=== PATIENT | female | born 1950 | race Caucasian/White ===

== ENCOUNTER → 2017-09-23 11:32 | Outpatient (CLI) | payer MEDICARE, MEDICAID, SELFPAY ==
[2017-09-23 12:25] LABS: Hematocrit 40.3 % (37-47); Hemoglobin 12.4 g/dl (12.0-15.0); Mean Corp Hgb Conc 30.8 g/gl (32-36); Mean Corpuscular Hgb 29.2 pg (27.0-32.0); Mean Platelet Vol. 9.4 fl (6.2-12.0); Platelet Count 332 K/mm3 (150-450); RBC Distribution Width CV 14.3 % (11.6-14.6); Red Blood Count 4.24 M/mm3 (4.2-5.4)
[2017-09-23 12:32] LABS: Scan Indicated on CBC? Y/N NO
[2017-09-23 13:01] LABS: Albumin, Serum 3.7 g/dL (3.2-5.0); BUN 10 mg/dL (7-18); BUN/Creat Ratio 12.1 RATIO (10-20); Calcium,Total 8.9 mg/dL (8.5-10.1); Chloride 105 mmol/L (98-107); Creatinine, Serum 0.82 mg/dL (0.55-1.02); EST Glomerular Filtration Rate 74 mL/min (>60); Est Glom Filt Rate - Afr Amer 90 mL/min (>60); Glucose 88 mg/dL (74-106); Phosphorus 3.7 mg/dL (2.5-4.9); Potassium 3.6 mmol/L (3.5-5.1); Sodium Level 141 mmol/L (136-145)
== END ==
PROVIDERS: Family Provider Family Medicine Geriatric Medicine; PCP Family Medicine Geriatric Medicine; Visit Provider Internal Medicine Nephrology
DX: N18.3 Chronic kidney disease, stage 3 (moderate) (principal); D64.9 Anemia, unspecified
CPT/HCPCS: 36415; 80069; 85027

== ENCOUNTER → 2017-09-30 14:44 | Outpatient (CLI) | payer MEDICARE, MEDICAID, SELFPAY ==
[2017-09-30 17:38] LABS: Absolute Lymphocyte Count 1.87 X10^3/ul (0.83-4.51); Absolute Neutrophil Count 7.3 X10^3/uL (2.0-7.7); Basophil# 0.03 X10^3/uL; Basophil% 0.3 % (0-1); Eosinophil# 0.09 X10^3/uL; Eosinophils% 0.9 % (0-5); Hematocrit 38.9 % (37-47); Hemoglobin 12.3 g/dl (12.0-15.0); Lymphocyte # 1.87 X10^3/ul (4.0); Lymphocyte % 19.2 % (19-41); Mean Corp Hgb Conc 31.6 g/gl (32-36); Mean Corpuscular Hgb 30.2 pg (27.0-32.0); Mean Corpuscular Volume 95.6 fL (81-99); Mean Platelet Vol. 9.7 fl (6.2-12.0); Monocyte# 0.48 X10^3/uL; Monocyte% 4.9 % (0-10); Neutrophil # 7.26 X10^3/uL (2.7-7.7); Neutrophil % 74.5 % (47-70); Platelet Count 338 K/mm3 (150-450); RBC Distribution Width SD 46.6 fl (35.1-43.9); Red Blood Count 4.07 M/mm3 (4.2-5.4); White Blood Count 9.8 K/mm3 (4.4-11.0)
[2017-09-30 17:54] LABS: POSITIVE COUNT NO; POSITIVE DIFFERENTIAL NO; POSITIVE MORPHOLOGY NO
[2017-09-30 18:10] LABS: ALB/GLOB Ratio 1.1 RATIO (0.9-2.4); AST(SGOT) 17 U/L (15-37); Alanine Aminotransfer ALT/SGPT 27 U/L (13-56); Albumin, Serum 3.4 g/dL (3.2-5.0); Alkaline Phosphatase 73 U/L (45-117); Anion Gap 7 (5-15); BUN 13 mg/dL (7-18); BUN/Creat Ratio 15.1 RATIO (10-20); Calcium,Total 8.5 mg/dL (8.5-10.1); Chloride 103 mmol/L (98-107); Creatinine, Serum 0.86 mg/dL (0.55-1.02); EST Glomerular Filtration Rate 70 mL/min (>60); Est Glom Filt Rate - Afr Amer 85 mL/min (>60); Globulin 3.2 g/dL (2.2-4.2); Glucose 116 mg/dL (74-106); Potassium 3.8 mmol/L (3.5-5.1); Protein, Total 6.6 g/dL (6.4-8.2); Sodium Level 140 mmol/L (136-145); Thyroid Stim Hormone (TSH) 0.29 uIU/mL (0.358-3.74)
[2017-10-01 09:12] LABS: Vitamin D,25 Hydroxy 24.2 ng/mL (19.95-100.01)
== END ==
PROVIDERS: Family Provider Family Medicine Geriatric Medicine; PCP Family Medicine Geriatric Medicine; Visit Provider Family Medicine Geriatric Medicine
DX: R53.83 Other fatigue (principal); E55.9 Vitamin D deficiency, unspecified
CPT/HCPCS: 36415; 80053; 82306; 84443; 85025

== ENCOUNTER → 2017-10-01 15:04 | Outpatient (CLI) | payer MEDICARE, MEDICAID, SELFPAY ==
--- NOTE | 2017-10-01 15:07 | RAD_ITS ---
STUDY: X-RAY - ABDOMEN/PELVIS REASON FOR EXAM: Female, 66 years old. Diarrhea TECHNIQUE: Single AP view of the abdomen / pelvis. COMPARISON: None. FINDINGS: Normal visualized lung bases. There are coronary arterial calcifications. There is an unremarkable bowel gas pattern. There is no demonstrated free abdominal air. There are multiple metallic clips in the right upper quadrant. This is consistent for a cholecystectomy. The visualized liver, spleen and kidneys are grossly normal in size and morphology. Normal soft tissue structures. There are diffuse degenerative changes of the visualized lumbar spine. RAD/Abdomen Single View IMPRESSION: Normal x-ray examination of the abdomen and pelvis. Electronically Signed: Behzad Gonsales MD at 18:09 EST , Service support ,
== END ==
PROVIDERS: Family Provider Family Medicine Geriatric Medicine; PCP Family Medicine Geriatric Medicine; Visit Provider Family Medicine Geriatric Medicine
DX: R19.7 Diarrhea, unspecified (principal)
CPT/HCPCS: 74018

== ENCOUNTER → 2017-10-02 08:47 | Outpatient (CLI) | payer MEDICARE, MEDICAID, SELFPAY | PROVIDERS: Family Provider Family Medicine Geriatric Medicine; PCP Family Medicine Geriatric Medicine; Visit Provider Family Medicine Geriatric Medicine | DX: R19.7 Diarrhea, unspecified (principal) | CPT/HCPCS: 82274; 83630; 87177; 87209; 87493; 87506 ==

== ENCOUNTER → 2017-11-20 09:48 | Outpatient (CLI) | payer MEDICARE, MEDICAID, SELFPAY ==
--- NOTE | 2017-11-20 09:55 | BD_ITS ---
STUDY: DUAL ENERGY X-RAY ABSORPTIOMETRY / DXA REASON FOR EXAM: Female, 66 years old. The patient is postmenopausal. Loss of height of 2.75 inches. TECHNIQUE: Bone Mineral Density (BMD) measurements of lumbar spine and bilateral hips were obtained. COMPARISON: None. FINDINGS: Lumbar Spine (L1-L4): g/cm2 (0.875) / T-score (-2.4) / Z-score (-0.8) Findings are suggestive of osteopenia with a moderate fracture risk. Left Femur Total: g/cm2 (0.912) / T-score (-0.8) / Z-score (0.4) Left Femoral Neck: g/cm2 (0.835) / T-score (-1.5) / Z-score (0.0) Right Femur Total: g/cm2 (0.846) / T-score (-1.3) / Z-score (-0.1) Right Femoral Neck: g/cm2 (0.802) / T-score (-1.7) / Z-score (-0.2) BD/Dexa Bone Density Study IMPRESSION: The patient is considered osteopenic as outlined below according to World [place] Organization (WHO) criteria with a moderate fracture risk. Reference Information: The T-score is the number of standard deviations above or below the standard which is normal for young adults at their peak bone mineral density. The World Health Organization (WHO) interprets the T-scores as follows: Above -1 Normal bone density Between -1 and -2.5 Osteopenia Equal to / or below -2.5 Osteoporosis As a practical clinical guideline, osteopenia may be graded as follows: Mild -1 through -1.5 Moderate -1.6 through -2.0 Severe -2.1 through -2.4 The Z-score is the number of standard deviations above or below age-matched controls. A Z-score of less than -1.5 would be considered abnormal. References: 1. NIH Osteoporosis and Related Bone Diseases http://www.osteo.org 2. International Society for Clinical Densitometry http://www.iscd.org 3. National Osteoporosis Foundation http://www.nof.org Electronically Signed: Wesley Pham MD at 15:56 EDT Tel [phone], Service support ,
== END ==
PROVIDERS: Family Provider Family Medicine Geriatric Medicine; PCP Family Medicine Geriatric Medicine; Visit Provider Family Medicine Geriatric Medicine
DX: Z78.0 Asymptomatic menopausal state (principal)
CPT/HCPCS: 77080

== ENCOUNTER → 2017-12-15 11:04 | Outpatient (CLI) | payer MEDICARE, MEDICAID, SELFPAY ==
[2017-12-15 12:41] LABS: Free T3 2.2 pg/mL (2.18-3.98); T4 Free Direct 1.03 ng/dL (0.76-1.46); Thyroid Stim Hormone (TSH) 0.72 uIU/mL (0.358-3.74)
== END ==
PROVIDERS: Family Provider Family Medicine Geriatric Medicine; PCP Family Medicine Geriatric Medicine; Visit Provider Nurse Practitioner
DX: E05.90 Thyrotoxicosis, unspecified without thyrotoxic crisis or storm (principal)
CPT/HCPCS: 36415; 84439; 84443; 84481

== ENCOUNTER → 2017-12-19 10:52 | Outpatient (CLI) | payer MEDICARE, MEDICAID, SELFPAY ==
--- NOTE | 2017-12-19 10:54 | US_ITS ---
STUDY: THYROID ULTRASOUND REASON FOR EXAM: Female, 67 years old. Thyrotoxicosis. Evaluate for Graves' disease. TECHNIQUE: Ultrasound evaluation of the thyroid was performed with real-time and static rosa-scale imaging. COMPARISON: None. FINDINGS: RIGHT LOBE: The right lobe of the thyroid gland measures 4.2 x 1.2 x 1.2 cm. There is a homogeneous echotexture. There are no demonstrated solid, cystic or complex lesions. LEFT LOBE: The left lobe of the thyroid gland measures 4.2 x 1.4 x 1.0 cm. There is a homogeneous echotexture. There are no demonstrated solid, cystic or complex lesions. ISTHMUS: The isthmus measures 2 mm. The regional lymph nodes are normal. US/Thyroid IMPRESSION: Normal ultrasound examination of the thyroid. One might consider further evaluation with nuclear medicine thyroid uptake and scan. Electronically Signed: Perez Moreno MD at 16:04 EDT , Service support ,
== END ==
PROVIDERS: Family Provider Family Medicine Geriatric Medicine; PCP Family Medicine Geriatric Medicine; Visit Provider Nurse Practitioner
DX: E05.90 Thyrotoxicosis, unspecified without thyrotoxic crisis or storm (principal)
CPT/HCPCS: 76536

== ENCOUNTER → 2018-01-02 10:50 | Outpatient (CLI) | payer MEDICARE, MEDICAID, SELFPAY ==
[2018-01-02 12:25] LABS: Absolute Lymphocyte Count 1.39 X10^3/ul (0.83-4.51); Absolute Neutrophil Count 7.3 X10^3/uL (2.0-7.7); Basophil# 0.05 X10^3/uL; Basophil% 0.5 % (0-1); Eosinophil# 0.11 X10^3/uL; Eosinophils% 1.2 % (0-5); Hematocrit 39.6 % (37-47); Hemoglobin 12.3 g/dl (12.0-15.0); Lymphocyte # 1.39 X10^3/ul (4.0); Lymphocyte % 14.7 % (19-41); Mean Corp Hgb Conc 31.1 g/gl (32-36); Mean Corpuscular Hgb 29.9 pg (27.0-32.0); Mean Corpuscular Volume 96.4 fL (81-99); Mean Platelet Vol. 9.2 fl (6.2-12.0); Monocyte# 0.59 X10^3/uL; Monocyte% 6.3 % (0-10); Neutrophil # 7.28 X10^3/uL (2.7-7.7); Neutrophil % 77.1 % (47-70); Platelet Count 372 K/mm3 (150-450); RBC Distribution Width CV 13.8 % (11.6-14.6); RBC Distribution Width SD 46.8 fl (35.1-43.9); Red Blood Count 4.11 M/mm3 (4.2-5.4); White Blood Count 9.4 K/mm3 (4.4-11.0)
[2018-01-02 12:31] LABS: POSITIVE COUNT NO; POSITIVE DIFFERENTIAL NO; POSITIVE MORPHOLOGY NO
[2018-01-02 12:42] LABS: Vitamin D,25 Hydroxy 36.9 ng/mL (29.95-100.01)
[2018-01-02 13:23] LABS: ALB/GLOB Ratio 1.1 RATIO (0.9-2.4); AST(SGOT) 15 U/L (15-37); Alanine Aminotransfer ALT/SGPT 21 U/L (13-56); Albumin, Serum 3.8 g/dL (3.2-5.0); Alkaline Phosphatase 84 U/L (45-117); Anion Gap 5 (5-15); BUN 12 mg/dL (7-18); BUN/Creat Ratio 13.1 RATIO (10-20); Calcium,Total 8.7 mg/dL (8.5-10.1); Chloride 106 mmol/L (98-107); Creatinine, Serum 0.92 mg/dL (0.55-1.02); EST Glomerular Filtration Rate 65 mL/min (>60); Est Glom Filt Rate - Afr Amer 79 mL/min (>60); Globulin 3.4 g/dL (2.2-4.2); Glucose 87 mg/dL (74-106); Potassium 3.5 mmol/L (3.5-5.1); Protein, Total 7.2 g/dL (6.4-8.2); Sodium Level 139 mmol/L (136-145)
== END ==
PROVIDERS: Family Provider Family Medicine Geriatric Medicine; PCP Family Medicine Geriatric Medicine; Visit Provider Family Medicine Geriatric Medicine
DX: R53.83 Other fatigue (principal); E55.9 Vitamin D deficiency, unspecified
CPT/HCPCS: 36415; 80053; 82306; 84443; 85025

== ENCOUNTER → 2018-02-04 16:53 | Outpatient (CLI) | payer MEDICARE, MEDICAID, SELFPAY ==
--- NOTE | 2018-02-04 16:57 | RAD_ITS ---
STUDY: X-RAY CHEST REASON FOR EXAM: Female, 67 years old. Bronchitis symptoms x3-4 days TECHNIQUE: PA and lateral views of the chest. COMPARISON: None. FINDINGS: The lungs are clear and expanded. There is no demonstrated pleural abnormality. Normal size heart. Normal mediastinum and rolf. Normal visualized pulmonary arteries. There are calcified plaques of the aortic arch. Normal visualized thoracic spine. Normal visualized ribs, clavicles, and shoulders. There is no demonstrated abnormality of the visualized soft tissue structures of the upper abdomen. RAD/Chest PA and Lateral IMPRESSION: Calcified plaques of the aortic arch. No acute cardiopulmonary disease process is seen. Electronically Signed: Javier Suazo MD at 17:23 EDT , Service support ,
== END ==
PROVIDERS: Family Provider Family Medicine Geriatric Medicine; PCP Family Medicine Geriatric Medicine; Visit Provider Family Medicine Geriatric Medicine
DX: J40 Bronchitis, not specified as acute or chronic (principal); R68.83 Chills (without fever)
CPT/HCPCS: 71046; 87633

== ENCOUNTER → 2018-03-24 10:25 | Outpatient (CLI) | payer MEDICARE, MEDICAID, SELFPAY ==
[2018-03-24 11:59] LABS: Albumin, Serum 3.6 g/dL (3.2-5.0); BUN 16 mg/dL (7-18); BUN/Creat Ratio 18.3 RATIO (10-20); Chloride 105 mmol/L (98-107); Creatinine, Serum 0.87 mg/dL (0.55-1.02); EST Glomerular Filtration Rate 69 mL/min (>60); Est Glom Filt Rate - Afr Amer 84 mL/min (>60); Glucose 92 mg/dL (74-106); Phosphorus 2.8 mg/dL (2.5-4.9); Potassium 3.7 mmol/L (3.5-5.1); Sodium Level 140 mmol/L (136-145)
== END ==
PROVIDERS: Family Provider Family Medicine Geriatric Medicine; PCP Family Medicine Geriatric Medicine; Visit Provider Internal Medicine Nephrology
DX: N18.3 Chronic kidney disease, stage 3 (moderate) (principal)
CPT/HCPCS: 36415; 80069

== ENCOUNTER → 2018-03-25 09:49 | Outpatient (CLI) | payer MEDICARE, MEDICAID, SELFPAY ==
--- NOTE | 2018-03-25 09:51 | US_ITS ---
STUDY: RENAL ULTRASOUND - COMPLETE REASON FOR EXAM: Female, 67 years old. Angiomyolipoma of the left kidney TECHNIQUE: Ultrasound evaluation of the kidneys was performed with real-time and static aguirre-scale imaging. COMPARISON: Ultrasound from 08/15/2017, CT abdomen and pelvis of 12/16/2012 FINDINGS: RIGHT KIDNEY: Normal location of the right kidney, which is normal in size. The right kidney measures 10.9 x 5.2 x 4.8 cm. There is diffuse thinning of the renal cortex. The renal cortex measures 1.1 cm. There is no right renal mass or cyst. There are no right renal calculi. There is no right hydronephrosis. DISTAL RIGHT URETER: There is non-visualization of the distal right ureter. There is no demonstrated right ureterovesical junction calculus. There is a visualized right ureteral jet. LEFT KIDNEY: Normal location of the left kidney, which is normal in size. The left kidney measures 11.8 x 5.1 x 6.2 cm. There is diffuse thinning of the renal cortex. The renal cortex measures 1.1 cm. There is a 1.4 x 1.4 cm heterogeneous, predominantly hypoechoic mass of the left lateral mid kidney, correlating to lesion evident on prior CT of 2012. There is central increased echogenicity that could represent fatty tissue. There are no left renal calculi. There is no left hydronephrosis. DISTAL LEFT URETER: There is non-visualization of the distal left ureter. There is no demonstrated left ureterovesical junction calculus. There is a visualized left ureteral jet. BLADDER: The distended urinary bladder has a volume of 331 ml. There is a normal wall thickness of the distended urinary bladder. There is no demonstrated mass within the urinary bladder. There are no demonstrated bladder calculi. US/Kidney and Bladder IMPRESSION: 1. Grossly stable mixed echogenicity lesion of the left lateral mid kidney compatible with angiomyolipoma given probable central echogenic fat. 2. Bilateral renal cortical thinning suggesting chronic medical renal disease. Electronically Signed: Rafa Todd MD at 17:32 EDT , Service support ,
== END ==
PROVIDERS: Family Provider Family Medicine Geriatric Medicine; PCP Family Medicine Geriatric Medicine; Visit Provider Internal Medicine Nephrology
DX: D17.71 Benign lipomatous neoplasm of kidney (principal)
CPT/HCPCS: 76770

== ENCOUNTER → 2018-04-10 10:38 | Outpatient (CLI) | payer MEDICARE, MEDICAID, SELFPAY ==
[2018-04-10 12:56] LABS: Absolute Neutrophil Count 5.9 X10^3/uL (2.0-7.7); Basophil# 0.04 X10^3/uL; Basophil% 0.5 % (0-1); Eosinophil# 0.13 X10^3/uL; Eosinophils% 1.5 % (0-5); Hematocrit 40.9 % (37-47); Hemoglobin 12.7 g/dl (12.0-15.0); Mean Corp Hgb Conc 31.1 g/gl (32-36); Mean Corpuscular Hgb 29.9 pg (27.0-32.0); Mean Corpuscular Volume 96.2 fL (81-99); Mean Platelet Vol. 9.1 fl (6.2-12.0); Monocyte# 0.69 X10^3/uL; Monocyte% 8.1 % (0-10); Neutrophil # 5.94 X10^3/uL (2.7-7.7); Neutrophil % 69.8 % (47-70); Platelet Count 323 K/mm3 (150-450); RBC Distribution Width CV 14.3 % (11.6-14.6); Red Blood Count 4.25 M/mm3 (4.2-5.4); White Blood Count 8.5 K/mm3 (4.4-11.0)
[2018-04-10 12:59] LABS: POSITIVE COUNT NO; POSITIVE DIFFERENTIAL NO; POSITIVE MORPHOLOGY NO
[2018-04-10 13:18] LABS: Vitamin D,25 Hydroxy 26.2 ng/mL (29.95-100.01)
[2018-04-10 13:19] LABS: ALB/GLOB Ratio 1.2 RATIO (0.9-2.4); AST(SGOT) 19 U/L (15-37); Alanine Aminotransfer ALT/SGPT 28 U/L (13-56); Albumin, Serum 3.6 g/dL (3.2-5.0); Alkaline Phosphatase 68 U/L (45-117); Anion Gap 8 (5-15); BUN 13 mg/dL (7-18); BUN/Creat Ratio 14.3 RATIO (10-20); Chloride 106 mmol/L (98-107); Creatinine, Serum 0.91 mg/dL (0.55-1.02); EST Glomerular Filtration Rate 66 mL/min (>60); Est Glom Filt Rate - Afr Amer 80 mL/min (>60); Globulin 3.1 g/dL (2.2-4.2); Glucose 91 mg/dL (74-106); Potassium 3.7 mmol/L (3.5-5.1); Protein, Total 6.7 g/dL (6.4-8.2); Sodium Level 142 mmol/L (136-145); Thyroid Stim Hormone (TSH) 0.96 uIU/mL (0.358-3.74)
== END ==
PROVIDERS: Family Provider Family Medicine Geriatric Medicine; PCP Family Medicine Geriatric Medicine; Visit Provider Family Medicine Geriatric Medicine
DX: R53.83 Other fatigue (principal); E55.9 Vitamin D deficiency, unspecified
CPT/HCPCS: 36415; 80053; 82306; 84443; 85025

== ENCOUNTER 2018-05-12 22:16 | Emergency (ER) | payer MEDICARE, SELFPAY ==
[2018-05-12 22:17] VITALS: BP 153/90; PULSE 92; RESP 16; TEMP 36.4; O2SAT 97; BMI 35.1
--- NOTE | 2018-05-12 22:35 | EKG12_ITS ---
Test Reason : SUICIDAL Blood Pressure : / mmHG Vent. Rate : 079 BPM Atrial Rate : 079 BPM P-R Int : 144 ms QRS Dur : 088 ms QT Int : 362 ms P-R-T Axes : 046 021 031 degrees QTc Int : 415 ms Poor data quality, interpretation may be adversely affected Normal sinus rhythm Normal ECG Confirmed by NICA LUCAS, SIM ([id number]), assignment desk editor DAISHA RING ([id number] on 05/15/2018 2:21:57 PM Referred By: GIORGI Confirmed By:SIM YOUSIF MD
--- NOTE | 2018-05-12 22:51 | ED.RN ---
PT HAS CONTINUOUS SITTER AT BEDSIDE.
[2018-05-12 23:00] LABS: Bacteria 0 SEEN /hpf (None Seen); Mucous, Urine 0 SEEN /hpf (<or=2+); Red Blood Cells-Urine 0 SEEN /hpf (0-5); Squamous Epithelial Cells - UA 0 SEEN /hpf (5-10); White Blood Cells 0 SEEN /hpf (0-5)
[2018-05-12 23:05] LABS: Absolute Lymphocyte Count 2.64 X10^3/ul (0.83-4.51); Absolute Neutrophil Count 5.1 X10^3/uL (2.0-7.7); Basophil# 0.02 X10^3/uL; Basophil% 0.2 % (0-1); Eosinophil# 0.16 X10^3/uL; Eosinophils% 1.9 % (0-5); Hematocrit 39.1 % (37-47); Hemoglobin 12.4 g/dl (12.0-15.0); Lymphocyte # 2.64 X10^3/ul (4.0); Lymphocyte % 30.9 % (19-41); Mean Corp Hgb Conc 31.7 g/gl (32-36); Mean Corpuscular Hgb 30.2 pg (27.0-32.0); Mean Corpuscular Volume 95.4 fL (81-99); Mean Platelet Vol. 8.6 fl (6.2-12.0); Monocyte# 0.56 X10^3/uL; Monocyte% 6.6 % (0-10); Neutrophil # 5.14 X10^3/uL (2.7-7.7); Neutrophil % 60.2 % (47-70); Platelet Count 324 K/mm3 (150-450); RBC Distribution Width CV 14.4 % (11.6-14.6); RBC Distribution Width SD 49.7 fl (35.1-43.9); White Blood Count 8.5 K/mm3 (4.4-11.0)
[2018-05-12 23:07] LABS: POSITIVE COUNT NO; POSITIVE DIFFERENTIAL NO; POSITIVE MORPHOLOGY NO
[2018-05-12 23:35] LABS: Amphetamine Urine VISTA NEGATIVE (<1000 ng/mL); Barbiturate Urine VISTA POSITIVE (< 200 ng/mL); Benzodiazepine Urine VISTA NEGATIVE (< 200 ng/mL); Cocaine Urine VISTA NEGATIVE (< 300 ng/mL); Ecstacy Urine VISTA NEGATIVE (< 500 ng/mL); Methadone Urine VISTA NEGATIVE (< 300 ng/mL); PCP Urine VISTA NEGATIVE (< 25 ng/mL); THC Urine VISTA NEGATIVE (< 50 ng/mL); Vista UDS pH Range 6
[2018-05-12 23:35] LABS: Anion Gap 6 (5-15); BUN 15 mg/dL (7-18); Chloride 106 mmol/L (98-107); EST Glomerular Filtration Rate 59 mL/min (>60); Est Glom Filt Rate - Afr Amer 72 mL/min (>60); Glucose 146 mg/dL (74-106); Potassium 3.4 mmol/L (3.5-5.1); Sodium Level 141 mmol/L (136-145); Thyroid Stim Hormone (TSH) 2.65 uIU/mL (0.358-3.74)
[2018-05-12 23:41] LABS: Color, Urine Yellow (Yellow); Glucose, Dipstick Normal (Normal); Ketone-Dipstick Negative (Negative); Leukocyte Esterase-Dipstick Negative /ul (Negative); Nitrite-Dipstick Negative (Negative); Occult Blood-Urine Negative /ul (Negative); Protein-Dipstick Negative (Negative); Urine Bilirubin Dipstick Negative (Negative); Urine Clarity Clear (Clear); Urine Urobilinogen Normal (Normal)
[2018-05-13] VITALS (7 sets, daily range): BP systolic 145–153; BP diastolic 57–66; PULSE 61–68; RESP 16–18; TEMP 36.7; O2SAT 96
--- NOTE | 2018-05-13 03:59 | ED.VISSUMM ---
- ER Visit Summary Date of Service: 05/13/18 Chief Complaint: Depression and suicidal ideation History of Present Illness: The patient is a 67 F who presents with depression and suicidal ideation. She does have a history of long-standing depression and prior psychiatric admission for suicidal thoughts. She states that than last week she has suddenly felt much more suicidal. She does not know why. She cannot identify any specific exacerbating factors. She is considered overdosing on medication or jumping off of she denies recent medical illness such as fever chest pain shortness of breath vomiting diarrhea rashes headaches. Physical Examination: Afebrile vitals unremarkable Moist mucous membranes Heart regular rate and rhythm Lungs are clear Abdomen soft Alert Patient appears depressed and does endorse suicidal thoughts with plan Test Results: EKG shows sinus rhythm at a rate of 79. CBC BMP unremarkable. Urine drug screen positive for barbiturates. Alcohol normal. Urinalysis normal. Emergency Department Course and Treatment: Patient's medical clearance is unremarkable. Given the patient is suicidal with plan I do feel she will need transferred for psychiatric hospitalization. Crisis is evaluating the patient. Final disposition will be per their evaluation. Treatment Plan: [] Disposition: Transfer pending crisis evaluation Impression: Suicidal ideation This note was generated with [employer]ov[employer] dictation software. It may contain incorrect words, spelling, and punctuation that were not noted in review of the chart prior to signing ED Disposition - Plan for ED Patient: Chief Complaint: Suicidal Referrals: Tanvir Shea Chi, MD [Primary Care Provider] -
--- NOTE | 2018-05-13 04:15 | RAD_ITS ---
STUDY: X-RAY CHEST REASON FOR EXAM: Female, 67 years old. Medical clearance TECHNIQUE: 2 views COMPARISON: February 04, 2018 FINDINGS: The lungs are clear and expanded. There is no demonstrated pleural abnormality. Normal size heart. Normal mediastinum and rolf. Normal visualized pulmonary arteries. Normal visualized aortic arch and descending thoracic aorta. Normal visualized thoracic spine. Normal visualized ribs, clavicles, and shoulders. There is no demonstrated abnormality of the visualized soft tissue structures of the upper abdomen. RAD/Chest PA and Lateral IMPRESSION: Normal x-ray examination of the chest. No acute findings in the lungs Electronically Signed: Gavino Morrison MD at 4:29 EDT Tel , Service support ,
--- NOTE | 2018-05-13 07:29 | NURSING ---
[facility] FOR TRANSPORT. ETA IS [phone]
[2018-05-13] MEDS: Magnesium Oxide 400 MG Tablet PO (08:14)
[2018-05-13] MEDS: lamoTRIgine 100 MG Tablet 200 MG PO (08:14)
[2018-05-13] MEDS: predniSONE 5 MG Tablet PO (08:14)
[2018-05-13] MEDS: Levothyroxine 50 MCG Tablet PO (08:14)
[2018-05-13] MEDS: VILAZODONE HYDROCHLORIDE 40 MG TABLET PO (08:14)
[2018-05-13] MEDS: Cholestyramine/Sucrose 4 GM/PACKET PO ×2 (08:14→10:00)
[2018-05-13] MEDS: Topiramate 100 MG Tablet PO (08:14)
[2018-05-13] MEDS: ARIPiprazole 10 MG Tablet 30 MG PO (08:15)
== END 2018-05-13 10:04 ==
PROVIDERS: Emergency Provider Emergency Medicine; Family Provider Family Medicine Geriatric Medicine; PCP Family Medicine Geriatric Medicine
DX: R45.851 Suicidal ideations (principal); F32.9 Major depressive disorder, single episode, unspecified; J44.9 Chronic obstructive pulmonary disease, unspecified; F41.9 Anxiety disorder, unspecified; M35.3 Polymyalgia rheumatica; Z72.0 Tobacco use
CPT/HCPCS: 71046; 80048; 80307; 80320; 81001; 84443; 85025; 93005; 99285; G0480

== ENCOUNTER → 2018-06-09 16:19 | Outpatient (CLI) | payer MEDICARE, SELFPAY | PROVIDERS: Family Provider Family Medicine Geriatric Medicine; PCP Family Medicine Geriatric Medicine; Visit Provider Family Medicine Geriatric Medicine | DX: N39.0 Urinary tract infection, site not specified (principal) | CPT/HCPCS: 36415; 87086; 87088 ==

== ENCOUNTER → 2018-06-18 09:50 | Outpatient (CLI) | payer MEDICARE, SELFPAY | PROVIDERS: Family Provider Family Medicine Geriatric Medicine; PCP Family Medicine Geriatric Medicine; Referring Provider Otolaryngology Otolaryngology/Facial Plastic Surgery; Visit Provider Otolaryngology Otolaryngology/Facial Plastic Surgery | DX: B37.9 Candidiasis, unspecified (principal) | CPT/HCPCS: 87070 ==

== ENCOUNTER → 2018-07-20 09:43 | Outpatient (CLI) | payer MEDICARE, SELFPAY ==
[2018-07-20 12:30] LABS: Absolute Lymphocyte Count 1.65 X10^3/ul (0.83-4.51); Absolute Neutrophil Count 7.7 X10^3/uL (2.0-7.7); Basophil# 0.03 X10^3/uL; Basophil% 0.3 % (0-1); Eosinophil# 0.09 X10^3/uL; Eosinophils% 0.9 % (0-5); Hematocrit 41.1 % (37-47); Hemoglobin 12.6 g/dl (12.0-15.0); Lymphocyte # 1.65 X10^3/ul (4.0); Lymphocyte % 15.9 % (19-41); Mean Corp Hgb Conc 30.7 g/gl (32-36); Mean Corpuscular Hgb 29.1 pg (27.0-32.0); Mean Corpuscular Volume 94.9 fL (81-99); Mean Platelet Vol. 9.1 fl (6.2-12.0); Monocyte# 0.89 X10^3/uL; Monocyte% 8.6 % (0-10); Neutrophil # 7.69 X10^3/uL (2.7-7.7); Neutrophil % 74.1 % (47-70); Platelet Count 409 K/mm3 (150-450); RBC Distribution Width CV 13.3 % (11.6-14.6); RBC Distribution Width SD 46.4 fl (35.1-43.9); Red Blood Count 4.33 M/mm3 (4.2-5.4); White Blood Count 10.4 K/mm3 (4.4-11.0)
[2018-07-20 12:36] LABS: POSITIVE COUNT NO; POSITIVE DIFFERENTIAL NO; POSITIVE MORPHOLOGY NO
[2018-07-20 12:44] LABS: Vitamin D,25 Hydroxy 32.4 ng/mL (29.95-100.01)
[2018-07-20 12:54] LABS: AST(SGOT) 16 U/L (15-37); Alanine Aminotransfer ALT/SGPT 26 U/L (13-56); Albumin, Serum 3.7 g/dL (3.2-5.0); Alkaline Phosphatase 89 U/L (45-117); Anion Gap 8 (5-15); BUN 16 mg/dL (7-18); BUN/Creat Ratio 16.6 RATIO (10-20); Chloride 105 mmol/L (98-107); Creatinine, Serum 0.96 mg/dL (0.55-1.02); EST Glomerular Filtration Rate 62 mL/min (>60); Est Glom Filt Rate - Afr Amer 75 mL/min (>60); Globulin 3.6 g/dL (2.2-4.2); Glucose 118 mg/dL (74-106); Potassium 3.8 mmol/L (3.5-5.1); Protein, Total 7.3 g/dL (6.4-8.2); Sodium Level 141 mmol/L (136-145); Thyroid Stim Hormone (TSH) 1.11 uIU/mL (0.358-3.74)
--- OUTSIDE RECORDS SUMMARY | 2018-09-12 14:17 | XMS RPT_ITS ---
:1950 Author Organization OHIP Support Name Relationship Address Phone SEBLE HOLLAND Unavailable [address] + [place] [address] JAIME HOLLAND Unavailable [address] + [place] [address] R Unavailable Unavailable Unavailable SKYLERDONNA KEYESISSA Unavailable [address] + [place] [address] JAIME HOLLAND Unavailable [address] + [place] [address] R Unavailable Unavailable Unavailable SKYLER, SEBLE Unavailable [address] + [place] [address] JAIME HOLLAND Unavailable [address] + [place] [address] R Unavailable Unavailable Unavailable SKYLER, SEBLE Unavailable [address] + [place] [address] JAIME HOLLAND Unavailable [address] + [place] [address] R Unavailable Unavailable Unavailable SKYLER, SEBLE Unavailable [address] + [place] [address] SKYLERJAIME Unavailable [address] + [place] [address] R Unavailable Unavailable Unavailable SKYLER, SEBLE Unavailable [address] + [place] [address] LUIS HOLLANDEW Unavailable [address] + [place] [address] R Unavailable Unavailable Unavailable SKYLER, SEBLE Unavailable [address] + [place] [address] JAIME HOLLAND Unavailable [address] + [place] [address] R Unavailable Unavailable Unavailable SKYLER, SEBLE Unavailable [address] + [place] [address] JAIME HOLLAND Unavailable [address] + [place] [address] R Unavailable Unavailable Unavailable SKYLER, SEBLE Unavailable [address] + [place] [place] [address] JAIME HOLLAND Unavailable [address] + [place] [address] D Unavailable Unavailable Unavailable SKYLER, SEBLE Unavailable [address] + [facility] [place] [address] JAIME HOLLAND Unavailable [address] + [place] [address] R Unavailable Unavailable Unavailable SKYLER, SEBLE Unavailable [address] + [facility] [address] JAIME HOLLAND Unavailable [address] + [place] [address] R Unavailable Unavailable Unavailable SKYLER, SEBLE Unavailable [address] + [facility] [place] [address] JAIME HOLLAND Unavailable [address] + [place] [address] R Unavailable Unavailable Unavailable SKYLER, SEBLE Unavailable [address] + [facility] [place] [address] JAIME HOLLAND Unavailable [address] + [place] [address] D Unavailable Unavailable Unavailable SKYLER, SEBLE Unavailable [address] + [place] [address] JAIME HOLLAND Unavailable [address] + [place] [address] D Unavailable Unavailable Unavailable SKYLER, SEBLE Unavailable [address] + [facility] [place] [address] JAIME HOLLAND Unavailable [address] + [place] [address] D Unavailable Unavailable Unavailable SKYLER, SEBLE Unavailable [address] + [facility] [place] JAIME HOLLAND Unavailable [address] + [place] [address] D Unavailable Unavailable Unavailable SKYLER, SEBLE Unavailable [address] + [facility] [place] JAIME HOLLAND Unavailable [address] + [place] [address] D Unavailable Unavailable Unavailable SKYLER, SEBLE Unavailable [address] + [place] JAIME HOLLAND Unavailable [address] + [place] [address] D Unavailable Unavailable Unavailable SKYLER, SEBLE Unavailable [address] + [place] JAIME HOLLAND Unavailable [address] + [place] [address] D Unavailable Unavailable Unavailable SKYLER, SEBLE Unavailable [address] + [place] LUIS HOLLANDEW Unavailable [address] + [place] [address] D Unavailable Unavailable Unavailable SKYLER, SEBLE Unavailable [address] + [place] JAIME HOLLAND Unavailable [address] + [place] [address] D Unavailable Unavailable Unavailable SKYLER, SEBLE Unavailable [address] + [place] JAIME HOLLAND Unavailable [address] + [place] [address] D Unavailable Unavailable Unavailable SKYLER, SEBLE Unavailable [address] + [place] JAIME HOLLAND Unavailable [address] + [place] [address] D Unavailable Unavailable Unavailable SKYLER, SEBLE Unavailable . + [place] . JAIME HOLLAND Unavailable [address] + [place] [address] D Unavailable Unavailable Unavailable SKYLER, SEBLE Unavailable . + [place] . JAIME HOLLAND Unavailable [address] + [place] [address] D Unavailable Unavailable Unavailable Care Team Providers Name Role Phone Shabbir, Tanvir Chi Primary Care Unavailable Katie Peoples Attending Unavailable Katie Peoples Attending Unavailable Shabbir, Tanvir Chi Primary Care Unavailable Shabbir, Tanvir Chi Attending Unavailable Shabbir, Tanvir Chi Primary Care Unavailable Shabbir, Tanvir Chi Referring Unavailable Shabbir, Tanvir Chi Attending Unavailable Shabbir, Tanvir Chi Primary Care Unavailable Shabbir, Tanvir Chi Attending Unavailable Shabbir, Tanvir Chi Referring Unavailable Shabbir, Tanvir Chi Primary Care Unavailable Shabbir, Tanvir Chi Attending Unavailable Shabbir, Tanvir Chi Primary Care Unavailable Shelton, Katie Attending Unavailable Shabbir, Tanvir Chi Primary Care Unavailable Shelton, Katie Referring Unavailable Shabbir, Tanvir Chi Attending Unavailable Shabbir, Tanvir Chi Primary Care Unavailable Shabbir, Tanvir Chi Attending Unavailable Shabbir, Tanvir Chi Referring Unavailable Shabbir, Tanvir Chi Primary Care Unavailable Shabbir, Tanvir Chi Attending Unavailable Shabbir, Tanvir Chi Referring Unavailable Shabbir, Tanvir Chi Primary Care Unavailable Reyna Pemberton Attending Unavailable Shabbir, Tanvir Chi Referring Unavailable Shabbir, Tanvir Chi Attending Unavailable Shabbir, Tanvir Chi Referring Unavailable Shabbir, Tanvir Chi Primary Care Unavailable ShoLin alvarez CRAB FISHER-C Attending Unavailable Shabbir, Tanvir Chi Referring Unavailable Shabbir, Tanvir Chi Primary Care Unavailable ShoLin alvarez CRAB FISHER-C Attending Unavailable ShookLin CRAB FISHER-C Referring Unavailable Shabbir, Tanvir Chi Primary Care Unavailable ShoLin alvarez CRAB FISHER-C Attending Unavailable ShookLin CRAB FISHER-C Referring Unavailable Shabbir, Tanvir Chi Primary Care Unavailable Shabbir, Tanvir Chi Attending Unavailable Shabbir, Tanvir Chi Primary Care Unavailable Lin Hollis CRAB FISHER-C Attending Unavailable Shabbir, Tanvir Chi Referring Unavailable Shabbir, Tanvir Chi Attending Unavailable Shabbir, Tanvir Chi Referring Unavailable Shabbir, Tanvir Chi Primary Care Unavailable Shelton, Katie Attending Unavailable Shabbir, Tanvir Chi Primary Care Unavailable Shelton, Katie Referring Unavailable Shelton, Katie Attending Unavailable Shelton, Katie Referring Unavailable Shabbir, Tanvir Chi Primary Care Unavailable Shabbir, Tanvir Chi Attending Unavailable Shabbir, Tanvir Chi Primary Care Unavailable Shabbir, Tanvir Chi Primary Care Unavailable Jean Celis Attending Unavailable Shabbir, Tanvir Chi Attending Unavailable Shabbir, Tanvir Chi Primary Care Unavailable AriaJelani Attending Unavailable Aria, Jelani Referring Unavailable Shabbir, Tanvir Chi Primary Care Unavailable Shabbir, Tanvir Chi Attending Unavailable Shabbir, Tanvir Chi Primary Care Unavailable PROBLEMS PROBLEMS DATE TYPE CONDITION / CODE ATTENDING STATUS SOURCE 06/15/2018 Unknown N39.0 - Urinary Shabbir, Tanvir Chi Active [facility] tract infection, Community site not Hospital specified / Repository N39.0(ICD-10) 06/15/2018 Unknown F32.9 - Major LalitaJean young Active [facility] depressive Community disorder, single Hospital episode, Repository unspecified / F32.9(ICD-10) 04/07/2018 Unknown J40 - Bronchitis, Shabbir, Tanvir Chi Active [facility] not specified as Community acute or chronic Hospital / J40(ICD-10) Repository 04/07/2018 Unknown R53.83 - Other Shabbir, Tanvir Chi Active [facility] fatigue / Community R53.83(ICD-10) Hospital Repository 04/07/2018 Unknown E05.90 - Lin Hollis Active [facility] Thyrotoxicosis, CRAB FISHER-C Community unspecified Hospital without Repository thyrotoxic crisis or storm / E05.90(ICD-10) 12/15/2017 Unknown E78.5 - Lin Hollis Active [facility] Hyperlipidemia, CRAB FISHER-C Community unspecified / Hospital E78.5(ICD-10) Repository 10/02/2017 Unknown R19.7 - Diarrhea, Shabbir Tanvir Chi Active [facility] unspecified / Community R19.7(ICD-10) Hospital Repository 09/23/2017 Unknown N18.3 - Chronic Katie Peoples Active [facility] kidney disease, Community stage 3 Hospital (moderate) / Repository N18.3(ICD-10) 09/23/2017 Unknown D64.9 - Anemia, Katie Peoples Active [facility] unspecified / Community D64.9(ICD-10) Hospital Repository 09/08/2017 Unknown Z12.31 - Shabbir, Tanvir Chi Active [facility] Encounter for Community screening Hospital mammogram for Repository malignant neoplasm of breast / Z12.31(ICD-10) 08/21/2017 Unknown D50.9 - Iron Shabbir, Tnavir Chi Active [facility] deficiency Community anemia, Hospital unspecified / Repository D50.9(ICD-10) 08/21/2017 Unknown R25.9 - Shabbir, Tanvir Chi Active [facility] Unspecified Community abnormal Hospital involuntary Repository movements / R25.9(ICD-10) PROCEDURES PROCEDURES No Procedure Records FoundRESULTS RESULTS CBC W/DIFF, AUTOMATED Collected: 07/20/2018 Status: F Source: [facility] TYPE CODE TESTS RESULT OUT OF RANGE REFERENCE UNITS LAB L100.1000 4.4-11.0 K/mm3 Normal WBC 10.4 LAB L100.1200 4.2-5.4 M/mm3 Normal RBC 4.33 LAB L100.1300 12.0-15.0 g/dl Normal HGB 12.6 LAB L100.1400 37-47 % Normal HCT 41.1 LAB L100.1500 81-99 fL Normal MCV 94.9 LAB L100.1600 27.0-32.0 pg Normal MCH 29.1 LAB L100.1700 32-36 g/gl Low MCHC 30.7 LAB L100.1810 11.6-14.6 % Normal RDW CV 13.3 LAB L100.1820 35.1-43.9 fl High RDW SD 46.4 LAB L100.1900 150-450 K/mm3 Normal PLT 409 LAB L100.2000 6.2-12.0 fl Normal MPV 9.1 LAB L100.2100 47-70 % High NEUT% 74.1 LAB L100.2200 19-41 % Low LY% 15.9 LAB L100.2300 0-10 % Normal MONO% 8.6 LAB L100.2400 0-5 % Normal EO% 0.9 LAB L100.2500 0-1 % Normal BASO% 0.3 LAB L100.2550 0.0-0.9 % Normal IM GRAN % 0.200 Result Comment: IG% - Immature Granulocytes (promyelocytes, myelocytes and metamyelocytes) > 1% indicates that a LEFT SHIFT is Present. LAB L100.2620 2.0-7.7 X10 3/uL Normal Absolute Neut 7.7 LAB L100.2720 0.83-4.51 X10 3/ul Normal Absolute Lymph 1.65 Performed By: #### L100.0100 #### [facility] [address] [place], [address] VITAMIN D,25 HYDROXY Collected: 07/20/2018 Status: F Source: [place] 9:46 AM [facility] REPOSITORY TYPE CODE TESTS RESULT OUT OF RANGE REFERENCE UNITS LAB L506.1000 29.95-100.01 ng/mL Normal Vitamin D 32.4 25-OH Result Comment: Vitamin D 25(OH) Status Range Deficiency <20 ng/mL (50nmol/L) Insuffciency 20 - 30 ng/mL (50 - 75 nmol/L) Sufficiency 30 - 100 ng/mL (75 - 250 nmol/L) Toxicity >100 ng/mL (>250 nmol/L) Performed By: #### L506.1000 #### [facility] [address] [place], [address] COMPREHENSIVE METABOLIC Collected: 07/20/2018 Status: F Source: [place] 9:46 AM [facility] REPOSITORY TYPE CODE TESTS RESULT OUT OF RANGE REFERENCE UNITS LAB L501.0100 74-106 mg/dL High GLU 118 Result Comment: Fasting Glucose result from 100 to 125 mg/dL suggests IMPAIRED HOMEOSTASIS per A.D.A. criteria. Please note revised GLUCOSE reference range effective 2017. LAB L501.1000 7-18 mg/dL Normal BUN 16 LAB L501.1100 0.55-1.02 mg/dL Normal CREAT,SERUM 0.96 Result Comment: The validity of the calculated GFR AND GFRAA in patients over 70 years has not been determined. Clinical correlation is essential. LAB L501.1110 >60 mL/min Normal EST GFR 62 Result Comment: Non- GFR Calc LAB L501.1115 >60 mL/min Normal EST GFR - AA 75 Result Comment: GFR Calc LAB L501.1300 10-20 RATIO Normal BUN/CRE 16.6 LAB L501.1500 6.4-8.2 g/dL T Normal PROT 7.3 LAB L501.1800 3.2-5.0 g/dL Normal ALB 3.7 LAB L501.1950 2.2-4.2 g/dL Normal GLOB 3.6 LAB L501.2000 0.9-2.4 RATIO Normal A/G 1.0 LAB L501.2200 8.5-10.1 mg/dL CA Normal 9.0 LAB L501.4100 15-37 U/L Normal AST 16 LAB L501.4305 45-117 U/L Normal ALK P 89 LAB L501.4405 13-56 U/L Normal ALT 26 LAB L501.4600 0.20-1.00 mg/dL T Normal BILI 0.30 LAB L501.5300 136-145 mmol/L NA Normal 141 LAB L501.5600 3.5-5.1 mmol/L K Normal 3.8 LAB L501.5900 98-107 mmol/L CL Normal 105 LAB L501.6100 21.0-32.0 mmol/L Normal CO2 28.0 LAB L501.6200 5-15 Normal GAP 8 Performed By: #### L500.4050, L501.9520 #### [facility] [address] [place] [place], [address] THYROID STIM HORMONE Collected: 07/20/2018 Status: F Source: [place] ([facility]) 9:46 AM [facility] REPOSITORY TYPE CODE TESTS RESULT OUT OF RANGE REFERENCE UNITS LAB L501.9520 0.358-3.74 uIU/mL Normal TSH 1.11 Performed By: #### L500.4050, L501.9520 #### [facility] [place], [address] Observed: 06/18/2018 Status: F Source: [place] CULTURE, THROAT 9:50 AM [facility] REPOSITORY CHECK FOR YEAST ALSO Culture, Throat Mixed normal throat princess. No Haemophilus, Streptococcus pneumoniae, beta-hemolytic Streptococcus or Staphylococcus aureus isolated. NO yeast isolated. Performed By: #### M100.1000 #### [facility] [address] [place] [address]. [place], [address] Observed: 06/09/2018 Status: F Source: [place] CULTURE, URINE 4:20 PM [facility] REPOSITORY Urine Culture ORGANISM 1: Mixed Gram Positive Organisms Kelly Count 1000-10,000 MIX CULTURE Mixed contaminants. Submit a new specimen if indicated. Performed By: #### M100.0650 #### [facility] [address] [place] [address]. [place], [address] 12 LEAD ELECTROCARDIOGRAM Observed: 05/15/2018 Status: F Source: [place] 2:22 PM [facility] REPOSITORY [facility] Cardiovascular Services [address] [place] [id number] 12 Lead EKG 05/12/18 2246 MR#: [id number] Acct: [id number] Name: NERIS HOLLAND Rep #: [id number] : 1950 67 From: Ramy Yousif MD Attending Dr: Status: DEP ER Ordering Dr: Jean Celis MD Date: 05/12/18 Location: ED Sex: F C Admitted: Test Reason : SUICIDAL Blood Pressure : / mmHG Vent. Rate : 079 BPM Atrial Rate : 079 BPM P-R Int : 144 ms QRS Dur : 088 ms QT Int : 362 ms P-R-T Axes : 046 021 031 degrees QTc Int : 415 ms Poor data quality, interpretation may be adversely affected Normal sinus rhythm Normal ECG Confirmed by NICA LUCAS, RAMY ([id number]), photograph editor DAISHA RING ([id number]) on 05/15/2018 2:21:57 PM Referred By: LALITA Confirmed By:RAMY YOUSIF MD 05/15/18 142 Date Ramy Yousif MD CC: Jean Celis MD; Tanvir Shea MD Signed CBC WITH PLATELET NO Collected: 05/15/2018 Status: F Source: [facility] 6:22 AM [facility] REPOSITORY TYPE CODE TESTS RESULT OUT OF REFERENCE UNITS RANGE LAB WBCIR 4.8-10.8 K/uL WBC 8.1 LAB RBC 4.20-5.40 M/uL RBC 4.37 LAB HGB 12.0-16.0 g/dL Hemoglobin 13.5 LAB HCT 37.0-47.0 % Hematocrit 41.6 LAB MCV 82.0-100.0 fL MCV 95.2 LAB MCH 27.0-31.3 pg MCH 31.0 LAB MCHC 33.0-37.0 % Low MCHC 32.5 LAB RDW 11.5-14.5 % RDW 14.5 LAB PLT 130-400 K/uL Platelet Count 334 BASIC METABOLIC PANEL Collected: 05/15/2018 Status: F Source: [facility] 6:20 AM [facility] REPOSITORY TYPE CODE TESTS RESULT OUT OF REFERENCE UNITS RANGE LAB NA 132-144 mEq/L Sodium 142 LAB K 3.5-5.1 mEq/L Potassium 4.4 LAB CL 98-107 mEq/L Chloride 104 LAB CO2 22-29 mEq/L CO2 25 LAB AGAP 7-13 mEq/L Anion Gap 13 LAB GLU 74-109 mg/dL Glucose 93 LAB BUN 8-23 mg/dL BUN 15 LAB CREA 0.50-0.90 mg/dL High alert Creatinine 0.91 LAB GFR >60 GFR >60.0 Result Comment: >60 mL/min/1.73m2 EGFR, calc. for ages 18 and older using the MDRD formula (not corrected for weight), is valid for stable renal function. LAB GFRAA >60 eGFR >60.0 Result Comment: >60 mL/min/1.73m2 EGFR, calc. for ages 18 and older using the MDRD formula (not corrected for weight), is valid for stable renal function. LAB CA 8.6-10.2 mg/dL Calcium 9.1 LIPID PANEL Collected: 05/15/2018 Status: F Source: [facility] 6:20 AM [facility] REPOSITORY TYPE CODE TESTS RESULT OUT OF REFERENCE UNITS RANGE LAB CHOL 0-199 mg/dL Cholesterol High alert 211 Result Comment: ATP III Cholesterol Classification is Borderline High. LAB TRIG 0-200 mg/dL Triglycerides 156 Result Comment: ATP III Triglycerides Classification is Borderline High. LAB HDL 40-59 mg/dL High HDL alert Cholesterol 80 Result Comment: ATP III HDL Cholesterol Classification is high. Expected Values: Males: >55 = No Risk 35-55 = Moderate Risk <35 = High Risk Females: >65 = No Risk 45-65 = Moderate Risk <45 = High Risk NCEP Guidelines: Third Report December 2000 >59 = negative risk factor for CHD <40 = major risk factor for CHD LAB LDLC 0-129 mg/dL LDL Cholesterol (Calculated) 100 Result Comment: ATP III LDL Classification is Near Optimal. MAGNESIUM Collected: 05/15/2018 Status: F Source: [facility] 6:20 [facility] REPOSITORY TYPE CODE TESTS RESULT OUT OF REFERENCE UNITS RANGE LAB MG 1.7-2.3 mg/dL Magnesium 2.2 VITAMIN D Collected: 05/15/2018 Status: F Source: [facility] 6:20 AM [facility] REPOSITORY TYPE CODE TESTS RESULT OUT OF REFERENCE UNITS RANGE LAB VITD 30.0-100.0 ng/mL VITAMIN D 36.2 Result Comment: (30-100 ng/mL) Optimum Level This assay accurately quantifies the sum of vitamin D3, 25- Hydroxy and vitamin D2, 25-Hyroxy. CHEST PA AND LATERAL Observed: 05/13/2018 Status: F Source: [place] 4:15 AM [facility] REPOSITORY [facility] Imaging Services [address] [place] [address] Chest PA and Lateral MR#: [id number] Acct: [id number] Name: NERIS HOLLAND Tanya Rep #: [id number] : 1950 F 67 From: Gavino Morrison MD PCP: Tanvir Shea MD, Chi Status: REG ER Study: Chest PA and Lateral Date of Exam: 05/13/18 Exam# [id number] Ordering Dr: Jean Celis MD STUDY: X-RAY CHEST REASON FOR EXAM: Female, 67 years old. Medical clearance TECHNIQUE: 2 views COMPARISON: February 04, 2018 FINDINGS: The lungs are clear and expanded. There is no demonstrated pleural abnormality. Normal size heart. Normal mediastinum and rolf. Normal visualized pulmonary arteries. Normal visualized aortic arch and descending thoracic aorta. Normal visualized thoracic spine. Normal visualized ribs, clavicles, and shoulders. There is no demonstrated abnormality of the visualized soft tissue structures of the upper abdomen. RAD/Chest PA and Lateral IMPRESSION: Normal x-ray examination of the chest. No acute findings in the lungs Electronically Signed: Gavino Morrison MD at 4:29 EDT Tel , Service support , CC: Jean Celis MD; Tanvir Shea MD [employer] Supervisor: Signed EMERGENCY DEPARTMENT Observed: 05/13/2018 Status: F Source: [place] SUMMARY 4:01 AM [facility] REPOSITORY [facility] Medical Records Department [address] [place] [address] Emergency Department Summary 05/13/18 0359 MR#: [id number] Acct: [id number] Name: NERIS HOLLAND Rep #: [id number] : 1950 67 From: Jean Celis MD PCP: Tanvir Shea MD, Chi Status: REG ER - ER Visit Summary Date of Service: 05/13/18 Chief Complaint: Depression and suicidal ideation History of Present Illness: The patient is a 67 F who presents with depression and suicidal ideation. She does have a history of long-standing depression and prior psychiatric admission for suicidal thoughts. She states that than last week she has suddenly felt much more suicidal. She does not know why. She cannot identify any specific exacerbating factors. She is considered overdosing on medication or jumping off of she denies recent medical illness such as fever chest pain shortness of breath vomiting diarrhea rashes headaches. Physical Examination: Afebrile vitals unremarkable Moist mucous membranes Heart regular rate and rhythm Lungs are clear Abdomen soft Alert Patient appears depressed and does endorse suicidal thoughts with plan Test Results: EKG shows sinus rhythm at a rate of 79. CBC BMP unremarkable. Urine drug screen positive for barbiturates. Alcohol normal. Urinalysis normal. Emergency Department Course and Treatment: Patient's medical clearance is unremarkable. Given the patient is suicidal with plan I do feel she will need transferred for psychiatric hospitalization. Crisis is evaluating the patient. Final disposition will be per their evaluation. Treatment Plan: [] Disposition: Transfer pending crisis evaluation Impression: Suicidal ideation This note was generated with Lumus dictation software. It may contain incorrect words, spelling, and punctuation that were not noted in review of the chart prior to signing ED Disposition - Plan for ED Patient: Chief Complaint: Suicidal Referrals: Tanvir Shea Chi, MD [Primary Care Provider] - What to do if you have Problems For any increased pain, shortness of breath, bleeding, nausea or vomiting, chest pain, or any unexpected problems, contact your Primary Care Provider. Call [facility] ([phone]) or report to the closest Emergency Room. Call 911 if necessary. 05/13/18 0401 <Electronically signed by Jean Celis MD> Date Jean Celis MD Cosigner Signature (If Indicated): Date CC: Tanvir Shea MD URINE DRUG SCREEN Collected: 05/12/2018 Status: F Source: [place] (VISTA) 10:50 PM [facility] REPOSITORY TYPE CODE TESTS RESULT OUT OF RANGE REFERENCE UNITS LAB L505.0075 TO BE Normal CONFIRMED Result Comment: CONFIRMATORY TESTING FOR ALL POSITIVE URINE DRUG SCREEN RESULTS WILL ONLY BE SENT OUT UPON PHYSICIAN ORDER. VISTA Urine Drug Screen methods provide only preliminary analytical test results. A more specific alternate chemical method must be used in order to obtain a confirmed analytical result. Gas chromatography/mass spectrometery (GC/MS) is the preferred confirmatory method. Clinical consideration and professional judgement should be applied to any drug of abuse test result, particularly when preliminary positive results are used. URINE TCA TESTING MUST BE ORDERED SEPARATELY. USE TEST MNEMONIC: [facility] LAB L505.5005 VISTA UDS PH 6 Normal LAB L505.5015 <1000 ng/mL AMPHETAMINES Normal NEGATIVE LAB L505.5025 < 200 High ng/mL BARBITIURATES POSITIVE LAB L505.5035 < 200 ng/mL BENZODIAZIPINE Normal NEGATIVE LAB L505.5045 < 300 ng/mL COCAINE Normal NEGATIVE LAB L505.5055 < 500 ng/mL ECSTACY Normal NEGATIVE LAB L505.5065 < 300 ng/mL METHADONE Normal NEGATIVE LAB L505.5075 < 300 ng/mL OPIATES Normal NEGATIVE LAB L505.5085 < 25 ng/mL PCP Normal NEGATIVE LAB L505.5095 < 50 ng/mL THC Normal NEGATIVE Performed By: #### L505.5000 #### [facility] [address] [place], [address] URINALYSIS, COMPLETE Collected: 05/12/2018 Status: F Source: [place] 10:50 PM [facility] REPOSITORY Order Comment: How was Urine Obtained? CLEAN CATCH TYPE CODE TESTS RESULT OUT OF RANGE REFERENCE UNITS LAB L400.3000 Yellow COLOR Normal Yellow LAB L400.3050 Clear Normal CLARITY Clear LAB L400.3200 Normal mg/dl Normal GLUCOSE, UR Normal LAB L400.3300 Negative mg/dL Normal BILIRUBIN URINE Negative LAB L400.3400 Negative mg/dl Normal KETONE UR Negative LAB L400.3465 1.002-1.030 Normal SP.GR. DIPSTX 1.010 LAB L400.3550 5.0 - 8.0 pH UR Normal 6.0 LAB L400.3600 Negative mg/dl PROT Normal DIPSTX Negative LAB L400.3700 Normal mg/dl Normal UROBILI Normal LAB L400.3750 Negative Normal NITRITE UR Negative LAB L400.3780 Negative /ul Normal OCCULT BLOOD-UR Negative LAB L400.3800 Negative /ul LEUK Normal ESTERASE Negative LAB L400.4050 0-5 /hpf WBC 0 Normal SEEN LAB L400.4100 0-5 /hpf 0 Normal RBC-UA SEEN LAB L400.4150 5-10 /hpf SQUAM 0 Normal EPI SEEN LAB L400.4300 None Seen /hpf 0 Normal BACTERIA SEEN LAB L400.4350 <or=2+ /hpf 0 Normal MUCUS, URINE SEEN Performed By: #### L400.0001 #### [facility] [address] [place], [address] CBC W/DIFF, AUTOMATED Collected: 05/12/2018 Status: F Source: [place] 10:45 PM [facility] REPOSITORY TYPE CODE TESTS RESULT OUT OF RANGE REFERENCE UNITS LAB L100.1000 4.4-11.0 K/mm3 Normal WBC 8.5 LAB L100.1200 4.2-5.4 M/mm3 Low RBC 4.10 LAB L100.1300 12.0-15.0 g/dl Normal HGB 12.4 LAB L100.1400 37-47 % Normal HCT 39.1 LAB L100.1500 81-99 fL Normal MCV 95.4 LAB L100.1600 27.0-32.0 pg Normal MCH 30.2 LAB L100.1700 32-36 g/gl Low MCHC 31.7 LAB L100.1810 11.6-14.6 % Normal RDW CV 14.4 LAB L100.1820 35.1-43.9 fl High RDW SD 49.7 LAB L100.1900 150-450 K/mm3 Normal PLT 324 LAB L100.2000 6.2-12.0 fl Normal MPV 8.6 LAB L100.2100 47-70 % Normal NEUT% 60.2 LAB L100.2200 19-41 % Normal LY% 30.9 LAB L100.2300 0-10 % Normal MONO% 6.6 LAB L100.2400 0-5 % Normal EO% 1.9 LAB L100.2500 0-1 % Normal BASO% 0.2 LAB L100.2550 0.0-0.9 % Normal IM GRAN % 0.200 Result Comment: IG% - Immature Granulocytes (promyelocytes, myelocytes and metamyelocytes) > 1% indicates that a LEFT SHIFT is Present. LAB L100.2620 2.0-7.7 X10 3/uL Normal Absolute Neut 5.1 LAB L100.2720 0.83-4.51 X10 3/ul Normal Absolute Lymph 2.64 Performed By: #### L100.0100 #### [facility] [address] [place], [address] ALCOHOL, BLOOD Collected: 05/12/2018 Status: F Source: [place] (MEDICAL)-SERUM 10:45 PM [facility] REPOSITORY TYPE CODE TESTS RESULT OUT OF RANGE REFERENCE UNITS LAB L501.9100 mg/dL Normal SERUM 5.0 ETOH Result Comment: The serum:whole blood ethanol ratio is approximately 1.14 and varies slightly with hematocrit. Medical Alcohol reference interval and critical value in non-tolerant individuals; 50 - 100 Impairment 100 Intoxication 100 - 250 Severe Poisoning 250 - 400 Deep/possible fatal coma Performed By: #### L501.9100 #### [facility] [address] [place], [place], [address] BASIC METABOLIC Collected: 05/12/2018 Status: F Source: [place] PROFILE (BMP) 10:45 PM [facility] REPOSITORY TYPE CODE TESTS RESULT OUT OF RANGE REFERENCE UNITS LAB L501.0100 74-106 mg/dL High GLU 146 Result Comment: Fasting Glucose result greater than or equal to 126 mg/dL suggests DIABETES MELLITUS per A.D.A. criteria. Please note revised GLUCOSE reference range effective 2017. LAB L501.1000 7-18 mg/dL Normal BUN 15 LAB L501.1100 0.55-1.02 mg/dL Normal CREAT,SERUM 1.00 Result Comment: The validity of the calculated GFR AND GFRAA in patients over 70 years has not been determined. Clinical correlation is essential. LAB L501.1110 >60 mL/min Low EST GFR 59 Result Comment: Non- GFR Calc LAB L501.1115 >60 mL/min Normal EST GFR - AA 72 Result Comment: GFR Calc LAB L501.1255 ml/min Normal Estimated CRCL 46.40 LAB L501.1300 10-20 RATIO Normal BUN/CRE 15.0 LAB L501.2200 8.5-10 mg/dL Normal .1 CA 9.0 LAB L501.5300 136-14 mmol/L Normal 5 NA 141 LAB L501.5600 3.5-5. mmol/L Low 1 K 3.4 LAB L501.5900 98-107 mmol/L Normal CL 106 LAB L501.6100 21.0-3 mmol/L Normal 2.0 CO2 29.0 LAB L501.6200 5-15 Normal GAP 6 Performed By: #### L500.2500, L501.9520 #### [facility] [address] [place], [place], [address] THYROID STIM HORMONE Collected: 05/12/2018 Status: F Source: [place] (TSH) 10:45 PM [facility] REPOSITORY TYPE CODE TESTS RESULT OUT OF RANGE REFERENCE UNITS LAB L501.9520 0.358-3.74 uIU/mL Normal TSH 2.65 Performed By: #### L500.2500, L501.9520 #### [facility] [address] [place], [place], [address] CBC W/DIFF, AUTOMATED Collected: 04/10/2018 Status: F Source: [place] 10:40 AM [facility] REPOSITORY TYPE CODE TESTS RESULT OUT OF RANGE REFERENCE UNITS LAB L100.1000 4.4-11.0 K/mm3 Normal WBC 8.5 LAB L100.1200 4.2-5.4 M/mm3 Normal RBC 4.25 LAB L100.1300 12.0-15.0 g/dl Normal HGB 12.7 LAB L100.1400 37-47 % Normal HCT 40.9 LAB L100.1500 81-99 fL Normal MCV 96.2 LAB L100.1600 27.0-32.0 pg Normal MCH 29.9 LAB L100.1700 32-36 g/gl Low MCHC 31.1 LAB L100.1810 11.6-14.6 % Normal RDW CV 14.3 LAB L100.1820 35.1-43.9 fl High RDW SD 50.0 LAB L100.1900 150-450 K/mm3 Normal PLT 323 LAB L100.2000 6.2-12.0 fl Normal MPV 9.1 LAB L100.2100 47-70 % Normal NEUT% 69.8 LAB L100.2200 19-41 % Normal LY% 20.0 LAB L100.2300 0-10 % Normal MONO% 8.1 LAB L100.2400 0-5 % Normal EO% 1.5 LAB L100.2500 0-1 % Normal BASO% 0.5 LAB L100.2550 0.0-0.9 % Normal IM GRAN % 0.100 Result Comment: IG% - Immature Granulocytes (promyelocytes, myelocytes and metamyelocytes) > 1% indicates that a LEFT SHIFT is Present. LAB L100.2620 2.0-7.7 X10 3/uL Normal Absolute Neut 5.9 LAB L100.2720 0.83-4.51 X10 3/ul Normal Absolute Lymph 1.70 Performed By: #### L100.0100 #### [facility] [address] [place], [place], [address] VITAMIN D,25 HYDROXY Collected: 04/10/2018 Status: F Source: [place] 10:40 AM [facility] REPOSITORY TYPE CODE TESTS RESULT OUT OF REFERENCE UNITS RANGE LAB L506.1000 29.95-100.01 ng/mL Low Vitamin D 26.2 25-OH Result Comment: Vitamin D 25(OH) Status Range Deficiency <20 ng/mL (50nmol/L) Insuffciency 20 - 30 ng/mL (50 - 75 nmol/L) Sufficiency 30 - 100 ng/mL (75 - 250 nmol/L) Toxicity >100 ng/mL (>250 nmol/L) Performed By: #### L506.1000 #### [facility] [address] [place], [place], [address] COMPREHENSIVE METABOLIC Collected: 04/10/2018 Status: F Source: [facility] 10:40 AM [facility] REPOSITORY TYPE CODE TESTS RESULT OUT OF RANGE REFERENCE UNITS LAB L501.0100 74-106 mg/dL Normal GLU 91 Result Comment: Please note revised GLUCOSE reference range effective 2017. LAB L501.1000 7-18 mg/dL Normal BUN 13 LAB L501.1100 0.55-1.02 mg/dL Normal CREAT,SERUM 0.91 Result Comment: The validity of the calculated GFR AND GFRAA in patients over 70 years has not been determined. Clinical correlation is essential. LAB L501.1110 >60 mL/min Normal EST GFR 66 Result Comment: Non- GFR Calc LAB L501.1115 >60 mL/min Normal EST GFR - AA 80 Result Comment: GFR Calc LAB L501.1300 10-20 RATIO Normal BUN/CRE 14.3 LAB L501.1500 6.4-8.2 g/dL T Normal PROT 6.7 LAB L501.1800 3.2-5.0 g/dL Normal ALB 3.6 LAB L501.1950 2.2-4.2 g/dL Normal GLOB 3.1 LAB L501.2000 0.9-2.4 RATIO Normal A/G 1.2 LAB L501.2200 8.5-10.1 mg/dL CA Normal 9.0 LAB L501.4100 15-37 U/L Normal AST 19 LAB L501.4305 45-117 U/L Normal ALK P 68 LAB L501.4405 13-56 U/L Normal ALT 28 LAB L501.4600 0.20-1.00 mg/dL T Normal BILI 0.30 LAB L501.5300 136-145 mmol/L NA Normal 142 LAB L501.5600 3.5-5.1 mmol/L K Normal 3.7 LAB L501.5900 98-107 mmol/L CL Normal 106 LAB L501.6100 21.0-32.0 mmol/L Normal CO2 28.0 LAB L501.6200 5-15 Normal GAP 8 Performed By: #### L500.4050, L501.9520 #### [facility] [address] [place], [place], [address] THYROID STIM HORMONE Collected: 04/10/2018 Status: F Source: [place] (TSH) 10:40 AM [facility] REPOSITORY TYPE CODE TESTS RESULT OUT OF RANGE REFERENCE UNITS LAB L501.9520 0.358-3.74 uIU/mL Normal TSH 0.96 Performed By: #### L500.4050, L501.9520 #### [facility] [address] [place], [address] KIDNEY AND BLADDER Observed: 03/25/2018 Status: F Source: [place] 9:51 AM [facility] REPOSITORY [facility] Imaging Services [address] [place] [address] Kidney and Bladder MR#: [id number] Acct: [id number] Name: NERIS HOLLAND Rep #: [id number] : 1950 F 67 From: Rafa Todd MD PCP: Shabbir LUCAS,Tanvir Rust Status: REG CLI Study: Kidney and Bladder Date of Exam: 03/25/18 Exam# [id number] Ordering Dr: Katie Peoples DO STUDY: RENAL ULTRASOUND - COMPLETE REASON FOR EXAM: Female, 67 years old. Angiomyolipoma of the left kidney TECHNIQUE: Ultrasound evaluation of the kidneys was performed with real-time and static aguirre-scale imaging. COMPARISON: Ultrasound from 08/15/2017, CT abdomen and pelvis of 12/16/2012 FINDINGS: RIGHT KIDNEY: Normal location of the right kidney, which is normal in size. The right kidney measures 10.9 x 5.2 x 4.8 cm. There is diffuse thinning of the renal cortex. The renal cortex measures 1.1 cm. There is no right renal mass or cyst. There are no right renal calculi. There is no right hydronephrosis. DISTAL RIGHT URETER: There is non-visualization of the distal right ureter. There is no demonstrated right ureterovesical junction calculus. There is a visualized right ureteral jet. LEFT KIDNEY: Normal location of the left kidney, which is normal in size. The left kidney measures 11.8 x 5.1 x 6.2 cm. There is diffuse thinning of the renal cortex. The renal cortex measures 1.1 cm. There is a 1.4 x 1.4 cm heterogeneous, predominantly hypoechoic mass of the left lateral mid kidney, correlating to lesion evident on prior CT of 2012. There is central increased echogenicity that could represent fatty tissue. There are no left renal calculi. There is no left hydronephrosis. DISTAL LEFT URETER: There is non-visualization of the distal left ureter. There is no demonstrated left ureterovesical junction calculus. There is a visualized left ureteral jet. BLADDER: The distended urinary bladder has a volume of 331 ml. There is a normal wall thickness of the distended urinary bladder. There is no demonstrated mass within the urinary bladder. There are no demonstrated bladder calculi. US/Kidney and Bladder IMPRESSION: 1. Grossly stable mixed echogenicity lesion of the left lateral mid kidney compatible with angiomyolipoma given probable central echogenic fat. 2. Bilateral renal cortical thinning suggesting chronic medical renal disease. Electronically Signed: Rafa Todd MD at 17:32 EDT , Service support , CC: Katie Peoples DO; Tanvir Shea MD [employer] Equipment Mechanic Supervisor: Signed RENAL PROFILE Collected: 03/24/2018 Status: F Source: [place] 10:31 AM [facility] REPOSITORY TYPE CODE TESTS RESULT OUT OF RANGE REFERENCE UNITS LAB L501.0100 74-106 mg/dL Normal GLU 92 Result Comment: Please note revised GLUCOSE reference range effective 2017. LAB L501.1000 7-18 mg/dL Normal BUN 16 LAB L501.1100 0.55-1.02 mg/dL Normal CREAT,SERUM 0.87 Result Comment: The validity of the calculated GFR AND GFRAA in patients over 70 years has not been determined. Clinical correlation is essential. LAB L501.1110 >60 mL/min Normal EST GFR 69 Result Comment: Non- GFR Calc LAB L501.1115 >60 mL/min Normal EST GFR - AA 84 Result Comment: GFR Calc LAB L501.1300 10-20 RATIO Normal BUN/CRE 18.3 LAB L501.1800 3.2-5.0 g/dL Normal ALB 3.6 LAB L501.2200 8.5-10.1 mg/dL CA Normal 9.0 LAB L501.2300 2.5-4.9 mg/dL Normal PHOS 2.8 LAB L501.5300 136-145 mmol/L NA Normal 140 LAB L501.5600 3.5-5.1 mmol/L K Normal 3.7 LAB L501.5900 98-107 mmol/L CL Normal 105 LAB L501.6100 21.0-32.0 mmol/L Normal CO2 30.0 Performed By: #### L500.3600 #### [facility] [address] [place], [address] Observed: 02/05/2018 Status: F Source: [place] RESPIRATORY PANEL 10:51 AM [facility] MOLECULAR REPOSITORY RP PANEL ADENOVIRUS Not Detected HUMAN METAPHNEUMO Not Detected INFLUENZA A Not Detected INFLUENZA A (SUBTYPE H1) Not Detected INFLUENZA A (SUBTYPE H3) Not Detected INFLUENZA B Not Detected PARAINFLUENZA 1 Not Detected PARAINFLUENZA 2 Not Detected PARAINFLUENZA 3 Not Detected PARAINFLUENZA 4 Not Detected RHINOVIRUS Not Detected RSV A Not Detected RSV B Not Detected NAAT METHOD Testing was performed using nucleic acid amplification Performed By: #### M100.638 #### [facility] [address] [place], [address] CHEST PA AND LATERAL Observed: 02/04/2018 Status: F Source: [place] 4:57 PM [facility] REPOSITORY [facility] Imaging Services [address] [place] [address] Chest PA and Lateral MR#: [id number] Acct: [id number] Name: NERIS HOLLAND Rep #: [id number] : 1950 F 67 From: Javier Suazo MD PCP: Tanvir Shea MD, Chi Status: REG CLI Study: Chest PA and Lateral Date of Exam: 02/04/18 Exam# [id number] Ordering Dr: Tanvir Shea MD STUDY: X-RAY CHEST REASON FOR EXAM: Female, 67 years old. Bronchitis symptoms x3-4 days TECHNIQUE: PA and lateral views of the chest. COMPARISON: None. FINDINGS: The lungs are clear and expanded. There is no demonstrated pleural abnormality. Normal size heart. Normal mediastinum and rolf. Normal visualized pulmonary arteries. There are calcified plaques of the aortic arch. Normal visualized thoracic spine. Normal visualized ribs, clavicles, and shoulders. There is no demonstrated abnormality of the visualized soft tissue structures of the upper abdomen. RAD/Chest PA and Lateral IMPRESSION: Calcified plaques of the aortic arch. No acute cardiopulmonary disease process is seen. Electronically Signed: Javier Suazo MD at 17:23 EDT , Service support , CC: Tanvir Shea MD [employer] Equipment Mechanic Supervisor: Signed OFFICE VISIT REPORT Observed: 01/13/2018 Status: F Source: [place] 7:09 PM [facility] REPOSITORY [place] [address] [place] [address] OFFICE VISIT Date of Service: 01/13/18 MR#: [id number] Acct: [id number] Patient: NERIS HOLLAND Rep #: [id number] : 1950 Provider: Lin Hollis NP Age/Sex: 67/F Location: [facility] Status: Signed Intake Vital Signs01/13/18 Height 5 ft 3 in 01/13/18 Weight: 149 lb 4 oz 01/13/18 Body Mass Index (BMI) 26.4 01/13/18 Blood Pressure 133/73 01/13/18 Blood Pressure Location Lt popliteal 01/13/18 Blood Pressure Position Sitting Intake Visit Reasons: thyroid problem Regulatory Compliance Manager Required: No Accompanied by: Self Is patient in pain?: No Allergies nabumetone [From Relafen] Allergy (Verified 01/13/18 10:57) Rash lorazepam [From Ativan] Adverse Reaction (Verified 01/13/18 10:57) Other tadalafil [From Adcirca] Adverse Reaction (Verified 01/13/18 10:57) Other Medications Budesonide/Formoterol 80-4.5 [Symbicort 80-4.5 Mcg Inhaler] 2 puff INHALATION BID 10/13/14 [History Confirmed 01/13/18] Clonazepam [Klonopin] 0.5 mg PO TID PRN PRN 10/13/14 [History Confirmed 01/13/18] Albuterol Sulfate [Proventil Hfa] 6.7 gm IH 4X/DAY PRN 03/01/16 [History Confirmed 01/13/18] Topiramate [Topamax] 50 mg PO BID 01/10/17 [History Confirmed 01/13/18] Trazodone HCl 300 mg PO QHS 06/25/17 [History Confirmed 01/13/18] Magnesium Oxide [Magnesium] 400 mg PO DAILY #30 06/27/17 [History Confirmed 01/13/18] aripiprazole 30 mg tablet 30 mg PO QDAY 12/15/17 [History Confirmed 01/13/18] cevimeline 30 mg capsule 1 cap PO TID 12/15/17 [History Confirmed 01/13/18] cholestyramine (with sugar) 4 gram oral powder 4 g PO BID g 12/15/17 [History Confirmed 01/13/18] famotidine 40 mg tablet 40 mg PO QHS 12/15/17 [History Confirmed 01/13/18] lamotrigine 200 mg tablet 200 mg PO BID 12/15/17 [History Confirmed 01/13/18] levothyroxine 50 mcg capsule 50 mcg PO QDAY 12/15/17 [History Confirmed 01/13/18] prednisone 5 mg tablet 5 mg PO BID 12/15/17 [History Confirmed 01/13/18] primidone 50 mg tablet 50 mg PO QHS 12/15/17 [History Confirmed 01/13/18] propranolol 40 mg tablet 40 mg PO BID tab 12/15/17 [History Confirmed 01/13/18] vilazodone 40 mg tablet 40 mg PO QDAY 12/15/17 [History Confirmed 01/13/18] Is last menstrual period known: No Post menopausal: Yes Patient : No PFSH Medical History Alcohol abuse (Acute) Anemia (Acute) Anxiety and depression (Acute) Arthritis (Acute) Back problem (Acute) COPD (chronic obstructive pulmonary disease) (Acute) Chronic diarrhea (Acute) Chronic headaches (Acute) Essential tremor (Acute) GERD (gastroesophageal reflux disease) (Acute) GI problem (Acute) Heart murmur (Acute) High cholesterol (Acute) High triglycerides (Acute) IBS (irritable bowel syndrome) (Acute) Kidney disease (Acute) Lung disease (Acute) Osteopenia (Acute) Pneumonia (Acute) Polymyalgia rheumatica (Acute) Schizoaffective disorder (Acute) Seasonal allergies (Acute) Sjogrens syndrome (Acute) Sleep apnea (Acute) Thyroid disease (Acute) Vision problem (Acute) blood transfusion (Acute) Surgical History D AND C (Acute) History of cholecystectomy (Acute) tuabl ligation (Acute) Family History Unknown Bleeding disorder Cancer Heart disease High cholesterol Skin cancer Social History Smoking Status: Current every day smoker alcohol intake: former substance use type: does not use HPI HPI Details: HPI Details: NERIS HOLLAND, is a 67 F who presents to the office today for consult of thyroid issues. Reports her opthamologist recently informed her of eye disease consistent with Graves' disease. She is currently on levothyroxine 50 mcg daily and states she thinks she has been for over 15 years. She believes she was treated for GRave's disease in the past but she can't tell me specifically when and with what. Today she is here to have labs reviewed. Severity, modifying factors, context, and associated signs and symptoms are as follows: Thyroid pain: No Energy: Reduced Sleep: Not awakened refreshed, difficulty going to sleep Temp: No intolerance GI: chronic diarrhea Weight: 40 lb weight loss since last fall. Eyes: Recent change in vision, blurry and double vision Memory: unchanged Diaphoresis: Not significant Skin: Dry Hair : Unchanged Neuro: No numbness, tingling or tremors No choking sensation or trouble swallowing Exam Const General: comfortable, no acute distress Nutritional Appearance: underweight Orientation: oriented x3 [facility] Head: normal to inspection, atraumatic Ears: hearing grossly normal bilaterally Mouth: oral mucosae normal, moist mucous membranes abnormal Eyes Alignment and Position: other (right eye proturbant.) Neck Neck: normal visual inspection Thyroid: firm Resp Effort AND Inspection: normal respiratory effort, able to speak in complete sentences, symmetric chest movement Auscultation: Bilateral: Clear to Auscultation Cardio Rate: regular rate Rhythm: regular rhythm Heart Sounds: S1 normal, S2 normal, murmur GI Inspection: normal to inspection Auscultation: normal bowel sounds Palpation: soft, no guarding Musc Musculoskeletal: No muscle weakness Skin General: no rashes or lesions noted Wounds: no wounds Neuro General: oriented x3, moves all extremities Cognition: normal cognition Speech: speech normal Extrem General: normal to inspection, no edema Psych Appearance: well kempt Mental Status: mental status grossly normal Mood: congruent mood Affect: normal affect Speech and Movement: speech and movement normal Attitude: cooperative Thought Process: normal Thought Content: normal Judgment: judgment good ROS Const Constitutional: Positive for fatigue; no anorexia, body ache, chills, fever(s), frequent falls, decreased energy, malaise, night sweats, weakness, weight change, sleep problems, abnormal sleep pattern, change in appetite, other, headache(s), snoring or excessive sweating Eyes Eyes: No blurry vision, change in vision, double vision, discharge, dry eyes, bulging eyes, floaters, visual disturbances, eye pain, light sensitivity, spots in vision, tunnel vision or other ENT ENT: Positive for nasal discharge; no abnormal hearing, ear pain, ear discharge, ear pressure, hearing loss, tinnitus, dizziness/vertigo, balance problems, nosebleed/epistaxis, nasal congestion, nasal obstruction, nose pain, sinus pressure, sinus pain, post nasal drip, headache(s), facial pain, dental pain, dry mouth, bad breath, hoarseness, lip swelling, mouth lesions, mouth pain, sore throat, tongue swelling, throat swelling, other, difficulty swallowing or neck pain Resp Respiratory: Positive for shortness of breath; no cough, change in phlegm color, chest congestion, excessive phlegm production, hemoptysis, pain on inspiration, pain with cough, snoring, stridor, wheezing or other Cardio Cardiology: No chest pain at rest, chest pain with exertion, leg pain with exertion, excessive sweating, shortness of breath, dyspnea on exertion, generalized swelling, irregular heart rhythm, lightheadedness, orthopnea, radiating jaw, neck or arm pain, fast heart rate, slow heart rate, palpitations or other Gastro GI: Positive for diarrhea; no abdominal pain, belching, bloating, change in bowel habits, change in stool character, coffee ground emesis, constipation, cramping, heartburn, difficulty swallowing, feeling full early, excessive flatus, incontinent of stools, Vomiting blood/hematemesis, blood in stool, loose stools, Black,tarry stools, nausea/dyspepsia, pain with swallowing, vomiting or other Genitourinary-Female: No difficulty urinating, burning urination, painful urination, urinary incontinence, urinary frequency, urinary urgency, urinary hesitancy, urinary retention, blood in urine, Frequent nighttime urination/ nocturia, post void dribbling, suprapubic fullness, side pain, sexual problems, genital lesions, genital itching, hot flashes, abnormal periods, abnormal vaginal bleeding, absent period, painful periods, light periods, heavy periods, difficulty getting , painful intercourse, pelvic pain, vaginal dryness, vaginal odor, Vaginal Itching or other Musc Musculoskeletal: No abnormal walking, joint pain, back pain, deformity, joint swelling, limited range of motion, loss of height, muscle cramps, muscle weakness, decreased muscle mass, body aches, neck pain, numbness, radiating pain into limb, stiffness, tingling or other Skin Skin: No acne, hair loss, change in hair, nail changes, boil, change in skin color, dry skin, redness, excessive hair growth, yellowing of the skin, lesions, itching, rash, skin pain, skin ulcer, sores, skin swelling, wounds or other Breast Breast: No other Neuro Neurology: No frequent falls, weakness, visual disturbances, abnormal hearing, headache(s), abnormal walking, numbness or tingling Psych Psychiatric: No abnormal sleep pattern, No change in appetite Endo Endocrine: Positive for fatigue; no other or excessive sweating Aller/Imm Allergy/Immunologic: No lip swelling, tongue swelling, throat swelling, wheezing or itchy eyes Exam Musc Musculoskeletal: No muscle weakness Assessment AND Plan Problems 1. Postablative hypothyroidism E89.0 Plan 6 month follow up. US is normal. Coding Level of Care Code Off vis,est,level 2 Diagnoses Postablative hypothyroidism E89.0 Hypothyroidism type: postablative Time Spent (min) 01/13/181908 <Electronically signed by Lin STANLEY> Date Lin STANLEY Cosigner Signature: Date (if applicable) CC: CBC W/DIFF, AUTOMATED Collected: 01/02/2018 Status: F Source: [place] 10:51 AM [facility] REPOSITORY TYPE CODE TESTS RESULT OUT OF RANGE REFERENCE UNITS LAB L100.1000 4.4-11.0 K/mm3 Normal WBC 9.4 LAB L100.1200 4.2-5.4 M/mm3 Low RBC 4.11 LAB L100.1300 12.0-15.0 g/dl Normal HGB 12.3 LAB L100.1400 37-47 % Normal HCT 39.6 LAB L100.1500 81-99 fL Normal MCV 96.4 LAB L100.1600 27.0-32.0 pg Normal MCH 29.9 LAB L100.1700 32-36 g/gl Low MCHC 31.1 LAB L100.1810 11.6-14.6 % Normal RDW CV 13.8 LAB L100.1820 35.1-43.9 fl High RDW SD 46.8 LAB L100.1900 150-450 K/mm3 Normal PLT 372 LAB L100.2000 6.2-12.0 fl Normal MPV 9.2 LAB L100.2100 47-70 % High NEUT% 77.1 LAB L100.2200 19-41 % Low LY% 14.7 LAB L100.2300 0-10 % Normal MONO% 6.3 LAB L100.2400 0-5 % Normal EO% 1.2 LAB L100.2500 0-1 % Normal BASO% 0.5 LAB L100.2550 0.0-0.9 % Normal IM GRAN % 0.200 Result Comment: IG% - Immature Granulocytes (promyelocytes, myelocytes and metamyelocytes) > 1% indicates that a LEFT SHIFT is Present. LAB L100.2620 2.0-7.7 X10 3/uL Normal Absolute Neut 7.3 LAB L100.2720 0.83-4.51 X10 3/ul Normal Absolute Lymph 1.39 Performed By: #### L100.0100 #### [facility] [address] [place], [place], [id number] VITAMIN D,25 HYDROXY Collected: 01/02/2018 Status: F Source: [place] 10:51 AM [facility] REPOSITORY TYPE CODE TESTS RESULT OUT OF RANGE REFERENCE UNITS LAB L506.1000 29.95-100.01 ng/mL Normal Vitamin D 36.9 25-OH Result Comment: Vitamin D 25(OH) Status Range Deficiency <20 ng/mL (50nmol/L) Insuffciency 20 - 30 ng/mL (50 - 75 nmol/L) Sufficiency 30 - 100 ng/mL (75 - 250 nmol/L) Toxicity >100 ng/mL (>250 nmol/L) Performed By: #### L506.1000 #### [facility] [address], [address] COMPREHENSIVE METABOLIC Collected: 01/02/2018 Status: F Source: [place] [facility] 10:51 AM [facility] REPOSITORY TYPE CODE TESTS RESULT OUT OF RANGE REFERENCE UNITS LAB L501.0100 74-106 mg/dL Normal GLU 87 Result Comment: Please note revised GLUCOSE reference range effective 2017. LAB L501.1000 7-18 mg/dL Normal BUN 12 LAB L501.1100 0.55-1.02 mg/dL Normal CREAT,SERUM 0.92 Result Comment: The validity of the calculated GFR AND GFRAA in patients over 70 years has not been determined. Clinical correlation is essential. LAB L501.1110 >60 mL/min Normal EST GFR 65 Result Comment: Non- GFR Calc LAB L501.1115 >60 mL/min Normal EST GFR - AA 79 Result Comment: GFR Calc LAB L501.1300 10-20 RATIO Normal BUN/CRE 13.1 LAB L501.1500 6.4-8.2 g/dL T Normal PROT 7.2 LAB L501.1800 3.2-5.0 g/dL Normal ALB 3.8 LAB L501.1950 2.2-4.2 g/dL Normal GLOB 3.4 LAB L501.2000 0.9-2.4 RATIO Normal A/G 1.1 LAB L501.2200 8.5-10.1 mg/dL CA Normal 8.7 LAB L501.4100 15-37 U/L Normal AST 15 LAB L501.4305 45-117 U/L Normal ALK P 84 LAB L501.4405 13-56 U/L Normal ALT 21 LAB L501.4600 0.20-1.00 mg/dL T Normal BILI 0.40 LAB L501.5300 136-145 mmol/L NA Normal 139 LAB L501.5600 3.5-5.1 mmol/L K Normal 3.5 LAB L501.5900 98-107 mmol/L CL Normal 106 LAB L501.6100 21.0-32.0 mmol/L Normal CO2 28.0 LAB L501.6200 5-15 Normal GAP 5 Performed By: #### L500.4050, L501.9520 #### [facility] [address] [place], [address] THYROID STIM HORMONE Collected: 01/02/2018 Status: F Source: [place] (TSH) 10:51 AM [facility] REPOSITORY TYPE CODE TESTS RESULT OUT OF RANGE REFERENCE UNITS LAB 01.9520 0.358-3.74 uIU/mL Normal TSH 0.50 Performed By: #### L500.4050, L501.9520 #### [facility] [address] [place], [address] THYROID Observed: 12/19/2017 Status: F Source: [place] 10:54 AM [facility] REPOSITORY [facility] Imaging Services [address] [place] [id number] Thyroid MR#: [id number] Acct: [id number] Name: NERIS HOLLAND Rep #: [id number] : 1950 F 67 From: Mook Moreno MD PCP: Shabbir LUCAS,[employer] Status: REG CLI Study: Thyroid Date of Exam: 12/19/17 Exam# [id number] Ordering Dr: Lin Hollis CRAB FISHER-C STUDY: THYROID ULTRASOUND REASON FOR EXAM: Female, 67 years old. Thyrotoxicosis. Evaluate for Graves' disease. TECHNIQUE: Ultrasound evaluation of the thyroid was performed with real-time and static rosa-scale imaging. COMPARISON: None. FINDINGS: RIGHT LOBE: The right lobe of the thyroid gland measures 4.2 x 1.2 x 1.2 cm. There is a homogeneous echotexture. There are no demonstrated solid, cystic or complex lesions. LEFT LOBE: The left lobe of the thyroid gland measures 4.2 x 1.4 x 1.0 cm. There is a homogeneous echotexture. There are no demonstrated solid, cystic or complex lesions. ISTHMUS: The isthmus measures 2 mm. The regional lymph nodes are normal. US/Thyroid IMPRESSION: Normal ultrasound examination of the thyroid. One might consider further evaluation with nuclear medicine thyroid uptake and scan. Electronically Signed: Perez Moreno MD at 16:04 EDT , Service support , CC: Lin Hollis NP; Tanvir Shea MD [employer] Supervisor: Signed OFFICE VISIT REPORT Observed: 12/15/2017 Status: F Source: [place] 12:[address] [address] OFFICE VISIT Date of Service: 12/15/17 MR#: [id number] Acct: [id number] Patient: NERIS HOLLAND Rep #: [id number] : 1950 Provider: Lin Hollis NP Age/Sex: 67/F Location: [facility] Status: Signed Intake Vital Signs12/15/17 Height 5 ft 3 in 12/15/17 Weight: 150 lb 12/15/17 Body Mass Index (BMI) 26.5 12/15/17 Blood Pressure 120/71 12/15/17 Blood Pressure Location Lt popliteal 12/15/17 Blood Pressure Position Sitting Intake Visit Reasons: graves disease Regulatory Compliance Manager Required: No Accompanied by: Self Is patient in pain?: No Allergies nabumetone [From Relafen] Allergy (Verified 12/15/17 09:49) Rash lorazepam [From Ativan] Adverse Reaction (Verified 12/15/17 09:49) Other tadalafil [From Adcirca] Adverse Reaction (Verified 12/15/17 09:49) Other Medications Budesonide/Formoterol 80-4.5 [Symbicort 80-4.5 Mcg Inhaler] 2 puff INHALATION BID 10/13/14 [History Confirmed 12/15/17] Clonazepam [Klonopin] 0.5 mg PO TID PRN PRN 10/13/14 [History Confirmed 12/15/17] Albuterol Sulfate [Proventil Hfa] 6.7 gm IH 4X/DAY PRN 03/01/16 [History Confirmed 12/15/17] Topiramate [Topamax] 50 mg PO BID 01/10/17 [History Confirmed 12/15/17] Trazodone HCl 300 mg PO QHS 06/25/17 [History Confirmed 12/15/17] Magnesium Oxide [Magnesium] 400 mg PO DAILY #30 06/27/17 [History Confirmed 12/15/17] aripiprazole 30 mg tablet 30 mg PO QDAY 12/15/17 [History Confirmed 12/15/17] cevimeline 30 mg capsule 1 cap PO TID 12/15/17 [History Confirmed 12/15/17] cholestyramine (with sugar) 4 gram oral powder 4 g PO BID g 12/15/17 [History Confirmed 12/15/17] famotidine 40 mg tablet 40 mg PO QHS 12/15/17 [History Confirmed 12/15/17] lamotrigine 200 mg tablet 200 mg PO BID 12/15/17 [History Confirmed 12/15/17] levothyroxine 50 mcg capsule 50 mcg PO QDAY 12/15/17 [History Confirmed 12/15/17] prednisone 5 mg tablet 5 mg PO BID 12/15/17 [History Confirmed 12/15/17] primidone 50 mg tablet 50 mg PO QHS 12/15/17 [History Confirmed 12/15/17] propranolol 40 mg tablet 40 mg PO BID tab 12/15/17 [History Confirmed 12/15/17] vilazodone 40 mg tablet 40 mg PO QDAY 12/15/17 [History Confirmed 12/15/17] Is last menstrual period known: No Post menopausal: Yes Patient : No PFSH Medical History Alcohol abuse (Acute) Anemia (Acute) Anxiety and depression (Acute) Arthritis (Acute) Back problem (Acute) COPD (chronic obstructive pulmonary disease) (Acute) Chronic diarrhea (Acute) Chronic headaches (Acute) Essential tremor (Acute) GERD (gastroesophageal reflux disease) (Acute) GI problem (Acute) Heart murmur (Acute) High cholesterol (Acute) High triglycerides (Acute) IBS (irritable bowel syndrome) (Acute) Kidney disease (Acute) Lung disease (Acute) Osteopenia (Acute) Pneumonia (Acute) Polymyalgia rheumatica (Acute) Schizoaffective disorder (Acute) Seasonal allergies (Acute) Sjogrens syndrome (Acute) Sleep apnea (Acute) Thyroid disease (Acute) Vision problem (Acute) blood transfusion (Acute) Surgical History D AND C (Acute) History of cholecystectomy (Acute) tuabl ligation (Acute) Family History Unknown Bleeding disorder Cancer Heart disease High cholesterol Skin cancer Social History Smoking Status: Current every day smoker alcohol intake: former substance use type: does not use Questionnaire Depression Screen PHQ-2/9 PHQ-2 Over the last 2 weeks, how often have you been bothered by any of the following problems? 1. Little interest or pleasure in doing things: not at all 2. Feeling down, depressed, or hopeless: several days Total score: 1 If score is 2 or greater, continue 3. Trouble falling or staying asleep, or sleeping too much: several days 4. Feeling tired or having little energy: several days 5. Poor appetite or overeating: not at all 6. Feeling bad about yourself - or that you are a failure or have let yourself and your family down: not at all 7. Trouble concentrating on things, such as reading the newspaper or watching television: several days 8. Moving or speaking so slowly that other people could have noticed? - Or the opposite - being so fidgety or restless that you have been moving around a lot more than usual: not at all 9. Thoughts that you would be better off or of hurting yourself in some way: not at all Total score: 4 If you checked off any problems, how difficult have these problems made it for you to do your work, take care of things at home, or get along with other people?: not difficult at all Source: Developed by Drs. Jony Bridges, Kathy Kang, Anand Brumfield and colleagues, with an educational renata from [employer]. Scoring: Total Score Depression Severity Action 1-4 Minimal depression No action needed 5-9 Mild depression Repeat PHQ-9 at follow up 10-14 Moderate depression Make tx plan,consider counseling, fup, prescription HPI HPI Details: NERIS HOLLAND, is a 67 F who presents to the office today for consult of thyroid issues. Reports her opthamologist recently informed her of eye disease consistent with Graves' disease. She is currently on levothyroxine 50 mcg daily and states she thinks she has been for over 15 years. She believes she was treated for GRave's disease in the past but she can't tellme specifically whn and with what. Severity, modifying factors, context, and associated signs and symptoms are as follows: Thyroid pain: No Energy: Reduced Sleep: Not awakened refreshed, difficulty going to sleep Temp: No intolerance GI: chronic diarrhea Weight: 40 lb weight loss since last fall. Eyes: Recent change in vision, blurry and double vision Memory: unchanged Diaphoresis: Not significant Skin: Dry Hair : Unchanged Neuro: No numbness, tingling or tremors No choking sensation or trouble swallowing Reports last labs done with TSH being suppressed but no other labs drawn related to thyroid. ROS Const Constitutional: Positive for chills, fatigue and sleep problems; no anorexia, body ache, fever(s), frequent falls, decreased energy, malaise, night sweats, weakness, weight change, abnormal sleep pattern, change in appetite, other, headache(s), snoring or excessive sweating Eyes Eyes: Positive for double vision; no blurry vision, change in vision, discharge, dry eyes, bulging eyes, floaters, visual disturbances, eye pain, light sensitivity, spots in vision, tunnel vision or other ENT ENT: Positive for nasal discharge; no abnormal hearing, ear pain, ear discharge, ear pressure, hearing loss, tinnitus, dizziness/vertigo, balance problems, nosebleed/epistaxis, nasal congestion, nasal obstruction, nose pain, sinus pressure, sinus pain, post nasal drip, headache(s), facial pain, dental pain, dry mouth, difficulty swallowing, bad breath, hoarseness, lip swelling, mouth lesions, mouth pain, sore throat, tongue swelling, throat swelling, other or neck pain Resp Respiratory: No cough, change in phlegm color, chest congestion, excessive phlegm production, hemoptysis, pain on inspiration, shortness of breath, pain with cough, snoring, stridor, wheezing or other Cardio Cardiology: No chest pain at rest, chest pain with exertion, leg pain with exertion, excessive sweating, shortness of breath, dyspnea on exertion, generalized swelling, irregular heart rhythm, lightheadedness, orthopnea, radiating jaw, neck or arm pain, fast heart rate, slow heart rate, palpitations or other Gastro GI: Positive for diarrhea, heartburn and nausea/dyspepsia; no abdominal pain, belching, bloating, change in bowel habits, change in stool character, coffee ground emesis, constipation, cramping, feeling full early, excessive flatus, incontinent of stools, Vomiting blood/hematemesis, blood in stool, loose stools, Black,tarry stools, pain with swallowing, vomiting, other or difficulty swallowing Genitourinary-Female: No difficulty urinating, burning urination, painful urination, urinary incontinence, urinary frequency, urinary urgency, urinary hesitancy, urinary retention, blood in urine, Frequent nighttime urination/ nocturia, post void dribbling, suprapubic fullness, side pain, sexual problems, genital lesions, genital itching, hot flashes, abnormal periods, abnormal vaginal bleeding, absent period, painful periods, light periods, heavy periods, difficulty getting , painful intercourse, pelvic pain, vaginal dryness, vaginal odor, Vaginal Itching or other Musc Musculoskeletal: No abnormal walking, joint pain, back pain, deformity, joint swelling, limited range of motion, loss of height, muscle cramps, muscle weakness, decreased muscle mass, body aches, neck pain, numbness, radiating pain into limb, stiffness, tingling or other Skin Skin: No acne, hair loss, change in hair, nail changes, boil, change in skin color, dry skin, redness, excessive hair growth, yellowing of the skin, lesions, itching, rash, skin pain, skin ulcer, sores, skin swelling, wounds or other Breast Breast: No other Neuro Neurology: No frequent falls, weakness, visual disturbances, abnormal hearing, headache(s), abnormal walking, numbness or tingling Psych Psychiatric: No abnormal sleep pattern, No change in appetite Endo Endocrine: Positive for fatigue; no other or excessive sweating Aller/Imm Allergy/Immunologic: No lip swelling, tongue swelling, throat swelling, wheezing or itchy eyes Exam Const General: comfortable, no acute distress Nutritional Appearance: underweight Orientation: oriented x3 HENMT Head: normal to inspection, atraumatic Ears: hearing grossly normal bilaterally Mouth: oral mucosae normal, moist mucous membranes abnormal Eyes Alignment and Position: other (right eye proturbant.) Neck Neck: normal visual inspection Thyroid: firm Resp Effort AND Inspection: normal respiratory effort, able to speak in complete sentences, symmetric chest movement Auscultation: Bilateral: Clear to Auscultation Cardio Rate: regular rate Rhythm: regular rhythm Heart Sounds: S1 normal, S2 normal, murmur GI Inspection: normal to inspection Auscultation: normal bowel sounds Palpation: soft, no guarding Musc Musculoskeletal: No muscle weakness Skin General: no rashes or lesions noted Wounds: no wounds Neuro General: oriented x3, moves all extremities Cognition: normal cognition Speech: speech normal Extrem General: normal to inspection, pedal edema Psych Appearance: well kempt Mental Status: mental status grossly normal Mood: congruent mood Affect: normal affect Speech and Movement: speech and movement normal Attitude: cooperative Thought Process: normal Thought Content: normal Judgment: judgment good Assessment AND Plan Problems 1. Hyperthyroidism E05.90 Plan Labs today. Will call in 2 days. If you do not hear from us, call office. Orders Orders: Medications Discontinued: azithromycin Discontinued Reason: Pt no ocnu331 mg (2 x 250 mg) PO Q24 Kathy Rojas er taking prednisone With food Discontinued Reason: 20 mg PO DAILY 5 days Kathy Rojas Pt no longer taking Coding Level of Care Code Off vis,new,level 4 Diagnoses Hyperthyroidism E05.90 Time Spent (min) 60 12/15/17 1248 <Electronically signed by Lin STNALEY> Date Lin STANLEY Cosigner Signature: Date (if applicable) CC: FREE T3 Collected: 12/15/2017 Status: F Source: [place] 11:13 AM [facility] REPOSITORY Order Comment: Comments: [id number] TRAB RED RF TYPE CODE TESTS RESULT OUT OF RANGE REFERENCE UNITS LAB L501.61882 2.18-3.98 pg/mL Normal FREE T3 2.2 Performed By: #### L501.23119, L501.9520, L506.0400 #### [facility] [address] [place], [place], [address] THYROID STIM HORMONE Collected: 12/15/2017 Status: F Source: [place] ([facility]) 11:13 AM [facility] REPOSITORY Order Comment: Comments: [id number] TRAB RED RF TYPE CODE TESTS RESULT OUT OF RANGE REFERENCE UNITS LAB L501.9520 0.358-3.74 uIU/mL Normal TSH 0.72 Performed By: #### L501.06895, L501.9520, L506.0400 #### [facility] [address] [place], [place], [address] T4 FREE DIRECT Collected: 12/15/2017 Status: F Source: [place] 11:13 AM [facility] REPOSITORY Order Comment: Comments: [id number] TRAB RED RF TYPE CODE TESTS RESULT OUT OF RANGE REFERENCE UNITS LAB L506.0400 0.76-1.46 ng/dL Normal T4 FREE 1.03 DIRECT Performed By: #### L501.09813, L501.9520, L506.0400 #### [facility] [address] [place], [place], [address] MISCELLANEOUS LAB Collected: 12/15/2017 Status: F Source: [place] PROCEDURE 11:13 AM [facility] REPOSITORY Order Comment: Comments: [id number] TRAB RED RF Comments: Please draw TRAB Test(s) Ordered: [id number] TRAB RED RF TYPE CODE TESTS RESULT OUT OF RANGE REFERENCE UNITS LAB L801.1541 Normal [facility] Result Comment: TEST RESULT UNIT REF INTERVAL THYROTROPIN RECEPTOR AB,SERUM 0.62 IU/L 0.00 - 1.75 TESTING PERFORMED AT [facility]. ORIGINAL REPORT ON FILE IN LAB CONTAINS ADDITIONAL TEST SITE INFORMATION. Performed By: #### L801.1541 #### [facility] [address] [place], [address] DEXA BONE DENSITY Observed: 11/20/2017 Status: F Source: [place] STUDY 9:53 AM [facility] REPOSITORY [facility] Imaging Services [address] [place] [address] Dexa Bone Density Study MR#: [id number] Acct: [id number] Name: NERIS HOLLAND Rep #: [id number] : 1950 F 66 From: Wesley Pham MD PCP: Tanvir Shea MD, Chi Status: REG CLI Study: Dexa Bone Density Study Date of Exam: 11/20/17 Exam# [id number] Ordering Dr: Tanvir Shea MD STUDY: DUAL ENERGY X-RAY ABSORPTIOMETRY / DXA REASON FOR EXAM: Female, 66 years old. The patient is postmenopausal. Loss of height of 2.75 inches. TECHNIQUE: Bone Mineral Density (BMD) measurements of lumbar spine and bilateral hips were obtained. COMPARISON: None. FINDINGS: Lumbar Spine (L1-L4): g/cm2 (0.875) / T-score (-2.4) / Z-score (-0.8) Findings are suggestive of osteopenia with a moderate fracture risk. Left Femur Total: g/cm2 (0.912) / T-score (-0.8) / Z- score (0.4) Left Femoral Neck: g/cm2 (0.835) / T-score (-1.5) / Z- score (0.0) Right Femur Total: g/cm2 (0.846) / T-score (-1.3) / Z- score (-0.1) Right Femoral Neck: g/cm2 (0.802) / T-score (-1.7) / Z-score (-0.2) BD/Dexa Bone Density Study IMPRESSION: The patient is considered osteopenic as outlined below according to World [place] Organization (WHO) criteria with a moderate fracture risk. Reference Information: The T-score is the number of standard deviations above or below the standard which is normal for young adults at their peak bone mineral density. The World Health Organization (WHO) interprets the T-scores as follows: Above -1 Normal bone density Between -1 and -2.5 Osteopenia Equal to / or below -2.5 Osteoporosis As a practical clinical guideline, osteopenia may be graded as follows: Mild -1 through -1.5 Moderate -1.6 through -2.0 Severe -2.1 through -2.4 The Z-score is the number of standard deviations above or below age-matched controls. A Z-score of less than -1.5 would be considered abnormal. References: 1. NIH Osteoporosis and Related Bone Diseases http://www.osteo.org 2. International Society for Clinical Densitometry http://www.iscd.org 3. National Osteoporosis Foundation http://www.nof.org Electronically Signed: Wesley Pham MD at 15:56 EDT Tel [phone], Service support , CC: Tanvir Shea MD [employer] Supervisor: Signed URGENT CARE VISIT Observed: 11/08/2017 Status: F Source: [place] REPORT 9:[address] [address] OFFICE VISIT Date of Service: 11/08/17 MR#: [id number] Acct: [id number] Name: NERIS HOLLAND Rep #: [id number] : 1950 Provider: Reyna Pemberton Age/Sex: 66/F Location: [facility] Status: Signed Intake Vital Signs11/08/17 Height 5 ft 4 in 11/08/17 Weight: 147 lb 11/08/17 Body Mass Index (BMI) 25.2 11/08/17 Blood Pressure 126/82 Intake Visit Reasons: LEFT EYE PAIN Regulatory Compliance Manager Required: No Is patient in pain?: No Allergies nabumetone [From Relafen] Allergy (Verified 11/08/17 08:37) Rash lorazepam [From Ativan] Adverse Reaction (Verified 11/08/17 08:37) Other tadalafil [From Adcirca] Adverse Reaction (Verified 11/08/17 08:37) Other Medications Fenofibrate [Tricor] 145 mg PO QHS 06/16/13 [History Confirmed 11/08/17] Budesonide/Formoterol 80-4.5 [Symbicort 80-4.5 Mcg Inhaler] 2 puff INHALATION BID 10/13/14 [History Confirmed 11/08/17] Clonazepam [Klonopin] 0.5 mg PO TID PRN PRN 10/13/14 [History Confirmed 11/08/17] Diclofenac [Voltaren] 75 mg PO BIDCM 10/13/14 [History Confirmed 11/08/17] Orphenadrine [Norflex] 100 mg PO BID PRN PRN 10/13/14 [History Confirmed 11/08/17] traMADol [Ultram] 50 mg PO Q6H PRN PRN 10/13/14 [History Confirmed 11/08/17] Albuterol Sulfate [Proventil Hfa] 6.7 gm IH 4X/DAY PRN 03/01/16 [History Confirmed 11/08/17] Omeprazole [Prilosec] 40 mg PO DAILY 03/01/16 [History Confirmed 11/08/17] Ondansetron [Zofran Odt] 4 mg PO DAILY PRN 03/01/16 [History Confirmed 11/08/17] Lamotrigine [Lamictal Odt] 150 mg PO BID 11/20/16 [History Confirmed 11/08/17] Aripiprazole [Abilify] 5 mg PO DAILY 01/10/17 [History Confirmed 11/08/17] Aripiprazole [Abilify] 20 mg PO DAILY 01/10/17 [History Confirmed 11/08/17] DiphenhydrAMINE [Benadryl] 50 mg PO Q6H PRN PRN 01/10/17 [History Confirmed 11/08/17] Topiramate [Topamax] 50 mg PO BID 01/10/17 [History Confirmed 11/08/17] Cetirizine HCl [Zyrtec] 10 mg PO DAILY 06/25/17 [History Confirmed 11/08/17] Levothyroxine [Synthroid] 100 mcg PO DAILY 06/25/17 [History Confirmed 11/08/17] Multivitamin with Iron [Multivitamins with Iron] 1 ea PO DAILY 06/25/17 [History Confirmed 11/08/17] Trazodone HCl 300 mg PO QHS 06/25/17 [History Confirmed 11/08/17] Azithromycin [Zithromax] 500 mg PO Q24 #3 tab 06/27/17 [Rx Confirmed 11/08/17] Magnesium Oxide [Magnesium] 400 mg PO DAILY #30 06/27/17 [History Confirmed 11/08/17] Prednisone [Deltasone] 20 mg PO DAILY 5 Days tab 06/27/17 [Rx Confirmed 11/08/17] Prednisone [Deltasone] 20 mg PO BID #6 tab 07/07/17 [Rx Confirmed 11/08/17] ciprofloxacin 0.3 % eye drops 2 drp OPHTHALMIC Q4H 5 Days #2.5 ml 11/08/17 [Rx Confirmed 11/08/17] PFSH Medical History Kidney disease (Acute) Lung disease (Acute) Thyroid disease (Acute) tuabl ligation (Acute) Surgical History History of cholecystectomy (Acute) Social History Smoking Status: Current every day smoker HPI HPI Details: NERIS HOLLAND, is a 66 F who presents to the office today for for an urgent appointment. She states that she awoke this morning hours of approximately 5 AM and her left eye was painful to open. She has had some tearing and redness to it. It feels like she has something stuck in it. She has not noted any green drainage from it just itchiness painful to open. She has not had any fevers chills night sweats. She does not have any shortness of breath. She does not have any nausea vomiting. She has not had any recent illnesses. ROS Const Constitutional: No anorexia, body ache, chills, fatigue, fever(s) or headache(s) Eyes Eyes: Positive for discharge, eye pain and light sensitivity ENT ENT: No headache(s), ear pain, ear pressure, tinnitus, dizziness/vertigo, nasal congestion, nasal discharge, sinus pressure, dental pain or facial pain Resp Respiratory: No cough or chest congestion Cardio Cardiology: No dyspnea on exertion, shortness of breath or irregular heart rhythm Gastro GI: No vomiting, diarrhea or heartburn Neuro Neurology: No headache(s) Endo Endocrine: No fatigue Exam Const General: cooperative, no acute distress, well developed Nutritional Appearance: average body habitus Orientation: alert, awake, oriented x3 HENMT Head: normal to inspection, normocephalic, atraumatic Ears: hearing grossly normal bilaterally, external ears normal Nose: external nose normal, nares normal, nasal mucous membranes and turbinates normal Mouth: oral mucosae normal, oropharynx normal, lip normal, tongue normal, moist mucous membranes Eyes Alignment and Position: alignment normal, position normal Periorbital: periorbital findings normal Eyelids: eyelids normal Conjunctivae: conjunctival abnormality left conjunctival injection localized (Left lateral side) Neck Neck: no lymphadenopathy Chest Chest palpation AND inspection: normal inspection of the chest Resp Effort AND Inspection: normal respiratory effort Auscultation: Bilateral: Clear to Auscultation Cardio Palpation: normal PMI Rate: regular rate Rhythm: regular rhythm Heart Sounds: S1 normal, S2 normal, no murmurs, no gallops, no rubs Neuro General: alert, awake, oriented x3 Cranial Nerves: CN's II-XI intact bilaterally Assessment AND Plan 1. Abrasion of right conjunctiva, initial encounter S05.01XA Plan Some redness noted to left lateral conjunctiva. We will treat with biotics. She was advised on how to properly take these. 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 Plan Detail Other Medications New: Follow Up 11/08/17 Coding Level of Care Code Off vis,est,level 4 Diagnoses Abrasion of right conjunctiva, initial encounter S05.01XA Encounter type: initial encounter Laterality: right Intake Vital Signs11/08/17 Height 5 ft 4 in 11/08/17 Weight: 147 lb 11/08/17 Body Mass Index (BMI) 25.2 11/08/17 Blood Pressure 126/82 Intake Visit Reasons: LEFT EYE PAIN Regulatory Compliance Manager Required: No Is patient in pain?: No Allergies nabumetone [From Relafen] Allergy (Verified 11/08/17 08:37) Rash lorazepam [From Ativan] Adverse Reaction (Verified 11/08/17 08:37) Other tadalafil [From Adcirca] Adverse Reaction (Verified 11/08/17 08:37) Other Medications Fenofibrate [Tricor] 145 mg PO QHS 06/16/13 [History Confirmed 11/08/17] Budesonide/Formoterol 80-4.5 [Symbicort 80-4.5 Mcg Inhaler] 2 puff INHALATION BID 10/13/14 [History Confirmed 11/08/17] Clonazepam [Klonopin] 0.5 mg PO TID PRN PRN 10/13/14 [History Confirmed 11/08/17] Diclofenac [Voltaren] 75 mg PO BIDCM 10/13/14 [History Confirmed 11/08/17] Orphenadrine [Norflex] 100 mg PO BID PRN PRN 10/13/14 [History Confirmed 11/08/17] traMADol [Ultram] 50 mg PO Q6H PRN PRN 10/13/14 [History Confirmed 11/08/17] Albuterol Sulfate [Proventil Hfa] 6.7 gm IH 4X/DAY PRN 03/01/16 [History Confirmed 11/08/17] Omeprazole [Prilosec] 40 mg PO DAILY 03/01/16 [History Confirmed 11/08/17] Ondansetron [Zofran Odt] 4 mg PO DAILY PRN 03/01/16 [History Confirmed 11/08/17] Lamotrigine [Lamictal Odt] 150 mg PO BID 11/20/16 [History Confirmed 11/08/17] Aripiprazole [Abilify] 5 mg PO DAILY 01/10/17 [History Confirmed 11/08/17] Aripiprazole [Abilify] 20 mg PO DAILY 01/10/17 [History Confirmed 11/08/17] DiphenhydrAMINE [Benadryl] 50 mg PO Q6H PRN PRN 01/10/17 [History Confirmed 11/08/17] Topiramate [Topamax] 50 mg PO BID 01/10/17 [History Confirmed 11/08/17] Cetirizine HCl [Zyrtec] 10 mg PO DAILY 06/25/17 [History Confirmed 11/08/17] Levothyroxine [Synthroid] 100 mcg PO DAILY 06/25/17 [History Confirmed 11/08/17] Multivitamin with Iron [Multivitamins with Iron] 1 ea PO DAILY 06/25/17 [History Confirmed 11/08/17] Trazodone HCl 300 mg PO QHS 06/25/17 [History Confirmed 11/08/17] Azithromycin [Zithromax] 500 mg PO Q24 #3 tab 06/27/17 [Rx Confirmed 11/08/17] Magnesium Oxide [Magnesium] 400 mg PO DAILY #30 06/27/17 [History Confirmed 11/08/17] Prednisone [Deltasone] 20 mg PO DAILY 5 Days tab 06/27/17 [Rx Confirmed 11/08/17] Prednisone [Deltasone] 20 mg PO BID #6 tab 07/07/17 [Rx Confirmed 11/08/17] ciprofloxacin 0.3 % eye drops 2 drp OPHTHALMIC Q4H 5 Days #2.5 ml 11/08/17 [Rx Confirmed 11/08/17] PFSH Medical History Kidney disease (Acute) Lung disease (Acute) Thyroid disease (Acute) tuabl ligation (Acute) Surgical History History of cholecystectomy (Acute) Social History Smoking Status: Current every day smoker HPI HPI Details: NERIS HOLLAND, is a 66 F who presents to the office today for for an urgent appointment. She states that she awoke this morning hours of approximately 5 AM and her left eye was painful to open. She has had some tearing and redness to it. It feels like she has something stuck in it. She has not noted any green drainage from it just itchiness painful to open. She has not had any fevers chills night sweats. She does not have any shortness of breath. She does not have any nausea vomiting. She has not had any recent illnesses. ROS Const Constitutional: No anorexia, body ache, chills, fatigue, fever(s) or headache(s) Eyes Eyes: Positive for discharge, eye pain and light sensitivity ENT ENT: No headache(s), ear pain, ear pressure, tinnitus, dizziness/vertigo, nasal congestion, nasal discharge, sinus pressure, dental pain or facial pain Resp Respiratory: No cough or chest congestion Cardio Cardiology: No dyspnea on exertion, shortness of breath or irregular heart rhythm Gastro GI: No vomiting, diarrhea or heartburn Neuro Neurology: No headache(s) Endo Endocrine: No fatigue Exam Const General: cooperative, no acute distress, well developed Nutritional Appearance: average body habitus Orientation: alert, awake, oriented x3 [facility] Head: normal to inspection, normocephalic, atraumatic Ears: hearing grossly normal bilaterally, external ears normal Nose: external nose normal, nares normal, nasal mucous membranes and turbinates normal Mouth: oral mucosae normal, oropharynx normal, lip normal, tongue normal, moist mucous membranes Eyes Alignment and Position: alignment normal, position normal Periorbital: periorbital findings normal Eyelids: eyelids normal Conjunctivae: conjunctival abnormality left conjunctival injection localized (Left lateral side) Neck Neck: no lymphadenopathy Chest Chest palpation AND inspection: normal inspection of the chest Resp Effort AND Inspection: normal respiratory effort Auscultation: Bilateral: Clear to Auscultation Cardio Palpation: normal PMI Rate: regular rate Rhythm: regular rhythm Heart Sounds: S1 normal, S2 normal, no murmurs, no gallops, no rubs Neuro General: alert, awake, oriented x3 Cranial Nerves: CN's II-XI intact bilaterally Assessment AND Plan 1. Abrasion of right conjunctiva, initial encounter S05.01XA Plan Some redness noted to left lateral conjunctiva. We will treat with biotics. She was advised on how to properly take these. 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 Plan Detail Other Medications New: Follow Up 11/08/17 Coding Level of Care Code Off vis,est,level 4 Diagnoses Abrasion of right conjunctiva, initial encounter S05.01XA Encounter type: initial encounter Laterality: right 11/08/17 0918 <Electronically signed by Reyna VILLAGOMEZ> Date Reyna VILLAGOMEZ Cosigner Signature: Date (if applicable) CC: STOOL Observed: 10/02/2017 Status: F Source: [place] LACTOFERRIN/WBC 8:00 AM [facility] REPOSITORY OVA,OCCULT BLOOD,CDIFF,LATOFERRIN/WBC,ENTERIC Stool Lacto/WBC Normal Reference Range = Negative Fecal WBC Lactoferrin Negative: No Fecal WBC Lactoferrin present Performed By: #### M100.0605, M100.7900, M100.6796, M100.637 #### [facility] [address] [place], [place], [address] Observed: 10/02/2017 Status: F Source: [place] STOOL OCCULT BLOOD 8:00 AM [facility] IFOB REPOSITORY OVA,OCCULT BLOOD,CDIFF,LATOFERRIN/WBC,ENTERIC STOB iFOB Occult Blood Negative Performed By: #### M100.0605, M100.7900, M100.6796, M100.637 #### [facility] [address] [place], [address] Observed: 10/02/2017 Status: F Source: [place] CDIFF (MOLECULAR) 8:00 AM [facility] REPOSITORY OVA,OCCULT BLOOD,CDIFF,LATOFERRIN/WBC,ENTERIC Cdiff-Molecular Normal Reference Range = Negative C. Diff DNA Negative- No toxigenic C. Diff DNA Detected NAAT METHOD Testing was performed using nucleic acid amplification Performed By: #### M100.0605, M100.7900, M100.6796, M100.637 #### [facility] [address] [place], [place], [address] Observed: 10/02/2017 Status: F Source: [place] ENTERIC PATHOGEN 8:00 AM [facility] PANEL STOOL REPOSITORY OVA,OCCULT BLOOD,CDIFF,LATOFERRIN/WBC,ENTERIC EP PANEL STOOL Normal Reference Range = Not Detected Not detected for Campylobacter group, Salmonella species, Shigella species, Vibrio Group, Yersinia enterocolitica, EHEC (Shiga Toxin 1, Shiga Toxin 2), Norovirus Gl/Gll, and Rotavirus A. Other common stool pathogens are not detected on this panel include: Aeromonas/Plesiomonas or parasites. Order testing for these organisms separately if suspected. This is an amplified DNA test which makes it both specific and sensitive. CAMPYLOBACTER Not Detected Salmonella Not Detected Shigella sp. Not Detected Shiga Toxin Not Detected Yersinia Not Detected VIBRIO Not Detected Norovirus Not Detected Rotavirus Not Detected Performed By: #### M100.0605, M100.7900, M100.6796, M100.637 #### [facility] [address] [place], [address] Observed: 10/02/2017 Status: F Source: [place] OVA AND PARASITES 8623 8:00 AM [facility] REPOSITORY OVA,OCCULT BLOOD,CDIFF,LATOFERRIN/WBC,ENTERIC O + P 8623 OVA AND PARASITES EXAM, ROUTINE These results were obtained using wet preparation(s) and trichrome stained smear. This test does not include testing for Crytosporidium parvum, Cyclospora, or Microsporidia. TESTING PERFORMED AT [facility]. ORIGINAL REPORT ON FILE IN LAB CONTAINS ADDITIONAL TEST SITE INFORMATION. Ova/Parasite Exam NO OVA, CYSTS, OR PARASITES FOUND. Performed By: #### M600.5000 #### [facility] [address] [place], [place], [address] ABDOMEN SINGLE VIEW Observed: 10/01/2017 Status: F Source: [place] 3:07 PM [facility] REPOSITORY [facility] Imaging Services [address] [place] [id number] Abdomen Single View MR#: [id number] Acct: [id number] Name: NERIS HOLLAND Rep #: [id number] : 1950 F 66 From: Behzad Gonsales MD PCP: Tanvir Shea MD, Chi Status: REG CLI Study: Abdomen Single View Date of Exam: 10/01/17 Exam# [id number] Ordering Dr: Tanvir Shea MD STUDY: X-RAY - ABDOMEN/PELVIS REASON FOR EXAM: Female, 66 years old. Diarrhea TECHNIQUE: Single AP view of the abdomen / pelvis. COMPARISON: None. FINDINGS: Normal visualized lung bases. There are coronary arterial calcifications. There is an unremarkable bowel gas pattern. There is no demonstrated free abdominal air. There are multiple metallic clips in the right upper quadrant. This is consistent for a cholecystectomy. The visualized liver, spleen and kidneys are grossly normal in size and morphology. Normal soft tissue structures. There are diffuse degenerative changes of the visualized lumbar spine. RAD/Abdomen Single View IMPRESSION: Normal x-ray examination of the abdomen and pelvis. Electronically Signed: Behzad Gonsales MD at 18:09 EST , Service support , CC: Tanvir Shea MD [employer] Equipment Mechanic Supervisor: Signed CBC W/DIFF, AUTOMATED Collected: 09/30/2017 Status: F Source: [place] 2:52 PM [facility] REPOSITORY TYPE CODE TESTS RESULT OUT OF RANGE REFERENCE UNITS LAB L100.1000 4.4-11.0 K/mm3 Normal WBC 9.8 LAB L100.1200 4.2-5.4 M/mm3 Low RBC 4.07 LAB L100.1300 12.0-15.0 g/dl Normal HGB 12.3 LAB L100.1400 37-47 % Normal HCT 38.9 LAB L100.1500 81-99 fL Normal MCV 95.6 LAB L100.1600 27.0-32.0 pg Normal MCH 30.2 LAB L100.1700 32-36 g/gl Low MCHC 31.6 LAB L100.1810 11.6-14.6 % Normal RDW CV 14.0 LAB L100.1820 35.1-43.9 fl High RDW SD 46.6 LAB L100.1900 150-450 K/mm3 Normal PLT 338 LAB L100.2000 6.2-12.0 fl Normal MPV 9.7 LAB L100.2100 47-70 % High NEUT% 74.5 LAB L100.2200 19-41 % Normal LY% 19.2 LAB L100.2300 0-10 % Normal MONO% 4.9 LAB L100.2400 0-5 % Normal EO% 0.9 LAB L100.2500 0-1 % Normal BASO% 0.3 LAB L100.2550 0.0-0.9 % Normal IM GRAN % 0.200 Result Comment: IG% - Immature Granulocytes (promyelocytes, myelocytes and metamyelocytes) > 1% indicates that a LEFT SHIFT is Present. LAB L100.2620 2.0-7.7 X10 3/uL Normal Absolute Neut 7.3 LAB L100.2720 0.83-4.51 X10 3/ul Normal Absolute Lymph 1.87 Performed By: #### L100.0100 #### [facility] [address] [place], [place], [address] COMPREHENSIVE METABOLIC Collected: 09/30/2017 Status: F Source: [facility] 2:52 PM [facility] REPOSITORY TYPE CODE TESTS RESULT OUT OF RANGE REFERENCE UNITS LAB L501.0100 74-106 mg/dL High GLU 116 Result Comment: Fasting Glucose result from 100 to 125 mg/dL suggests IMPAIRED HOMEOSTASIS per A.D.A. criteria. Please note revised GLUCOSE reference range effective 2017. LAB L501.1000 7-18 mg/dL Normal BUN 13 LAB L501.1100 0.55-1.02 mg/dL Normal CREAT,SERUM 0.86 Result Comment: The validity of the calculated GFR AND GFRAA in patients over 70 years has not been determined. Clinical correlation is essential. LAB L501.1110 >60 mL/min Normal EST GFR 70 Result Comment: Non- GFR Calc LAB L501.1115 >60 mL/min Normal EST GFR - AA 85 Result Comment: GFR Calc LAB L501.1300 10-20 RATIO Normal BUN/CRE 15.1 LAB L501.1500 6.4-8.2 g/dL T Normal PROT 6.6 LAB L501.1800 3.2-5.0 g/dL Normal ALB 3.4 LAB L501.1950 2.2-4.2 g/dL Normal GLOB 3.2 LAB L501.2000 0.9-2.4 RATIO Normal A/G 1.1 LAB L501.2200 8.5-10.1 mg/dL CA Normal 8.5 LAB L501.4100 15-37 U/L Normal AST 17 LAB L501.4305 45-117 U/L Normal ALK P 73 LAB L501.4405 13-56 U/L Normal ALT 27 Result Comment: Please note revised ALT reference range effective 2017. LAB L501.4600 0.20-1.00 mg/dL Normal T BILI 0.20 LAB L501.5300 136-145 mmol/L Normal NA 140 LAB L501.5600 3.5-5.1 mmol/L Normal K 3.8 LAB L501.5900 98-107 mmol/L Normal CL 103 LAB L501.6100 21.0-32.0 mmol/L Normal CO2 30.0 LAB L501.6200 5-15 Normal GAP 7 Performed By: #### L500.4050, L501.9520 #### [facility] [address] [place], [place], [address] THYROID STIM HORMONE Collected: 09/30/2017 Status: F Source: [place] (TSH) 2:52 PM [facility] REPOSITORY TYPE CODE TESTS RESULT OUT OF RANGE REFERENCE UNITS LAB L501.9520 0.358-3.74 uIU/mL Low TSH 0.29 Performed By: #### L500.4050, L501.9520 #### [facility] [address] [place], [address] VITAMIN D,25 HYDROXY Collected: 09/30/2017 Status: F Source: [place] 2:52 PM [facility] REPOSITORY TYPE CODE TESTS RESULT OUT OF RANGE REFERENCE UNITS LAB L506.1000 19.95-100.01 ng/mL Normal Vitamin D 24.2 25-OH Result Comment: Vitamin D 25(OH) Status Range Deficiency <20 ng/mL (50nmol/L) Insuffciency 20 - 30 ng/mL (50 - 75 nmol/L) Sufficiency 30 - 100 ng/mL (75 - 250 nmol/L) Toxicity >100 ng/mL (>250 nmol/L) Performed By: #### L506.1000 #### [facility] [address] [place], [place], [id number] CBC-COMPLETE BLOOD CNT Collected: 09/23/2017 Status: F Source: [place] NO DIFF 11:34 AM [facility] REPOSITORY TYPE CODE TESTS RESULT OUT OF RANGE REFERENCE UNITS LAB L100.1000 4.4-11.0 K/mm3 Normal WBC 9.0 LAB L100.1200 4.2-5.4 M/mm3 Normal RBC 4.24 LAB L100.1300 12.0-15.0 g/dl Normal HGB 12.4 LAB L100.1400 37-47 % Normal HCT 40.3 LAB L100.1500 81-99 fL Normal MCV 95.0 LAB L100.1600 27.0-32.0 pg Normal MCH 29.2 LAB L100.1700 32-36 g/gl Low MCHC 30.8 LAB L100.1810 11.6-14.6 % Normal RDW CV 14.3 LAB L100.1820 35.1-43.9 fl High RDW SD 49.0 LAB L100.1900 150-450 K/mm3 Normal PLT 332 LAB L100.2000 6.2-12.0 fl Normal MPV 9.4 Performed By: #### L100.0500 #### [facility] [address] [facility] [place], [place], [id number] RENAL PROFILE Collected: 09/23/2017 Status: F Source: [place] 11:34 AM [facility] REPOSITORY TYPE CODE TESTS RESULT OUT OF RANGE REFERENCE UNITS LAB L501.0100 74-106 mg/dL Normal GLU 88 LAB L501.1000 7-18 mg/dL Normal BUN 10 LAB L501.1100 0.55-1.02 mg/dL Normal 0.82 CREAT,SERUM Result Comment: The validity of the calculated GFR AND GFRAA in patients over 70 years has not been determined. Clinical correlation is essential. LAB L501.1110 >60 mL/min Normal EST GFR 74 Result Comment: Non- GFR Calc LAB L501.1115 >60 mL/min Normal EST GFR - AA 90 Result Comment: GFR Calc LAB L501.1300 10-20 RATIO Normal BUN/CRE 12.1 LAB L501.1800 3.2-5.0 g/dL Normal ALB 3.7 LAB L501.2200 8.5-10.1 mg/dL CA Normal 8.9 LAB L501.2300 2.5-4.9 mg/dL Normal PHOS 3.7 LAB L501.5300 136-145 mmol/L NA Normal 141 LAB L501.5600 3.5-5.1 mmol/L K Normal 3.6 LAB L501.5900 98-107 mmol/L CL Normal 105 LAB L501.6100 21.0-32.0 mmol/L Normal CO2 29.0 Performed By: #### L500.3600 #### [facility] [address] [place], [address] SCREENING MAMM (CAD), Observed: 09/08/2017 Status: F Source: [place] Enjoi 8:13 AM [facility] REPOSITORY [facility] Imaging Services [address] [place] [address] SCREENING MAMM (CAD), BILAT MR#: [id number] Acct: [id number] Name: NERIS HOLLAND Rep #: [id number] : 1950 F 66 From: Wesley Pham MD PCP: Tanvir Shea MD, Chi Status: REG CLI Study: SCREENING MAMM (CAD), BILAT Date of Exam: 09/08/17 Exam# [id number] Ordering Dr: Tanvir Shea MD MAMMOGRAPHY - BILATERAL SCREENING REASON FOR EXAM: Female, 66 years old. Routine annual screening examination. PERTINENT HISTORY: Non-contributory. TECHNIQUE: Digital bilateral breast jasen (3D mammographic acquisition) in the CC and MLO projections. 2-D mediolateral oblique (MLO) and craniocaudad (CC) views of both breasts were obtained. CAD: Full Field Digital Mammography with Computer Added Detection was performed. COMPARISON: Comparison is made with prior outside examination dated June 11, 2016 and July 31, 2012. FINDINGS: Breast Composition: There are scattered areas of fibroglandular density. There are no dominant masses or suspicious calcifications. No other significant abnormalities are identified. There has been no significant change since the prior study. HPBI/SCREENING MAMM (CAD), BILAT IMPRESSION: Stable bilateral screening mammogram. Yearly follow-up mammogram recommended. (A) ASSESSMENT CATEGORY: BIRADS Category 1: Negative. A letter regarding these results will be sent to the patient by the facility within 30 days. Approximately 10% of breast cancers are not detected by mammography. A normal mammogram should not delay biopsy of a clinically suspicious abnormality. [id number] Electronically Signed: Wesley Pham MD at 13:22 EST Tel [phone], Service support , CC: Tanvir Shea MD [employer] Mechanic Supervisor: Signed STOOL Observed: 08/21/2017 Status: F Source: [place] LACTOFERRIN/WBC 5:30 PM [facility] REPOSITORY Stool Lacto/WBC Fecal WBC Lactoferrin Negative: No Fecal WBC Lactoferrin present Performed By: #### M100.0605, M100.7900, M100.6796, M100.637 #### [facility] [address] [place], [place], [id number] Observed: 08/21/2017 Status: F Source: [place] STOOL OCCULT BLOOD 5:30 PM [facility]OB REPOSITORY STOB iFOB Occult Blood Negative Performed By: #### M100.0605, M100.7900, M100.6796, M100.637 #### [facility] [address] [place], [place], [id number] Observed: 08/21/2017 Status: F Source: [place] CDIFF (MOLECULAR) 5:30 PM [facility] REPOSITORY Cdiff-Molecular C. Diff DNA Negative- No toxigenic C. Diff DNA Detected NAAT METHOD Testing was performed using nucleic acid amplification Performed By: #### M100.0605, M100.7900, M100.6796, M100.637 #### [facility] [address] [place], [address] Observed: 08/21/2017 Status: F Source: [place] ENTERIC PATHOGEN 5:30 PM [facility] PANEL STOOL REPOSITORY EP PANEL STOOL Not detected for Campylobacter group, Salmonella species, Shigella species, Vibrio Group, Yersinia enterocolitica, EHEC (Shiga Toxin 1, Shiga Toxin 2), Norovirus Gl/Gll, and Rotavirus A. Other common stool pathogens are not detected on this panel include: Aeromonas/Plesiomonas or parasites. Order testing for these organisms separately if suspected. This is an amplified DNA test which makes it both specific and sensitive. Normal Reference Range = Not Detected CAMPYLOBACTER Not Detected Salmonella Not Detected Shigella sp. Not Detected Shiga Toxin Not Detected Yersinia Not Detected VIBRIO Not Detected Norovirus Not Detected Rotavirus Not Detected Performed By: #### M100.0605, M100.7900, M100.6796, M100.637 #### [facility] [address] [place], [address] Observed: 08/21/2017 Status: F Source: [place] OVA AND PARASITES 8623 5:30 PM [facility] REPOSITORY O + P 8623 OVA AND PARASITES EXAM, ROUTINE These results were obtained using wet preparation(s) and trichrome stained smear. This test does not include testing for Crytosporidium parvum, Cyclospora, or Microsporidia. TESTING PERFORMED AT [facility]. ORIGINAL REPORT ON FILE IN LAB CONTAINS ADDITIONAL TEST SITE INFORMATION. Ova/Parasite Exam NO OVA, CYSTS, OR PARASITES FOUND. Performed By: #### M600.5000 #### [facility] [address] [place], [address] ABDOMEN SINGLE VIEW Observed: 08/21/2017 Status: F Source: [place] 1:47 PM [facility] REPOSITORY [facility] Imaging Services [address] [place] [address] Abdomen Single View MR#: [id number] Acct: [id number] Name: NERIS HOLLAND Rep #: [id number] : 1950 F 66 From: Charan Ocampo DO PCP: Shabbir LUCAS,Tanvir Rust Status: REG CLI Study: Abdomen Single View Date of Exam: 08/21/17 Exam# [id number] Ordering Dr: Tanvir Shea MD STUDY: X-RAY - ABDOMEN/PELVIS REASON FOR EXAM: Female, 66 years old. Diarrhea TECHNIQUE: Two AP supine views of the abdomen and pelvis. COMPARISON: None. FINDINGS: Normal visualized lung bases. There is an unremarkable bowel gas pattern. There is no demonstrated free abdominal air. The visualized liver, spleen and kidneys are grossly normal in size and morphology. Normal soft tissue structures. Cholecystectomy clips are seen in the right upper quadrant of the abdomen. There are diffuse degenerative changes of the visualized lumbar spine. RAD/Abdomen Single View IMPRESSION: Unremarkable abdominal bowel gas pattern. Electronically Signed: Charan Ocampo DO at 14:19 EST Tel , Service support , CC: Tanvir Shea MD [employer] Mechanic Supervisor: Signed CBC W/DIFF, AUTOMATED Collected: 08/21/2017 Status: F Source: [place] 1:38 PM [facility] REPOSITORY TYPE CODE TESTS RESULT OUT OF RANGE REFERENCE UNITS LAB L100.1000 4.4-11.0 K/mm3 Normal WBC 10.3 LAB L100.1200 4.2-5.4 M/mm3 Low RBC 4.13 LAB L100.1300 12.0-15.0 g/dl Normal HGB 12.3 LAB L100.1400 37-47 % Normal HCT 39.1 LAB L100.1500 81-99 fL Normal MCV 94.7 LAB L100.1600 27.0-32.0 pg Normal MCH 29.8 LAB L100.1700 32-36 g/gl Low MCHC 31.5 LAB L100.1810 11.6-14.6 % High RDW CV 14.9 LAB L100.1820 35.1-43.9 fl High RDW SD 49.6 LAB L100.1900 150-450 K/mm3 Normal PLT 358 LAB L100.2000 6.2-12.0 fl Normal MPV 9.4 LAB L100.2100 47-70 % High NEUT% 74.8 LAB L100.2200 19-41 % Normal LY% 19.6 LAB L100.2300 0-10 % Normal MONO% 4.5 LAB L100.2400 0-5 % Normal EO% 0.6 LAB L100.2500 0-1 % Normal BASO% 0.3 LAB L100.2550 0.0-0.9 % Normal IM GRAN % 0.200 Result Comment: IG% - Immature Granulocytes (promyelocytes, myelocytes and metamyelocytes) > 1% indicates that a LEFT SHIFT is Present. LAB L100.2620 2.0-7.7 X10 3/uL Normal Absolute Neut 7.7 LAB L100.2720 0.83-4.51 X10 3/ul Normal Absolute Lymph 2.02 Performed By: #### L100.0100 #### [facility] [address] [place], [address] COMPREHENSIVE METABOLIC Collected: 08/21/2017 Status: F Source: [place] [facility] 1:38 PM [facility] REPOSITORY TYPE CODE TESTS RESULT OUT OF RANGE REFERENCE UNITS LAB L501.0100 70-110 mg/dL Normal GLU 90 LAB L501.1000 7-18 mg/dL Normal BUN 13 LAB L501.1100 0.55-1.02 mg/dL Normal 0.74 CREAT,SERUM Result Comment: The validity of the calculated GFR AND GFRAA in patients over 70 years has not been determined. Clinical correlation is essential. LAB L501.1110 >60 mL/min Normal EST GFR 84 Result Comment: Non- GFR Calc LAB L501.1115 >60 mL/min Normal EST GFR - AA 102 Result Comment: GFR Calc LAB L501.1300 10-20 RATIO Normal BUN/CRE 17.6 LAB L501.1500 6.4-8.2 g/dL T Normal PROT 6.4 LAB L501.1800 3.4-5.0 g/dL Normal ALB 3.4 Result Comment: Please note revised Albumin AND Globulin reference range effective 2017. LAB L501.1950 2.2-4.2 g/dL Normal GLOB 3.0 LAB L501.2000 0.9-2.4 RATIO Normal A/G 1.1 LAB L501.2200 8.5-10.1 mg/dL Low CA 8.3 LAB L501.4100 15-37 U/L Low AST 14 LAB L501.4305 45-117 U/L Normal ALK P 70 LAB L501.4405 12-78 U/L Normal ALT 24 LAB L501.4600 0.20-1.00 mg/dL Normal T BILI 0.30 LAB L501.5300 136-145 mmol/L Normal NA 143 LAB L501.5600 3.5-5.1 mmol/L Normal K 3.9 LAB L501.5900 98-107 mmol/L High CL 111 LAB L501.6100 21.0-32.0 mmol/L Normal CO2 27.0 LAB L501.6200 5-15 Normal GAP 5 Performed By: #### L500.4050, L501.5200 #### [facility] [address] [place], [address] MAGNESIUM Collected: 08/21/2017 Status: F Source: [place] 1:38 PM [facility] REPOSITORY TYPE CODE TESTS RESULT OUT OF RANGE REFERENCE UNITS LAB L501.5200 1.8-2.4 mg/dL Normal MG 1.9 Performed By: #### L500.4050, L501.5200 #### [facility] [address] [place], [address] KIDNEY AND BLADDER Observed: 08/15/2017 Status: F Source: [place] 10:43 AM [facility] REPOSITORY [facility] Imaging Services [address] [place] [address] Kidney and Bladder MR#: [id number] Acct: [id number] Name: NERIS HOLLAND Rep #: [id number] : 1950 F 66 From: Scot Lang DO PCP: Shabbir LUCAS,Tanvir Rust Status: REG CLI Study: Kidney and Bladder Date of Exam: 08/15/17 Exam# [id number] Ordering Dr: Katie Peoples DO STUDY: RENAL ULTRASOUND - COMPLETE REASON FOR EXAM: Female, 66 years old. Chronic kidney disease stage III TECHNIQUE: Ultrasound evaluation of the kidneys was performed with real-time and static aguirre-scale imaging. COMPARISON: None. FINDINGS: RIGHT KIDNEY: Normal location of the right kidney, which is normal in size. The right kidney measures 10.8 x 4.0 x 4.8 cm. There is a normal cortex of the right kidney. The renal cortex measures 1.3 cm. There is no right renal mass or cyst. There are no right renal calculi. There is no right hydronephrosis. DISTAL RIGHT URETER: There is non-visualization of the distal right ureter. LEFT KIDNEY: Normal location of the left kidney, which is normal in size. The left kidney measures 11.2 x 5.0 x 4.4 cm. There is a normal cortex of the left kidney. The renal cortex measures 1.1 cm. There is a 7 x 11 mm hyperechoic nodule possibly an angiomyolipoma. There are no left renal calculi. There is no left hydronephrosis. DISTAL LEFT URETER: There is non-visualization of the distal left ureter. BLADDER: The partially distended urinary bladder has a volume of 23 ml. There is a normal wall thickness of the distended urinary bladder. There is no demonstrated mass within the urinary bladder. There are no demonstrated bladder calculi. 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 Electronically Signed: Scot Lang DO at 0:00 EST Tel [phone], Service support , CC: Katie Peoples DO; Tanvir Shea MD [employer] Equipment Mechanic Supervisor: Signed RENAL PROFILE Collected: 08/14/2017 Status: F Source: [place] 12:28 PM [facility] REPOSITORY TYPE CODE TESTS RESULT OUT OF RANGE REFERENCE UNITS LAB L501.0100 70-110 mg/dL Normal GLU 95 LAB L501.1000 7-18 mg/dL High BUN 19 LAB L501.1100 0.55-1.02 mg/dL Normal 0.85 CREAT,SERUM Result Comment: The validity of the calculated GFR AND GFRAA in patients over 70 years has not been determined. Clinical correlation is essential. LAB L501.1110 >60 mL/min Normal EST GFR 71 Result Comment: Non- GFR Calc LAB L501.1115 >60 mL/min Normal EST GFR - AA 86 Result Comment: GFR Calc LAB L501.1300 10-20 RATIO High BUN/CRE 22.3 LAB L501.1800 3.4-5.0 g/dL Normal ALB 3.4 Result Comment: Please note revised Albumin AND Globulin reference range effective 2017. LAB L501.2200 8.5-10.1 mg/dL Normal CA 9.0 LAB L501.2300 2.5-4.9 mg/dL Normal PHOS 3.0 LAB L501.5300 136-145 mmol/L Normal NA 138 LAB L501.5600 3.5-5.1 mmol/L Normal K 3.9 LAB L501.5900 98-107 mmol/L Normal CL 103 LAB L501.6100 21.0-32.0 mmol/L Normal CO2 27.0 Performed By: #### L500.3600 #### [facility] [address] [place], [place], [address] ALLERGIES ALLERGIES DATE TYPE / CODE NAME / CODE REACTION SEVERITY SOURCE 05/12/2018 Drug lorazepam/F0 Other Unknown [facility] Allergy/4160 [id number]([place] [address](SNOMED ORM) Repository CT) 05/12/2018 Drug nabumetone/F Rash Unknown [facility] Allergy/4160 [id number]([place] [address](SNOMED NORM) Repository CT) 05/12/2018 Drug tadalafil/F0 Other Unknown [facility] Allergy/4160 [id number]([place] [address](SNOMED ORM) Repository CT) ENCOUNTERS ENCOUNTERS ADMIT/DISCHARGE ACCOUNT ADMITTING ENCOUNTER LOCATION SOURCE NUMBER CLASS 07/20/2018 [id number] Ambulatory [facility] 9 [facility] ing:POLAB3 Repository 06/18/2018 [id number] Ambulatory [place] [facility] 0 [facility] ing:LABSPEC Repository 06/09/2018 [id number] Ambulatory [facility] [place] 8 [facility] ing:POLAB3 Repository 05/12/2018/ [id number] Emergency [facility] 8 0 [facility] ing:ED Repository 04/10/2018 [id number] Ambulatory [place] [facility] 6 [facility] ing:POLAB3 Repository 03/25/2018 [id number] Ambulatory Brittany Brittany 1 [facility] ing:US Repository 03/24/2018 [id number] Ambulatory [facility] [place] 7 [facility] ing:LAB Repository 02/04/2018 [id number] Ambulatory [facility] 4 [facility] ing:RAD Repository 01/13/2018/ [id number] Ambulatory BMSBuilding:B [facility] 8 9 [facility] Repository 01/02/2018 [id number] Ambulatory [facility] [place] 7 [facility] ing:POLAB3 Repository 12/19/2017 [id number] Ambulatory [place] [facility] 6 [facility] ing:OPUS Repository 12/15/2017 [id number] Ambulatory [facility] 2 [facility] ing:LAB Repository 12/15/2017/ [id number] Ambulatory BMSBuilding:B [place] 8 5 [facility].YURY [facility] Repository 11/20/2017 [id number] Ambulatory [place] [facility] 6 [facility] ing:OPBD Repository 11/08/2017/ [id number] Ambulatory BMSBuilding:B [facility] 8 4 MSLISA [facility] Repository 10/02/2017 [id number] Ambulatory [facility] [place] 8 [facility] ing:LABSPEC Repository 10/01/2017 [id number] Ambulatory [place] [facility] 0 [facility] ing:RAD Repository 09/30/2017 [id number] [facility] [place] 5 [facility] ing:POLAB3 Repository 09/23/2017 [id number] Ambulatory [facility] [place] 4 [facility] ing:LAB.FUTUR Repository E 09/08/2017 [id number] Ambulatory [facility] [place] 6 [facility] ing:BI Repository 08/26/2017 [id number] [facility] [place] [facility] ing:MEDOUTP Repository 08/21/2017 [id number] Ambulatory [place] 3 [facility] ing:LABSPEC Repository 08/21/2017 [id number] Ambulatory [facility] 7 [facility] ing:MEDOUTP Repository 08/15/2017 [id number] Ambulatory [facility] [place] 7 [facility] ing:US Repository 08/14/2017 [id number] Ambulatory [facility] 1 [facility] ing:POLAB3 Repository PAYERS PAYERS ENCOUNTER GUARANTOR PAYER SUBSCRIBER SOURCE 07/20/2018 NERIS Martínez Primary NERIS Tanya Brittany [id number] Insurance:[facility] Community [address] *IN [facility] [id number] Number: Repository [address]Abp: [phone] [id number] [phone] () Date:5045-20-08NGWU CLAIMS [address] [place] [address]MC: 07/20/2018 Secondary NOT GIVENUNK [facility] Insurance:SELF PAY [facility] Number: Effective Repository Date:2018-07-20 06/18/2018 NERIS Martínez Primary NERIS Martínez [facility] [id number] Insurance:MYCARE CRSC BANFIELDDOB: Community [address] *[place] [address] Number: Repository [address]Qdd: 330 [id number] [phone] (HP) Date:3691-18-62GCUF CLAIMS [address]PO [address] [address]JI: 06/18/2018 Secondary NOT GIVENUNK [place]any Insurance:SELF PAY [facility] Number: Effective Repository Date:2018-06-18 06/09/2018 NERIS Martínez Primary NERIS Martínez Brittany [id number] Insurance:MYCARE CRSC BANFIELDDOB: Community [address] *[address] Number: Repository [address]Nmp: 330 [id number] [phone] (HP) Date:8166-07-20SGSX CLAIMS [address] [address]LU: 06/09/2018 Secondary NOT GIVENUNK [facility] Insurance:SELF PAY [facility] Number: Effective Repository Date:2018-06-08 05/12/2018 NERIS Martínez Primary NERIS Martínez Brittany [id number] Insurance:MYCARE CRSC BANFIELDDOB: Community [address] *[address] Number: Repository [address]Bsc: 330 [id number] [phone] (HP) Date:8390-70-31KOAJ [address]S [address] [address]ZT: 05/12/2018 Secondary NOT GIVENUNK [place] Insurance:SELF PAY [facility] Number: Effective Repository Date:2018-05-12 04/10/2018 NERIS L Primary NERIS Martínez [facility] [id number] Insurance:MEDICARE BANFIELDDOB: Community [address] PART [address] [place] Number: Repository [address]Nmf: 330 [id number] [phone] (HP) Date:2018-04-10 04/10/2018 Secondary NERIS L [facility] Insurance:MEDICAIDPol BANFIELDDOB: Community icy Number: [id number] [place] [address] [id number] Repository Date:2018-04-10 04/10/2018 Tertiary NOT GIVENUNK [place] Insurance:SELF PAY [facility]: Effective Repository Date:2018-04-10 03/25/2018 NERIS L Primary NERIS L [facility] [id number] Insurance:MEDICARE BANFIELDDOB: Community [address] PART [address], [place] Number: Repository [address]Hvb: 330 [id number] [phone] (HP) Date:2018-03-19 03/25/2018 Secondary NERIS L [place] Insurance:MEDICAIDPol BANFIELDDOB: Community icy Number: [id number] [id number] Repository Date:2018-03-19 03/25/2018 Tertiary NOT GIVENUNK [place] Insurance:SELF PAY [facility] Number: Effective Repository Date:2018-03-19 03/24/2018 NERIS L Primary NERIS L [place] [id number] Insurance:MEDICARE BANFIELDDOB: Community [address] PART A [address], [place] Number: Repository [address]Wwl: 330 [id number] [phone] (HP) Date:2018-03-24 03/24/2018 Secondary NERIS L [facility] Insurance:MEDICAIDPol BANFIELDDOB: Community icy Number: [id number] [id number] Repository Date:2018-03-24 03/24/2018 Tertiary NOT GIVENUNK [facility] Insurance:SELF PAY [facility] Number: Effective Repository Date:2018-03-24 02/04/2018 NERIS L Primary NERIS L [facility] [id number] Insurance:MEDICARE BANFIELDDOB: Community [address] PART A [address], [place] Number: Repository [address]Vhs: 330 [id number] [phone] (HP) Date:2018-02-04 02/04/2018 Secondary NERIS L [place] Insurance:MEDICAIDPol BANFIELDDOB: Community icy Number: [id number] [place] [address] [id number] Repository Date:2018-02-04 02/04/2018 Tertiary NOT GIVENUNK [facility] Insurance:SELF PAY [facility] Number: Effective Repository Date:2018-02-04 01/13/2018 NERIS Martínez Primary NERIS Martínez Brittany [id number] Insurance:MEDICARE BANFIELDDOB: Community [address] PART A [facility] [id number] Number: Repository [address]Erx: 330 [id number] [phone] () Date:2017-12-15 01/13/2018 Secondary NERIS L [place] Insurance:MEDICAIDPol BANFIELDDOB: Community icy Number: [id number] [id number] Repository Date:2017-12-15 01/13/2018 Tertiary NOT GIVENUNK [facility] Insurance:SELF PAY [facility] Number: Effective Repository Date:2018-01-13 01/02/2018 NERIS Martínez Primary NERIS Soto [id number] Insurance:MEDICARE BANFIELDDOB: Community [address] PART [address] [place] Number: Repository [address]Cjx: 330 [id number] [phone] () Date:2018-01-02 01/02/2018 Secondary NERIS L [facility] Insurance:MEDICAIDPol BANFIELDDOB: Community icy Number: [id number] [id number] Repository Date:2018-01-02 01/02/2018 Tertiary NOT GIVENUNK [facility] Insurance:SELF PAY [facility] Number: Effective Repository Date:2018-01-02 12/19/2017 NERIS L Primary NERIS L [facility] [id number] Insurance:MEDICARE BANFIELDDOB: Community [address] PART A [address], [place] Number: Repository [address]Alq: [phone] [id number] [phone] (HP) Date:2017-12-15 12/19/2017 Secondary NERIS L Brittany Insurance:MEDICAIDPol BANFIELDDOB: Community icy Number: [id number] Hospital [id number] Repository Date:2017-12-15 12/19/2017 Tertiary NOT GIVENUNK [facility] Insurance:SELF PAY [facility] Number: Effective Repository Date:2017-12-15 12/15/2017 NERIS L Primary NERIS L [place] [id number] Insurance:MEDICARE BANFIELDDOB: Community [address] PART A [facility] [id number], [place] Number: Repository [address]Hep: 330 [id number] [phone] () Date:2017-12-15 12/15/2017 Secondary NERIS L [place] Insurance:MEDICAIDPol BANFIELDDOB: Community icy Number: [id number] Hospital [id number] Repository Date:2017-12-15 12/15/2017 Tertiary NOT GIVENUNK [facility] Insurance:SELF PAY [facility] Number: Effective Repository Date:2017-12-15 12/15/2017 NERIS L Primary NERIS L [place] [id number] Insurance:MEDICARE BANFIELDDOB: Community [address] PART A [facility] [id number], [place] Number: Repository [address]Dkf: [phone] [id number] [phone] () Date:2017-11-10 12/15/2017 Secondary NERIS L [facility] Insurance:MEDICAIDPol BANFIELDDOB: Community icy Number: [id number] [place] [address] [id number] Repository Date:2017-11-10 12/15/2017 Tertiary NOT GIVENUNK [facility] Insurance:SELF PAY [facility] Number: Effective Repository Date:2017-12-15 11/20/2017 NERIS L Primary NERIS L [facility] [id number] Insurance:MEDICARE BANFIELDDOB: Community [address] PART A [facility] [id number], [place] Number: Repository [address]Bxk: [phone] [id number] [phone] (HP) Date:2017-11-13 11/20/2017 Secondary NERIS L [facility] Insurance:MEDICAIDPol BANFIELDDOB: Community icy Number: [id number] [id number] Repository Date:2017-11-13 11/20/2017 Tertiary NOT GIVENUNK [place] Insurance:SELF PAY [facility] Number: Effective Repository Date:2017-11-13 11/08/2017 NERIS L Primary NERIS [address] [id number] Insurance:MEDICARE BANFIELDDOB: Community [address] PART A [facility] [id number], [place] Number: Repository [address]Xtz: 330 [id number] [phone] () Date:2017-11-08 11/08/2017 Secondary NERIS L [place] Insurance:MEDICAIDPol BANFIELDDOB: Community icy Number: [id number] [place] [address] [id number] Repository Date:2017-11-08 11/08/2017 Tertiary NOT GIVENUNK [facility] Insurance:SELF PAY [facility] Number: Effective Repository Date:2017-11-08 10/02/2017 NERIS L Primary NERIS [address] [id number] Insurance:MEDICARE BANFIELDDOB: Community [address] PART [address], [place] Number: Repository [address]Orc: 330 [id number] [phone] () Date:2017-10-02 10/02/2017 Secondary NERIS L [facility] Insurance:MEDICAIDPol BANFIELDDOB: Community icy Number: [id number] [place] [address] [id number] Repository Date:2017-10-02 10/02/2017 Tertiary NOT GIVENUNK [place] Insurance:SELF PAY [facility] Number: Effective Repository Date:2017-10-02 10/01/2017 NERIS L Primary NERIS L [place] [id number] Insurance:MEDICARE BANFIELDDOB: Community [address] PART [address], [place] Number: Repository [address]Qpp: 330 [id number] [phone] (HP) Date:2017-10-01 10/01/2017 Secondary NERIS L Britt[place] Insurance:MEDICAIDPol BANFIELDDOB: Community icy Number: [id number] Hospital [id number] Repository Date:2017-10-01 10/01/2017 Tertiary NOT GIVENUNK [place] Insurance:SELF PAY [facility] Number: Effective Repository Date:2017-10-01 09/30/2017 NERIS Martínez Primary NERIS Martínez Britt[place] [id number] Insurance:MEDICARE BANFIELDDOB: Community [address] PART A [facility] [id number], [place] Number: Repository [address]Cgx: 330 [id number] [phone] (HP) Date:2017-09-30 09/30/2017 Secondary NERIS L [place] Insurance:MEDICAIDPol BANFIELDDOB: Community icy Number: [id number] [place] [address] [id number] Repository Date:2017-09-30 09/30/2017 Tertiary NOT GIVENUNK [place] Insurance:SELF PAY [facility] Number: Effective Repository Date:2017-09-30 09/23/2017 NERIS Martínez Primary NERIS Martínez Brittany [id number] Insurance:MEDICARE BANFIELDDOB: Community [address] PART [address], [place] Number: Repository [address]Tyg: 330 [id number] [phone] (HP) Date:2017-09-23 09/23/2017 Secondary NERIS L [facility] Insurance:MEDICAIDPol BANFIELDDOB: Community icy Number: [id number] [place] [address] [id number] Repository Date:2017-09-23 09/23/2017 Tertiary NOT GIVENUNK [place] Insurance:SELF PAY [facility] Number: Effective Repository Date:2017-09-23 09/08/2017 NERIS L Primary NERIS Martínez Brittany [id number] Insurance:MEDICARE BANFIELDDOB: Community [address] PART [address], [place] Number: Repository [address]Jix: 330 [id number] [phone] (HP) Date:2004-03-18 09/08/2017 Secondary NERIS L [place] Insurance:MEDICAIDPol BANFIELDDOB: Community icy Number: [id number] Hospital [id number] Repository Date:2016-03-01 09/08/2017 Tertiary NOT GIVENUNK [place] Insurance:SELF PAY [facility] Number: Effective Repository Date:2017-07-11 08/26/2017 NERIS Martínez Primary NERIS Martínez [place] [id number] Insurance:MEDICARE BANFIELDDOB: Community [address] PART A [facility] [id number], [place] Number: Repository [address]Gof: 330 [id number] [phone] (HP) Date:2017-08-26 08/26/2017 Secondary NERIS L Britt[place] Insurance:MEDICAIDPol BANFIELDDOB: Community icy Number: [id number] [place] [address] [id number] Repository Date:2017-08-26 08/26/2017 Tertiary NOT GIVENUNK [place] Insurance:SELF PAY [facility] Number: Effective Repository Date:2017-08-26 08/21/2017 NERIS L Primary NERIS L [place] [id number] Insurance:MEDICARE BANFIELDDOB: Community [address] PART [address], [place] Number: Repository [address]Jib: 330 [id number] [phone] (HP) Date:2017-08-21 08/21/2017 Secondary NERIS L [place] Insurance:MEDICAIDPol BANFIELDDOB: Community icy Number: [id number] [place] [address] [id number] Repository Date:2017-08-21 08/21/2017 Tertiary NOT GIVENUNK [place] Insurance:SELF PAY [facility] Number: Effective Repository Date:2017-08-21 08/21/2017 Neris L Primary Neris L [place] [id number] Insurance:MEDICARE BanfieldDOB: Community [address], [place] Number: Repository [address]Szx: 330 [id number] [phone] (HP) Date:2017-08-21 08/21/2017 Secondary Neris L [place] Insurance:MEDICAIDPol [place]DOB: Community icy Number: [id number] [place] [address] [id number] Repository Date:2017-08-21 08/21/2017 Tertiary NOT GIVENUNK [place] Insurance:SELF PAY [facility] Number: Effective Repository Date:2017-08-21 08/15/2017 Neris L Primary Neris L [place] [id number] Insurance:MEDICARE BanfieldDOB: Community [address], [place] Number: Repository [address]Wkq: 330 [id number] [phone] (HP) Date:2017-08-14 08/15/2017 Secondary Neris L [place] Insurance:MEDICAIDPol [place]fieldDOB: Community icy Number: [id number] [place] [address] [id number] Repository Date:2017-08-14 08/15/2017 Tertiary NOT GIVENUNK [place] Insurance:SELF PAY [facility] Number: Effective Repository Date:2017-08-14 08/14/2017 Neris L Primary Neris L [place] [id number] Insurance:MEDICARE BanfieldDOB: Community [address], [place] Number: Repository [address]Ecq: 330 [id number] [phone] (HP) Date:2017-08-14 08/14/2017 Secondary Neris L [place] Insurance:MEDICAIDPol BanfieldDOB: Community icy Number: [id number] [id number] Repository Date:2017-08-14 08/14/2017 Tertiary NOT GIVENUNK [place] Insurance:SELF PAY [facility] Number: Effective Repository Date:2017-08-14
== END ==
PROVIDERS: Family Provider Family Medicine Geriatric Medicine; PCP Family Medicine Geriatric Medicine; Visit Provider Family Medicine Geriatric Medicine
DX: R53.83 Other fatigue (principal); E55.9 Vitamin D deficiency, unspecified
CPT/HCPCS: 36415; 80053; 82306; 84443; 85025

== ENCOUNTER → 2018-09-10 11:47 | Outpatient (CLI) | payer MEDICARE, SELFPAY ==
--- NOTE | 2018-09-10 11:50 | BI_ITS ---
MAMMOGRAPHY - BILATERAL SCREENING REASON FOR EXAM: Female, 67 years old. Routine annual screening examination. PERTINENT HISTORY: Non-contributory. TECHNIQUE: Digital bilateral breast jasen (3D mammographic acquisition) in the CC and MLO projections. 2-D mediolateral oblique (MLO) and craniocaudad (CC) views of both breasts were obtained. CAD: Full Field Digital Mammography with Computer Added Detection was performed. COMPARISON: Comparison is made with prior study dated 2017 and July 31, 2012. FINDINGS: Breast Composition: There are scattered areas of fibroglandular density. There are no dominant masses or suspicious calcifications. No other significant abnormalities are identified. There has been no significant change since the prior study. BI/SCREENING MAMM (CAD), BILAT IMPRESSION: Stable bilateral screening mammogram. Yearly follow-up mammogram recommended. (A) ASSESSMENT CATEGORY: BIRADS Category 1: Negative. A letter regarding these results will be sent to the patient by the facility within 30 days. Approximately 10% of breast cancers are not detected by mammography. A normal mammogram should not delay biopsy of a clinically suspicious abnormality. [id number] Electronically Signed: Wesley Pham MD at 12:58 EST , Service support ,
== END ==
PROVIDERS: Family Provider Family Medicine Geriatric Medicine; PCP Family Medicine Geriatric Medicine; Referring Provider Family Medicine Geriatric Medicine; Visit Provider Family Medicine Geriatric Medicine
DX: Z12.31 Encounter for screening mammogram for malignant neoplasm of breast (principal)
CPT/HCPCS: 77063; 77067

== ENCOUNTER → 2018-11-02 16:20 | Outpatient (CLI) | payer MEDICARE, SELFPAY ==
[2018-11-02 17:17] LABS: Absolute Lymphocyte Count 2.02 X10^3/ul (0.83-4.51); Absolute Neutrophil Count 7.9 X10^3/uL (2.0-7.7); Basophil# 0.02 X10^3/uL; Basophil% 0.2 % (0-1); Eosinophil# 0.05 X10^3/uL; Eosinophils% 0.5 % (0-5); Hematocrit 43.1 % (37-47); Hemoglobin 13.2 g/dl (12.0-15.0); Lymphocyte # 2.02 X10^3/ul (4.0); Lymphocyte % 19.2 % (19-41); Mean Corp Hgb Conc 30.6 g/gl (32-36); Mean Corpuscular Hgb 29.1 pg (27.0-32.0); Mean Corpuscular Volume 95.1 fL (81-99); Mean Platelet Vol. 9.2 fl (6.2-12.0); Monocyte# 0.56 X10^3/uL; Monocyte% 5.3 % (0-10); Neutrophil # 7.87 X10^3/uL (2.7-7.7); Neutrophil % 74.6 % (47-70); Platelet Count 356 K/mm3 (150-450); RBC Distribution Width SD 46.6 fl (35.1-43.9); Red Blood Count 4.53 M/mm3 (4.2-5.4); White Blood Count 10.5 K/mm3 (4.4-11.0)
[2018-11-02 17:19] LABS: POSITIVE COUNT NO; POSITIVE DIFFERENTIAL NO; POSITIVE MORPHOLOGY NO
[2018-11-02 18:06] LABS: ALB/GLOB Ratio 1.1 RATIO (0.9-2.4); AST(SGOT) 18 U/L (15-37); Alanine Aminotransfer ALT/SGPT 26 U/L (13-56); Albumin, Serum 3.9 g/dL (3.2-5.0); Alkaline Phosphatase 84 U/L (45-117); Amylase 61 U/L (25-115); Anion Gap 4 (5-15); BUN 13 mg/dL (7-18); BUN/Creat Ratio 14.4 RATIO (10-20); CPK Total, Creatine Kinase 120 U/L (26-192); Calcium,Total 9.1 mg/dL (8.5-10.1); Chloride 107 mmol/L (98-107); EST Glomerular Filtration Rate 66 mL/min (>60); Est Glom Filt Rate - Afr Amer 80 mL/min (>60); Globulin 3.6 g/dL (2.2-4.2); Glucose 92 mg/dL (74-106); Lipase 147 U/L (73-393); Potassium 3.8 mmol/L (3.5-5.1); Protein, Total 7.5 g/dL (6.4-8.2); Sodium Level 141 mmol/L (136-145)
[2018-11-04 11:20] LABS: Myoglobin, Serum 57 ng/mL (25-58)
== END ==
PROVIDERS: Family Provider Family Medicine Geriatric Medicine; PCP Family Medicine Geriatric Medicine; Visit Provider Family Medicine Geriatric Medicine
DX: R07.9 Chest pain, unspecified (principal); R53.83 Other fatigue
CPT/HCPCS: 36415; 80053; 82150; 82550; 83690; 83874; 84484; 85025

== ENCOUNTER → 2018-11-02 16:35 | Outpatient (CLI) | payer MEDICARE, SELFPAY ==
--- NOTE | 2018-11-02 17:06 | RAD_ITS ---
HISTORY: abdominal pain EXAM:Abdominal series 3 views COMPARISON: 10/01/2017 FINDINGS: With comparison previous, no significant change. Supine and upright views show no free intraperitoneal air. No bowel obstruction. Small and large intestinal loops are nondilated. Surgical clips in the region of the gallbladder fossa. Multiple pelvic phleboliths. No soft tissue mass or organomegaly. Lower thoracic and upper lumbar dextroscoliosis. RAD/[employer]d Inc Decub and/or Erect IMPRESSION: Nonobstructive bowel gas pattern. No acute disease seen. If symptoms warrant, further correlation with CT may be of benefit at 0255 Reported and signed by: Donnie Massey MD Electronically Signed: Donnie Massey, at 2:54 EDT Tel , Service support ,
== END ==
PROVIDERS: Family Provider Family Medicine Geriatric Medicine; PCP Family Medicine Geriatric Medicine; Referring Provider Family Medicine Geriatric Medicine; Visit Provider Family Medicine Geriatric Medicine
DX: R10.9 Unspecified abdominal pain (principal)
CPT/HCPCS: 36415; 74019; 80053; 82150; 82550; 83690; 83874; 84484; 85025

== ENCOUNTER → 2018-11-30 16:04 | Outpatient (CLI) | payer MEDICARE, SELFPAY ==
[2018-11-30 18:23] LABS: Albumin, Serum 3.8 g/dL (3.2-5.0); BUN 13 mg/dL (7-18); BUN/Creat Ratio 14.4 RATIO (10-20); Calcium,Total 9.4 mg/dL (8.5-10.1); Chloride 104 mmol/L (98-107); EST Glomerular Filtration Rate 66 mL/min (>60); Est Glom Filt Rate - Afr Amer 80 mL/min (>60); Glucose 87 mg/dL (74-106); Phosphorus 3.9 mg/dL (2.5-4.9); Potassium 3.8 mmol/L (3.5-5.1); Sodium Level 139 mmol/L (136-145)
== END ==
PROVIDERS: Family Provider Family Medicine Geriatric Medicine; PCP Family Medicine Geriatric Medicine; Referring Provider Internal Medicine Nephrology; Visit Provider Internal Medicine Nephrology
DX: N18.2 Chronic kidney disease, stage 2 (mild) (principal)
CPT/HCPCS: 36415; 80069

== ENCOUNTER → 2019-01-19 12:01 | Outpatient (CLI) | payer MEDICARE, SELFPAY ==
[2019-01-19 12:40] LABS: Absolute Lymphocyte Count 1.59 X10^3/ul (0.83-4.51); Absolute Neutrophil Count 7.1 X10^3/uL (2.0-7.7); Basophil# 0.02 X10^3/uL; Basophil% 0.2 % (0-1); Hematocrit 40.8 % (37-47); Hemoglobin 12.9 g/dl (12.0-15.0); Lymphocyte # 1.59 X10^3/ul (4.0); Lymphocyte % 16.5 % (19-41); Mean Corp Hgb Conc 31.6 g/gl (32-36); Mean Corpuscular Hgb 29.1 pg (27.0-32.0); Mean Corpuscular Volume 92.1 fL (81-99); Mean Platelet Vol. 9.2 fl (6.2-12.0); Monocyte# 0.77 X10^3/uL; Neutrophil # 7.14 X10^3/uL (2.7-7.7); Neutrophil % 74.1 % (47-70); POSITIVE COUNT NO; POSITIVE DIFFERENTIAL NO; POSITIVE MORPHOLOGY NO; Platelet Count 337 K/mm3 (150-450); RBC Distribution Width CV 14.3 % (11.6-14.6); RBC Distribution Width SD 47.2 fl (35.1-43.9); Red Blood Count 4.43 M/mm3 (4.2-5.4); White Blood Count 9.6 K/mm3 (4.4-11.0)
[2019-01-19 13:08] LABS: Vitamin D,25 Hydroxy 29.8 ng/mL (29.95-100.01)
[2019-01-19 13:15] LABS: ALB/GLOB Ratio 1.1 RATIO (0.9-2.4); AST(SGOT) 18 U/L (15-37); Alanine Aminotransfer ALT/SGPT 24 U/L (13-56); Albumin, Serum 3.6 g/dL (3.2-5.0); Alkaline Phosphatase 80 U/L (45-117); Anion Gap 9 (5-15); BUN 14 mg/dL (7-18); BUN/Creat Ratio 16.6 RATIO (10-20); Calcium,Total 8.8 mg/dL (8.5-10.1); Chloride 105 mmol/L (98-107); Creatinine, Serum 0.84 mg/dL (0.55-1.02); EST Glomerular Filtration Rate 72 mL/min (>60); Est Glom Filt Rate - Afr Amer 87 mL/min (>60); Globulin 3.4 g/dL (2.2-4.2); Glucose 80 mg/dL (74-106); Potassium 3.5 mmol/L (3.5-5.1); Sodium Level 142 mmol/L (136-145); Thyroid Stim Hormone (TSH) 0.95 uIU/mL (0.358-3.74)
== END ==
PROVIDERS: Family Provider Family Medicine Geriatric Medicine; PCP Family Medicine Geriatric Medicine; Visit Provider Family Medicine Geriatric Medicine
DX: R53.83 Other fatigue (principal); E55.9 Vitamin D deficiency, unspecified
CPT/HCPCS: 36415; 80053; 82306; 84443; 85025

== ENCOUNTER → 2019-07-22 10:04 | Outpatient (CLI) | payer MEDICARE, SELFPAY ==
[2019-07-22 12:32] LABS: Absolute Lymphocyte Count 2.44 X10^3/uL (0.83-4.51); Absolute Neutrophil Count 7.2 X10^3/uL (2.0-7.7); Basophil# 0.05 X10^3/uL; Basophil% 0.5 % (0-1); Hematocrit 40.8 % (37-47); Hemoglobin 12.7 g/dL (12.0-15.0); Lymphocyte # 2.44 X10^3/ul (4.0); Lymphocyte % 23.2 % (19-41); Mean Corp Hgb Conc 31.1 g/dL (32-36); Mean Corpuscular Hgb 29.7 pg (27.0-32.0); Mean Corpuscular Volume 95.6 fL (81-99); Mean Platelet Vol. 9.2 fl (6.2-12.0); Monocyte# 0.71 X10^3/uL; Monocyte% 6.8 % (0-10); NRBC Flagged by Analyzer 0 % (0-5); Neutrophil # 7.17 X10^3/uL (2.7-7.7); Neutrophil % 68.1 % (47-70); Platelet Count 354 K/mm3 (150-450); RBC Distribution Width CV 13.4 % (11.6-14.6); RBC Distribution Width SD 47.4 fl (35.1-43.9); Red Blood Count 4.27 M/mm3 (4.2-5.4); White Blood Count 10.5 K/mm3 (4.4-11.0)
[2019-07-22 12:50] LABS: Vitamin D,25 Hydroxy 44.3 ng/mL (29.95-100.01)
[2019-07-22 12:59] LABS: ALB/GLOB Ratio 1.1 RATIO (0.9-2.4); AST(SGOT) 17 U/L (15-37); Alanine Aminotransfer ALT/SGPT 24 U/L (13-56); Albumin, Serum 3.7 g/dL (3.2-5.0); Alkaline Phosphatase 86 U/L (45-117); Anion Gap 6 (5-15); BUN 14 mg/dL (7-18); BUN/Creat Ratio 15.7 RATIO (10-20); Chloride 107 mmol/L (98-107); Creatinine, Serum 0.89 mg/dL (0.55-1.02); EST Glomerular Filtration Rate 67 mL/min (>60); Est Glom Filt Rate - Afr Amer 81 mL/min (>60); Globulin 3.4 g/dL (2.2-4.2); Glucose 72 mg/dL (74-106); Potassium 3.3 mmol/L (3.5-5.1); Protein, Total 7.1 g/dL (6.4-8.2); Sodium Level 141 mmol/L (136-145); Thyroid Stim Hormone (TSH) 1.48 uIU/mL (0.358-3.74)
== END ==
PROVIDERS: Family Provider Family Medicine Geriatric Medicine; PCP Family Medicine Geriatric Medicine; Visit Provider Family Medicine Geriatric Medicine
DX: R53.83 Other fatigue (principal); E55.9 Vitamin D deficiency, unspecified
CPT/HCPCS: 36415; 80053; 82306; 84443; 85025

== ENCOUNTER → 2019-08-12 10:36 | Outpatient (CLI) | payer MEDICARE, SELFPAY ==
[2019-08-12 12:43] LABS: Anion Gap 6 (5-15); BUN 13 mg/dL (7-18); BUN/Creat Ratio 13.5 RATIO (10-20); Calcium,Total 8.6 mg/dL (8.5-10.1); Chloride 106 mmol/L (98-107); Creatinine, Serum 0.97 mg/dL (0.55-1.02); EST Glomerular Filtration Rate 61 mL/min (>60); Est Glom Filt Rate - Afr Amer 74 mL/min (>60); Glucose 124 mg/dL (74-106); Potassium 3.4 mmol/L (3.5-5.1); Sodium Level 140 mmol/L (136-145)
== END ==
PROVIDERS: Family Provider Family Medicine Geriatric Medicine; PCP Family Medicine Geriatric Medicine; Visit Provider Family Medicine Geriatric Medicine
DX: E87.6 Hypokalemia (principal)
CPT/HCPCS: 36415; 80048

== ENCOUNTER → 2019-10-04 12:07 | Outpatient (CLI) | payer MEDICARE, SELFPAY ==
--- NOTE | 2019-10-04 12:11 | BI_ITS ---
MAMMOGRAPHY - BILATERAL SCREENING REASON FOR EXAM: Female, 68 years old. Routine annual screening examination. PERTINENT HISTORY: Non-contributory. TECHNIQUE: Digital bilateral breast raman (3D mammographic acquisition) in the CC and MLO projections. 2-D mediolateral oblique (MLO) and craniocaudad (CC) views of both breasts were obtained. CAD: Full Field Digital Mammography with Computer Added Detection was performed. COMPARISON: Comparison is made with prior examination dated September 10, 2018 and September 08, 2017. FINDINGS: Breast Composition: There are scattered areas of fibroglandular density. There are no dominant masses or suspicious calcifications. No other significant abnormalities are identified. There has been no significant change since the prior study. BI/SCREEN MAMM (CAD) W/RAMAN BILAT IMPRESSION: Stable bilateral screening mammogram. Yearly follow-up mammogram recommended. (A) ASSESSMENT CATEGORY: BIRADS Category 1: Negative. A letter regarding these results will be sent to the patient by the facility within 30 days. Approximately 10% of breast cancers are not detected by mammography. A normal mammogram should not delay biopsy of a clinically suspicious abnormality. [id number] Electronically Signed: Wesley Pham, at 12:57 EST , Service support ,
== END ==
PROVIDERS: PCP Family Medicine Geriatric Medicine; Referring Provider Family Medicine Geriatric Medicine; Visit Provider Family Medicine Geriatric Medicine
DX: Z12.31 Encounter for screening mammogram for malignant neoplasm of breast (principal)
CPT/HCPCS: 77063; 77067

== ENCOUNTER → 2019-11-29 10:55 | Outpatient (CLI) | payer MEDICARE, MEDICAID, SELFPAY ==
[2019-11-29 11:41] LABS: Hematocrit 42.4 % (37-47); Mean Corp Hgb Conc 30.7 g/dL (32-36); Mean Corpuscular Hgb 28.8 pg (27.0-32.0); Mean Corpuscular Volume 93.8 fL (81-99); Mean Platelet Vol. 8.9 fl (6.2-12.0); Platelet Count 340 K/mm3 (150-450); RBC Distribution Width CV 13.9 % (11.6-14.6); RBC Distribution Width SD 47.9 fl (35.1-43.9); Red Blood Count 4.52 M/mm3 (4.2-5.4); White Blood Count 9.2 K/mm3 (4.4-11.0)
[2019-11-29 11:57] LABS: Albumin, Serum 3.6 g/dL (3.2-5.0); BUN 14 mg/dL (7-18); BUN/Creat Ratio 15.1 RATIO (10-20); Calcium,Total 9.2 mg/dL (8.5-10.1); Chloride 107 mmol/L (98-107); Creatinine, Serum 0.93 mg/dL (0.55-1.02); EST Glomerular Filtration Rate 64 mL/min (>60); Est Glom Filt Rate - Afr Amer 77 mL/min (>60); Glucose 100 mg/dL (74-106); Phosphorus 2.4 mg/dL (2.5-4.9); Potassium 3.5 mmol/L (3.5-5.1); Sodium Level 140 mmol/L (136-145)
[2019-11-29 12:02] LABS: Vitamin D,25 Hydroxy 31.2 ng/mL
== END ==
PROVIDERS: PCP Family Medicine Geriatric Medicine; Referring Provider Internal Medicine Nephrology; Visit Provider Internal Medicine Nephrology
DX: N18.2 Chronic kidney disease, stage 2 (mild) (principal); E55.9 Vitamin D deficiency, unspecified
CPT/HCPCS: 36415; 80069; 82306; 85027

== ENCOUNTER → 2020-01-25 15:07 | Outpatient (CLI) | payer MEDICARE, MEDICAID, SELFPAY ==
[2020-01-25 16:29] LABS: Absolute Neutrophil Count 8.3 X10^3/uL (2.0-7.7); Basophil# 0.04 X10^3/uL; Basophil% 0.4 % (0-1); Eosinophils% 0.9 % (0-5); Hematocrit 40.7 % (37-47); Hemoglobin 12.9 g/dL (12.0-15.0); Lymphocyte % 14.2 % (19-41); Mean Corp Hgb Conc 31.7 g/dL (32-36); Mean Corpuscular Hgb 29.9 pg (27.0-32.0); Mean Corpuscular Volume 94.4 fL (81-99); Mean Platelet Vol. 9.2 fl (6.2-12.0); Monocyte# 0.63 X10^3/uL; Monocyte% 5.9 % (0-10); NRBC Flagged by Analyzer 0 % (0-5); Neutrophil # 8.29 X10^3/uL (2.7-7.7); Neutrophil % 78.2 % (47-70); Platelet Count 368 K/mm3 (150-450); RBC Distribution Width CV 14.3 % (11.6-14.6); RBC Distribution Width SD 48.9 fl (35.1-43.9); Red Blood Count 4.31 M/mm3 (4.2-5.4); White Blood Count 10.6 K/mm3 (4.4-11.0)
[2020-01-25 16:51] LABS: Vitamin D,25 Hydroxy 32.8 ng/mL
[2020-01-25 17:08] LABS: AST(SGOT) 15 U/L (15-37); Alanine Aminotransfer ALT/SGPT 21 U/L (13-56); Albumin, Serum 3.5 g/dL (3.2-5.0); Alkaline Phosphatase 87 U/L (45-117); Anion Gap 10 (5-15); BUN 14 mg/dL (7-18); BUN/Creat Ratio 14.8 RATIO (10-20); Calcium,Total 9.1 mg/dL (8.5-10.1); Chloride 108 mmol/L (98-107); Creatinine, Serum 0.94 mg/dL (0.55-1.02); EST Glomerular Filtration Rate 63 mL/min (>60); Est Glom Filt Rate - Afr Amer 76 mL/min (>60); Globulin 3.5 g/dL (2.2-4.2); Glucose 124 mg/dL (74-106); Potassium 3.8 mmol/L (3.5-5.1); Sodium Level 141 mmol/L (136-145); Thyroid Stim Hormone (TSH) 0.73 uIU/mL (0.358-3.74)
== END ==
PROVIDERS: PCP Family Medicine Geriatric Medicine; Visit Provider Family Medicine Geriatric Medicine
DX: E55.9 Vitamin D deficiency, unspecified (principal); R53.83 Other fatigue
CPT/HCPCS: 36415; 80053; 82306; 84443; 85025

== ENCOUNTER → 2020-04-25 11:20 | Outpatient (CLI) | payer MEDICARE, MEDICAID, SELFPAY ==
--- NOTE | 2020-04-25 11:30 | RAD_ITS ---
STUDY: X-RAY CHEST REASON FOR EXAM: Female, 69 years old. shortness of breath since Friday, chest pain, Hx current smoker, pack per day TECHNIQUE: PA and lateral views of the chest. COMPARISON: Prior study of 05/13/2018 FINDINGS: The lungs are clear and expanded. There is no demonstrated pleural abnormality. Normal size heart. Normal mediastinum and rolf. Normal visualized pulmonary arteries. Normal visualized aortic arch and descending thoracic aorta. There is demineralization of the osseous structures. Normal visualized ribs, clavicles, and shoulders. There is no demonstrated abnormality of the visualized soft tissue structures of the upper abdomen. RAD/Chest PA and Lateral IMPRESSION: No acute cardiopulmonary disease process is seen. There is generalized osteopenia. Electronically Signed: Javier Suazo MD at 20:40 EDT , Service support ,
[2020-04-25 12:44] LABS: Absolute Lymphocyte Count 1.45 X10^3/uL (0.83-4.51); Basophil# 0.03 X10^3/uL; Basophil% 0.3 % (0-1); Eosinophil# 0.14 X10^3/uL; Eosinophils% 1.4 % (0-5); Hematocrit 40.3 % (37-47); Hemoglobin 12.5 g/dL (12.0-15.0); Lymphocyte # 1.45 X10^3/ul (4.0); Lymphocyte % 14.2 % (19-41); Mean Corpuscular Hgb 29.2 pg (27.0-32.0); Mean Corpuscular Volume 94.2 fL (81-99); Mean Platelet Vol. 9.4 fl (6.2-12.0); Monocyte# 0.61 X10^3/uL; NRBC Flagged by Analyzer 0 % (0-5); Neutrophil # 7.95 X10^3/uL (2.7-7.7); Neutrophil % 77.5 % (47-70); Platelet Count 351 K/mm3 (150-450); RBC Distribution Width CV 13.5 % (11.6-14.6); RBC Distribution Width SD 45.8 fl (35.1-43.9); Red Blood Count 4.28 M/mm3 (4.2-5.4); White Blood Count 10.2 K/mm3 (4.4-11.0)
[2020-04-25 13:28] LABS: ALB/GLOB Ratio 1.1 RATIO (0.9-2.4); AST(SGOT) 19 U/L (15-37); Alanine Aminotransfer ALT/SGPT 22 U/L (13-56); Albumin, Serum 3.7 g/dL (3.2-5.0); Alkaline Phosphatase 102 U/L (45-117); Anion Gap 4 (5-15); BUN 13 mg/dL (7-18); BUN/Creat Ratio 14.1 RATIO (10-20); Calcium,Total 8.9 mg/dL (8.5-10.1); Chloride 107 mmol/L (98-107); Creatinine, Serum 0.92 mg/dL (0.55-1.02); EST Glomerular Filtration Rate 64 mL/min (>60); Est Glom Filt Rate - Afr Amer 78 mL/min (>60); Globulin 3.4 g/dL (2.2-4.2); Glucose 88 mg/dL (74-106); Potassium 3.9 mmol/L (3.5-5.1); Protein, Total 7.1 g/dL (6.4-8.2); Sodium Level 140 mmol/L (136-145); Thyroid Stim Hormone (TSH) 0.75 uIU/mL (0.358-3.74)
== END ==
PROVIDERS: PCP Family Medicine Geriatric Medicine; Referring Provider Family Medicine Geriatric Medicine; Visit Provider Family Medicine Geriatric Medicine
DX: R53.83 Other fatigue (principal); R06.02 Shortness of breath
CPT/HCPCS: 36415; 71046; 80053; 84443; 85025

== ENCOUNTER → 2020-06-02 12:34 | Outpatient (CLI) | payer MEDICARE, MEDICAID, SELFPAY ==
[2020-06-02 12:50] LABS: Absolute Lymphocyte Count 0.83 X10^3/uL (0.83-4.51); Basophil# 0.03 X10^3/uL; Basophil% 0.3 % (0-1); Eosinophil# 0.03 X10^3/uL; Eosinophils% 0.3 % (0-5); Hematocrit 38.9 % (37-47); Lymphocyte # 0.83 X10^3/ul (4.0); Lymphocyte % 7.2 % (19-41); Mean Corp Hgb Conc 30.8 g/dL (32-36); Mean Corpuscular Hgb 29.6 pg (27.0-32.0); Mean Platelet Vol. 8.8 fl (6.2-12.0); Monocyte# 0.62 X10^3/uL; Monocyte% 5.4 % (0-10); NRBC Flagged by Analyzer 0 % (0-5); Neutrophil # 9.95 X10^3/uL (2.7-7.7); Neutrophil % 86.4 % (47-70); Platelet Count 314 K/mm3 (150-450); RBC Distribution Width CV 13.6 % (11.6-14.6); RBC Distribution Width SD 48.1 fl (35.1-43.9); Red Blood Count 4.05 M/mm3 (4.2-5.4); White Blood Count 11.5 K/mm3 (4.4-11.0)
--- NOTE | 2020-06-02 12:57 | CT_ITS ---
STUDY: CT ABDOMEN AND PELVIS WITH CONTRAST REASON FOR EXAM: Female, 69 years old. AB PAIN ? FECAL IMPACTION RADIATION DOSAGE (If Supplied By Facility): CTDIvol = ( 14.16 ) mGy, DLP = ( 848.51 ) mGycm TECHNIQUE: Transaxial images were obtained from the dome of the diaphragm to the symphysis pubis with oral contrast. Oral and amp; IV Gastrografin and amp; 100mL Isovue-300 was administered. Sagittal and coronal images were reconstructed. Individualized dose optimization techniques were used for this CT. COMPARISON: Comparison is made with prior study dated 12/16/2012. FINDINGS: Calcified granuloma at the right lung base. The visualized portions of the heart are within normal limits. Normal liver. There are surgical clips in the gallbladder fossa consistent with a prior cholecystectomy. Normal spleen. Normal pancreas. Normal bilateral adrenal glands. Normal right kidney. 2 cm cyst in the anterior medial aspect of the left kidney. Stable 1.2 cm hypodense nodule in the inferior posterior aspect of the left kidney. This is not a simple cyst. Normal visualized stomach. Normal small intestine. There is evidence of inflammatory changes in the right hemicolon with increased markings in the peritoneal fat as well as thickening of the right hemicolon. Colitis should be ruled out. Scattered colonic sigmoid diverticula. Small appendicolith is seen in the distal portion of the appendix. Normal abdominal aorta. Normal inferior vena cava. Normal retroperitoneum. Normal urinary bladder. There is a small umbilical hernia containing fat. There are diffuse degenerative changes of the visualized lumbar spine. CT/Abdomen/Pelvis WITH Contrast IMPRESSION: Inflammatory changes seen in the right hemicolon as described. Colitis should be ruled out. Left renal cyst. Electronically Signed: Wesley Pham, at 15:53 EDT , Service support ,
[2020-06-02 13:06] LABS: ALB/GLOB Ratio 0.9 RATIO (0.9-2.4); AST(SGOT) 30 U/L (15-37); Alanine Aminotransfer ALT/SGPT 27 U/L (13-56); Albumin, Serum 3.4 g/dL (3.2-5.0); Alkaline Phosphatase 121 U/L (45-117); Anion Gap 4 (5-15); BUN 10 mg/dL (7-18); BUN/Creat Ratio 11.1 RATIO (10-20); Chloride 111 mmol/L (98-107); EST Glomerular Filtration Rate 66 mL/min (>60); Est Glom Filt Rate - Afr Amer 80 mL/min (>60); Globulin 3.8 g/dL (2.2-4.2); Glucose 152 mg/dL (74-106); Protein, Total 7.2 g/dL (6.4-8.2); Sodium Level 143 mmol/L (136-145)
== END ==
PROVIDERS: PCP Family Medicine Geriatric Medicine; Referring Provider Family Medicine Geriatric Medicine; Visit Provider Family Medicine Geriatric Medicine
DX: K56.41 Fecal impaction (principal); R10.9 Unspecified abdominal pain
CPT/HCPCS: 36415; 74177; 80053; 85025; Q9967

== ENCOUNTER → 2020-07-18 12:42 | Outpatient (CLI) | payer MEDICARE, MEDICAID, SELFPAY ==
--- NOTE | 2020-07-18 12:57 | CT_ITS ---
STUDY: CT BRAIN WITHOUT CONTRAST REASON FOR EXAM: Female, 69 years old. SYNCOPAL EPISODE RADIATION DOSAGE (If Supplied By Facility): CTDIvol = ( 44.99 ) mGy, DLP = ( 812.98 ) mGycm TECHNIQUE: Transaxial CT imaging of the brain was performed without administration of intravenous contrast material. Individualized dose optimization techniques were used for this CT. COMPARISON: Comparison is made with prior study dated 01/10/2017. FINDINGS: Normal soft tissue structures. Normal calvarium. There is mild cerebral atrophy with widening of the extra-axial spaces and ventricular dilatation. Normal white matter tracts of the cerebral hemispheres. Normal basal ganglia and thalami. Normal brainstem. Normal cerebellum. There is no intracranial hemorrhage. There are no findings of an acute ischemic infarction. Normal visualized paranasal sinuses. CT/Brain/Head without Contrast IMPRESSION: Chronic involutional changes of the brain. Electronically Signed: Wesley Pham, at 13:21 EST , Service support ,
--- NOTE | 2020-07-18 12:57 | EKG12_ITS ---
Test Reason : SYNCOPE Blood Pressure : / mmHG Vent. Rate : 075 BPM Atrial Rate : 075 BPM P-R Int : 148 ms QRS Dur : 084 ms QT Int : 374 ms P-R-T Axes : 053 029 031 degrees QTc Int : 417 ms Normal sinus rhythm Normal ECG Confirmed by NICA LUCAS, SIM ([id number]), film editor supervisor AVA OMALLEY ([id number]) on 07/19/2020 9:41:39 AM Referred By: Tanvir Shea Confirmed By:SIM YOUSIF MD
[2020-07-18 13:00] LABS: Absolute Lymphocyte Count 1.01 X10^3/uL (0.83-4.51); Absolute Neutrophil Count 7.3 X10^3/uL (2.0-7.7); Basophil# 0.02 X10^3/uL; Basophil% 0.2 % (0-1); Eosinophil# 0.04 X10^3/uL; Eosinophils% 0.5 % (0-5); Hematocrit 40.4 % (37-47); Hemoglobin 12.6 g/dL (12.0-15.0); Lymphocyte # 1.01 X10^3/ul (4.0); Lymphocyte % 11.5 % (19-41); Mean Corp Hgb Conc 31.2 g/dL (32-36); Mean Corpuscular Hgb 29.4 pg (27.0-32.0); Mean Corpuscular Volume 94.4 fL (81-99); Mean Platelet Vol. 8.7 fl (6.2-12.0); Monocyte# 0.39 X10^3/uL; Monocyte% 4.4 % (0-10); NRBC Flagged by Analyzer 0 % (0-5); Neutrophil # 7.27 X10^3/uL (2.7-7.7); Neutrophil % 82.8 % (47-70); Platelet Count 336 K/mm3 (150-450); RBC Distribution Width CV 13.8 % (11.6-14.6); RBC Distribution Width SD 47.7 fl (35.1-43.9); Red Blood Count 4.28 M/mm3 (4.2-5.4); White Blood Count 8.8 K/mm3 (4.4-11.0)
[2020-07-18 13:17] LABS: ALB/GLOB Ratio 1.1 RATIO (0.9-2.4); AST(SGOT) 16 U/L (15-37); Alanine Aminotransfer ALT/SGPT 23 U/L (13-56); Albumin, Serum 3.9 g/dL (3.2-5.0); Alkaline Phosphatase 109 U/L (45-117); Anion Gap 4 (5-15); BUN 10 mg/dL (7-18); Calcium,Total 9.3 mg/dL (8.5-10.1); Chloride 110 mmol/L (98-107); EST Glomerular Filtration Rate 59 mL/min (>60); Est Glom Filt Rate - Afr Amer 71 mL/min (>60); Globulin 3.4 g/dL (2.2-4.2); Glucose 117 mg/dL (74-106); Potassium 4.1 mmol/L (3.5-5.1); Protein, Total 7.3 g/dL (6.4-8.2); Sodium Level 141 mmol/L (136-145)
[2020-07-18 14:35] LABS: Thyroid Stim Hormone (TSH) 0.84 uIU/mL (0.358-3.74)
== END ==
PROVIDERS: PCP Family Medicine Geriatric Medicine; Referring Provider Family Medicine Geriatric Medicine; Visit Provider Family Medicine Geriatric Medicine
DX: R55 Syncope and collapse (principal); E03.9 Hypothyroidism, unspecified
CPT/HCPCS: 36415; 70450; 80053; 84443; 85025; 93005

== ENCOUNTER → 2020-07-19 13:59 | Outpatient (CLI) | payer MEDICARE, MEDICAID, SELFPAY ==
--- NOTE | 2020-07-19 14:10 | MRI_ITS ---
STUDY: MRI BRAIN WITHOUT CONTRAST REASON FOR EXAM: Female, 69 years old. expressive aphasia TECHNIQUE: Standardized multiplanar fat and water weighted pulse sequences were obtained. COMPARISON: CT brain 07/18/2020 FINDINGS: There is mild cerebral atrophy with widening of the extra-axial spaces and ventricular dilatation. There are a limited number of small white matter hyperintensities, distributed throughout the deep white matter tracts of the cerebral hemispheres, consistent with mild chronic white matter ischemic changes. There is no evidence for recent intracranial ischemia or other cause of cytotoxic edema on diffusion weighted imaging (DWI). Normal bilateral basal ganglia. Normal thalami. There is no extra-axial fluid accumulation. Normal flow voids within the major intracranial circulation suggesting patency by spin echo criteria. Normal sella turcica, pituitary gland, infundibular stalk, optic chiasm and hypothalamus. Normal tectal plate and pineal gland. Normal midbrain, jayesh and medulla. Normal cerebellum. Normal basal cisterns. Normal bilateral temporal bones. Normal bilateral internal auditory canals. No demonstrated orbital abnormality, within the constraints of a routine brain study. Normal visualized paranasal sinuses. Normal calvarium and skull base. Normal visualized soft tissue structures. Normal visualized upper cervical spine. MRI/Brain without Contrast IMPRESSION: Involutional changes of the brain, as described above. Electronically Signed: Delvis Zambrano MD at 17:28 EST , Service support ,
== END ==
PROVIDERS: PCP Family Medicine Geriatric Medicine; Referring Provider Family Medicine Geriatric Medicine; Visit Provider Family Medicine Geriatric Medicine
DX: R47.89 Other speech disturbances (principal)
CPT/HCPCS: 70551

== ENCOUNTER → 2020-08-01 13:17 | Outpatient (CLI) | payer MEDICARE, MEDICAID, SELFPAY ==
[2020-08-01 14:31] LABS: Absolute Lymphocyte Count 1.25 X10^3/uL (0.83-4.51); Absolute Neutrophil Count 7.9 X10^3/uL (2.0-7.7); Basophil# 0.03 X10^3/uL; Basophil% 0.3 % (0-1); Eosinophil# 0.07 X10^3/uL; Eosinophils% 0.7 % (0-5); Hematocrit 40.1 % (37-47); Hemoglobin 12.7 g/dL (12.0-15.0); Lymphocyte # 1.25 X10^3/ul (4.0); Lymphocyte % 12.7 % (19-41); Mean Corp Hgb Conc 31.7 g/dL (32-36); Mean Corpuscular Volume 94.6 fL (81-99); Mean Platelet Vol. 9.5 fl (6.2-12.0); Monocyte# 0.56 X10^3/uL; Monocyte% 5.7 % (0-10); NRBC Flagged by Analyzer 0 % (0-5); Neutrophil # 7.91 X10^3/uL (2.7-7.7); Neutrophil % 80.2 % (47-70); Platelet Count 353 K/mm3 (150-450); RBC Distribution Width CV 13.7 % (11.6-14.6); RBC Distribution Width SD 47.5 fl (35.1-43.9); Red Blood Count 4.24 M/mm3 (4.2-5.4); White Blood Count 9.9 K/mm3 (4.4-11.0)
[2020-08-01 15:03] LABS: Vitamin D,25 Hydroxy 34.5 ng/mL
[2020-08-01 15:10] LABS: ALB/GLOB Ratio 1.2 RATIO (0.9-2.4); AST(SGOT) 20 U/L (15-37); Alanine Aminotransfer ALT/SGPT 21 U/L (13-56); Albumin, Serum 3.9 g/dL (3.2-5.0); Alkaline Phosphatase 111 U/L (45-117); Anion Gap 5 (5-15); BUN 18 mg/dL (7-18); BUN/Creat Ratio 19.2 RATIO (10-20); Calcium,Total 9.2 mg/dL (8.5-10.1); Chloride 108 mmol/L (98-107); Creatinine, Serum 0.94 mg/dL (0.55-1.02); EST Glomerular Filtration Rate 63 mL/min (>60); Est Glom Filt Rate - Afr Amer 76 mL/min (>60); Globulin 3.3 g/dL (2.2-4.2); Glucose 125 mg/dL (74-106); Potassium 3.7 mmol/L (3.5-5.1); Protein, Total 7.2 g/dL (6.4-8.2); Sodium Level 142 mmol/L (136-145); Thyroid Stim Hormone (TSH) 0.99 uIU/mL (0.358-3.74)
== END ==
PROVIDERS: PCP Family Medicine Geriatric Medicine; Visit Provider Family Medicine Geriatric Medicine
DX: E55.9 Vitamin D deficiency, unspecified (principal); R53.83 Other fatigue
CPT/HCPCS: 36415; 80053; 82306; 84443; 85025

== ENCOUNTER → 2020-10-12 12:02 | Outpatient (CLI) | payer MEDICARE, MEDICAID, SELFPAY ==
--- NOTE | 2020-10-12 12:04 | BI_ITS ---
MAMMOGRAPHY - BILATERAL SCREENING REASON FOR EXAM: Female, 69 years old. Routine annual screening examination. PERTINENT HISTORY: Non-contributory. TECHNIQUE: Digital bilateral breast raman (3D mammographic acquisition) in the CC and MLO projections. 2-D mediolateral oblique (MLO) and craniocaudad (CC) views of both breasts were obtained. CAD: Full Field Digital Mammography with Computer Added Detection was performed. COMPARISON: Comparison is made with prior study 08/03/2020 and 09/10/2018. FINDINGS: Breast Composition: There are scattered areas of fibroglandular density. There are no dominant masses or suspicious calcifications. No other significant abnormalities are identified. There has been no significant change since the prior study. BI/SCRN MAMM (CAD)W/RAMAN BILAT IMPRESSION: Stable bilateral screening mammogram. Yearly follow-up mammogram recommended. (A) ASSESSMENT CATEGORY: BIRADS Category 1: Negative. A letter regarding these results will be sent to the patient by the facility within 30 days. Approximately 10% of breast cancers are not detected by mammography. A normal mammogram should not delay biopsy of a clinically suspicious abnormality. [id number] Electronically Signed: Wesley Pham MD at 13:25 EST , Service support ,
== END ==
PROVIDERS: PCP Family Medicine Geriatric Medicine; Referring Provider Family Medicine Geriatric Medicine; Visit Provider Family Medicine Geriatric Medicine
DX: Z12.31 Encounter for screening mammogram for malignant neoplasm of breast (principal)
CPT/HCPCS: 77063; 77067

== ENCOUNTER → 2020-10-13 12:02 | Outpatient (CLI) | payer MEDICARE, MEDICAID, SELFPAY ==
[2020-10-13 13:14] LABS: Absolute Lymphocyte Count 1.64 X10^3/uL (0.83-4.51); Absolute Neutrophil Count 4.1 X10^3/uL (2.0-7.7); Basophil# 0.02 X10^3/uL; Basophil% 0.3 % (0-1); Eosinophil# 0.12 X10^3/uL; Eosinophils% 1.9 % (0-5); Hematocrit 40.9 % (37-47); Hemoglobin 12.6 g/dL (12.0-15.0); Lymphocyte # 1.64 X10^3/ul (4.0); Lymphocyte % 25.5 % (19-41); Mean Corp Hgb Conc 30.8 g/dL (32-36); Mean Corpuscular Hgb 28.8 pg (27.0-32.0); Mean Corpuscular Volume 93.6 fL (81-99); Mean Platelet Vol. 9.3 fl (6.2-12.0); Monocyte% 7.8 % (0-10); NRBC Flagged by Analyzer 0 % (0-5); Neutrophil # 4.14 X10^3/uL (2.7-7.7); Neutrophil % 64.3 % (47-70); Platelet Count 342 K/mm3 (150-450); RBC Distribution Width SD 44.3 fl (35.1-43.9); Red Blood Count 4.37 M/mm3 (4.2-5.4); White Blood Count 6.4 K/mm3 (4.4-11.0)
[2020-10-13 13:48] LABS: ALB/GLOB Ratio 1.1 RATIO (0.9-2.4); AST(SGOT) 12 U/L (15-37); Alanine Aminotransfer ALT/SGPT 18 U/L (13-56); Albumin, Serum 3.6 g/dL (3.2-5.0); Alkaline Phosphatase 114 U/L (45-117); Anion Gap 5 (5-15); BUN 8 mg/dL (7-18); BUN/Creat Ratio 8.9 RATIO (10-20); Calcium,Total 9.1 mg/dL (8.5-10.1); Chloride 107 mmol/L (98-107); EST Glomerular Filtration Rate 67 mL/min (>60); Est Glom Filt Rate - Afr Amer 81 mL/min (>60); Globulin 3.3 g/dL (2.2-4.2); Glucose 102 mg/dL (74-106); Potassium 3.6 mmol/L (3.5-5.1); Protein, Total 6.9 g/dL (6.4-8.2); Sodium Level 140 mmol/L (136-145); Thyroid Stim Hormone (TSH) 0.93 uIU/mL (0.358-3.74)
== END ==
PROVIDERS: PCP Family Medicine Geriatric Medicine; Visit Provider Family Medicine Geriatric Medicine
DX: R53.83 Other fatigue (principal)
CPT/HCPCS: 36415; 80053; 84443; 85025

== ENCOUNTER → 2020-10-24 13:39 | Outpatient (CLI) | payer MEDICARE, MEDICAID, SELFPAY ==
--- NOTE | 2020-10-24 13:40 | ART_ITS ---
Reason For Study: PAOD Procedure A bilateral lower extremity continuous wave Doppler with analog waveform analysis and ankle brachial indexes. Left Segmental Pressures Left brachial= 144mmHg. Left posterior tibial artery = 177mmHg. Left dorsalis pedis artery = 155mmHg. The left dorsalis pedis waveforms are triphasic. The left posterior tibial artery waveforms are triphasic. Right Segmental Pressures Right brachial= 145mmHg. Right posterior tibial artery = 170mmHg. Right dorsalis pedis artery = 157mmHg. The right dorsalis pedis waveforms are triphasic. The right posterior tibial artery waveforms are triphasic. Indices The right ankle brachial index by the dorsalis pedis is 1.08. The right ankle brachial index by the posterior tibial artery is 1.17. The left ankle brachial index by the dorsalis pedis is 1.07. The left ankle brachial index by the posterior tibial artery is 1.22. Interpretation Summary Bilateral legs normal at rest with triphasic flow and ABDOULAYE 1.17 and 1.22. Ordering Physician: Tanvir Shea Performed By: JORGE LUIS PROCTOR RVT
--- NOTE | 2020-10-24 13:41 | ART_ITS ---
Version 2 Reason For Study: PAOD Procedure A bilateral upper extremity continuous wave Doppler with analog waveform analysis and segmental pressures. Left Segmental Pressures Left brachial= 140mmHg. Left radial= 172mmHg. Left ulnar= 159mmHg. The left radial waveforms are triphasic. The left ulnar waveforms are triphasic. Right Segmental Pressures Right brachial= 139mmHg. Right radial= 161mmHg. Right ulnar= 154mmHg. The right radial waveforms are triphasic. The right ulnar waveforms are triphasic. Indices The right wrist-brachial index is 1.15. The left wrist-brachial index is 1.23. Interpretation Summary Bilateral arm triphasic and WBI 1.15 and 1.23. Ordering Physician: Tanvir Shea Performed By: JORGE LUIS PROCTOR RVT
== END ==
PROVIDERS: PCP Family Medicine Geriatric Medicine; Referring Provider Family Medicine Geriatric Medicine; Visit Provider Family Medicine Geriatric Medicine
DX: I73.9 Peripheral vascular disease, unspecified (principal)
CPT/HCPCS: 93922

== ENCOUNTER → 2020-12-12 13:48 | Outpatient (CLI) | payer MEDICARE, MEDICAID, SELFPAY ==
[2020-12-12 15:57] LABS: Albumin, Serum 3.6 g/dL (3.2-5.0); BUN 12 mg/dL (7-18); BUN/Creat Ratio 13.1 RATIO (10-20); Calcium,Total 9.1 mg/dL (8.5-10.1); Chloride 108 mmol/L (98-107); Creatinine, Serum 0.91 mg/dL (0.55-1.02); EST Glomerular Filtration Rate 65 mL/min (>60); Est Glom Filt Rate - Afr Amer 79 mL/min (>60); Glucose 110 mg/dL (74-106); Magnesium 2.1 mg/dL (1.6-2.6); Potassium 3.9 mmol/L (3.5-5.1); Sodium Level 141 mmol/L (136-145)
== END ==
PROVIDERS: PCP Family Medicine Geriatric Medicine; Referring Provider Internal Medicine Nephrology; Visit Provider Internal Medicine Nephrology
DX: E83.42 Hypomagnesemia (principal); N18.2 Chronic kidney disease, stage 2 (mild)
CPT/HCPCS: 36415; 80069; 83735

== ENCOUNTER → 2021-01-30 15:10 | Outpatient (CLI) | payer MEDICARE, MEDICAID, SELFPAY ==
[2021-01-30 16:49] LABS: Absolute Lymphocyte Count 1.31 X10^3/uL (0.83-4.51); Absolute Neutrophil Count 8.6 X10^3/uL (2.0-7.7); Basophil# 0.03 X10^3/uL; Basophil% 0.3 % (0-1); Eosinophil# 0.04 X10^3/uL; Eosinophils% 0.4 % (0-5); Hematocrit 39.5 % (37-47); Hemoglobin 12.1 g/dL (12.0-15.0); Lymphocyte # 1.31 X10^3/ul (0.83-4.51); Lymphocyte % 12.5 % (19-41); Mean Corp Hgb Conc 30.6 g/dL (32-36); Mean Corpuscular Hgb 28.7 pg (27.0-32.0); Mean Corpuscular Volume 93.6 fL (81-99); Mean Platelet Vol. 9.3 fl (6.2-12.0); Monocyte# 0.46 X10^3/uL; Monocyte% 4.4 % (0-10); NRBC Flagged by Analyzer 0 % (0-5); Neutrophil # 8.58 X10^3/uL (2.7-7.7); Neutrophil % 81.9 % (47-70); Platelet Count 377 K/mm3 (150-450); RBC Distribution Width CV 13.9 % (11.6-14.6); Red Blood Count 4.22 M/mm3 (4.2-5.4); White Blood Count 10.5 K/mm3 (4.4-11.0)
[2021-01-30 17:03] LABS: Vitamin D,25 Hydroxy 40.7 ng/mL
[2021-01-30 17:15] LABS: ALB/GLOB Ratio 1.1 RATIO (0.9-2.4); AST(SGOT) 14 U/L (15-37); Alanine Aminotransfer ALT/SGPT 23 U/L (13-56); Albumin, Serum 3.7 g/dL (3.2-5.0); Alkaline Phosphatase 115 U/L (45-117); Anion Gap 6 (5-15); BUN 12 mg/dL (7-18); BUN/Creat Ratio 12.8 RATIO (10-20); Chloride 109 mmol/L (98-107); Creatinine, Serum 0.94 mg/dL (0.55-1.02); EST Glomerular Filtration Rate 63 mL/min (>60); Est Glom Filt Rate - Afr Amer 76 mL/min (>60); Globulin 3.5 g/dL (2.2-4.2); Glucose 100 mg/dL (74-106); Potassium 3.9 mmol/L (3.5-5.1); Protein, Total 7.2 g/dL (6.4-8.2); Sodium Level 141 mmol/L (136-145); Thyroid Stim Hormone (TSH) 0.68 uIU/mL (0.358-3.74)
== END ==
PROVIDERS: PCP Family Medicine Geriatric Medicine; Visit Provider Family Medicine Geriatric Medicine
DX: E55.9 Vitamin D deficiency, unspecified (principal); R53.83 Other fatigue
CPT/HCPCS: 36415; 80053; 82306; 84443; 85025

== ENCOUNTER → 2021-08-02 13:42 | Outpatient (CLI) | payer MEDICARE, MEDICAID, SELFPAY ==
--- NOTE | 2021-08-02 14:29 | RAD_ITS ---
STUDY: X-RAY - LUMBOSACRAL SPINE REASON FOR EXAM: Female, 70 years old. LOW BACK PAIN TECHNIQUE: 6 view(s) of the lumbosacral spine were obtained. COMPARISON: 11/26/2021 FINDINGS: Normal lumbar lordosis. Worsening dextroscoliosis which is now moderate centered at L1. There is normal alignment of the vertebrae. No subluxation on the flexion-extension views to suggest instability. There is multilevel endplate spondylosis of the lumbar vertebrae. There is multi-level degenerative disc disease with multi-level disc space narrowing. Normal bilateral sacral ala, sacroiliac joints, and visualized sacrum. Normal visualized soft tissue structures. RAD/L/S Spine Comp/w Bending Views IMPRESSION: Worsening dextroscoliosis and degenerative disc disease per Electronically Signed: Zach Jarvis MD at 16:55 EST Tel , Service support ,
[2021-08-02 15:45] LABS: Absolute Lymphocyte Count 1.75 X10^3/uL (0.83-4.51); Absolute Neutrophil Count 8.2 X10^3/uL (2.0-7.7); Basophil# 0.05 X10^3/uL; Basophil% 0.5 % (0-1); Eosinophil# 0.08 X10^3/uL; Eosinophils% 0.8 % (0-5); Hematocrit 40.1 % (37-47); Hemoglobin 12.7 g/dL (12.0-15.0); Lymphocyte # 1.75 X10^3/ul (0.83-4.51); Lymphocyte % 16.6 % (19-41); Mean Corp Hgb Conc 31.7 g/dL (32-36); Mean Corpuscular Hgb 29.3 pg (27.0-32.0); Mean Corpuscular Volume 92.6 fL (81-99); Mean Platelet Vol. 9.6 fl (6.2-12.0); Monocyte# 0.43 X10^3/uL; Monocyte% 4.1 % (0-10); NRBC Flagged by Analyzer 0 % (0-5); Neutrophil # 8.17 X10^3/uL (2.7-7.7); Neutrophil % 77.6 % (47-70); Platelet Count 361 K/mm3 (150-450); RBC Distribution Width CV 14.1 % (11.6-14.6); RBC Distribution Width SD 48.2 fl (35.1-43.9); Red Blood Count 4.33 M/mm3 (4.2-5.4); White Blood Count 10.5 K/mm3 (4.4-11.0)
[2021-08-02 16:05] LABS: Vitamin D,25 Hydroxy 35.4 ng/mL
[2021-08-02 16:15] LABS: AST(SGOT) 16 U/L (15-37); Alanine Aminotransfer ALT/SGPT 27 U/L (13-56); Albumin, Serum 3.6 g/dL (3.2-5.0); Alkaline Phosphatase 92 U/L (45-117); Anion Gap 7 (5-15); BUN 12 mg/dL (7-18); BUN/Creat Ratio 13.5 RATIO (10-20); Calcium,Total 9.2 mg/dL (8.5-10.1); Chloride 105 mmol/L (98-107); Creatinine, Serum 0.89 mg/dL (0.55-1.02); EST Glomerular Filtration Rate 67 mL/min (>60); Est Glom Filt Rate - Afr Amer 81 mL/min (>60); Globulin 3.6 g/dL (2.2-4.2); Glucose 128 mg/dL (74-106); Protein, Total 7.2 g/dL (6.4-8.2); Sodium Level 141 mmol/L (136-145); Thyroid Stim Hormone (TSH) 0.63 uIU/mL (0.358-3.74)
== END ==
LOC: POLAB3 13:43 → RAD 14:28
PROVIDERS: PCP Family Medicine Geriatric Medicine; Visit Provider Family Medicine Geriatric Medicine
DX: E55.9 Vitamin D deficiency, unspecified (principal); R53.83 Other fatigue; M54.50 Low back pain, unspecified
CPT/HCPCS: 36415; 72114; 80053; 82306; 84443; 85025

== ENCOUNTER 2021-11-12 12:46 | Outpatient (CLI) | payer MEDICARE, MEDICAID, SELFPAY ==
--- NOTE | 2021-11-12 12:50 | BI_ITS ---
MAMMOGRAPHY - BILATERAL SCREENING REASON FOR EXAM: Female, 70 years old. Routine annual screening examination. PERTINENT HISTORY: Non-contributory. TECHNIQUE: Digital bilateral breast raman (3D mammographic acquisition) in the CC and MLO projections. 2-D mediolateral oblique (MLO) and craniocaudad (CC) views of both breasts were obtained. CAD: Full Field Digital Mammography with Computer Added Detection was performed. COMPARISON: Comparison is made with prior study dated 10/12/2020 and 10/04/2019. FINDINGS: Breast Composition: There are scattered areas of fibroglandular density. There are no dominant masses or suspicious calcifications. No other significant abnormalities are identified. There has been no significant change since the prior study. BI/SCRN MAMM (CAD)W/RAMAN BILAT IMPRESSION: Stable bilateral screening mammogram. Yearly follow-up mammogram recommended. (A) ASSESSMENT CATEGORY: BIRADS Category 1: Negative. A letter regarding these results will be sent to the patient by the facility within 30 days. Approximately 10% of breast cancers are not detected by mammography. A normal mammogram should not delay biopsy of a clinically suspicious abnormality. [id number] Electronically Signed: Wesley Pham MD at 14:23 EDT ,
== END 2021-11-12 23:59 | disposition home or self-care (01) ==
LOC: OPBI 12:47
PROVIDERS: PCP Family Medicine Geriatric Medicine; Visit Provider Family Medicine Geriatric Medicine
DX: Z12.31 Encounter for screening mammogram for malignant neoplasm of breast (principal)
CPT/HCPCS: 77063; 77067

== ENCOUNTER 2021-11-23 12:12 | Outpatient (CLI) | payer MEDICARE, MEDICAID, SELFPAY | END 2021-11-23 23:59 | disposition home or self-care (01) | LOC: PSN 12:13 | PROVIDERS: PCP Family Medicine Geriatric Medicine; Visit Provider Family Medicine Geriatric Medicine | DX: R68.83 Chills (without fever) (principal) | CPT/HCPCS: 87635; 87804; 87807; C9803; U0003; U0005 ==

== ENCOUNTER → 2022-01-30 | Outpatient (CLI) | payer MEDICARE, MEDICAID, SELFPAY ==
[2022-01-30 16:59] LABS: Absolute Lymphocyte Count 1.27 X10^3/uL (0.83-4.51); Absolute Neutrophil Count 6.9 X10^3/uL (2.0-7.7); Basophil# 0.04 X10^3/uL; Basophil% 0.5 % (0-1); Eosinophil# 0.04 X10^3/uL; Eosinophils% 0.5 % (0-5); Hematocrit 39.1 % (37-47); Hemoglobin 12.5 g/dL (12.0-15.0); Lymphocyte # 1.27 X10^3/ul (0.83-4.51); Lymphocyte % 14.6 % (19-41); Mean Corpuscular Hgb 29.5 pg (27.0-32.0); Mean Corpuscular Volume 92.2 fL (81-99); Mean Platelet Vol. 9.5 fl (6.2-12.0); Monocyte% 4.6 % (0-10); NRBC Flagged by Analyzer 0 % (0-5); Neutrophil # 6.89 X10^3/uL (2.7-7.7); Neutrophil % 79.5 % (47-70); Platelet Count 353 K/mm3 (150-450); RBC Distribution Width CV 13.9 % (11.6-14.6); RBC Distribution Width SD 47.4 fl (35.1-43.9); Red Blood Count 4.24 M/mm3 (4.2-5.4); White Blood Count 8.7 K/mm3 (4.4-11.0)
[2022-01-30 17:19] LABS: ALB/GLOB Ratio 1.1 RATIO (0.9-2.4); AST(SGOT) 19 U/L (15-37); Alanine Aminotransfer ALT/SGPT 26 U/L (13-56); Albumin, Serum 3.7 g/dL (3.2-5.0); Alkaline Phosphatase 93 U/L (45-117); Anion Gap 6 (5-15); BUN 8 mg/dL (7-18); BUN/Creat Ratio 10.1 RATIO (10-20); Calcium,Total 9.6 mg/dL (8.5-10.1); Chloride 104 mmol/L (98-107); Creatinine, Serum 0.79 mg/dL (0.55-1.02); EST Glomerular Filtration Rate 76 mL/min (>60); Est Glom Filt Rate - Afr Amer 92 mL/min (>60); Globulin 3.4 g/dL (2.2-4.2); Glucose 117 mg/dL (74-106); Potassium 3.9 mmol/L (3.5-5.1); Protein, Total 7.1 g/dL (6.4-8.2); Sodium Level 141 mmol/L (136-145); Thyroid Stim Hormone (TSH) 0.61 uIU/mL (0.358-3.74)
== END | disposition home or self-care (01) ==
LOC: POLAB3 13:12
PROVIDERS: PCP Family Medicine Geriatric Medicine; Visit Provider Family Medicine Geriatric Medicine
DX: E55.9 Vitamin D deficiency, unspecified (principal); R53.83 Other fatigue
CPT/HCPCS: 36415; 80053; 82306; 84443; 85025

== ENCOUNTER → 2022-03-05 | Outpatient (CLI) | payer MEDICARE, MEDICAID, SELFPAY ==
[2022-03-05 14:08] LABS: Erythrocyte Sedimentation Rate 20 mm/hr (0-30)
[2022-03-05 14:09] LABS: CRP < 2.90 mg/L (0.0-3.0)
== END | disposition home or self-care (01) ==
LOC: LAB 12:43
PROVIDERS: PCP Family Medicine Geriatric Medicine; Referring Provider Internal Medicine Pulmonary Disease; Visit Provider Internal Medicine Pulmonary Disease
DX: R06.00 Dyspnea, unspecified (principal); I27.0 Primary pulmonary hypertension; J84.116 Cryptogenic organizing pneumonia
CPT/HCPCS: 36415; 85652; 86140

== ENCOUNTER → 2022-03-27 | Outpatient (CLI) | payer MEDICARE, MEDICAID, SELFPAY ==
[2022-03-27 12:59] LABS: Protein, Urine (Random) < 6.0 mg/dL (<11.9)
[2022-03-27 13:05] LABS: Anion Gap 5 (5-15); BUN 15 mg/dL (7-18); BUN/Creat Ratio 16.8 RATIO (10-20); Calcium,Total 9.1 mg/dL (8.5-10.1); Chloride 102 mmol/L (98-107); Creatinine, Serum 0.89 mg/dL (0.55-1.02); EST Glomerular Filtration Rate 67 mL/min (>60); Est Glom Filt Rate - Afr Amer 81 mL/min (>60); Glucose 133 mg/dL (74-106); Potassium 3.6 mmol/L (3.5-5.1); Sodium Level 138 mmol/L (136-145)
== END | disposition home or self-care (01) ==
LOC: LAB 10:36
PROVIDERS: PCP Family Medicine Geriatric Medicine; Referring Provider Internal Medicine Nephrology; Visit Provider Internal Medicine Nephrology
DX: R80.9 Proteinuria, unspecified (principal); N18.2 Chronic kidney disease, stage 2 (mild)
CPT/HCPCS: 36415; 80048; 82570; 84156

== ENCOUNTER → 2022-04-30 | Outpatient (CLI) | payer MEDICARE, MEDICAID, SELFPAY ==
[2022-04-30 12:21] LABS: CRP 8.27 mg/L (0.0-3.0)
[2022-04-30 12:24] LABS: Erythrocyte Sedimentation Rate 10 mm/hr (0-30)
== END | disposition home or self-care (01) ==
LOC: LAB 11:26
PROVIDERS: PCP Family Medicine Geriatric Medicine; Referring Provider Internal Medicine Pulmonary Disease; Visit Provider Internal Medicine Pulmonary Disease
DX: J84.116 Cryptogenic organizing pneumonia (principal)
CPT/HCPCS: 36415; 85652; 86140

== ENCOUNTER → 2022-05-30 | Outpatient (CLI) | payer MEDICARE, MEDICAID, SELFPAY ==
--- NOTE | 2022-05-30 14:55 | RAD_ITS ---
INDICATION: PAIN EXAMINATION/TECHNIQUE: X-RAY - RIGHT XR Hip Unilateral with Pelvis when performed; 2-3 Views 2 VIEWS COMPARISON: None. FINDINGS: SOFT TISSUES: No soft tissue swelling or gas. No radiopaque foreign body. BONES/JOINTS: No acute fracture or subluxation.. Normal alignment. Mild osteophyte formation associated with the greater trochanter.. Preservation of the joint space.. No sclerotic or destructive changes observed. Visualized pelvic ring is intact. RAD/HIP, UNI W/ Pelvis 2-3 Views IMPRESSION: 1. No fracture or joint space abnormality or malalignment. Mild osteophyte formation noted Electronically Signed: Zach Luther MD at 23:39 EDT ,
--- NOTE | 2022-05-30 14:55 | RAD_ITS ---
INDICATION: PAIN EXAMINATION/TECHNIQUE: X-RAY - XR Spine Lumbar 2 or 3 Views COMPARISON: None. FINDINGS: VERTEBRAE: Vertebral body height is maintained. There however is a dextroscoliotic curvature and multilevel endplate changes are present. Endplate erosion and sclerosis involving the L4-5 disc space. Marginal osteophyte formation is present. Similar though less extensive changes at L1-2. Normal appearance of the visualized sacrum, sacroiliac joints and pelvic ring. Moderate facet hypertrophic changes from approximately L3-S1 DISCS: Disc spaces are maintained. INCLUDED ABDOMEN: Included bowel gas pattern is non-obstructive. RAD/Lumbar Spine 2 or 3 Views IMPRESSION: 1. Multilevel lumbar spondylosis most marked at the L4-5 level, to lesser extent at L1-2. Endplate sclerosis, and osteophyte formation with mild vacuum phenomenon in the disc spaces at these levels. 2. Mild dextroscoliotic curvature. 3. No acute fracture or acute/destructive bony or paraspinous soft tissue abnormality. Electronically Signed: Zach Luther MD at 23:40 EDT ,
--- NOTE | 2022-05-30 14:55 | RAD_ITS ---
STUDY: X-RAY - RIGHT SHOULDER REASON FOR EXAM: Female, 71 years old. PAIN TECHNIQUE: 4 view(s) of the shoulder. COMPARISON: None. FINDINGS: Normal glenohumeral articulation. Normal acromioclavicular joint. Normal acromion. Normal humeral head and visualized proximal humerus. The soft tissue structures are unremarkable. Normal visualized pulmonary apex. RAD/Shoulder min 2 Views IMPRESSION: Normal x-ray examination of the shoulder. Electronically Signed: Power Garner MD at 16:05 EDT ,
--- NOTE | 2022-05-30 14:56 | RAD_ITS ---
INDICATION: PAIN EXAMINATION/TECHNIQUE: X-RAY - XR Abdomen 1 View COMPARISON: None FINDINGS: BOWEL GAS PATTERN: Non-obstructive. No bowel or stomach distention. FREE AIR: Not assessed on a single supine view. ORGANOMEGALY: Not seen. CALCIFICATIONS: No abnormal calcifications observed. LOWER CHEST: No acute pathology. BONES AND SOFT TISSUES: Mild lumbar spondylosis and scoliotic curvature. No acute bony changes. Other: Surgical clips in the gallbladder fossa. RAD/Abdomen Single View IMPRESSION: 1. Non-obstructive bowel gas pattern. 2. Lumbar spondylosis and scoliotic curvature. Electronically Signed: Zach Luther MD at 23:52 EDT ,
--- NOTE | 2022-05-30 15:10 | RAD_ITS ---
INDICATION: PAIN EXAMINATION/TECHNIQUE: X-RAY - LEFT XR Shoulder Min 2 Views 4 VIEWS COMPARISON: None. FINDINGS: SOFT TISSUES: No soft tissue swelling or gas. No radiopaque foreign body. BONES/JOINTS: No acute fracture or subluxation.. Normal alignment. Preservation of the joint space.. No sclerotic or destructive changes observed. Normal glenohumeral motion. Normal appearance the AC joint, scapula and visualized LEFT rib cage. There are findings suspicious of subtle calcification along the supraspinatus tendon. RAD/Shoulder min 2 Views IMPRESSION: 1. No acute fracture, malalignment or destructive bony process. 2. Subtle calcific tendinitis involving the rotator cuff suspected. Electronically Signed: Zach Luther MD at 23:43 EDT ,
--- NOTE | 2022-05-30 15:10 | RAD_ITS ---
STUDY: X-RAY - PELVIS AND LEFT HIP REASON FOR EXAM: Female, 71 years old. PAIN TECHNIQUE: 2 views of the pelvis and hip. COMPARISON: None. FINDINGS: There is a non-specific bowel gas pattern. Normal visualized soft tissue structures. Normal bilateral iliac wings, sacroiliac joints and visualized sacrum. Normal bilateral superior and inferior pubic rami. Normal pubic symphysis. Normal bilateral ischial tuberosities. Moderate bilateral hip joint space narrowing. Severe degenerative disc disease L4-S1. RAD/HIP, UNI W/ Pelvis 2-3 Views IMPRESSION: Moderate joint space narrowing left hip symmetric as compared to right. Degenerative changes lower lumbar spine. Electronically Signed: Peter Fernando MD, LUZ at 17:20 EDT ,
== END | disposition home or self-care (01) ==
LOC: RAD 14:54
PROVIDERS: PCP Family Medicine Geriatric Medicine; Referring Provider Family Medicine Geriatric Medicine; Visit Provider Family Medicine Geriatric Medicine
DX: R10.9 Unspecified abdominal pain (principal); M25.519 Pain in unspecified shoulder; M25.559 Pain in unspecified hip; M54.50 Low back pain, unspecified
CPT/HCPCS: 72100; 73030; 73502; 74018

== ENCOUNTER → 2022-08-06 | Outpatient (CLI) | payer MEDICARE, MEDICAID, SELFPAY ==
[2022-08-06 17:27] LABS: Absolute Lymphocyte Count 1.12 X10^3/uL (0.83-4.51); Absolute Neutrophil Count 8.5 X10^3/uL (2.0-7.7); Basophil# 0.05 X10^3/uL; Basophil% 0.5 % (0-1); Eosinophil# 0.03 X10^3/uL; Eosinophils% 0.3 % (0-5); Hematocrit 38.4 % (37-47); Hemoglobin 12.3 g/dL (12.0-15.0); Lymphocyte # 1.12 X10^3/ul (0.83-4.51); Mean Corpuscular Hgb 29.7 pg (27.0-32.0); Mean Corpuscular Volume 92.8 fL (81-99); Mean Platelet Vol. 9.1 fl (6.2-12.0); Monocyte# 0.44 X10^3/uL; Monocyte% 4.3 % (0-10); NRBC Flagged by Analyzer 0 % (0-5); Neutrophil % 83.5 % (47-70); Platelet Count 367 K/mm3 (150-450); RBC Distribution Width SD 47.8 fl (35.1-43.9); Red Blood Count 4.14 M/mm3 (4.2-5.4); White Blood Count 10.2 K/mm3 (4.4-11.0)
[2022-08-06 18:29] LABS: ALB/GLOB Ratio 1.1 RATIO (0.9-2.4); AST(SGOT) 16 U/L (15-37); Alanine Aminotransfer ALT/SGPT 27 U/L (13-56); Albumin, Serum 3.6 g/dL (3.2-5.0); Alkaline Phosphatase 88 U/L (45-117); Anion Gap 10 (5-15); BUN 13 mg/dL (7-18); BUN/Creat Ratio 14.2 RATIO (10-20); Calcium,Total 9.2 mg/dL (8.5-10.1); Chloride 107 mmol/L (98-107); Creatinine, Serum 0.92 mg/dL (0.55-1.02); EST Glomerular Filtration Rate 65 mL/min (>60); Est Glom Filt Rate - Afr Amer 78 mL/min (>60); Globulin 3.3 g/dL (2.2-4.2); Glucose 146 mg/dL (74-106); Potassium 3.7 mmol/L (3.5-5.1); Protein, Total 6.9 g/dL (6.4-8.2); Sodium Level 141 mmol/L (136-145); Thyroid Stim Hormone (TSH) 0.62 uIU/mL (0.358-3.74)
== END | disposition home or self-care (01) ==
LOC: POLAB3 13:25
PROVIDERS: PCP Family Medicine Geriatric Medicine; Visit Provider Family Medicine Geriatric Medicine
DX: E55.9 Vitamin D deficiency, unspecified (principal); R53.83 Other fatigue
CPT/HCPCS: 36415; 80053; 82306; 84443; 85025

== ENCOUNTER → 2022-09-06 | Outpatient (CLI) | payer MEDICARE, MEDICAID, SELFPAY | END | disposition home or self-care (01) | LOC: PSN 12:06 | PROVIDERS: PCP Family Medicine Geriatric Medicine; Visit Provider Family Medicine Geriatric Medicine | DX: R68.83 Chills (without fever) (principal) | CPT/HCPCS: 87635; 87804; 87807; C9803; U0003; U0005 ==

== ENCOUNTER → 2022-12-26 | Outpatient (CLI) | payer MEDICARE, MEDICAID, SELFPAY ==
--- NOTE | 2022-12-26 14:23 | RAD_ITS ---
STUDY: X-RAY - ABDOMEN/PELVIS REASON FOR EXAM: Female, 72 years old. Chronic diarrhea. TECHNIQUE: AP supine and upright views of the abdomen and pelvis. COMPARISON: None. FINDINGS: Normal visualized lung bases. Nonspecific bowel gas pattern with air seen to the rectum. There is no demonstrated free abdominal air. The visualized liver, spleen and kidneys are grossly normal in size and morphology. Cholecystectomy clips. Normal visualized osseous structures. RAD/Abd Inc Decub and/or Erect IMPRESSION: No acute abnormality of the visualized lower chest, abdomen or pelvis. Electronically Signed: Ramin Coon, at 14:45 EDT ,
== END | disposition home or self-care (01) ==
LOC: RAD 14:19
PROVIDERS: PCP Family Medicine Geriatric Medicine; Referring Provider Family Medicine Geriatric Medicine; Visit Provider Family Medicine Geriatric Medicine
DX: K52.9 Noninfective gastroenteritis and colitis, unspecified (principal)
CPT/HCPCS: 74019

== ENCOUNTER → 2023-01-02 | Outpatient (CLI) | payer MEDICARE, MEDICAID, SELFPAY ==
[2023-01-02 15:55] LABS: Absolute Lymphocyte Count 1.49 X10^3/uL (0.83-4.51); Absolute Neutrophil Count 5.9 X10^3/uL (2.0-7.7); Basophil# 0.05 X10^3/uL; Basophil% 0.6 % (0-1); Eosinophil# 0.07 X10^3/uL; Eosinophils% 0.9 % (0-5); Hematocrit 39.4 % (37-47); Hemoglobin 12.1 g/dL (12.0-15.0); Lymphocyte # 1.49 X10^3/ul (0.83-4.51); Lymphocyte % 18.4 % (19-41); Mean Corp Hgb Conc 30.7 g/dL (32-36); Mean Corpuscular Hgb 28.6 pg (27.0-32.0); Mean Corpuscular Volume 93.1 fL (81-99); Mean Platelet Vol. 8.9 fl (6.2-12.0); Monocyte# 0.55 X10^3/uL; Monocyte% 6.8 % (0-10); NRBC Flagged by Analyzer 0 % (0-5); Neutrophil # 5.91 X10^3/uL (2.7-7.7); Neutrophil % 72.9 % (47-70); Platelet Count 376 K/mm3 (150-450); RBC Distribution Width CV 13.7 % (11.6-14.6); RBC Distribution Width SD 46.5 fl (35.1-43.9); Red Blood Count 4.23 M/mm3 (4.2-5.4); White Blood Count 8.1 K/mm3 (4.4-11.0)
[2023-01-02 16:37] LABS: Erythrocyte Sedimentation Rate 19 mm/hr (0-30)
[2023-01-02 16:57] LABS: AST(SGOT) 20 U/L (15-37); Alanine Aminotransfer ALT/SGPT 21 U/L (13-56); Albumin, Serum 3.5 g/dL (3.2-5.0); Alkaline Phosphatase 100 U/L (45-117); Anion Gap 5 (5-15); BUN 14 mg/dL (7-18); BUN/Creat Ratio 17.2 RATIO (10-20); CRP 3.47 mg/L (0.0-3.0); Calcium,Total 9.6 mg/dL (8.5-10.1); Chloride 106 mmol/L (98-107); Creatinine, Serum 0.82 mg/dL (0.55-1.02); EST Glomerular Filtration Rate 74 mL/min (>60); Est Glom Filt Rate - Afr Amer 89 mL/min (>60); Globulin 3.5 g/dL (2.2-4.2); Glucose 112 mg/dL (74-106); LDH 249 U/L (84-246); Potassium 3.9 mmol/L (3.5-5.1); Sodium Level 141 mmol/L (136-145)
[2023-01-06 15:08] LABS: Endomysial Antibody IgA Negative (Negative); Immunoglobulin A 184 mg/dL (87-352); t-Transglutaminase IgA <2 U/mL (0-3)
[2023-01-08 20:08] LABS: Anti-Centromere B Ab <0.2 AI (0.0-0.9); Anti-Chromatin <0.2 AI (0.0-0.9); Anti-Jo <0.2 AI (0.0-0.9); Anti-Scleroderma-70 AB <0.2 AI (0.0-0.9); Anti-dsDNA Ab <1 IU/mL (0-9); Beef <0.10 kU/L (Class 0); Chocolate <0.10 kU/L (Class 0); Clam <0.10 kU/L (Class 0); Codfish <0.10 kU/L (Class 0); Corn <0.10 kU/L (Class 0); Egg, White <0.10 kU/L (Class 0); Egg, Whole <0.10 kU/L (Class 0); Milk (Cow) <0.10 kU/L (Class 0); Peanut <0.10 kU/L (Class 0); Pork <0.10 kU/L (Class 0); RNP Ab <0.2 AI (0.0-0.9); SCALLOP <0.10 kU/L (Class 0); SESAME SEED <0.10 kU/L (Class 0); SJOGREN'S Anti-SS-A test < 0.2 AI (0.0-0.9); SJOGREN'S Anti-SS-B test < 0.2 AI (0.0-0.9); Shrimp <0.10 kU/L (Class 0); Smith Ab <0.2 AI (0.0-0.9); Soybean <0.10 kU/L (Class 0); Walnut, (Food) <0.10 kU/L (Class 0); Wheat <0.10 kU/L (Class 0)
[2023-01-11 11:08] LABS: Albumin 3.7 g/dL (2.9-4.4); Alpha-1-Globulins 0.3 g/dL (0.0-0.4); Alpha-2-Globulins 0.9 g/dL (0.4-1.0); Cytoplasmic Ab (C-ANCA) <1:20 titer (Neg:<1:20); Gamma Globulin 0.6 g/dL (0.4-1.8); Immunoglobulin A 187 mg/dL (87-352); Immunoglobulin E 17 IU/mL (6-495); Immunoglobulin G 611 mg/dL (586-1602); Immunoglobulin M 108 mg/dL (26-217); PROEL- TOTAL PROTEIN 6.7 g/dL (6.0-8.5); Perinuclear Ab (P-ANCA) <1:20 titer (Neg:<1:20)
== END | disposition home or self-care (01) ==
PROVIDERS: Internal Medicine Gastroenterology; PCP Family Medicine Geriatric Medicine; Referring Provider Family Medicine Geriatric Medicine; Visit Provider Family Medicine Geriatric Medicine
DX: R19.5 Other fecal abnormalities (principal); G43.909 Migraine, unspecified, not intractable, without status migrainosus; T78.40XA Allergy, unspecified, initial encounter
CPT/HCPCS: 36415; 80053; 82784; 82785; 83516; 83615; 84165; 85025; 85652; 86003; 86005; 86140; 86225; 86235; 86255; 86256; 86334

== ENCOUNTER → 2023-01-03 | Outpatient (CLI) | payer MEDICARE, MEDICAID, SELFPAY ==
[2023-01-06 20:08] LABS: Pancreatic Elastase, Fecal 294 (>200)
[2023-01-16 01:07] LABS: Calprotectin, Stool 7 ug/g (0-120); Fats, Neutral Normal (.); Fats, Total Increased (.)
== END | disposition home or self-care (01) ==
PROVIDERS: PCP Family Medicine Geriatric Medicine; Referring Provider Internal Medicine Gastroenterology; Visit Provider Internal Medicine Gastroenterology
DX: R19.5 Other fecal abnormalities (principal); K58.9 Irritable bowel syndrome, unspecified
CPT/HCPCS: 82274; 82653; 82705; 83630; 83993; 87177; 87209; 87329; 87493; 87506

== ENCOUNTER → 2023-01-22 | Outpatient (CLI) | payer MEDICARE, MEDICAID, SELFPAY ==
--- NOTE | 2023-01-22 13:51 | CT_ITS ---
STUDY: CT ABDOMEN AND PELVIS WITH CONTRAST REASON FOR EXAM: Female, 72 years old. Ischemic colitis RADIATION DOSAGE (If Supplied By Facility): CTDIvol = ( 15.68 ) mGy, DLP = ( 972.31 ) mGycm TECHNIQUE: Transaxial images were obtained from the dome of the diaphragm to the symphysis pubis without oral contrast. Oral and IV Readi-CAT and 100mL Isovue-300 was administered. Sagittal and coronal images were reconstructed. Individualized dose optimization techniques were used for this CT. COMPARISON: Comparison is made with prior study June 02, 2020. FINDINGS: Minimal degree of increased markings at the right lung base suggestive of atelectasis. The visualized portions of the heart are within normal limits. Normal liver. There are surgical clips in the gallbladder fossa consistent with a prior cholecystectomy. Normal spleen. Normal pancreas. Normal bilateral adrenal glands. Right parapelvic cyst. There is a 1.9 cm cyst in the anterior midportion of the left kidney. There is a 1.1 cm hypodense nodule in the inferior posterior aspect of the left kidney. This is not a typical cyst. Correlation with ultrasound is recommended for further evaluation. This is essentially unchanged. Normal visualized stomach. Normal small intestine. There are multiple colonic diverticula consistent with diverticulosis. The appendix is visualized and appears normal. There is diffuse atherosclerotic calcification of the abdominal aorta, without a demonstrated aneurysm. Normal inferior vena cava. Normal retroperitoneum. Normal urinary bladder. Stable 2.1 cm cyst in the left ovary. Normal abdominal wall. There are diffuse degenerative changes of the visualized lumbar spine. CT/Abdomen/Pelvis WITH Contrast IMPRESSION: 1.2 cm hypodense nodule in the inferior aspect of the lower pole of the left kidney as described. Correlation with ultrasound is recommended. Sigmoid diverticulosis. Stable 2.1 cm cyst in the left ovary. Electronically Signed: Wesley Pham MD at 15:35 EDT ,
== END | disposition home or self-care (01) ==
LOC: CT 13:50
PROVIDERS: PCP Family Medicine Geriatric Medicine; Referring Provider Internal Medicine Gastroenterology; Visit Provider Internal Medicine Gastroenterology
DX: K55.9 Vascular disorder of intestine, unspecified (principal)
CPT/HCPCS: 74177

== ENCOUNTER → 2023-01-24 | Outpatient (CLI) | payer MEDICARE, MEDICAID, SELFPAY ==
--- NOTE | 2023-01-24 10:31 | BI_ITS ---
MAMMOGRAPHY - BILATERAL SCREENING REASON FOR EXAM: Female, 72 years old. Routine annual screening examination. PERTINENT HISTORY: Non-contributory. TECHNIQUE: Digital bilateral breast raman (3D mammographic acquisition) in the CC and MLO projections. 2-D mediolateral oblique (MLO) and craniocaudad (CC) views of both breasts were obtained. CAD: Full Field Digital Mammography with Computer Added Detection was performed. COMPARISON: Comparison is made with prior study dated November 12, 2021 and October 12, 2020. FINDINGS: Breast Composition: There are scattered areas of fibroglandular density. There are no dominant masses or suspicious calcifications. No other significant abnormalities are identified. There has been no significant change since the prior study. BI/SCRN MAMM (CAD)W/RAMAN BILAT IMPRESSION: Stable bilateral screening mammogram. Yearly follow-up mammogram recommended. (A) ASSESSMENT CATEGORY: BIRADS Category 1: Negative. A letter regarding these results will be sent to the patient by the facility within 30 days. Approximately 10% of breast cancers are not detected by mammography. A normal mammogram should not delay biopsy of a clinically suspicious abnormality. [id number] Electronically Signed: Wesley Pham MD at 12:29 EDT ,
== END | disposition home or self-care (01) ==
LOC: OPBI 10:28
PROVIDERS: PCP Family Medicine Geriatric Medicine; Referring Provider Family Medicine Geriatric Medicine; Visit Provider Family Medicine Geriatric Medicine
DX: Z12.31 Encounter for screening mammogram for malignant neoplasm of breast (principal)
CPT/HCPCS: 77063; 77067

== ENCOUNTER → 2023-02-04 | Outpatient (CLI) | payer MEDICARE, MEDICAID, SELFPAY ==
[2023-02-04 15:46] LABS: Absolute Neutrophil Count 6.2 X10^3/uL (2.0-7.7); Basophil# 0.05 X10^3/uL; Basophil% 0.6 % (0-1); Eosinophil# 0.08 X10^3/uL; Eosinophils% 0.9 % (0-5); Hematocrit 37.3 % (37-47); Hemoglobin 11.8 g/dL (12.0-15.0); Lymphocyte % 17.4 % (19-41); Mean Corp Hgb Conc 31.6 g/dL (32-36); Mean Corpuscular Hgb 28.6 pg (27.0-32.0); Mean Corpuscular Volume 90.5 fL (81-99); Mean Platelet Vol. 9.2 fl (6.2-12.0); Monocyte# 0.66 X10^3/uL; Monocyte% 7.7 % (0-10); NRBC Flagged by Analyzer 0 % (0-5); Neutrophil # 6.15 X10^3/uL (2.7-7.7); Neutrophil % 71.4 % (47-70); Platelet Count 377 K/mm3 (150-450); RBC Distribution Width CV 13.8 % (11.6-14.6); RBC Distribution Width SD 45.9 fl (35.1-43.9); Red Blood Count 4.12 M/mm3 (4.2-5.4); White Blood Count 8.6 K/mm3 (4.4-11.0)
[2023-02-04 16:36] LABS: AST(SGOT) 22 U/L (15-37); Alanine Aminotransfer ALT/SGPT 25 U/L (13-56); Albumin, Serum 3.4 g/dL (3.2-5.0); Alkaline Phosphatase 98 U/L (45-117); Anion Gap 5 (5-15); BUN 14 mg/dL (7-18); BUN/Creat Ratio 15.9 RATIO (10-20); Calcium,Total 8.9 mg/dL (8.5-10.1); Chloride 106 mmol/L (98-107); Creatinine, Serum 0.88 mg/dL (0.55-1.02); EST Glomerular Filtration Rate 68 mL/min (>60); Est Glom Filt Rate - Afr Amer 82 mL/min (>60); Globulin 3.3 g/dL (2.2-4.2); Glucose 119 mg/dL (74-106); Potassium 3.9 mmol/L (3.5-5.1); Protein, Total 6.7 g/dL (6.4-8.2); Sodium Level 140 mmol/L (136-145); Thyroid Stim Hormone (TSH) 0.57 uIU/mL (0.358-3.74)
== END | disposition home or self-care (01) ==
LOC: LAB 14:14
PROVIDERS: PCP Family Medicine Geriatric Medicine; Referring Provider Family Medicine Geriatric Medicine; Visit Provider Family Medicine Geriatric Medicine
DX: R53.83 Other fatigue (principal); E55.9 Vitamin D deficiency, unspecified
CPT/HCPCS: 36415; 80053; 82306; 84443; 85025

== ENCOUNTER → 2023-02-26 | Outpatient (CLI) | payer MEDICARE, MEDICAID, SELFPAY | END | disposition home or self-care (01) | PROVIDERS: PCP Family Medicine Geriatric Medicine; Referring Provider Internal Medicine Gastroenterology; Visit Provider Internal Medicine Gastroenterology | DX: R19.5 Other fecal abnormalities (principal) | CPT/HCPCS: 87493 ==

== ENCOUNTER → 2023-03-07 | Outpatient (CLI) | payer MEDICARE, MEDICAID, SELFPAY ==
[2023-03-07 14:55] LABS: Anion Gap 3 (5-15); BUN 10 mg/dL (7-18); BUN/Creat Ratio 11.4 RATIO (10-20); Calcium,Total 9.4 mg/dL (8.5-10.1); Chloride 104 mmol/L (98-107); Creatinine, Serum 0.88 mg/dL (0.55-1.02); Creatinine, Urine (random) < 13.00 mg/dL (NO RANGE EST.); EST Glomerular Filtration Rate 68 mL/min (>60); Est Glom Filt Rate - Afr Amer 82 mL/min (>60); Glucose 109 mg/dL (74-106); Potassium 3.8 mmol/L (3.5-5.1); Protein, Urine (Random) < 6.0 mg/dL (<11.9); Sodium Level 138 mmol/L (136-145)
== END | disposition home or self-care (01) ==
LOC: LAB 13:06
PROVIDERS: PCP Family Medicine Geriatric Medicine; Referring Provider Internal Medicine Nephrology; Visit Provider Internal Medicine Nephrology
DX: N18.2 Chronic kidney disease, stage 2 (mild) (principal)
CPT/HCPCS: 36415; 80048; 82570; 84156

== ENCOUNTER → 2023-03-12 | Outpatient (CLI) | payer MEDICARE, MEDICAID, SELFPAY ==
--- NOTE | 2023-03-12 16:45 | RAD_ITS ---
STUDY: X-RAY - LEFT WRIST REASON FOR EXAM: Female, 72 years old. LEFT HAND PAIN TECHNIQUE: 3 view(s) of the wrist were obtained. COMPARISON: None. FINDINGS: Normal visualized distal radius and ulna. Normal radiocarpal articulation. Normal distal radioulnar articulation. Normal carpal bones. Normal carpal articulations. Normal carpometacarpal articulation of the thumb. Normal second through fifth carpometacarpal articulations. Normal visualized metacarpal bones. The soft tissue structures are unremarkable. RAD/Wrist min 3 Views IMPRESSION: Normal x-ray examination of the wrist. Electronically Signed: Power Garner MD at 17:18 EDT ,
--- NOTE | 2023-03-12 16:45 | RAD_ITS ---
STUDY: X-RAY - LEFT SHOULDER REASON FOR EXAM: Female, 72 years old. LEFT ARM PAIN TECHNIQUE: 4 view(s) of the shoulder. COMPARISON: None. FINDINGS: Narrowed glenohumeral articulation. Normal acromioclavicular joint. Normal acromion. Normal humeral head and visualized proximal humerus. . Subtle diffuse periarticular calcification likely representing calcific tendinitis or bursitis. Subtle diffuse calcification Normal visualized pulmonary apex. RAD/Shoulder min 2 Views IMPRESSION: Degenerative changes. No acute fracture or other significant bony pathology. Electronically Signed: Power Garner MD at 17:17 EDT ,
--- NOTE | 2023-03-12 16:45 | RAD_ITS ---
STUDY: X-RAY - LEFT HAND REASON FOR EXAM: Female, 72 years old. LEFT HAND PAIN TECHNIQUE: 3 view(s) of the hand. COMPARISON: None. FINDINGS: Normal radiocarpal articulation. Normal distal radioulnar joint. Normal visualized carpal bones. Normal carpal articulations Normal carpometacarpal articulation of the thumb. Normal second through fifth carpometacarpal joints. Normal metacarpi. Normal metacarpophalangeal joint of the thumb. Normal interphalangeal joint of the thumb. Normal proximal and distal phalanges of the thumb. Normal metacarpophalangeal joints of the second through fifth fingers. Normal proximal interphalangeal joints of the second through fifth fingers. Minor degenerative changes of the DIP joints Normal phalanges of the second through fifth fingers. The soft tissue structures are unremarkable. RAD/Hand Min 3 Views IMPRESSION: Minor degenerative changes. No acute fracture or other significant bony pathology. Electronically Signed: Power Garner MD at 17:16 EDT ,
--- NOTE | 2023-03-12 16:45 | RAD_ITS ---
STUDY: X-RAY - LEFT ELBOW REASON FOR EXAM: Female, 72 years old. LEFT ARM PAIN TECHNIQUE: 3 view(s) of the elbow. COMPARISON: None. FINDINGS: Normal visualized humerus, radius and ulna. Normal radiocapitellar and ulnotrochlear articulations. The soft tissue structures are unremarkable. RAD/Elbow min 3 Views IMPRESSION: Normal x-ray examination of the elbow. Electronically Signed: Power Garner MD at 17:18 EDT ,
== END | disposition home or self-care (01) ==
LOC: RAD 16:41
PROVIDERS: PCP Family Medicine Geriatric Medicine; Referring Provider Family Medicine Geriatric Medicine; Visit Provider Family Medicine Geriatric Medicine
DX: M79.602 Pain in left arm (principal); M79.642 Pain in left hand
CPT/HCPCS: 73030; 73080; 73110; 73130

== ENCOUNTER 2023-04-01 09:49 | Outpatient (CLI) | payer MEDICARE, MEDICAID, SELFPAY ==
--- NOTE | 2023-04-01 09:55 | RAD_ITS ---
EXAM: XR RIGHT KNEE, 3 VIEWS CLINICAL INDICATION: Chronic R knee pain TECHNIQUE: Three views of the right knee. COMPARISON: No relevant prior studies available. FINDINGS: BONES/JOINTS: The periventricular bones appear at least mildly demineralized. There is no joint effusion, fracture or significant joint space narrowing. No loose body. No sclerotic or destructive changes observed. SOFT TISSUES: Unremarkable. No soft tissue swelling or gas. No radiopaque foreign body. RAD/Knee 3 Views IMPRESSION: No acute findings. Demineralization. Electronically Signed: Maddison Arana MD at 6:14 EDT ,
[2023-04-01 12:23] LABS: Absolute Lymphocyte Count 0.93 X10^3/uL (0.83-4.51); Absolute Neutrophil Count 7.7 X10^3/uL (2.0-7.7); Basophil# 0.04 X10^3/uL; Basophil% 0.4 % (0-1); Eosinophil# 0.05 X10^3/uL; Eosinophils% 0.5 % (0-5); Hemoglobin 12.7 g/dL (12.0-15.0); Lymphocyte # 0.93 X10^3/ul (0.83-4.51); Lymphocyte % 10.1 % (19-41); Mean Corpuscular Hgb 28.6 pg (27.0-32.0); Mean Corpuscular Volume 92.3 fL (81-99); Mean Platelet Vol. 9.5 fl (6.2-12.0); Monocyte# 0.39 X10^3/uL; Monocyte% 4.3 % (0-10); NRBC Flagged by Analyzer 0 % (0-5); Neutrophil # 7.72 X10^3/uL (2.7-7.7); Neutrophil % 84.3 % (47-70); Platelet Count 371 K/mm3 (150-450); RBC Distribution Width CV 14.3 % (11.6-14.6); RBC Distribution Width SD 48.1 fl (35.1-43.9); Red Blood Count 4.44 M/mm3 (4.2-5.4); White Blood Count 9.2 K/mm3 (4.4-11.0)
[2023-04-01 12:47] LABS: Vitamin B12 1754 pg/mL (211-911); Vitamin D,25 Hydroxy 40.5 ng/mL
[2023-04-01 12:53] LABS: AST(SGOT) 20 U/L (15-37); Alanine Aminotransfer ALT/SGPT 22 U/L (13-56); Albumin, Serum 3.7 g/dL (3.2-5.0); Alkaline Phosphatase 103 U/L (45-117); Anion Gap 8 (5-15); BUN 11 mg/dL (7-18); BUN/Creat Ratio 13.5 RATIO (10-20); Calcium,Total 9.7 mg/dL (8.5-10.1); Chloride 104 mmol/L (98-107); Creatinine, Serum 0.81 mg/dL (0.55-1.02); EST Glomerular Filtration Rate 74 mL/min (>60); Est Glom Filt Rate - Afr Amer 89 mL/min (>60); Ferritin 51 ng/mL (8-252); Globulin 3.8 g/dL (2.2-4.2); Glucose 115 mg/dL (74-106); Magnesium 2.2 mg/dL (1.6-2.6); Protein, Total 7.5 g/dL (6.4-8.2); Sodium Level 139 mmol/L (136-145); Thyroid Stim Hormone (TSH) 0.87 uIU/mL (0.358-3.74)
[2023-04-01 13:30] LABS: Hemoglobin A1c 5.6 % (3.8-5.6)
[2023-04-01 13:41] LABS: Microalbumin,Random Urine 5.1 mg/L (NO RANGE EST.)
== END 2023-04-01 23:59 | disposition home or self-care (01) ==
LOC: MTLAB 09:50
PROVIDERS: PCP Family Medicine Geriatric Medicine; Referring Provider Family Medicine; Visit Provider Family Medicine
DX: M25.561 Pain in right knee (principal); G89.29 Other chronic pain; R53.83 Other fatigue; N18.2 Chronic kidney disease, stage 2 (mild); Z68.31 Body mass index [BMI] 31.0-31.9, adult
CPT/HCPCS: 36415; 73562; 80053; 82043; 82306; 82570; 82607; 82728; 83036; 83735; 84443; 85025

== ENCOUNTER → 2024-02-26 | Outpatient (CLI) | payer MEDICARE, MEDICAID, SELFPAY ==
[2024-02-26 12:23] LABS: Absolute Lymphocyte Count 1.45 X10^3/uL (0.83-4.51); Absolute Neutrophil Count 4.8 X10^3/uL (2.0-7.7); Basophil# 0.03 X10^3/uL; Basophil% 0.4 % (0-1); Eosinophil# 0.19 X10^3/uL; Eosinophils% 2.7 % (0-5); Hematocrit 39.2 % (37-47); Hemoglobin 12.2 g/dL (12.0-15.0); Lymphocyte # 1.45 X10^3/ul (0.83-4.51); Lymphocyte % 20.4 % (19-41); Mean Corp Hgb Conc 31.1 g/dL (32-36); Mean Corpuscular Hgb 28.7 pg (27.0-32.0); Mean Corpuscular Volume 92.2 fL (81-99); Mean Platelet Vol. 9.4 fl (6.2-12.0); Monocyte# 0.59 X10^3/uL; Monocyte% 8.3 % (0-10); NRBC Flagged by Analyzer 0 % (0-5); Neutrophil # 4.83 X10^3/uL (2.7-7.7); Neutrophil % 67.9 % (47-70); Platelet Count 391 K/mm3 (150-450); RBC Distribution Width CV 13.5 % (11.6-14.6); RBC Distribution Width SD 45.9 fl (35.1-43.9); Red Blood Count 4.25 M/mm3 (4.2-5.4); White Blood Count 7.1 K/mm3 (4.4-11.0)
[2024-02-26 12:24] LABS: Vitamin D,25 Hydroxy 30.2 ng/mL
[2024-02-26 12:34] LABS: ALB/GLOB Ratio 0.9 RATIO (0.9-2.4); AST(SGOT) 23 U/L (15-37); Alanine Aminotransfer ALT/SGPT 22 U/L (13-56); Albumin, Serum 3.6 g/dL (3.2-5.0); Alkaline Phosphatase 131 U/L (45-117); Anion Gap 6 (5-15); BUN 14 mg/dL (7-18); BUN/Creat Ratio 16.3 RATIO (10-20); Calcium,Total 9.3 mg/dL (8.5-10.1); Chloride 105 mmol/L (98-107); Cholesterol 234 mg/dL (200); Creatinine, Serum 0.86 mg/dL (0.55-1.02); EST Glomerular Filtration Rate 69 mL/min (>60); Est Glom Filt Rate - Afr Amer 84 mL/min (>60); Globulin 3.9 g/dL (2.2-4.2); Glucose 101 mg/dL (74-106); High Density Lipoprotein 71 mg/dL; Protein, Total 7.5 g/dL (6.4-8.2); Sodium Level 140 mmol/L (136-145); Thyroid Stim Hormone (TSH) 1.05 uIU/mL (0.358-3.74); Triglycerides 225 mg/dL; Very Low Density Lipoprotein 45 mg/dL (5-40)
== END | disposition home or self-care (01) ==
LOC: MFPLAB 10:40
PROVIDERS: PCP Family Medicine; Visit Provider Family Medicine
DX: E03.9 Hypothyroidism, unspecified (principal); N18.2 Chronic kidney disease, stage 2 (mild)
CPT/HCPCS: 36415; 80053; 80061; 82306; 84443; 85025

== ENCOUNTER → 2024-03-23 | Outpatient (CLI) | payer MEDICARE, MEDICAID, SELFPAY ==
--- NOTE | 2024-03-23 12:47 | BI_ITS ---
MAMMOGRAPHY - BILATERAL SCREENING REASON FOR EXAM: Female, 73 years old. Routine annual screening examination. PERTINENT HISTORY: Non-contributory. TECHNIQUE: Digital bilateral breast raman (3D mammographic acquisition) in the CC and MLO projections. 2-D mediolateral oblique (MLO) and craniocaudad (CC) views of both breasts were obtained. CAD: Full Field Digital Mammography with Computer Added Detection was performed. COMPARISON: Comparison is made with prior study dated January 24, 2023 and November 12, 2021. FINDINGS: Breast Composition: There are scattered areas of fibroglandular density. There are no dominant masses or suspicious calcifications. No other significant abnormalities are identified. There has been no significant change since the prior study. BI/SCRN MAMM (CAD)W/RAMAN BILAT IMPRESSION: Stable bilateral screening mammogram. Yearly follow-up mammogram recommended. (A) ASSESSMENT CATEGORY: BIRADS Category 1: Negative. A letter regarding these results will be sent to the patient by the facility within 30 days. Approximately 10% of breast cancers are not detected by mammography. A normal mammogram should not delay biopsy of a clinically suspicious abnormality. [id number] Electronically Signed: Wesley Pham MD at 13:37 EDT ,
--- NOTE | 2024-03-23 12:54 | BD_ITS ---
STUDY: DUAL ENERGY X-RAY ABSORPTIOMETRY / DXA REASON FOR EXAM: Female, 73 years old. [id number] TECHNIQUE: Bone Mineral Density (BMD) measurements of lumbar spine and bilateral hips were obtained. COMPARISON: Comparison is made with prior study dated November 20, 2017. FINDINGS: Lumbar Spine (L1-L4): g/cm2 (1.042) / T-score (0.0) / Z-score (2.1) Findings are suggestive of normal bone density with a low fracture risk. Left Femur Total: g/cm2 (0.816) / T-score (-1.0) / Z-score (0.5) Left Femoral Neck: g/cm2 (0.598) / T-score (-2.3) / Z-score (-0.4) Right Femur Total: g/cm2 (0.781) / T-score (-1.3) / Z-score (0.3) Right Femoral Neck: g/cm2 (0.574) / T-score (-2.5) / Z-score (-0.6) The T-Scores on the most recent prior examination were: Lumbar Spine (L1-L4): There has been improvement of bone density since the previous examination. Left Femur Total: which represents a worsening of 3.9%. Right Femur Total: which represents a worsening of 0.4%. BD/Dexa Bone Density Study IMPRESSION: The patient is considered osteopenic as outlined below according to World [place] Organization (WHO) criteria with a high fracture risk. There has been worsening of bone density since the previous examination. Reference Information: The T-score is the number of standard deviations above or below the standard which is normal for young adults at their peak bone mineral density. The World Health Organization (WHO) interprets the T-scores as follows: Above -1 Normal bone density Between -1 and -2.5 Osteopenia Equal to / or below -2.5 Osteoporosis As a practical clinical guideline, osteopenia may be graded as follows: Mild -1 through -1.5 Moderate -1.6 through -2.0 Severe -2.1 through -2.4 The Z-score is the number of standard deviations above or below age-matched controls. A Z-score of less than -1.5 would be considered abnormal. References: 1. NIH Osteoporosis and Related Bone Diseases www osteo.org 2. International Society for Clinical Densitometry www iscd.org 3. National Osteoporosis Foundation www nof.org Electronically Signed: Wesley Pham MD at 12:53 EDT ,
== END | disposition home or self-care (01) ==
LOC: OPBD 12:45
PROVIDERS: PCP Family Medicine; Referring Provider Family Medicine; Visit Provider Family Medicine
DX: Z12.31 Encounter for screening mammogram for malignant neoplasm of breast (principal); Z78.0 Asymptomatic menopausal state
CPT/HCPCS: 77063; 77067; 77080

== ENCOUNTER → 2024-03-30 | Outpatient (CLI) | payer MEDICARE, MEDICAID, SELFPAY ==
--- NOTE | 2024-03-30 14:55 | RAD_ITS ---
STUDY: X-RAY - RIGHT ANKLE REASON FOR EXAM: Female, 73 years old. Right ankle sprain with pop, right ATF tender distal. No bruising. Question avulsion. TECHNIQUE: 3 views of the right ankle. COMPARISON: None. FINDINGS: Normal visualized distal tibia and fibula. Normal medial and lateral malleoli. Normal tibiotalar articulation and ankle mortise. Intact visualized talus and calcaneus. There is a plantar calcaneal spur. The visualized subtalar, talonavicular, calcaneocuboid and tarsal articulations are normal. There is no demonstrated fracture. The soft tissue structures are unremarkable. RAD/Ankle min 3 Views IMPRESSION: Plantar calcaneal spur. No demonstrated fracture. Electronically Signed: Cristino Peoples MD at 8:23 EDT ,
== END | disposition home or self-care (01) ==
PROVIDERS: PCP Family Medicine; Referring Provider Family Medicine; Visit Provider Family Medicine
DX: S93.401A Sprain of unspecified ligament of right ankle, initial encounter (principal)
CPT/HCPCS: 73610

== ENCOUNTER 2024-06-01 11:50 | Outpatient (RCR) | payer MEDICARE, MEDICAID, SELFPAY | END 2024-06-01 19:00 | disposition home or self-care (01) | LOC: PT 11:50 | PROVIDERS: PCP Family Medicine; Referring Provider Family Medicine; Visit Provider Family Medicine | DX: M76.32 Iliotibial band syndrome, left leg (principal) | CPT/HCPCS: 97161 ==

== ENCOUNTER → 2024-09-14 | Outpatient (CLI) | payer MEDICARE, MEDICAID, SELFPAY ==
--- NOTE | 2024-09-14 15:40 | RAD_ITS ---
PROCEDURE: HIP, UNI W/ PELVIS 2-3 VIEWS REASON FOR EXAM: Pain. TECHNIQUE: Three-view left hip to include the AP pelvis. COMPARISON: Bilateral hip and pelvis series 05/30/2022. RAD/HIP, UNI W/ Pelvis 2-3 Views IMPRESSION: Prominent degenerative changes of the lumbar spine are again noted. Minimal sacroiliac joint degenerative changes are seen. The hip joints show no significant degree of arthritic change or joint narrowin g. No evidence of femoral head osteonecrosis. No acute fracture or dislocation is seen. If clinical concern persists, short-term follow-up imaging may be obtained to r ule out a currently occult fracture. Reading Location: [id number]
== END | disposition home or self-care (01) ==
LOC: MTRAD 15:40
PROVIDERS: PCP Family Medicine; Referring Provider Family Medicine; Visit Provider Family Medicine
DX: M25.552 Pain in left hip (principal)
CPT/HCPCS: 73502

== ENCOUNTER 2025-01-28 12:00 | Outpatient (RCR) | payer MEDICARE, MEDICAID, SELFPAY ==
--- NOTE | 2024-09-27 12:34 | HP.PTEVAL_ITS ---
Patient's Visit Information Visit Information Visit Information: DEEPAK HOLLAND is a 73 year old F referred to Physical Therapy by Sofy Barron MD with a diagnosis of PAIN LEFT HIP. Date of Evaluation: 09/27/24 Physical Therapist: Keenan Lambert, PT, Cert MDT, OCS Visit Plan Frequency: 1x/Week Duration: 4 Weeks Plan: PT INTERVENTIONS MANUAL THERAPY IT BAND ,STRENGTHENING EX'S ( HIP ) ,CORE STRENGTHENING ,AND MODALITIES ( HIP) Subjective Subjective: This 73 y/o female presents to physical therapy with left hip pain and back pain . Seen and recommended PT. Prescribed muscle relaxer. Patient had x-rays - . Patient does have h/o osteopenia but had bone density last 04/10/. Patient lateral hip and groin. Patient feels like leg will give out fells weak. Patient uses cane for gait. Patient Aggravating walking/standing and stairs unable to squat/kneel . Denies paresthesia/tingling. Morning and evening are worse. Patient bowel/bladder -. Coughing/sneezing-. Patient has on fall 1 month ago mechanical fall. Patient condition affects QOL and function/housework tasks.Patient goals to decrease pain. SOCIAL: single VOCATION:retired Pain Left Hip: Pain Intensity (Out of 10): 9 Pain Intensity Range: 10 Comment: walking Objective Objective: POSTURE: mild forward posture ,hips/knee flexed NEURO: denies paresthesia/tingling GAIT:ambulates with cane slow tone mild forward posture decrease stance time PALPATION: tender greater trochanter ,Glut medius , IT band PROM: hip flexion 105 degrees ,IR 35 degrees , hip abduction 40 degrees MMT: ( peak force) quads left 10.8 ,hip flexion 6.8 ,hip abduction 0 ,hamstrings 10.9 Balance/Special Test Scores Lower Extremity Functional Score: 26 Goals Goal 1:: Patient to be I with HEP for hip Goal Time Frame: 4-6 Weeks Goal 2:: Patient to demonstrate 50% improvement with less pain and improved function Goal Time Frame: 4-6 Weeks Goal 3:: Patient to improve LFES score by by 5 points to improve QOL Goal Time Frame: 4-6 Weeks Goal 4:: Patient to peak force hip ,quads/hams by 5# to improve gait Goal Time Frame: 4-6 Weeks Goal 5:: Patient to ambulate with improved gait with less pain by 50% to improve function Goal Time Frame: 4-6 Weeks Rehabilitation Potential Physical Therapy Diagnosis: This patient has pain left hip with weakness ,TTP glut nedius and IT BAND and back pain impairs gait and ADLS thus benefit from skilled PT Rehabilitation Potential: Good Anticipated Interventions Patient/Client Instruction: Educate patient on: Condition and Plan of Care For the Purpose of:: To decrease pain, To increase ROM, To improve muscle performance and motor function, To improve ability to perform ADL's, To increase tolerance to activity/condition/position, To improve performance and independence with ADL's, To improve ability of physical actions for home/community/work/leisure, To improve gait and locomotor functions, To improve health of tissue, To decrease soft tissue restriction, To increase flexibility/ROM, To improve endurance and To reduce risk of recurrence Therapeutic Exercise to Include: Strength training, Endurance training, Balance training, Postural training, Flexibilty training and Dynamic Lumbar Stabilization Comment: HIP For the Purpose of:: To decrease pain, To increase ROM, To improve muscle performance and motor function, To improve ability to perform ADL's, To increase tolerance to activity/condition/position, To improve ability of physical actions for home/community/work/leisure, To improve gait and locomotor functions, To improve health of tissue, To decrease soft tissue restriction, To increase flexibility/ROM, To reduce risk of recurrence and To improve tolerance to ADL's TENS: Yes IF ES: Yes Cryotherapy (ice pack, ice massage): Yes Thermo therapy (hot pack): Yes Ultrasound (thermal/non thermal): Yes For the Purpose of:: To decrease pain, To increase ROM, To improve health of tissue, To decrease soft tissue restriction and To increase flexibility/ROM Text: Thank you for the opportunity to evaluate your patient. For Medicare and Medicare HMO plans, please review the plan of care and approve it. It will need to be FAXED BACK to us at [phone] for Medicare purposes. For Medicare only, by signing this I certify the plan of care. Please let me know if there are questions or concerns regarding this plan of care. Physician Signature: Date:__
--- NOTE | 2024-10-26 12:57 | HP.PTREVAL ---
Re-Evaluation Intro: Sofy Barron MD, It has been my pleasure to treat DEEPAK HOLLAND over the last 7 visits for PAIN LEFT HIP. Please see the progress note below for an update on the physical therapy plan of care! Subjective Subjective: Pain is better but leg will give way with walking. Objective Objective/Function: *Patient will benefit from skilled PT to improve function with and strength with goals appropriate with goals updated and appropriate* POSTURE: mild forward posture ,hips/knee flexed NEURO: denies paresthesia/tingling GAIT:ambulates with cane slow tone mild forward posture 2point gait PALPATION: tender greater trochanter ,Glut medius , IT band PROM: hip flexion 110 degrees ,IR 37 degrees , hip abduction 40 degrees MMT: ( peak force) quads left 20.5 ,hip flexion 17.4 ,hip abduction 6.8 ,hamstrings 14.2 Plan Plan Plan: Requesting 8 more visits PT INTERVENTIONS MANUAL THERAPY IT BAND ,STRENGTHENING EX'S ( HIP ) ,CORE STRENGTHENING ,AND MODALITIES ( HIP) Balance/Gait/Functional tests Balance/Special Test Scores Lower Extremity Functional Score: 30 Goals Goals Goal 1:: Patient to be I with HEP for hip Goal Time Frame: 4-6 Weeks Goal Progress: Progressing Goal 2:: Patient to demonstrate 80% improvement with less pain and improved function ( new goal) Goal Time Frame: 4-6 Weeks Goal 3:: Patient to improve LFES score by by 5 points to improve QOL Goal Time Frame: 4-6 Weeks Goal Progress: Progressing Goal 4:: Patient to peak force hip ,quads/hams by 5# to improve gait( new gpal) Goal Time Frame: 4-6 Weeks Goal 5:: Patient to ambulate with improved gait with less pain by 50% to improve function Goal Time Frame: 4-6 Weeks Goal Progress: Progressing Anticipated Interventions Anticipated Interventions Patient/Client Instruction: Educate patient on: Condition and Plan of Care For the Purpose of:: To decrease pain, To increase ROM, To improve muscle performance and motor function, To improve ability to perform ADL's, To increase tolerance to activity/condition/position, To improve performance and independence with ADL's, To improve ability of physical actions for home/community/work/leisure, To improve gait and locomotor functions, To improve health of tissue, To decrease soft tissue restriction, To increase flexibility/ROM, To improve endurance and To reduce risk of recurrence Therapeutic Exercise to Include: Strength training, Endurance training, Balance training, Postural training, Flexibilty training and Dynamic Lumbar Stabilization Comment: HIP For the Purpose of:: To decrease pain, To increase ROM, To improve muscle performance and motor function, To improve ability to perform ADL's, To increase tolerance to activity/condition/position, To improve ability of physical actions for home/community/work/leisure, To improve gait and locomotor functions, To improve health of tissue, To decrease soft tissue restriction, To increase flexibility/ROM, To reduce risk of recurrence and To improve tolerance to ADL's TENS: Yes IF ES: Yes Cryotherapy (ice pack, ice massage): Yes Thermo therapy (hot pack): Yes Ultrasound (thermal/non thermal): Yes For the Purpose of:: To decrease pain, To increase ROM, To improve health of tissue, To decrease soft tissue restriction and To increase flexibility/ROM Re-Evaluation Ending Re-evaluation ending: Please do not hesitate to contact me at [phone] by phone or if you have questions or concerns regarding this new plan of care! Sincerely, Keenan Lambert, PT, Cert MDT, OCS
--- NOTE | 2024-12-16 13:05 | HP.PTREVAL ---
Re-Evaluation Intro: Sofy Barron MD, It has been my pleasure to treat DEEPAK HOLLAND over the last 15 visits for PAIN LEFT HIP. Please see the progress note below for an update on the physical therapy plan of care! Subjective Subjective: Patient fell last week ,going up steps with patient did not have rail on section of stairs Patient went shopping overall no pain in back Objective Objective/Function: *Patient will benefit from skilled PT to improve function with and strength except hip abduction pain and weak but had of episode of falling with goals appropriate with goals updated and appropriate* POSTURE: mild forward posture ,hips/knee flexed NEURO: denies paresthesia/tingling GAIT:ambulates with cane slow tone mild forward posture 2point gait PALPATION: mod tender greater trochanter ,Glut medius , IT band PROM: hip flexion 112 degrees ,IR 35 degrees , hip abduction 45 degrees MMT: ( peak force) left quads left 35.0 ,hip flexion 27.4 ,hip abduction 10.1 ,hamstrings 33.7 Plan Plan Plan: Requesting 8 more visits PT INTERVENTIONS MANUAL THERAPY IT BAND ,STRENGTHENING EX'S ( HIP ) ,CORE STRENGTHENING ,AND MODALITIES ( HIP) Balance/Gait/Functional tests Balance/Special Test Scores Lower Extremity Functional Score: 31 Goals Goals Goal 1:: Patient to be I with HEP for hip Goal Time Frame: 4-6 Weeks Goal Progress: Progressing Goal 2:: Patient to demonstrate 80% improvement with less pain and improved function ( new goal) Goal Time Frame: 4-6 Weeks Goal 3:: Patient to improve LFES score by by 5 points to improve QOL Goal Time Frame: 4-6 Weeks Goal Progress: Progressing Goal 4:: Patient to peak force hip ,quads/hams by 5# to improve gait( new gpal) Goal Time Frame: 4-6 Weeks Goal 5:: Patient to ambulate with improved gait with less pain by 50% to improve function Goal Time Frame: 4-6 Weeks Goal Progress: Progressing Anticipated Interventions Anticipated Interventions Patient/Client Instruction: Educate patient on: Condition and Plan of Care For the Purpose of:: To decrease pain, To increase ROM, To improve muscle performance and motor function, To improve ability to perform ADL's, To increase tolerance to activity/condition/position, To improve performance and independence with ADL's, To improve ability of physical actions for home/community/work/leisure, To improve gait and locomotor functions, To improve health of tissue, To decrease soft tissue restriction, To increase flexibility/ROM, To improve endurance and To reduce risk of recurrence Therapeutic Exercise to Include: Strength training, Endurance training, Balance training, Postural training, Flexibilty training and Dynamic Lumbar Stabilization Comment: HIP For the Purpose of:: To decrease pain, To increase ROM, To improve muscle performance and motor function, To improve ability to perform ADL's, To increase tolerance to activity/condition/position, To improve ability of physical actions for home/community/work/leisure, To improve gait and locomotor functions, To improve health of tissue, To decrease soft tissue restriction, To increase flexibility/ROM, To reduce risk of recurrence and To improve tolerance to ADL's TENS: Yes IF ES: Yes Cryotherapy (ice pack, ice massage): Yes Thermo therapy (hot pack): Yes Ultrasound (thermal/non thermal): Yes For the Purpose of:: To decrease pain, To increase ROM, To improve health of tissue, To decrease soft tissue restriction and To increase flexibility/ROM Re-Evaluation Ending Re-evaluation ending: Please do not hesitate to contact me at [phone] by phone or if you have questions or concerns regarding this new plan of care! Sincerely, Keenan Lambert PT, Cert MDT, OCS
--- NOTE | 2025-03-29 12:12 | HP.PTDCNRP_ITS ---
Patient Information Patient Information: DEEPAK HOLLAND was seen in my office for initial evaluation on 09/27/24. The following Plan of Care was established for this patient: POC Established Initial Frequency: 1x/Week Initial Duration: 4 Weeks Anticipated Interventions Patient/Client Instruction: Educate patient on: Condition and Plan of Care For the Purpose of:: To decrease pain, To increase ROM, To improve muscle performance and motor function, To improve ability to perform ADL's, To increase tolerance to activity/condition/position, To improve performance and inde pendence with ADL's, To improve ability of physical actions for home/community/work/leisure, To improve gait and locomotor functions, To improve health of tissue, To decrease soft tissue restriction, To increase flexibility/ROM, To improve endurance and To reduce risk of recurrence Therapeutic Exercise to Include: Strength training, Endurance training, Balance training, Postural training, Flexibilty training and Dynamic Lumbar Stabilization For the Purpose of:: To decrease pain, To increase ROM, To improve muscle performance and motor function, To improve ability to perform ADL's, To increase tolerance to activity/condition/position, To improve ability of physical actions for home/community/work/leisure, To improve gait and locomotor functions, To improve health of tissue, To decrease soft tissue restriction, To increase flexibility/ROM, To reduce risk of recurrence and To improve tolerance to ADL's TENS: Yes IF ES: Yes Cryotherapy (ice pack, ice massage): Yes Thermo therapy (hot pack): Yes Ultrasound (thermal/non thermal): Yes For the Purpose of:: To decrease pain, To increase ROM, To improve health of tissue, To decrease soft tissue restriction and To increase flexibility/ROM Last Seen Last Seen: This patient was last seen in our office . Pertinent comments regarding their Physical therapy will appear below: Patient was seen for left hip pain ROM ,strength hip and core thus is d/c to HEP At this point I will be discontinuing this patient from physical therapy. I would be happy to see this patient again in the future if found appropriate by the physician. Thank you! Keenan Lambert, PT, Cert MDT, OCS Balance/Gait/Functional tests Balance/Special Test Scores Lower Extremity Functional Score: 31
== END 2025-01-28 19:00 | disposition home or self-care (01) ==
LOC: PT 12:00
PROVIDERS: PCP Family Medicine; Referring Provider Family Medicine; Visit Provider Family Medicine
DX: M25.552 Pain in left hip (principal)
CPT/HCPCS: 97110; 97162; 97530

== ENCOUNTER → 2025-03-09 | Outpatient (CLI) | payer MEDICARE, MEDICAID, SELFPAY ==
--- NOTE | 2025-03-09 15:30 | MRI_ITS ---
PROCEDURE: LOWER EXT JOINT ONLY (ROUTINE) 03/09/2025 REASON FOR EXAM: PAIN, RULE OUT AVN TECHNIQUE: LOWER EXT JOINT ONLY (ROUTINE) Multiplanar and multisequence images were obtained without IV contrast administration. COMPARISON: COMPARISON : January 31, 2025 x-ray FINDINGS: Bone marrow and osseous structures: There is no abnormal marrow edema to suggest stress reaction or fracture. There is no MR evidence of avascular necrosis. Articular cartilage: No significant joint space narrowing. No full or partial- thickness cartilage defects are identified. Labrum: No discrete labral tear or paralabral cyst. Hip joint: There is no intra-articular body. The ligamentum teres is unremarkable. Hip abductors: The gluteus medius and minimus tendons show severe tendinopathy without full-thickness tear or retraction. There is increased fluid in the trochanteric bursa, with bursitis. Iliopsoas tendon: Intact without tendinosis or tear. No iliopsoas bursitis. A 2.2 cm cyst is visible on the left ovary. MRI/Lower Ext Joint Only (Routine) IMPRESSION: The gluteus medius and minimus tendons show severe tendinopathy without full-th ickness tear or retraction. There is increased fluid in the trochanteric bursa, with bursitis. A 2.2 cm cyst is visible on the left ovary. Reading [facility]
--- OUTSIDE RECORDS SUMMARY | 2025-03-09 20:22 | XMS RPT_ITS | CCD ---
Author Organization [facility] Care Team Providers Care Geriatrician Name Role Phone Dr. Tanvir Shea Chi Primary Care Provider Dr. Tanvir Shea Chi Referring Provider Dr. Manolo Magallon Attending Provider Beatrice LUCAS, Sofy Primary Care Provider Beatrice LUCAS, Sofy Referring Provider Dr. Manolo Magallon DO Attending Provider Beatrice LUCAS, Sofy Attending Provider Dr. Cy Ramachandran DO Attending Provider Lobo LUCAS, Dr. Davies Attending Provider Beatrice, Chalon Primary Care Unavailable Manolo Magallon Attending Unavailable Tanvir Shea Chi Referring Unavailable Beatrice, Chalon Primary Care Unavailable Samson Diamond Attending Unavailable Beatrice, Chalon Primary Care Unavailable Cy Ramachandran Attending Unavailable Beatrice, Chalon Referring Unavailable Beatrice, Chalon Primary Care Unavailable Manolo Magallon Attending Unavailable Beatrice, Chalon Referring Unavailable BorrusoCy Attending Unavailable CarminarusoCy Referring Unavailable Beatrice, Chalon Primary Care Unavailable Beatrice, Chalon Primary Care Unavailable Beatrice, Chalon Attending Unavailable Beatrice, Chalon Referring Unavailable Valdes, Getachew Referring Unavailable Beatrice, Chalon Primary Care Unavailable Valdes, Getachew Attending Unavailable Beatrice, Chalon Primary Care Unavailable Beatrice, Chalon Attending Unavailable Beatrice, Chalon Referring Unavailable Beatrice, Chalon Primary Care Unavailable Beatrice, Chalon Attending Unavailable Beatrice, Chalon Referring Unavailable Beatrice, Chalon Primary Care Unavailable Beatrice, Chalon Attending Unavailable Beatrice, Chalon Referring Unavailable Allergies Allergy Classification Reported Allergen(s) Allergy Type Date of Onset Reaction(s) Facility (16 sources) LORazepam Drug Allergy 05-12-2018 Other [facility] Comment on above: YAP (16 sources) nabumetone Drug Allergy 05-12-2018 Rash [facility] (16 sources) tadalafil Drug Allergy 05-12-2018 Other [facility] Comment on above: blurred vision (1 source) LORazepam Drug Allergy 01-31-2025 [facility] Repository (1 source) nabumetone Drug Allergy 01-31-2025 [facility] Repository (1 source) tadalafil Drug Allergy 01-31-2025 [facility] Repository Medications Current Medications Medication Drug Class(es) Dates Sig (Normalized) Sig (Original) ARIPiprazole 5 mg oral tablet (20 sources) Atypical Antipsychotic Start: 05-13-2018 take 1 tablet by mouth once daily Aripiprazole 5 MG tablet Active 5 mg PO DAILY May 13, 2018 12:00am Start: 12-15-2017 Aripiprazole ( Abilify) 30 mg tablet Active 20 mg PO daily December 15, 2017 12:00am Start: 01-10-2017 End: 12-15-2017 take 1 tablet by mouth once daily Aripiprazole 20 MG tablet Discontinued 20 mg PO DAILY January 10, 2017 12:00am December 15, 2017 9:50am Start: 01-10-2017 End: 12-15-2017 take 1 tablet by mouth once daily Aripiprazole 5 MG tablet Discontinued 5 mg PO DAILY January 10, 2017 12:00am December 15, 2017 9:51am Start: 06-16-2013 End: 07-23-2013 take 1 tablet by mouth once daily Aripiprazole (Abilify) 20 MG tablet Discontinued 20 mg PO DAILY June 16, 2013 12:00am July 23, 2013 7:48pm Budesonide-Formoterol (16 sources) Corticosteroid, beta2-Adrenergic Agonist Start: 10-13-2014 take 1 puff(s) by inhalation twice daily Budesonide-Formoterol Active 2 PUFF INHALATION TWICE A DAY October 13, 2014 5:23pm Start: 10-13-2014 Budesonide-For moterol 1 INHALER inhaler Active 2 NMA INHALATION TWICE A DAY October 13, 2014 1:00am Start: 10-13-2014 take 1 puff(s) by in halation twice daily Budesonide-Formoterol Active 2 PUFF INHALATION TWICE A DAY October 13, 2014 12:00am Start: 10-13-2014 take 1 puff(s) by in halation twice daily Budesonide-Formoterol Active 2 PUFF INHALATION TWICE A DAY October 13, 2014 1:00am cevimeline 30 mg oral capsule (16 sources) Cholinergic Receptor Agonist Start: 12-15-2017 take 1 capsule by mouth three times daily Cevimeline 30 mg capsule Active 1 NMA PO THREE TIMES A DAY December 15, 2017 12:00am clonazePAM 0.5 mg oral tablet (20 sources) Benzodiazepine Start: 10-13-2014 take 1 tablet by mouth three times daily as needed for anxiety Clonazepam 0.5 MG tablet Active 0.5 mg PO 3 TIMES DAILY NEEDED as needed for Anxiety October 13, 2014 5:38pm Start: 06-16-2013 End: 07-23-2013 take 1 tablet by mouth every eight hours as needed for anxiety Clonazepam 0.5 MG tablet Discontinued 0.5 mg PO EVERY 8 HOURS NEEDED as needed for Anxiety June 16, 2013 12:00am July 23, 2013 7:48pm famotidine 40 mg oral tablet (16 sources) Histamine-2 Receptor Antagonist Start: 12-15-2017 take 1 tablet by mouth at bedtime Famotidine 40 mg tablet Active 40 mg PO AT BEDTIME December 15, 2017 12:00am lamoTRIgine 200 mg oral tablet (20 sources) Mood Stabilizer, Anti-epileptic Agent Start: 12-15-2017 Lamotrigine 200 mg tablet Active 150 mg PO TWICE A DAY December 15, 2017 12:00am Start: 12-15-2017 take 150 mg by mouth twice daily Lamotrigine Active 150 MG PO TWICE A DAY December 15, 2017 12:00am Start: 11-20-2016 End: 12-15-2017 Lamotrigine 100 MG tablet,disintegrating Discontinued 150 mg PO TWICE A DAY November 20, 2016 2:02pm December 15, 2017 9:54am Start: 11-20-2016 End: 12-15-2017 take 150 mg by mouth twice daily Lamotrigine Discontinued 150 MG PO TWICE A DAY November 20, 2016 2:02pm December 15, 2017 9:54am Start: 06-16-2013 End: 11-20-2016 take 1 tablet by mouth twice daily Lamotrigine (Lamictal Odt) 100 MG Tab.Rapdis Discontinued 100 mg PO TWICE A DAY July 23, 2013 7:47pm November 20, 2016 2:02pm levothyroxine sodium 0.05 mg oral capsule (20 sources) l-Thyroxine Start: 12-15-2017 Levothyroxine 50 mcg capsule Active 88 ug PO daily December 15, 2017 12:00am Start: 06-16-2013 End: 12-15-2017 take 1 tablet by mouth once daily Levothyroxine 100 MCG tablet Discontinued 100 ug PO DAILY June 25, 2017 7:00pm December 15, 2017 9:54am magnesium oxide 400 mg oral tablet (20 sources) Start: 01-10-2017 End: 06-27-2017 take 1 tablet by mouth once daily Magnesium Oxide 400 MG tablet Active 400 mg PO DAILY June 27, 2017 11:10am mirtazapine 7.5 mg oral tablet (2 sources) Start: 12-01-2024 Mirtazapine 7. 5 mg tablet Active 11.25 mg PO daily December 01, 2024 12:00am predniSONE 5 mg oral tablet (20 sources) Start: 12-15-2017 take 1 tablet by mouth twice daily Prednisone 5 mg tablet Active 5 mg PO TWICE A DAY December 15, 2017 12:00am Start: 07-07-2017 End: 12-15-2017 take 1 tablet by mouth twice daily at mealtime Prednisone 20 MG tablet Discontinued 20 mg PO TWICE A DAY July 07, 2017 1:00am December 15, 2017 9:56am With food Start: 06-27-2017 End: 12-15-2017 take 1 tablet by mouth once daily at mealtime Prednisone 20 MG tablet Discontinued 20 mg PO DAILY June 27, 2017 1:00am December 15, 2017 9:57am With food primidone 50 mg oral tablet (16 sources) Anti-epileptic Agent Start: 12-15-2017 take 1 tablet by mouth at bedtime Primidone 50 mg tablet Active 50 mg PO AT BEDTIME December 15, 2017 12:00am topiramate 25 mg oral tablet (16 sources) Start: 01-10-2017 take 4 tablets by mouth twice daily Topiramate 25 MG tablet Active 100 mg PO TWICE A DAY January 10, 2017 12:00am Start: 01-10-2017 take 100 mg by mouth twice daily Topiramate Active 100 MG PO TWICE A DAY January 10, 2017 12:00am vilazodone hydrochloride 40 mg oral tablet (16 sources) Start: 12-15-2017 take 1 tablet by mouth once daily Vilazodone (Viibryd) 40 mg tablet Active 40 mg PO daily December 15, 2017 12:00am Completed/Discontinued Medications Medication Drug Class(es) Dates Sig (Normalized) Sig (Original) aspirin 81 mg chewable tablet (16 sources) Platelet Aggregation Inhibitor, Nonsteroidal Anti-inflammatory Drug Start: 06-16-2013 End: 07-23-2013 take 1 tablet by mouth once daily Aspirin 81 MG Tab.Chew Discontinued 81 mg PO DAILY@0800 June 16, 2013 12:00am July 23, 2013 7:48pm azithromycin 250 mg oral tablet (16 sources) Macrolide Antimicrobial Start: 06-27-2017 End: 12-15-2017 take 2 tablets by mouth every twenty-four hours Azithromycin 250 MG tablet Discontinued 500 mg PO EVERY 24 HOURS June 27, 2017 1:00am December 15, 2017 9:51am Start: 06-27-2017 End: 12-15-2017 take 500 mg by mouth every twenty-four hours Azithromycin Discontinued 500 MG PO EVERY 24 HOURS 3 June 27, 2017 1:00am December 15, 2017 9:51am 24 hr buPROPion hydrochloride 300 mg extended release oral tablet (16 sources) Aminoketone Start: 06-16-2013 End: 07-23-2013 take 1 tablet by mouth once daily Bupropion Hcl 300 MG Tablet.Xl Discontinued 300 mg PO DAILY June 16, 2013 12:00am July 23, 2013 7:48pm cefuroxime 250 mg oral tablet (16 sources) Cephalosporin Antibacterial Start: 07-23-2013 End: 08-02-2013 take 1 tablet by mouth twice daily Cefuroxime Axetil 250 MG tablet Discontinued 250 mg PO TWICE A DAY July 23, 2013 1:00am August 02, 2013 1:16pm cetirizine hydrochloride 10 mg oral tablet (20 sources) Histamine-1 Receptor Antagonist Start: 06-16-2013 End: 12-15-2017 take 1 tablet by mouth once daily Cetirizine 10 MG tablet Discontinued 10 mg PO DAILY June 25, 2017 7:00pm December 15, 2017 9:52am cholestyramine resin 4000 mg powder for oral suspension (16 sources) Bile Acid Sequestrant Start: 12-15-2017 End: 03-05-2023 Cholestyramine (With Sugar) (Questran) 4 gram powder Discontinued 4 g PO TWICE A DAY December 15, 2017 12:00am March 05, 2023 12:52pm ciprofloxacin 3 mg/ml ophthalmic solution (16 sources) Quinolone Antimicrobial Start: 11-08-2017 End: 11-13-2017 Ciprofloxacin Hcl 0.3 % drops Discontinued 2 NMA OPHTHALMIC Q4H 2.5 5 November 08, 2017 12:00am November 12, 2017 12:00am November 13, 2017 12:06am administer while awake citalopram 20 mg oral tablet (16 sources) Serotonin Reuptake Inhibitor Start: 06-16-2013 End: 07-23-2013 take 1 tablet by mouth once daily Citalopram 20 MG tablet Discontinued 20 mg PO DAILY June 16, 2013 12:00am July 23, 2013 7:48pm colestipol hydrochloride 1000 mg oral tablet (9 sources) Bile Acid Sequestrant Start: 03-05-2023 End: 10-04-2024 Colestipol 1 gram tablet Discontinued 1 g PO TWICE A DAY 30 May 09, 2023 7:09am October 04, 2024 3:30pm diclofenac sodium 75 mg delayed release oral tablet (16 sources) Nonsteroidal Anti-inflammatory Drug Start: 10-13-2014 End: 12-15-2017 take 1 tablet by mouth twice daily at mealtime Diclofenac Sodium 75 MG tablet Discontinued 75 mg PO TWICE DAILY WITH MEALS October 13, 2014 1:00am December 15, 2017 9:53am diphenhydrAMINE hydrochloride 25 mg oral capsule (16 sources) Histamine-1 Receptor Antagonist Start: 01-10-2017 End: 12-15-2017 take 2 capsules by mouth every six hours as needed Diphenhydramine Hcl 25 MG capsule Discontinued 50 mg PO EVERY 6 HOURS NEEDED as needed for SEDATION January 10, 2017 12:00am December 15, 2017 9:53am Start: 01-10-2017 End: 12-15-2017 take 50 mg by mouth every six hours as needed Diphenhydramine Hcl Discontinued 50 MG PO EVERY 6 HOURS NEEDED January 10, 2017 12:00am December 15, 2017 9:53am fenofibrate 145 mg oral tablet (16 sources) Peroxisome Proliferator Receptor alpha Agonist Start: 06-16-2013 End: 12-15-2017 take 1 tablet by mouth at bedtime Fenofibrate Nanocrystallized 145 MG tablet Discontinued 145 mg PO AT BEDTIME June 16, 2013 12:00am December 15, 2017 9:54am ferrous sulfate 325 mg oral tablet (20 sources) Start: 06-16-2013 End: 07-28-2013 take 1 tablet by mouth once daily Ferrous Sulfate 325 MG tablet Discontinued 325 mg PO DAILY July 23, 2013 7:47pm July 28, 2013 3:43am fluticasone propionate 0.05 mg/actuat metered dose nasal spray (16 sources) Corticosteroid Start: 06-16-2013 End: 07-18-2013 Fluticasone Propionate 1 SPRAY Nasal.Sry Discontinued 2 NMA NASAL DAILY June 16, 2013 12:00am July 18, 2013 11:36pm Start: 06-16-2013 End: 07-18-2013 Fluticasone Propionate Disco ntinued 2 SPRAY NASAL DAILY June 16, 2013 12:00am July 18, 2013 11:36pm Multivitamin With Iron (20 sources) Start: 06-25-2017 End: 12-15-2017 Multivitamin With Iron Disco ntinued 1 EACH PO DAILY June 25, 2017 6:00pm December 15, 2017 8:55am Start: 06-25-2017 End: 12-15-2017 Multivitamin With Iron Disco ntinued 1 EACH PO DAILY June 25, 2017 7:00pm December 15, 2017 9:55am Start: 07-23-2013 End: 06-25-2017 Multivitamin With Iron Disco ntinued 1 EACH PO DAILY July 23, 2013 6:47pm June 25, 2017 6:00pm Start: 07-23-2013 End: 06-25-2017 Multivitamin With Iron Disco ntinued 1 EACH PO DAILY July 23, 2013 7:47pm June 25, 2017 7:00pm Start: 07-18-2013 End: 07-23-2013 Multivitamin With Iron Disco ntinued 1 EACH PO DAILY July 18, 2013 6:47pm July 23, 2013 7:48pm Start: 07-18-2013 End: 07-23-2013 Multivitamin With Iron Disco ntinued 1 EACH PO DAILY July 18, 2013 12:00am July 23, 2013 6:48pm Start: 07-18-2013 End: 07-23-2013 Multivitamin With Iron Disco ntinued 1 EACH PO DAILY July 18, 2013 1:00am July 23, 2013 7:48pm Multivitamin With Iron 1 EACH tablet (6 sources) Start: 06-25-2017 End: 12-15-2017 take 1 tablet by mouth once daily Multivitamin With Iron 1 EACH tablet Discontinued 1 NMA PO DAILY June 25, 2017 7:00pm December 15, 2017 9:55am Start: 07-23-2013 End: 06-25-2017 take 1 tablet by mouth once daily Multivitamin With Iron 1 EACH tablet Discontinued 1 NMA PO DAILY July 23, 2013 7:47pm June 25, 2017 7:00pm Start: 07-18-2013 End: 07-23-2013 take 1 tablet by mouth once daily Multivitamin With Iron 1 EACH tablet Discontinued 1 NMA PO DAILY July 18, 2013 1:00am July 23, 2013 7:48pm omeprazole 20 mg delayed release oral capsule (20 sources) Proton Pump Inhibitor Start: 03-01-2016 End: 12-15-2017 take 2 capsules by mouth once daily Omeprazole 20 MG capsule Discontinued 40 mg PO DAILY March 01, 2016 1:20pm December 15, 2017 9:55am Start: 03-01-2016 End: 12-15-2017 take 40 mg by mouth once daily Omeprazole Discontinued 40 MG PO DAILY March 01, 2016 1:20pm December 15, 2017 9:55am Start: 06-16-2013 End: 03-01-2016 take 1 capsule by mouth once daily Omeprazole 20 MG capsule Discontinued 20 mg PO DAILY July 23, 2013 7:47pm March 01, 2016 1:20pm ondansetron 4 mg disintegrating oral tablet (16 sources) Serotonin-3 Receptor Antagonist Start: 03-01-2016 End: 12-15-2017 take 1 tablet by mouth once daily as needed for nausea Ondansetron 4 MG tablet Discontinued 4 mg PO DAILY as needed for Nausea March 01, 2016 12:00am December 15, 2017 9:55am 12 hr orphenadrine citrate 100 mg extended release oral tablet (16 sources) Muscle Relaxant Start: 10-13-2014 End: 12-15-2017 take 1 tablet by mouth twice daily as needed for pain Orphenadrine Citrate 100 MG tablet Discontinued 100 mg PO TWICE DAILY NEEDED as needed for Pain October 13, 2014 1:00am December 15, 2017 9:56am oxaprozin 600 mg oral tablet (16 sources) Nonsteroidal Anti-inflammatory Drug Start: 06-16-2013 End: 07-23-2013 take 1 tablet by mouth once daily Oxaprozin 600 MG tablet Discontinued 600 mg PO DAILY June 16, 2013 12:00am July 23, 2013 7:48pm rizatriptan 10 mg oral tablet (20 sources) Serotonin-1b and Serotonin-1d Receptor Agonist Start: 07-28-2013 End: 07-28-2013 take 1 tablet by mouth once daily Rizatriptan 10 MG tablet Discontinued 10 mg PO DAILY July 28, 2013 1:00am July 28, 2013 3:42am Start: 06-16-2013 End: 07-23-2013 Rizatriptan 10 MG tablet Dis continued 10 mg PO .X1 PRN June 16, 2013 12:00am July 23, 2013 7:48pm simvastatin 40 mg oral tablet (20 sources) HMG-CoA Reductase Inhibitor Start: 06-16-2013 End: 07-28-2013 take 1 tablet by mouth at bedtime Simvastatin 40 MG tablet Discontinued 40 mg PO AT BEDTIME July 23, 2013 7:47pm July 28, 2013 3:43am tadalafil 20 mg oral tablet (20 sources) Phosphodiesterase 5 Inhibitor Start: 06-16-2013 End: 07-23-2013 take 1 tablet by mouth once daily Tadalafil (Pulm. Hypertension) (Adcirca) 20 MG tablet Discontinued 40 mg PO DAILY July 18, 2013 1:00am July 23, 2013 7:48pm traMADol hydrochloride 50 mg oral tablet (16 sources) Opioid Agonist Start: 10-13-2014 End: 12-15-2017 take 1 tablet by mouth every six hours as needed for pain Tramadol 50 MG tablet Discontinued 50 mg PO EVERY 6 HOURS NEEDED as needed for Pain October 13, 2014 1:00am December 15, 2017 9:57am traZODone hydrochloride 300 mg oral tablet (20 sources) Serotonin Reuptake Inhibitor Start: 06-16-2013 End: 06-25-2017 take 1 tablet by mouth at bedtime Trazodone 300 MG tablet Discontinued 300 mg PO AT BEDTIME July 23, 2013 7:47pm June 25, 2017 7:00pm vancomycin 125 mg oral capsule (7 sources) Glycopeptide Antibacterial Start: 01-07-2023 End: 01-21-2023 take 1 capsule by mouth every six hours Vancomycin (Vancocin) 125 mg capsule Discontinued 125 mg PO EVERY 6 HOURS 56 14 January 07, 2023 12:00am January 20, 2023 12:00am January 21, 2023 12:04am Problems Active Problems Problem Classification Problem Date Documented Da te Episodic/Chronic Anxiety disorders (16 sources) Anxiety; Translations: [Anxiety disorder, unspecified] 03-01-2016 Chronic Chronic kidney disease (16 sources) Chronic kidney disease stage 3; Translations: [Stage 3 chronic kidney disease] 06-25-2017 Chronic Chronic obstructive pulmonary disease and bronchiectasis (16 sources) Acute exacerbation of chronic bronchitis; Translations: [Chronic obstructive pulmonary disease with (acute) exacerbation] 06-25-2017 Chronic Disorders of lipid metabolism (20 sources) Dyslipidemia; Translations: [Hyperlipidemia, unspecified] 03-01-2016 Chronic Headache; including migraine (16 sources) Migraine; Translations: [Migraine, unspecified, not intractable, without status migrainosus] 06-25-2017 Chronic Mood disorders (16 sources) Depressive disorder; Translations: [Depression] 03-01-2016 Chronic Nonspecific chest pain (16 sources) Chest pain; Translations: [Chest pain, unspecified] 11-20-2016 Episodic Other gastrointestinal disorders (9 sources) Loose stool; Translations: [Other fecal abnormalities] 01-02-2023 Episodic Other gastrointestinal disorders (5 sources) Other fecal abnormalities; Translations: [Abnormal feces] 01-02-2023 Episodic Other gastrointestinal disorders (4 sources) Constipation; Translations: [Constipation, unspecified] 12-01-2024 Episodic Other non-traumatic joint disorders (2 sources) Pain in left hip; Translations: [Pain in left hip] Onset: 01-31-2025 Episodic Pneumonia (except that caused by tuberculosis or sexually transmitted disease) (16 sources) Community acquired pneumonia; Translations: [Pneumonia, unspecified organism] 03-01-2016 Episodic Pulmonary heart disease (16 sources) Pulmonary hypertension; Translations: [Pulmonary hypertension, unspecified] 03-01-2016 Chronic Residual codes; unclassified (16 sources) Obstructive sleep apnea syndrome; Translations: [Obstructive sleep apnea (adult) (pediatric)] 03-01-2016 Chronic Residual codes; unclassified (16 sources) Tobacco user; Translations: [Tobacco use] 03-01-2016 Episodic Schizophrenia and other psychotic disorders (20 sources) Schizoaffective disorder; Translations: [Schizoaffective disorder, unspecified] 06-25-2017 Chronic Thyroid disorders (20 sources) Hyperthyroidism; Translations: [Thyrotoxicosis, unspecified without thyrotoxic crisis or storm] 12-15-2017 Chronic Comment on above: No records at this t laverne except one TSH which is suppressed. However patient is also on levothyroxine. Will order thyroid panel as well as thyroid US. Will determine if levothyroxine is cause of or additional issue. Labs reviewed with claritza dominguez. She remains euthyroid. Unable to obtain past medical records. She is ask to work on obtaining this records to provide her opthamologist with. Continue on current regimen. Unclassified (1 source) Low back pain, unspecified; Translations: [Low back pain, unspecified] Onset: 01-31-2025 Past or Other Problems Problem Classification Problem Date Documented Da te Episodic/Chronic Other connective tissue disease (1 source) Iliotibial band syndrome, left leg; Translations: [Iliotibial band syndrome, left leg] Onset: 07-21-2024 Episodic Other screening for suspected conditions (not mental disorders or infectious disease) (1 source) Encounter for screening mammogram for malignant neoplasm of breast; Translations: [Encounter for screening mammogram for malignant neoplasm of breast] Onset: 04-22-2024 Episodic Sprains and strains (1 source) Sprain of unspecified ligament of right ankle, initial encounter; Translations: [Sprain of unspecified ligament of right ankle, initial encounter] Onset: 04-22-2024 Episodic Unclassified (12 sources) D & C 03-13-2022 Unclassified (12 sources) blood transfusion 03-13-2022 Unclassified (12 sources) tuabl ligation 03-13-2022 Results Test Name Value Interpretation Reference Range Facility HIP, UNI W/ Pelvis 2-3 Views on 01-31-2025 HIP, UNI W/ Pelvis 2-3 Views [facility] [address] [place], [place] [id number] HIP, UNI W/ Pelvis 2-3 Views MR#: [id number] Acct: [id number] Name: NERIS MOODY Rep #: [id number] : 1950 F 74 From: Lucas whitfield MD PCP: Dr. Sofy Barron MD Status: DEP AMB Study: HIP, UNI W/ Pelvis 2-3 Views Date of Exam: Exam# [id number] Ordering Dr: Cy Ramachandran DO PROCEDURE: HIP, UNI W/ PELVIS 2-3 VIEWS 01/31/2025 REASON FOR EXAM: PAIN AND FALL TECHNIQUE: HIP, UNI W/ PELVIS 2-3 VIEWS COMPARISON: 09/15/2024. FINDINGS: Chronic changes of osteitis pubis, unchanged. Mild osteopenia of the visualized bones. Degenerative joint disease. No fracture or dislocation is seen. No lytic or blastic bone lesion is noted. RAD/HIP, UNI W/ Pelvis 2-3 Views IMPRESSION: No evidence for acute abnormality. Reading Location: [place] [address] CC: Dr. Sofy Barron MD; Dr. Cy Ramachandran DO Music Industry Intern: Signed Normal [facility] Lumbar Spine 2 or 3 Viewson 01-31-2025 Lumbar Spine 2 or 3 Views [facility] Imaging Services [address] [place], [place] [address] Lumbar Spine 2 or 3 Views MR#: [id number] Acct: [id number] Name: NERIS MOODY Rep #: [id number] : 1950 F 74 From: Lucas whitfield MD PCP: Dr. Sofy Barron MD Status: DEP AMB Study: Lumbar Spine 2 or 3 Views Date of Exam: Exam# [id number] Ordering Dr: Cy Ramachandran DO PROCEDURE: LUMBAR SPINE 2 OR 3 VIEWS 01/31/2025 REASON FOR EXAM: PAIN TECHNIQUE: LUMBAR SPINE 2 OR 3 VIEWS COMPARISON: 05/30/2022 FINDINGS: Mild osteopenia. S shaped degenerative scoliosis. Mildly exaggerated lumbar lordosis. There are diffuse spondylotic changes. Findings are demonstrated to by diffuse disc space narrowing, osteophyte formation and degenerative endplate sclerosis. There is diffuse facet joint arthropathy with secondary bilateral neural foramina narrowing. No fracture or dislocation is seen. No aggressive lytic or blastic bony lesion is noted. Metallic clips are noted in the right upper quadrant. Calcified atheromatous plaques are noted. RAD/Lumbar Spine 2 or 3 Views IMPRESSION: No evidence for acute abnormality. Reading Location[facility] [address] CC: Dr. Sofy Barron MD; Dr. Cy Ramachandran DO Music Industry Intern: Signed Normal [facility] Orthopedic Visit Reporton Orthopedic Visit Report [facility] [address] [place] [address] [address] [place] [address] OFFICE VISIT Date of Service: 01/31/25 MR#: [id number] Acct: [id number] Name: NERIS MOODY Rep #: [id number] : 1950 Provider: Dr. Cy ashton DO Age/Sex: 74/F Location[facility] Status: Signed Intake Vital Signs 03/23/24 12:50 01/31/25 13:03 Height 5 ft 6 in 5 ft 3 in Weight: 182 lb 6 oz BMI 32.3 Intake Visit Reasons: LEFT HIP Allergies nabumetone (From Relafen) Allergy (Verified 01/31/25 13:03) Rash lorazepam (From Ativan) Adverse Reaction (Verified 01/31/25 13:03) Other tadalafil (From Adcirca) Adverse Reaction (Verified 01/31/25 13:03) Other Medications ???Medication ???Instructions ???Recorded ???Confirmed ???Type budesonide-formoterol HFA 80 2 puff inhalation BID BREATHING 01/31/25 History mcg-4.5 mcg/actuation aerosol inhaler clonazepam 0.5 mg tablet 0.5 mg PO TID PRN PRN Anxiety 09/1901/31/25 History topiramate 25 mg tablet 100 mg PO BID YAP 01/10/17 01/31/25 History trazodone 300 mg tablet 300 mg PO QHS SLEEP 06/25/1701/31 History magnesium oxide 400 mg (241.3 mg 400 mg PO DAILY SUPPLEMENT ##30 11 /10/17 06/16/25 History magnesium) tablet aripiprazole 30 mg tablet (Abilify) 20 mg PO QDAY 12/15/17 01/31/25 History cevimeline 30 mg capsule 1 cap PO TID 12/15/17 01/31/25 His tory famotidine 40 mg tablet 40 mg PO QHS 12/15/17 01/31/25 His tory lamotrigine 200 mg tablet 150 mg PO BID 12/15/17 01/31/25 Hi story levothyroxine 50 mcg capsule 88 mcg PO QDAY 12/15/17 01/31/25 H istory prednisone 5 mg tablet 5 mg PO BID 12/15/17 01/31/25 Hist ory primidone 50 mg tablet 50 mg PO QHS 12/15/17 01/31/25 His tory vilazodone 40 mg tablet (Viibryd) 40 mg PO QDAY 12/15/17 01/31/25 H istory aripiprazole 5 mg tablet 5 mg PO DAILY 05/13/18 01/31/25 Hi story colestipol 1 gram tablet 1 g PO BID 30 days #60 tabs 01/31/25 Rx mirtazapine 7.5 mg tablet 11.25 mg PO QDAY 12/01/24 01/31/25 History Have you fallen in the past year?: Yes PFSH Medical History Sjogrens syndrome Polymyalgia rheumatica Essential tremor Sleep apnea Chronic diarrhea Vision problem GERD (gastroesophageal reflux disease) Pneumonia Osteopenia Heart murmur IBS (irritable bowel syndrome) High triglycerides High cholesterol Chronic headaches GI problem COPD (chronic obstructive pulmonary disease) blood transfusion Back problem Arthritis Anxiety and depression Anemia Seasonal allergies Alcohol abuse Thyroid disease Lung disease Kidney disease Schizoaffective disorder Schizophrenia Surgical History D C tuabl ligation History of cholecystectomy Family History Unknown Bleeding disorder Cancer Heart disease High cholesterol Skin cancer Social History Smoking Status: Current every day smoker alcohol intake: former substance use type: does not use HPI LEFT HIP Details: This documentation accurately reflects the service provided and the decisions made by me, Dr. Cy Ramachandran, DO 01/31/25 0748. Part of today???s visit was documented by Daksha VALENTIN, acting as scribe. NERIS MOODY is a 74 year old F new patient with medical comorbidities significant for but not limited to tobacco abuse, stage III chronic kidney disease, COPD, hypothyroidism, REGULO, depression anxiety, pulmonary hypertension on prednisone 5 mg twice daily ,trazodone here today for left hip pain that she has been having intermittently since late fall but has gotten worse over time. As her pain got worse she did start using a cane. She states that she just finished doing 2.5 month of PT which did not benefit her nor did it make the pain worse. She does get occasional back pain that is increased with prolonged standing. Her hip pain is over the lateral hip and radiates into her groin. She does also have some tenderness and pain of her IT band but this has gotten better with doing PT. She did sprain her right foot and started putting more of her weight on the left side which she thinks may be the cause of the hip pain. Denies numbness, tingling or other associated symptoms. She denies and prior treatment beside the physical therapy. She will occasionally take Ibuprofen or Tylenol for her pain. Her PCP did prescribe her Meloxicam 15mg that did help with her pain. She denies any prior issues with the hip or previous surgeries. The worst of her pain is in her outer groin and lateral hip. Her pain is worse when weight bearing but when sitting her pain is relieved. No recent fevers chill (more content not included)... Normal [facility] Re-Evaluation - PT (1)on Re-Evaluation - PT (1) [facility] Physical Therapy [facility] [address] [place] [address] / REEVALUATION / MEDICARE RECERTIFICATION PHYSICAL THERAPY MR#: [id number] Acct: [id number] Name: NERIS MOODY Rep #: [id number] : 1950 74 From: Keenan Lambert PT, Cert. T, OCS Referring Dr.: Dr. Sofy Barron MD Status:REG RCR Insurance: [facility] Re-Evaluation Intro: Sofy Barron MD, It has been my pleasure to treat NERIS MOODY over the last 15 visits for PAIN LEFT HIP. Please see the progress note below for an update on the physical therapy plan of care! Subjective Subjective: Patient fell last week ,going up steps with patient did not have rail on section of stairs Patient went shopping overall no pain in back Objective Objective/Function: *Patient will benefit from skilled PT to improve function with and strength except hip abduction pain and weak but had of episode of falling with goals appropriate with goals updated and appropriate* POSTURE: mild forward posture ,hips/knee flexed NEURO: denies paresthesia/tingling GAIT:ambulates with cane slow tone mild forward posture 2point gait PALPATION: mod tender greater trochanter ,Glut medius , IT band PROM: hip flexion 112 degrees ,IR 35 degrees , hip abduction 45 degrees MMT: ( peak force) left quads left 35.0 ,hip flexion 27.4 ,hip abduction 10.1 ,hamstrings 33.7 Plan Plan Plan: Requesting 8 more visits PT INTERVENTIONS MANUAL THERAPY IT BAND ,STRENGTHENING EX'S ( HIP ) ,CORE STRENGTHENING ,AND MODALITIES ( HIP) Balance/Gait/Function al tests Balance/Special Test Scores Lower Extremity Functional Score: 31 Goals Goals Goal 1:: Patient to be I with HEP for hip Goal Time Frame: 4-6 Weeks Goal Progress: Progressing Goal 2:: Patient to demonstrate 80% improvement with less pain and improved function ( new goal) Goal Time Frame: 4-6 Weeks Goal 3:: Patient to improve LFES score by by 5 points to improve QOL Goal Time Frame: 4-6 Weeks Goal Progress: Progressing Goal 4:: Patient to peak force hip ,quads/hams by 5# to improve gait( new gpal) Goal Time Frame: 4-6 Weeks Goal 5:: Patient to ambulate with improved gait with less pain by 50% to improve function Goal Time Frame: 4-6 Weeks Goal Progress: Progressing Anticipated Interventions Anticipated Interventions Patient/Client Instruction: Educate patient on: Condition and Plan of Care For the Purpose of:: To decrease pain, To increase ROM, To improve muscle performance and motor function, To improve ability to perform ADL's, To increase tolerance to activity/condition/po sition, To improve performance and independence with ADL's, To improve ability of physical actions for home/community/work/l eisure, To improve gait and locomotor functions, To improve health of tissue, To decrease soft tissue restriction, To increase flexibility/ROM, To improve endurance and To reduce risk of recurrence Therapeutic Exercise to Include: Strength training, Endurance training, Balance training, Postural training, Flexibilty training and Dynamic Lumbar Stabilization Comment: HIP For the Purpose of:: To decrease pain, To increase ROM, To improve muscle performance and motor function, To improve ability to perform ADL's, To increase tolerance to activity/condition/po sition, To improve ability of physical actions for home/community/work/l eisure, To improve gait and locomotor functions, To improve health of tissue, To decrease soft tissue restriction, To increase flexibility/ROM, To reduce risk of recurrence and To improve tolerance to ADL's TENS: Yes IF ES: Yes Cryotherapy (ice pack, ice massage): Yes Thermo therapy (hot pack): Yes Ultrasound (thermal/non thermal): Yes For the Purpose of:: To decrease pain, To increase ROM, To improve health of tissue, To decrease soft tissue restriction and To increase flexibility/ROM Re-Evaluation Ending Re-evaluation ending: Please do not hesitate to contact me at [phone] by phone or if you have questions or concerns regarding this new plan of care! Sincerely, Keenan Lambert PT, Cert MDT, [facility] 12/16/24 1314 CC: Dr. Sofy Barron MD SAM Signed For Medicare only, by signing this I certify the plan of care. Physicians Signature Date Normal [facility] Gastroenterology Visit Repor ton 12-01-2024 Gastroenterology Visit Report [facility] Gastroenterology [address] [place] [address] OFFICE VISIT Date of Service: 12/01/24 MR#: [id number] Acct: [id number] Name: NERIS MOODY Rep #: [id number] : 1950 Provider: Manolo Magallon DO Age/Sex: 74/F [facility] Status: Signed Intake Vital Signs 03/23/24 12:50 Height 5 ft 6 in Intake Visit Reasons: 6 M FU Allergies nabumetone (From Relafen) Allergy (Verified 10/23/23 15:16) Rash lorazepam (From Ativan) Adverse Reaction (Verified 10/23/23 15:16) Other tadalafil (From Adcirca) Adverse Reaction (Verified 10/23/23 15:16) Other Medications ???Medication ???Instructions ???Recorded ???Confirmed ???Type budesonide-formoterol HFA 80 2 puff inhalation BID BREATHING 12/01/24 History mcg-4.5 mcg/actuation aerosol inhaler clonazepam 0.5 mg tablet 0.5 mg PO TID PRN PRN Anxiety 09/1912/01/24 History topiramate 25 mg tablet 100 mg PO BID YAP 01/10/17 12/01/24 History trazodone 300 mg tablet 300 mg PO QHS SLEEP 06/25/1712/01 History magnesium oxide 400 mg (241.3 mg 400 mg PO DAILY SUPPLEMENT ##30 12/01/24 History magnesium) tablet aripiprazole 30 mg tablet (Abilify) 20 mg PO QDAY 12/15/17 12/01/24 History cevimeline 30 mg capsule 1 cap PO TID 12/15/17 12/01/24 His tory famotidine 40 mg tablet 40 mg PO QHS 12/15/17 12/01/24 His tory lamotrigine 200 mg tablet 150 mg PO BID 12/15/17 12/01/24 Hi story levothyroxine 50 mcg capsule 88 mcg PO QDAY 12/15/17 12/01/24 H istory prednisone 5 mg tablet 5 mg PO BID 12/15/17 12/01/24 Hist ory primidone 50 mg tablet 50 mg PO QHS 12/15/17 12/01/24 His tory vilazodone 40 mg tablet (Viibryd) 40 mg PO QDAY 12/15/17 12/01/24 H istory aripiprazole 5 mg tablet 5 mg PO DAILY 05/13/18 12/01/24 Hi story colestipol 1 gram tablet 1 g PO BID 30 days #60 tabs 12/01/24 Rx mirtazapine 7.5 mg tablet 11.25 mg PO QDAY 12/01/24 12/01/24 History Have you fallen in the past year?: No PFSH Medical History Alcohol abuse Anemia Anxiety and depression Arthritis Back problem blood transfusion Chronic diarrhea Chronic headaches COPD (chronic obstructive pulmonary disease) Essential tremor GERD (gastroesophageal reflux disease) GI problem Heart murmur High cholesterol High triglycerides IBS (irritable bowel syndrome) Kidney disease Lung disease Osteopenia Pneumonia Polymyalgia rheumatica Schizoaffective disorder Schizophrenia Seasonal allergies Sjogrens syndrome Sleep apnea Thyroid disease Vision problem Surgical History D C History of cholecystectomy tuabl ligation Family History Unknown Bleeding disorder Cancer Heart disease High cholesterol Skin cancer Social History Smoking Status: Current every day smoker alcohol intake: former substance use type: does not use HPI HPI Details: NERIS MOODY, is a 74 F who presents to the office today for follow up. PCP OV 5..23with loose stools, abdominal pain for months. Initially cholestyramine BID was helpful. Concern for fecal impaction. GERD a chronic issue for which famotidine is used. ? KUB without acute/chronic finding. *BGI established 5..23 for the last six years she has had loose stools with colonoscopy performed at onset (reports normal). Cholestyramine PRN initially effective but not in the last few months with instances of fecal incontinence without warning 4-5 times in the last couple months. Denies abdominal pain/cramping. Recently prescribed Lomotil, she has not had opportunity to use. No identifiable trigger. ? Biochemical CBC, ESR, CMP, LFT, GAME, ANCA, [place] comp, RAST, celiac, IBD without pertinent abnormality. ? LDH H249, CRP H3.47, PATRICK H MSPIKE uncalculable. ? Stool calprotectin, elastase, lactoferrin, EP, O/P, giardia WNL. Blood +, C.Difficile PCR, A/B antigen +. Total fats H Contact 01.07.23 with C.Difficile results, Start vancomycin. CT abd/pel 01.22.23 lung atelectasis; normal liver; right parapelvic cyst 1.9cm and 1.1 cm hypodense nodule, atypical though unchanged; colonic diverticulosis. Contact 01.27.[address] results. Vancomycin started with resolution of diarrhea, but having frequent soft BM with poor evacuation and excessive gas. Bowel normalization may take time, can start pro/prebiotic. Contact 02.24.23 with return of loose stools ? (more content not included)... Normal [facility] Re-Evaluation - PT (1)on Re-Evaluation - PT (1) [facility] Physical Therapy [address] [place] [address] / REEVALUATION / MEDICARE RECERTIFICATION PHYSICAL THERAPY MR#: [id number] Acct: [id number] Name: NERIS MOODY Tanya Rep #: [id number] : 1950 73 From: Keenan Lambert PT, Cert. T, OCS Referring Dr.: Dr. Sofy Barron MD Status:REG RCR Insurance: [facility] Re-Evaluation Intro: Sofy Barron MD, It has been my pleasure to treat NERIS MOODY over the last 7 visits for PAIN LEFT HIP. Please see the progress note below for an update on the physical therapy plan of care! Subjective Subjective: Pain is better but leg will give way with walking. Objective Objective/Function: *Patient will benefit from skilled PT to improve function with and strength with goals appropriate with goals updated and appropriate* POSTURE: mild forward posture ,hips/knee flexed NEURO: denies paresthesia/tingling GAIT:ambulates with cane slow tone mild forward posture 2point gait PALPATION: tender greater trochanter ,Glut medius , IT band PROM: hip flexion 110 degrees ,IR 37 degrees , hip abduction 40 degrees MMT: ( peak force) quads left 20.5 ,hip flexion 17.4 ,hip abduction 6.8 ,hamstrings 14.2 Plan Plan Plan: Requesting 8 more visits PT INTERVENTIONS MANUAL THERAPY IT BAND ,STRENGTHENING EX'S ( HIP ) ,CORE STRENGTHENING ,AND MODALITIES ( HIP) Balance/Gait/Function al tests Balance/Special Test Scores Lower Extremity Functional Score: 30 Goals Goals Goal 1:: Patient to be I with HEP for hip Goal Time Frame: 4-6 Weeks Goal Progress: Progressing Goal 2:: Patient to demonstrate 80% improvement with less pain and improved function ( new goal) Goal Time Frame: 4-6 Weeks Goal 3:: Patient to improve LFES score by by 5 points to improve QOL Goal Time Frame: 4-6 Weeks Goal Progress: Progressing Goal 4:: Patient to peak force hip ,quads/hams by 5# to improve gait( new gpal) Goal Time Frame: 4-6 Weeks Goal 5:: Patient to ambulate with improved gait with less pain by 50% to improve function Goal Time Frame: 4-6 Weeks Goal Progress: Progressing Anticipated Interventions Anticipated Interventions Patient/Client Instruction: Educate patient on: Condition and Plan of Care For the Purpose of:: To decrease pain, To increase ROM, To improve muscle performance and motor function, To improve ability to perform ADL's, To increase tolerance to activity/condition/po sition, To improve performance and independence with ADL's, To improve ability of physical actions for home/community/work/l eisure, To improve gait and locomotor functions, To improve health of tissue, To decrease soft tissue restriction, To increase flexibility/ROM, To improve endurance and To reduce risk of recurrence Therapeutic Exercise to Include: Strength training, Endurance training, Balance training, Postural training, Flexibilty training and Dynamic Lumbar Stabilization Comment: HIP For the Purpose of:: To decrease pain, To increase ROM, To improve muscle performance and motor function, To improve ability to perform ADL's, To increase tolerance to activity/condition/po sition, To improve ability of physical actions for home/community/work/l eisure, To improve gait and locomotor functions, To improve health of tissue, To decrease soft tissue restriction, To increase flexibility/ROM, To reduce risk of recurrence and To improve tolerance to ADL's TENS: Yes IF ES: Yes Cryotherapy (ice pack, ice massage): Yes Thermo therapy (hot pack): Yes Ultrasound (thermal/non thermal): Yes For the Purpose of:: To decrease pain, To increase ROM, To improve health of tissue, To decrease soft tissue restriction and To increase flexibility/ROM Re-Evaluation Ending Re-evaluation ending: Please do not hesitate to contact me at [phone] by phone or if you have questions or concerns regarding this new plan of care! Sincerely, Keenan Lambert PT, Cert MDT, [facility] 10/26/24 1429 CC: Dr. Sofy Barron MD SAM Signed For Medicare only, by signing this I certify the plan of care. Physicians Signature Date Normal [facility] Inital Evaluation (1) - PTon 09-27-2024 Inital Evaluation (1) - PT [facility] Physical Therapy [facility] [address] [place] [address]. [address] [place] [address] / REHABILITATION SERVICES INITIAL EVALUATION MR#: [id number] Acct: [id number] Name: NERIS MOODY Rep #: [id number] : 1950 73 From: Keenan Lambert PT, Cert. T, OCS Referring Dr.: Dr. Sofy Barron MD Status: REG R Insurance: [facility] Patient's Visit Information Visit Information Visit Information: NERIS MOODY is a 73 year old F referred to Physical Therapy by Sofy Barron MD with a diagnosis of PAIN LEFT HIP. Date of Evaluation: 09/27/24 Physical Therapist: Keenan Lambert, PT, Cert T, OCS Visit Plan Frequency: 1x/Week Duration: 4 Weeks Plan: PT INTERVENTIONS MANUAL THERAPY IT BAND ,STRENGTHENING EX'S ( HIP ) ,CORE STRENGTHENING ,AND MODALITIES ( HIP) Subjective Subjective: This 73 y/o female presents to physical therapy with left hip pain and back pain . Seen and recommended PT. Prescribed muscle relaxer. Patient had x-rays - . Patient does have h/o osteopenia but had bone density last . Patient lateral hip and groin. Patient feels like leg will give out fells weak. Patient uses cane for gait. Patient Aggravating walking/standing and stairs unable to squat/kneel . Denies paresthesia/tingling. Morning and evening are worse. Patient bowel/bladder -. Coughing/sneezing-. Patient has on fall 1 month ago mechanical fall. Patient condition affects QOL and function/housework tasks.Patient goals to decrease pain. SOCIAL: single VOCATION:retired Pain Left Hip: Pain Intensity (Out of 10): 9 Pain Intensity Range: 10 Comment: walking Objective Objective: POSTURE: mild forward posture ,hips/knee flexed NEURO: denies paresthesia/tingling GAIT:ambulates with cane slow tone mild forward posture decrease stance time PALPATION: tender greater trochanter ,Glut medius , IT band PROM: hip flexion 105 degrees ,IR 35 degrees , hip abduction 40 degrees MMT: ( peak force) quads left 10.8 ,hip flexion 6.8 ,hip abduction 0 ,hamstrings 10.9 Balance/Special Test Scores Lower Extremity Functional Score: 26 Goals Goal 1:: Patient to be I with HEP for hip Goal Time Frame: 4-6 Weeks Goal 2:: Patient to demonstrate 50% improvement with less pain and improved function Goal Time Frame: 4-6 Weeks Goal 3:: Patient to improve LFES score by by 5 points to improve QOL Goal Time Frame: 4-6 Weeks Goal 4:: Patient to peak force hip ,quads/hams by 5# to improve gait Goal Time Frame: 4-6 Weeks Goal 5:: Patient to ambulate with improved gait with less pain by 50% to improve function Goal Time Frame: 4-6 Weeks Rehabilitation Potential Physical Therapy Diagnosis: This patient has pain left hip with weakness ,TTP glut nedius and IT BAND and back pain impairs gait and ADLS thus benefit from skilled PT Rehabilitation Potential: Good Anticipated Interventions Patient/Client Instruction: Educate patient on: Condition and Plan of Care For the Purpose of:: To decrease pain, To increase ROM, To improve muscle performance and motor function, To improve ability to perform ADL's, To increase tolerance to activity/condition/po sition, To improve performance and independence with ADL's, To improve ability of physical actions for home/community/work/l eisure, To improve gait and locomotor functions, To improve health of tissue, To decrease soft tissue restriction, To increase flexibility/ROM, To improve endurance and To reduce risk of recurrence Therapeutic Exercise to Include: Strength training, Endurance training, Balance training, Postural training, Flexibilty training and Dynamic Lumbar Stabilization Comment: HIP For the Purpose of:: To decrease pain, To increase ROM, To improve muscle performance and motor function, To improve ability to perform ADL's, To increase tolerance to activity/condition/po sition, To improve ability of physical actions for home/community/work/l eisure, To improve gait and locomotor functions, To improve health of tissue, To decrease soft tissue restriction, To increase flexibility/ROM, To reduce risk of recurrence and To improve tolerance to ADL's TENS: Yes IF ES: Yes Cryotherapy (ice pack, ice massage): Yes Thermo therapy (hot pack): Yes Ultrasound (thermal/non thermal): Yes For the Purpose of:: To decrease pain, To increase ROM, To improve health of tissue, To decrease soft tissue restriction and To increase flexibility/ROM Text: Thank you for the opportunity to evaluate your patient. For Medicare and Medicare HMO plans, please review the plan of care and approve it. It will need to be FAXED BACK to us at [phone] for Medicare purposes. For Medicare only, by signing this I certify the plan of care. Please let me know if there are questions or concerns regarding this plan of care. Physician Signature: (more content not included)... Normal [facility] HIP, UNI W/ Pelvis 2-3 Views on 09-14-2024 HIP, UNI W/ Pelvis 2-3 Views [facility] [address] [place] [address] HIP, UNI W/ Pelvis 2-3 Views MR#: [id number] Acct: [id number] Name: NERIS MOODY Rep #: [id number] : 1950 F 73 From: Jama Villeda PCP: Dr. Sofy Barron MD Status: REG CLI Study: HIP, UNI W/ Pelvis 2-3 Views Date of Exam: Exam# [id number] Ordering Dr: Sofy Barron MD PROCEDURE: HIP, UNI W/ PELVIS 2-3 VIEWS REASON FOR EXAM: Pain. TECHNIQUE: Three-view left hip to include the AP pelvis. COMPARISON: Bilateral hip and pelvis series 05/30/2022. RAD/HIP, UNI W/ Pelvis 2-3 Views IMPRESSION: Prominent degenerative changes of the lumbar spine are again noted. Minimal sacroiliac joint degenerative changes are seen. The hip joints show no significant degree of arthritic change or joint narrowing. No evidence of femoral head osteonecrosis. No acute fracture or dislocation is seen. If clinical concern persists, short-term follow-up imaging may be obtained to rule out a currently occult fracture. Reading Location: [id number] CC: Dr. Sofy Barron MD Music Industry Intern: Signed Normal [facility] Inital Evaluation (1) - PTon 06-01-2024 Inital Evaluation (1) - PT [facility] Physical Therapy [facility] [place] [address] / REHABILITATION SERVICES INITIAL EVALUATION MR#: [id number] Acct: [id number] Name: NERIS MOODY Rep #: [id number] : 1950 73 From: Getachew Iqbal DPT, OCS, CSCS Referring Dr.: Dr. Sofy Barron MD Status: REG R Insurance: [facility] Patient's Visit Information Visit Information Visit Information: NERIS MOODY is a 73 year old F referred to Physical Therapy by Sofy Barron MD with a diagnosis of L IT band syndrome. Date of Evaluation: 06/01/24 Physical Therapist: Getachew Iqbal DPT, OCS, CSCS Visit Plan Frequency: 3x /Week Duration: 4-6 Weeks Plan: 3x/week for 4 weeks for: IE HEP: piriformis stretch and ITB sidelying stretch 30" 5x 2x/day and ROM to hips and sleeping position R side with pillow and avoid aggravating activities, HO given Please treat with US nonthermal to L GT area, rollout to ITB and priifomris area and HS and quad and stretch, hip and core strength exercise on mat to HEP as tolerated. Consider balance and gait when pain improved. Subjective Subjective: Muscles in L leg are tight and hurt laterally at hip. It started a month ago. Not sure why. Was favoring right ankle due to a sprain and that may have something to do with it. Cleaning cat box hurts, Walking distance bothers her. Cart helps. Uses cane to get around and that lessens the pain. Fell one time maybe due to pain but did not get hurt and then started usi8ng cane. Lives in small apartment. Steps to car with cane and rail but somewhat painful on Left leg Activities are normal but painful out and about, may stop being out early if it hurts, uses heating pad. Sleep is OK but it used to wake her up. Not employed. No regular exercises. Used to walk for 15 mintues, stopped b/c it hurts. Pain L lateral hip: Pain Intensity (Out of 10): 0 Pain Intensity Range: 0 and 8 Comment: can be achy at rest. Objective Objective: Walks into PT mod I with cane. slight L antalgia and slow. Trasnfers I bed and chair with UE. Steps prefers to use R due to pain and requires rail up and down. Walks without cane but much more antalgic L. Tender to touch and swollen over L GT lateral hip and tender down ITB and into piriformis area. Tightness presnt B ITB and quads and HS with a -30 90/90 test. reflexes 1/3 patella adn achilles B sensation LE WNL to gross lgiht touch. Strength ankles 4-, knees 4- and hip abd 3L and 3+ R, ext 3 B, rotations 3+ B, flexion 3+ B. Pain with abd and ext on L. - FABEER and FADDIR, - scouring Balance/Special Test Scores Functional Gait Assessment Score: 23 % Disability: 23.3400 Lower Extremity Functional Score: 19 Goals Goal 1:: Pain in L hip 1/10 at worst adn 80% improved Goal 2:: I appropriate management of L hip pain with HEp of ROM stretch adn strength Goal Time Frame: 4-6 Weeks Goal 3:: LEFS score 35 Goal Time Frame: 4-6 Weeks Goal 4:: Walk without antalgia in L hip without AD Goal Time Frame: 4-6 Weeks Goal 5:: steps recirpocally with one rail without pain Goal Time Frame: 4-6 Weeks Rehabilitation Potential Physical Therapy Diagnosis: L lateral hip pain limiting funcitonal walking and activities comfort Rehabilitation Potential: Fair Anticipated Interventions Patient/Client Instruction: Educate patient on: Condition and Plan of Care For the Purpose of:: To decrease pain, To improve nutrient delivery to tissue, To improve muscle performance and motor function, To increase tolerance to activity/condition/po sition, To improve gait and locomotor functions and To improve safety Therapeutic Exercise to Include: Strength training, Balance training, Flexibilty training, Passive ROM and Active ROM For the Purpose of:: To decrease pain, To increase ROM, To improve nutrient delivery to tissue, To improve muscle performance and motor function and To improve gait and locomotor functions Manual Therapy Techniques to Include: Mobilization, Passive ROM and Soft tissue mobilization For the Purpose of:: To decrease pain, To increase ROM and To improve nutrient delivery to tissue Cryotherapy (ice pack, ice massage): Yes Ultrasound (thermal/non thermal): Yes (nonthermal) For the Purpose of:: To decrease pain, To increase ROM and To improve nutrient delivery to tissue Text: Thank you for the opportunity to evaluate your patient. For Medicare and Medicare HMO plans, please review the plan of care and approve it. It will need to be FAXED BACK to us at [phone] for Medicare purposes. For Medicare only, by signing this I certify the plan of care. Please let me know if there are questions or concerns regarding this plan of care. Physician Signature: Date : 06/01/24 1240 CC: Dr. Sofy Barron MD D (more content not included)... Normal [facility] Gastroenterology Visit Repor ton 05-21-2024 Gastroenterology Visit Report [facility] Gastroenterology [address] [place] [address] OFFICE VISIT Date of Service: 05/21/24 MR#: [id number] Acct: [id number] Name: NERIS MOODY Rep #: [id number] : 1950 Provider: Manolo Magallon DO Age/Sex: 73/F Location: [facility] Status: Signed Intake Vital Signs 12/12/20 13:48 03/23/24 12:50 Height 5 ft 6 in 5 ft 6 in Intake Visit Reasons: 6 M FU Chief Complaint: chest pain Allergies nabumetone (From Relafen) Allergy (Verified 10/23/23 15:16) Rash lorazepam (From Ativan) Adverse Reaction (Verified 10/23/23 15:16) Other tadalafil (From Adcirca) Adverse Reaction (Verified 10/23/23 15:16) Other Medications ???Medication ???Instructions ???Recorded ???Confirmed ???Type budesonide-formoterol HFA 80 2 puff inhalation BID BREATHING 10/13/14 05/21/24 History mcg-4.5 mcg/actuation aerosol inhaler clonazepam 0.5 mg tablet 0.5 mg PO TID PRN PRN Anxiety 10/13/14 05/21/24 History topiramate 25 mg tablet 100 mg PO BID YAP 05/26/17 10/04/24 History trazodone 300 mg tablet 300 mg PO QHS SLEEP 06/25/17 05/21/24 History magnesium oxide 400 mg (241.3 mg 400 mg PO DAILY SUPPLEMENT ##30 06/27/17 05/21/24 History magnesium) tablet aripiprazole 30 mg tablet (Abilify) 20 mg PO QDAY 12/15/17 05/21/24 History cevimeline 30 mg capsule 1 cap PO TID 12/15/17 05/21/24 History famotidine 40 mg tablet 40 mg PO QHS 12/15/17 05/21/24 History lamotrigine 200 mg tablet 150 mg PO BID 12/15/17 05/21/24 History levothyroxine 50 mcg capsule 88 mcg PO QDAY 12/15/17 05/21/24 History prednisone 5 mg tablet 5 mg PO BID 12/15/17 05/21/24 History primidone 50 mg tablet 50 mg PO QHS 12/15/17 05/21/24 History vilazodone 40 mg tablet (Viibryd) 40 mg PO QDAY 12/15/17 05/21/24 History aripiprazole 5 mg tablet 5 mg PO DAILY 05/13/18 05/21/24 History colestipol 1 gram tablet 1 g PO BID 30 days #60 tabs 05/09/23 05/21/24 Rx Have you fallen in the past year?: No PFSH Medical History Alcohol abuse Anemia Anxiety and depression Arthritis Back problem blood transfusion Chronic diarrhea Chronic headaches COPD (chronic obstructive pulmonary disease) Essential tremor GERD (gastroesophageal reflux disease) GI problem Heart murmur High cholesterol High triglycerides IBS (irritable bowel syndrome) Kidney disease Lung disease Osteopenia Pneumonia Polymyalgia rheumatica Schizoaffective disorder Schizophrenia Seasonal allergies Sjogrens syndrome Sleep apnea Thyroid disease Vision problem Surgical History D C History of cholecystectomy tuabl ligation Family History Unknown Bleeding disorder Cancer Heart disease High cholesterol Skin cancer Social History Smoking Status: Current every day smoker alcohol intake: former substance use type: does not use HPI HPI Chief Complaint: chest pain Details: NERIS MOODY, is a 73 F who presents to the office today for follow up. PCP OV 12.26.22with loose stools, abdominal pain for months. Initially cholestyramine BID was helpful. Concern for fecal impaction. GERD a chronic issue for which famotidine is used. ? KUB without acute/chronic finding. *BGI established 01.02.23 for the last six years she has had loose stools with colonoscopy performed at onset (reports normal). Cholestyramine PRN initially effective but not in the last few months with instances of fecal incontinence without warning 4-5 times in the last couple months. Denies abdominal pain/cramping. Recently prescribed Lomotil, she has not had opportunity to use. No identifiable trigger. ? Biochemical CBC, ESR, CMP, LFT, GAME, ANCA, [place] comp, RAST, celiac, IBD without pertinent abnormality. ? LDH H249, CRP H3.47, PATRICK H MSPIKE uncalculable. ? Stool calprotectin, elastase, lactoferrin, EP, O/P, giardia WNL. Blood +, C.Difficile PCR, A/B antigen +. Total fats H Contact 01.07.23 with C.Difficile results, Start vancomycin. CT abd/pel 01.22.23 lung atelectasis; normal liver; right parapelvic cyst 1.9cm and 1.1 cm hypodense nodule, atypical though unchanged; colonic diverticulosis. Contact 01.27.[address] results. Vancomycin started with resolution of diarrhea, but having frequent soft BM with poor evacuation and excessive gas. Bowel normalization may take time, can start pro/prebiotic. Contact 02.24.23 with return of loose stools ? Stool C.difficile PCR+ and to (more content not included)... Normal [facility] Ankle min 3 Viewson 03-30-20 Ankle min 3 Views [facility] Imaging Services [address] [place], [place] [id number] Ankle min 3 Views MR#: [id number] Acct: [id number] Name: NERIS MOODY Rep #: [id number] : 1950 F 73 From: Cristino Peoples MD PCP: Dr. Sofy Barron MD Status: REG CLI Study: Ankle min 3 Views Date of Exam: 03/30/24 Exam# [id number] Ordering Dr: Getachew Valdes MD [id number] STUDY: X-RAY - RIGHT ANKLE REASON FOR EXAM: Female, 73 years old. Right ankle sprain with pop, right ATF tender distal. No bruising. Question avulsion. TECHNIQUE: 3 views of the right ankle. COMPARISON: None. FINDINGS: Normal visualized distal tibia and fibula. Normal medial and lateral malleoli. Normal tibiotalar articulation and ankle mortise. Intact visualized talus and calcaneus. There is a plantar calcaneal spur. The visualized subtalar, talonavicular, calcaneocuboid and tarsal articulations are normal. There is no demonstrated fracture. The soft tissue structures are unremarkable. RAD/Ankle min 3 Views IMPRESSION: Plantar calcaneal spur. No demonstrated fracture. Electronically Signed: Cristino Peoples MD at 8:23 EDT , CC: Dr. Sofy Barron MD; Dr. Getachew Valdes MD Music [employer] Intern: Signed Normal [facility] Dexa Bone Density Studyon Dexa Bone Density Study [facility] Imaging Services [address] [place] [address] Dexa Bone Density Study MR#: [id number] Acct: [id number] Name: NERIS MOODY Rep #: [id number] : 1950 F 73 From: Wesley marcus MD PCP: Dr. Sofy Barron MD Status: [facility] Study: Dexa Bone Density Study Date of Exam: 03/23/24 Exam# [id number] Ordering Dr: Sofy Barron MD [id number] STUDY: DUAL ENERGY X-RAY ABSORPTIOMETRY / DXA REASON FOR EXAM: Female, 73 years old. [id number] TECHNIQUE: Bone Mineral Density (BMD) measurements of lumbar spine and bilateral hips were obtained. COMPARISON: Comparison is made with prior study dated November 20, 2017. FINDINGS: Lumbar Spine (L1-L4): g/cm2 (1.042) / T-score (0.0) / Z-score (2.1) Findings are suggestive of normal bone density with a low fracture risk. Left Femur Total: g/cm2 (0.816) / T-score (-1.0) / Z-score (0.5) Left Femoral Neck: g/cm2 (0.598) / T-score (-2.3) / Z-score (-0.4) Right Femur Total: g/cm2 (0.781) / T-score (-1.3) / Z-score (0.3) Right Femoral Neck: g/cm2 (0.574) / T-score (-2.5) / Z-score (-0.6) The T-Scores on the most recent prior examination were: Lumbar Spine (L1-L4): There has been improvement of bone density since the previous examination. Left Femur Total: which represents a worsening of 3.9%. Right Femur Total: which represents a worsening of 0.4%. BD/Dexa Bone Density Study IMPRESSION: The patient is considered osteopenic as outlined below according to World [place] Organization (WHO) criteria with a high fracture risk. There has been worsening of bone density since the previous examination. Reference Information: The T-score is the number [...] 1. NIH Osteoporosis and Related Bone Diseases www osteo.org 2. International Society for Clinical Densitometry www iscd.org 3. National Osteoporosis Foundation www nof.org Electronically Signed: Wesley Pham MD at 12:53 EDT , CC: Dr. Sofy Barron MD Music Industry Intern: Signed Normal [facility] SCRN MAMM (CAD)W/RAMAN BILATo n 03-23-2024 SCRN MAMM (CAD)W/RAMAN BILAT [facility] Imaging Services [address] [place], [place] [address] SCRN MAMM (CAD)W/RAMAN BILAT MR#: [id number] Acct: [id number] Name: NERIS MOODY Rep #: [id number] : 1950 F 73 From: Wesley marcus MD PCP: Dr. Sofy Barron MD Status: [facility] Study: SCRN MAMM (CAD)W/RAMAN BILAT Date of Exam: 02/08 Exam# [id number] Ordering Dr: Sofy Barron MD [id number] MAMMOGRAPHY - BILATERAL SCREENING REASON FOR EXAM: Female, 73 years old. Routine annual screening examination. PERTINENT HISTORY: Non-contributory. TECHNIQUE: Digital bilateral breast raman (3D mammographic acquisition) in the CC and MLO projections. 2-D mediolateral oblique (MLO) and craniocaudad (CC) views of both breasts were obtained. CAD: Full Field Digital Mammography with Computer Added Detection was performed. COMPARISON: Comparison is made with prior study dated January 24, 2023 and November 12, 2021. FINDINGS: Breast Composition: There are scattered areas of fibroglandular density. There are no dominant masses or suspicious calcifications. No other significant abnormalities are identified. There has been no significant change since the prior study. BI/SCRN MAMM (CAD)W/RAMAN BILAT IMPRESSION: Stable bilateral screening mammogram. Yearly follow-up mammogram recommended. (A) ASSESSMENT CATEGORY: BIRADS Category 1: Negative. A letter regarding these results will be sent to the patient by the facility within 30 days. Approximately 10% of breast cancers are not detected by mammography. A normal mammogram should not delay biopsy of a clinically suspicious abnormality. [id number] Electronically Signed: Wesley Pham MD at 13:37 EDT , CC: Dr. Sofy Barron MD Music [employer] Intern: Signed Normal [facility] Absolute lymphocyte countOrd ered By: Maria D Cotter on 04-01-2023 Lymphocytes Auto (Unsp spec) [#/Vol] 0.93 10*3/uL 0.83-4.51 [facility] Basophil percentageOrdered B y: MariaD Pollardnger on 04-01-2023 Basophils/100 WBC (Bld) 0.4 % 0-1 [facility] Bilirubin [Mass/Vol] 0.20 mg/dL 0.20-1.00 [facility] Comment on above: For patients on eltr ombopag therapy, use of Dimension Clare TBIL is not recommended. Chloride [Moles/Vol] 104 mmol/L 98-107 [facility] Eosinophils/100 WBC (Bld) 0.5 % 0-5 [facility] Glucose [Mass/Vol] 115 mg/dL 74-106 [facility] Comment on above: Fasting Glucose resu lt from 100 to 125 mg/dL suggests IMPAIRED HOMEOSTASIS per A.D.A. criteria. Neutrophils (Bld) [#/Vol] 7.7 10*3/uL 2.0-7.7 [facility] Neutrophils/100 WBC (Bld) 84.3 % 47-70 [facility] Potassium [Moles/Vol] 4.0 mmol/L 3.5-5.1 [facility] Protein [Mass/Vol] 7.5 g/dL 6.4-8.2 [facility] Sodium [Moles/Vol] 139 mmol/L 136-145 [facility] WBC (Bld) [#/Vol] 9.2 10*3/uL 4.4-11.0 [facility] Blood erythrocytes count (nu mber/volume)Ordered By: Maria D Cotter on 04-01-2023 RBC (Bld) [#/Vol] 4.44 10*6/uL 4.2-5.4 [facility] Blood hemoglobin measurement (mass/volume)Ordered By: Maria D Cotter on 04-01-2023 Hemoglobin (Bld) [Mass/Vol] 12.7 g/dL 12.0-15. 0 [facility] Blood lymphocytes/100 leukoc ytesOrdered By: Maria D Cotter on 04-01-2023 Lymphocytes/100 WBC (Bld) 10.1 % 19-41 [facility] Blood monocytes/100 leukocyt esOrdered By: Maria D Cotter on 04-01-2023 Monocytes/100 WBC (Bld) 4.3 % 0-10 [facility] Blood platelet mean volumeOr dered By: Maria D Cotter on 04-01-2023 Platelet mean volume (Bld) [Entitic vol] 9.5 fL 6.2-12.0 [facility] Determination of erythrocyte mean corpuscular volume (MCV)Ordered By: Maria D Cotter on 04-01-2023 MCV (RBC) [Entitic vol] 92.3 fL 81-99 [facility] Hematocrit Auto (Bld) [Volum e fraction]Ordered By: Maria D Cotter on 04-01-2023 Hematocrit (Bld) [Volume fraction] 41.0 % 37-47 [facility] Laboratory - Chemistry and C hemistry - challengeOrdered By: Maria D Cotter on 04-01-2023 ALP [Catalytic activity/Vol] 103 U/L 45-117 [facility] ALT [Catalytic activity/Vol] 22 U/L 13-56 [facility] CO2 [Moles/Vol] 27.0 mmol/L 21.0-32.0 [facility] Cobalamin (Vitamin B12) [Mass/Vol] 1754 pg/mL 211-911 [facility] Globulin (S) [Mass/Vol] 3.8 g/dL 2.2-4.2 [facility] Magnesium [Mass/Vol] 2.2 mg/dL 1.6-2.6 [facility] Urea nitrogen/Creatinine [Mass ratio] 13.5 mg/mg 10-20 [facility] Laboratory - Hematology and Cell countsOrdered By: Maria D Cotter on 04-01-2023 Erythrocyte distribution width (RBC) [Entitic vol] 48.1 fL 35.1-43.9 [facility] Erythrocyte distribution width (RBC) [Ratio] 14.3 % 11.6-14.6 [facility] Immature granulocytes/100 WBC (Bld) 0.400 % 0.0-0.9 [facility] Comment on above: IG% - Immature Granu locytes (promyelocytes, myelocytes and metamyelocytes) > 1% indicates that a LEFT SHIFT is Present. MCH (RBC) [Entitic mass] 28.6 pg 27.0-32.0 [facility] Nucleated RBC/100 WBC (Bld) [Ratio] 0 % 0-5 [facility] MCHC Auto (RBC) [Mass/Vol]Or dered By: Maria D Cotter on 04-01-2023 MCHC (RBC) [Mass/Vol] 31.0 g/dL 32-36 [facility] No Panel InformationOrdered By: Maria D Cotter on 04-01-2023 Estimated GFR (MDRD) Amer 89 mL/min >60 [facility] Comment on above: GFR Calc Estimated GFR (MDRD) Non-Af Amer 74 mL/min >60 [facility] Comment on above: Non- GFR Calc Thyroid Stimulating Hormone (TSH) 0.87 uIU/mL 0.358-3.74 [facility] Urine Microalbumin/Creatinine Ratio 16.0 mg/g CRE <30 [facility] Vitamin D 25-Hydroxy 40.5 ng/mL [facility] Comment on above: Vitamin D 25(OH) Sta tus Range Deficiency <20 ng/mL (50nmol/L) Insufficiency 20 - 30 ng/mL (50 - 75 nmol/L) Sufficiency 30 - 100 ng/mL (75 - 250 nmol/L) Toxicity >100 ng/mL (>250 nmol/L) Platelets bldOrdered By: Jean Cotter on 04-01-2023 Platelets (Bld) [#/Vol] 371 10*3/uL 150-450 [facility] Serum or plasma albumin paddy urement (mass/volume)Ordered By: Maria D Cotter on 04-01-2023 Albumin [Mass/Vol] 3.7 g/dL 3.2-5.0 [facility] Serum or plasma albumin/glob ulin mass ratioOrdered By: Maria D Cotter on 04-01-2023 Albumin/Globulin [Mass ratio] 1.0 {ratio} 0.9-2.4 [facility] Serum or plasma calcium paddy urement (mass/volume)Ordered By: Maria D Cotter on 04-01-2023 Calcium [Mass/Vol] 9.7 mg/dL 8.5-10.1 [facility] Serum or plasma creatinine m easurement (mass/volume)Ordered By: Maria D Cotter on 04-01-2023 Creatinine [Mass/Vol] 0.81 mg/dL 0.55-1.02 [facility] Comment on above: The validity of the calculated GFR & GFRAA in patients over 70 years has not been determined. Clinical correlation is essential. Serum or plasma ferritin idris surement (mass/volume)Ordered By: Maria D Cotter on 04-01-2023 Ferritin [Mass/Vol] 51 ng/mL 8-252 [facility] Serum or plasma urea nitroge n measurement (mass/volume)Ordered By: Maria D Cotter on 04-01-2023 Urea nitrogen [Mass/Vol] 11 mg/dL 7-18 [facility] Thin prep Papanicolaou smear with manual screeningOrdered By: Maria D Cotter 04-01-2023 Thin prep Papanicolaou smear with manual screening 20 U/L 15-37 [facility] Thin prep Papanicolaou smear with manual screening 8 5-15 [facility] Thin prep Papanicolaou smear with manual screening 5.1 mg/L NO RANGE EST. [facility] Urine creatinine measurement (mass/volume)Ordered By: Maria D Cotter on 04-01-2023 Creatinine (U) [Mass/Vol] 32.00 mg/dL NO RANGE EST. [facility] Whole blood hemoglobin A1c/t otal hemoglobin ratio (mass fraction)Ordered By: Maria D Cotter on 04-01-2023 HbA1c (Bld) [Mass fraction] 5.6 % 3.8-5.6 [facility] Comment on above: Normal < 5.7 % Predi abetic 5.7 - 6.4 % Diabetic >or= 6.5 % Please note range changes. Basophil percentageOrdered B y: Balwinder Mancini on 03-07-2023 Chloride [Moles/Vol] 104 mmol/L 98-107 [facility] Glucose [Mass/Vol] 109 mg/dL 74-106 [facility] Comment on above: Fasting Glucose resu lt from 100 to 125 mg/dL suggests IMPAIRED HOMEOSTASIS per A.D.A. criteria. Potassium [Moles/Vol] 3.8 mmol/L 3.5-5.1 [facility] Sodium [Moles/Vol] 138 mmol/L 136-145 [facility] Laboratory - Chemistry and C hemistry - challengeOrdered By: Balwinder Mancini on 03-07-2023 CO2 [Moles/Vol] 31.0 mmol/L 21.0-32.0 [facility] Urea nitrogen/Creatinine [Mass ratio] 11.4 mg/mg 10-20 [facility] No Panel InformationOrdered By: Balwinder Mancini on 03-07-2023 Estimated GFR (MDRD) Amer 82 mL/min >60 [facility] Comment on above: GFR Calc Estimated GFR (MDRD) Non-Af Amer 68 mL/min >60 [facility] Comment on above: Non- GFR Calc Serum or plasma calcium paddy urement (mass/volume)Ordered By: Balwinder Mancini on 03-07-2023 Calcium [Mass/Vol] 9.4 mg/dL 8.5-10.1 [facility] Serum or plasma creatinine m easurement (mass/volume)Ordered By: Balwinder Mancini on 03-07-2023 Creatinine [Mass/Vol] 0.88 mg/dL 0.55-1.02 [facility] Comment on above: The validity of the calculated GFR & GFRAA in patients over 70 years has not been determined. Clinical correlation is essential. Serum or plasma urea nitroge n measurement (mass/volume)Ordered By: Balwinder Mancini on 03-07-2023 Urea nitrogen [Mass/Vol] 10 mg/dL 7-18 [facility] Thin prep Papanicolaou smear with manual screeningOrdered By: Balwinder Mancini on 03-07-2023 Thin prep Papanicolaou smear with manual screening 3 5-15 [facility] Urine creatinine measurement (mass/volume)Ordered By: Balwinder Mancini on 03-07-2023 Creatinine (U) [Mass/Vol] mg/dL NO RANGE EST. [facility] Urine protein measurement (m ass/volume)Ordered By: Balwinder Mancini on 03-07-2023 Protein (U) [Mass/Vol] mg/dL 0.0-11.8 [facility] Urine protein/creatinine mas s ratioOrdered By: Balwinder Mancini on 03-07-2023 Protein/Creatinine (U) [Mass ratio] TNP [facility] Comment on above: Test not performed Clostridium difficile detect ion by polymerase chain reactionOrdered By: Manolo Magallon on 02-26-2023 C. difficile DNA POOJA+probe Ql (Unsp spec) [facility] Stool Clostridium difficile detectionOrdered By: Manolo Magallon on 02-26-2023 C. difficile Ql (Stl) [facility] Absolute lymphocyte countOrd ered By: Dr. Shea on 02-04-2023 Lymphocytes Auto (Unsp spec) [#/Vol] 1.50 10*3/uL 0.83-4.51 [facility] Basophil percentageOrdered B y: Dr. Shea on 02-04-2023 Basophils/100 WBC (Bld) 0.6 % 0-1 [facility] Bilirubin [Mass/Vol] 0.40 mg/dL 0.20-1.00 [facility] Comment on above: For patients on eltr ombopag therapy, use of Dimension Clare TBIL is not recommended. Chloride [Moles/Vol] 106 mmol/L 98-107 [facility] Eosinophils/100 WBC (Bld) 0.9 % 0-5 [facility] Glucose [Mass/Vol] 119 mg/dL 74-106 [facility] Comment on above: Fasting Glucose resu lt from 100 to 125 mg/dL suggests IMPAIRED HOMEOSTASIS per A.D.A. criteria. Neutrophils (Bld) [#/Vol] 6.2 10*3/uL 2.0-7.7 [facility] Neutrophils/100 WBC (Bld) 71.4 % 47-70 [facility] Potassium [Moles/Vol] 3.9 mmol/L 3.5-5.1 [facility] Protein [Mass/Vol] 6.7 g/dL 6.4-8.2 [facility] Sodium [Moles/Vol] 140 mmol/L 136-145 [facility] WBC (Bld) [#/Vol] 8.6 10*3/uL 4.4-11.0 [facility] Blood erythrocytes count (nu mber/volume)Ordered By: Dr. Shea on 02-04-2023 RBC (Bld) [#/Vol] 4.12 10*6/uL 4.2-5.4 [facility] Blood hemoglobin measurement (mass/volume)Ordered By: Dr. Shea on 02-04-2023 Hemoglobin (Bld) [Mass/Vol] 11.8 g/dL 12.0-15. 0 [facility] Blood lymphocytes/100 leukoc ytesOrdered By: Dr. Shea on 02-04-2023 Lymphocytes/100 WBC (Bld) 17.4 % 19-41 [facility] Blood monocytes/100 leukocyt esOrdered By: Dr. Shea on 02-04-2023 Monocytes/100 WBC (Bld) 7.7 % 0-10 [facility] Blood platelet mean volumeOr dered By: Dr. Shea on 02-04-2023 Platelet mean volume (Bld) [Entitic vol] 9.2 fL 6.2-12.0 [facility] Determination of erythrocyte mean corpuscular volume (MCV)Ordered By: Dr. Shea on 02-04-2023 MCV (RBC) [Entitic vol] 90.5 fL 81-99 [facility] Hematocrit Auto (Bld) [Volum e fraction]Ordered By: Dr. Shea on 02-04-2023 Hematocrit (Bld) [Volume fraction] 37.3 % 37-47 [facility] Laboratory - Chemistry and C hemistry - challengeOrdered By: Dr. Shea on 02-04-2023 ALP [Catalytic activity/Vol] 98 U/L 45-117 [facility] ALT [Catalytic activity/Vol] 25 U/L 13-56 [facility] CO2 [Moles/Vol] 29.0 mmol/L 21.0-32.0 [facility] Globulin (S) [Mass/Vol] 3.3 g/dL 2.2-4.2 [facility] Urea nitrogen/Creatinine [Mass ratio] 15.9 mg/mg 10-20 [facility] Laboratory - Hematology and Cell countsOrdered By: Dr. Shea on 02-04-2023 Erythrocyte distribution width (RBC) [Entitic vol] 45.9 fL 35.1-43.9 [facility] Erythrocyte distribution width (RBC) [Ratio] 13.8 % 11.6-14.6 [facility] Immature granulocytes/100 WBC (Bld) 2.000 % 0.0-0.9 [facility] Comment on above: IG% - Immature Granu locytes (promyelocytes, myelocytes and metamyelocytes) > 1% indicates that a LEFT SHIFT is Present. MCH (RBC) [Entitic mass] 28.6 pg 27.0-32.0 [facility] Nucleated RBC/100 WBC (Bld) [Ratio] 0 % 0-5 [facility] MCHC Auto (RBC) [Mass/Vol]Or dered By: Dr. Shea on 02-04-2023 MCHC (RBC) [Mass/Vol] 31.6 g/dL 32-36 [facility] No Panel InformationOrdered By: Dr. Shea on 02-04-2023 Estimated GFR (MDRD) Amer 82 mL/min >60 [facility] Comment on above: GFR Calc Estimated GFR (MDRD) Non-Af Amer 68 mL/min >60 [facility] Comment on above: Non- GFR Calc Thyroid Stimulating Hormone (TSH) 0.57 uIU/mL 0.358-3.74 [facility] Vitamin D 25-Hydroxy 47.0 ng/mL [facility] Comment on above: Vitamin D 25(OH) Sta tus Range Deficiency <20 ng/mL (50nmol/L) Insufficiency 20 - 30 ng/mL (50 - 75 nmol/L) Sufficiency 30 - 100 ng/mL (75 - 250 nmol/L) Toxicity >100 ng/mL (>250 nmol/L) Platelets bldOrdered By: Dr. Shea on 02-04-2023 Platelets (Bld) [#/Vol] 377 10*3/uL 150-450 [facility] Serum or plasma albumin paddy urement (mass/volume)Ordered By: Dr. Shea on 02-04-2023 Albumin [Mass/Vol] 3.4 g/dL 3.2-5.0 [facility] Serum or plasma albumin/glob ulin mass ratioOrdered By: Dr. Shea on 02-04-2023 Albumin/Globulin [Mass ratio] 1.0 {ratio} 0.9-2.4 [facility] Serum or plasma calcium paddy urement (mass/volume)Ordered By: Dr. Shea on 02-04-2023 Calcium [Mass/Vol] 8.9 mg/dL 8.5-10.1 [facility] Serum or plasma creatinine m easurement (mass/volume)Ordered By: Dr. Shea on 02-04-2023 Creatinine [Mass/Vol] 0.88 mg/dL 0.55-1.02 [facility] Comment on above: The validity of the calculated GFR & GFRAA in patients over 70 years has not been determined. Clinical correlation is essential. Serum or plasma urea nitroge n measurement (mass/volume)Ordered By: Dr. Shea on 02-04-2023 Urea nitrogen [Mass/Vol] 14 mg/dL 7-18 [facility] Thin prep Papanicolaou smear with manual screeningOrdered By: Dr. Shea on 02-04-2023 Thin prep Papanicolaou smear with manual screening 22 U/L 15-37 [facility] Thin prep Papanicolaou smear with manual screening 5 5-15 [facility] No Panel InformationOrdered By: Manolo Magallon on 01-19-2023 Giardia Antigen (ROHINI) [facility] Ova and parasitesOrdered By: Manolo Magallon on 01-19-2023 Ova and parasites identified LM Nom (Unsp spec) [facility] No Panel InformationOrdered By: Manolo Magallon on 01-03-2023 Giardia Antigen (ROHINI) [facility] Stool Calprotectin 7 ug/g 0-120 [facility] Comment on above: Concentration Interp retation Follow-Up<16 - 50 ug/g Normal None>50 -120 ug/g Borderline Re-evaluate in 4-6 weeks >120 ug/g Abnormal Repeat as clinically indicatedPerformed at: [address] [id number] Director: Ok Latif PhD, Phone: [phone] at: [address] [id number] Director: Abdon Ayala MD, Phone: [phone] Stool Neutral Fats Normal . [facility] Comment on above: Normal (<60 Droplets /HPF) Stool Pancreatic Elastase 294 >200 [facility] Comment on above: Result Units: ug [address] st./g Severe Pancreatic Insufficiency: <100 Moderate Pancreatic Insufficiency: 100 - 200 Normal: >200Performed at: [address] [id number] Director: Abdon Ayala MD, Phone: [phone] Ova and parasitesOrdered By: Manolo Magallon on 01-03-2023 Ova and parasites identified LM Nom (Unsp spec) [facility] Qualitative fecal fat or lip idsOrdered By: Manolo Magallon on 01-03-2023 Fat Ql (Stl) Increased . [facility] Comment on above: Normal (<100 Droplet s/HPF) Absolute lymphocyte countOrd ered By: Manolo Magallon on 01-02-2023 Lymphocytes Auto (Unsp spec) [#/Vol] 1.49 10*3/uL 0.83-4.51 [facility] Albumin Elph [Mass/Vol]Order ed By: Manolo Magallon on 01-02-2023 Albumin [Mass/Vol] 3.7 g/dL 2.9-4.4 [facility] Atypical perinuclear antineu trophil cytoplasmic antibodies measurementOrdered By: Manolo Magallon on 01-02-2023 Neutrophil cytoplasmic Ab.perinuclear.atypical IF (S) [Titer] <1:20 titer Neg:<1:20 [facility] Comment on above: The atypical pANCA p attern has been observed in asignificant percentage of patients with ulcerative colitis,primary sclerosing cholangitis and autoimmune hepatitis.Performed at: - [facility] [id number] [place], [place] [id number] Director: Ok Latif PhD, Phone: [phone] at: - [facility] [address] [id number] Director: Abdon Ayala MD, Phone: [phone] Basophil percentageOrdered B y: Manolo Friend on 01-02-2023 Basophil percentage < 0.2 AI 0.0-0.9 [facility] Basophils/100 WBC (Bld) 0.6 % 0-1 [facility] Bilirubin [Mass/Vol] 0.20 mg/dL 0.20-1.00 [facility] Comment on above: For patients on eltr ombopag therapy, use of Dimension Clare TBIL is not recommended. Chloride [Moles/Vol] 106 mmol/L 98-107 [facility] Eosinophils/100 WBC (Bld) 0.9 % 0-5 [facility] Glucose [Mass/Vol] 112 mg/dL 74-106 [facility] Comment on above: Fasting Glucose resu lt from 100 to 125 mg/dL suggests IMPAIRED HOMEOSTASIS per A.D.A. criteria. LDH [Catalytic activity/Vol] 249 U/L 84-246 [facility] Neutrophils (Bld) [#/Vol] 5.9 10*3/uL 2.0-7.7 [facility] Neutrophils/100 WBC (Bld) 72.9 % 47-70 [facility] Potassium [Moles/Vol] 3.9 mmol/L 3.5-5.1 [facility] Protein [Mass/Vol] 7.0 g/dL 6.4-8.2 [facility] Sodium [Moles/Vol] 141 mmol/L 136-145 [facility] WBC (Bld) [#/Vol] 8.1 10*3/uL 4.4-11.0 [facility] Blood erythrocytes count (nu mber/volume)Ordered By: Manolo Friend on 01-02-2023 RBC (Bld) [#/Vol] 4.23 10*6/uL 4.2-5.4 [facility] Blood hemoglobin measurement (mass/volume)Ordered By: Manolo Magallon on 01-02-2023 Hemoglobin (Bld) [Mass/Vol] 12.1 g/dL 12.0-15. 0 [facility] Blood lymphocytes/100 leukoc ytesOrdered By: Manolo Magallon on 01-02-2023 Lymphocytes/100 WBC (Bld) 18.4 % 19-41 [facility] Blood monocytes/100 leukocyt esOrdered By: Manolo Magallon on 01-02-2023 Monocytes/100 WBC (Bld) 6.8 % 0-10 [facility] Blood platelet mean volumeOr dered By: Manolo Magallon on 01-02-2023 Platelet mean volume (Bld) [Entitic vol] 8.9 fL 6.2-12.0 [facility] Chocolate RASTOrdered By: Ra lillian Magallon on 01-02-2023 Chocolate IgE Qn (S) <0.10 kU/L Class 0 [facility] Comment on above: Performed at: [address] [id number] Director: Ok Latif PhD, Phone: [phone] at: [facility] [address] [id number] Director: Abdon Ayala MD, Phone: [phone] Determination of erythrocyte mean corpuscular volume (MCV)Ordered By: Manolo Magallon on 01-02-2023 MCV (RBC) [Entitic vol] 93.1 fL 81-99 [facility] Erythrocyte sedimentation ra teOrdered By: Manolo Magallon on 01-02-2023 ESR (Bld) [Velocity] 19 mm/h 0-30 [facility] Hematocrit Auto (Bld) [Volum e fraction]Ordered By: Manolo Magallon on 01-02-2023 Hematocrit (Bld) [Volume fraction] 39.4 % 37-47 [facility] Interpretation of serum or p lasma protein pattern by immunofixation (narrative resultOrdered By: Manolo Magallon on 01-02-2023 Protein Fractions Immunofixation Tae [Interp] See comment [facility] Comment on above: Due to the small symone ntity of monoclonal protein, unable toquantitate the M-spike. Laboratory - Chemistry and C hemistry - challengeOrdered By: Manolo Magallon on 01-02-2023 ALP [Catalytic activity/Vol] 100 U/L 45-117 [facility] ALT [Catalytic activity/Vol] 21 U/L 13-56 [facility] CO2 [Moles/Vol] 30.0 mmol/L 21.0-32.0 [facility] Urea nitrogen/Creatinine [Mass ratio] 17.2 mg/mg 10-20 [facility] Laboratory - Hematology and Cell countsOrdered By: Manolo Magallon on 01-02-2023 Erythrocyte distribution width (RBC) [Entitic vol] 46.5 fL 35.1-43.9 [facility] Erythrocyte distribution width (RBC) [Ratio] 13.7 % 11.6-14.6 [facility] Immature granulocytes/100 WBC (Bld) 0.400 % 0.0-0.9 [facility] Comment on above: IG% - Immature Granu locytes (promyelocytes, myelocytes and metamyelocytes) > 1% indicates that a LEFT SHIFT is Present. MCH (RBC) [Entitic mass] 28.6 pg 27.0-32.0 [facility] Nucleated RBC/100 WBC (Bld) [Ratio] 0 % 0-5 [facility] Laboratory - Miscellaneous t estsOrdered By: Manolo Magallon on 01-02-2023 Service comment (Unsp spec) [Interp] Comment . [facility] Comment on above: Levels of Specific I gE Class Description of Class ----- < 0.10 0 Negative 0.10 - 0.31 0/I Equivocal/Low 0.32 - 0.55 I Low 0.56 - 1.40 II Moderate 1.41 - 3.90 III High 3.91 - 19.00 IV Very High 19.01 - 100.00 V Very High >100.00 [facility] MCHC Auto (RBC) [Mass/Vol]Or dered By: Manolo Magallon on 01-02-2023 MCHC (RBC) [Mass/Vol] 30.7 g/dL 32-36 [facility] No Panel InformationOrdered By: Manolo Magallon on 01-02-2023 Addendum Document Comment . [facility] Comment on above: Protein electrophore sis scan will follow via computer,mail, or cook camp delivery. Centromere B Antibody <0.2 AI 0.0-0.9 [facility] Endomysial IgA Antibody Negative Negative [facility] Estimated GFR (MDRD) Amer 89 mL/min >60 [facility] Comment on above: GFR Calc Estimated GFR (MDRD) Non-Af Amer 74 mL/min >60 [facility] Comment on above: Non- GFR Calc Immunoglobulin E 17 IU/mL 6-495 [facility] Miscellaneous Test See comment [facility] Comment on above: TEST RESULT LIMITSIB D Expanded Panel Cammy 24 units 0-50 Negative <45 Equivocal 45 - 50 Positive >50 ACCA 26 units 0-90 Negative <80 Equivocal 80 - 90 Positive >90 ALCA 48 units 0-60 Negative <55 Equivocal 55 - 60 Positive >60 AMCA 25 units 0-100 Negative < 90 Equivocal 90 - 100 Positive >100 This test was developed and its performance characteristics determined by [employer]. It has not been cleared or approved by the Food and Drug Administration. The FDA has determined that such clearance or approval is not necessary.Atypical pANCA Negative Negative Comments Pattern is not suggestive of Inflammatory Bowel Disease TESTING PERFORMED AT [facility]. ORIGINAL REPORT ON FILE IN LAB CONTAINS ADDITIONAL TEST SITE INFORMATION. LIVING SUPERVISOR Antibody <0.2 AI 0.0-0.9 [facility] Scallop Allergen <0.10 kU/L Class 0 [facility] Seafood Group Allergens (RAST) Negative . [facility] Comment on above: Allergens in this mi x are: Blue mussel Fish [place] Shrimp Tuna Sesame Seed Allergen IgE Antibody <0.10 kU/L Class 0 [facility] Shrimp Allergen <0.10 kU/L Class 0 [facility] Platelets bldOrdered By: Roderick Magallon on 01-02-2023 Platelets (Bld) [#/Vol] 376 10*3/uL 150-450 [facility] Serum DNA double strand anti body assay (units/volume)Ordered By: Manolo Magallon on 01-02-2023 DNA double strand Ab Qn (S) [IU]/mL 0-9 [facility] Comment on above: Negative <5 Equivoca l 5 - 9 Positive >9 Serum Gretel-1 antibody assay (u nits/volume)Ordered By: Manolo Magallon on 01-02-2023 Gretel-1 extractable nuclear Ab Qn (S) <0.2 AI 0.0-0.9 [facility] Serum Scl-70 extractable nuc lear antibody assay (units/volume)Ordered By: Manolo Magallon on 01-02-2023 SCL-70 extractable nuclear Ab Qn (S) <0.2 AI 0.0-0.9 [facility] Serum Valdes extractable nucl ear antibody detectionOrdered By: Manolo Magallon on 01-02-2023 Valdes extractable nuclear Ab Ql (S) <0.2 AI 0.0-0.9 [facility] Serum [id number] measu rement by electrophoresisOrdered By: Manolo Magallon on 01-02-2023 Alpha 1 globulin Elph [Mass/Vol] 0.3 g/dL 0.0-0.4 [facility] Alpha 1 globulin Elph [Mass/Vol] 0.9 g/dL 0.4-1.0 [facility] Serum beef IgE antibody assa y (units/volume)Ordered By: Manolo Magallon on 01-02-2023 Beef IgE Qn (S) <0.10 kU/L Class 0 [facility] Serum black walnut IgE antib francis assay (units/volume)Ordered By: Manolo Magallon on 01-02-2023 Black [place] IgE Qn (S) <0.10 kU/L Class 0 [facility] Serum clam IgE antibody assa y (units/volume)Ordered By: Manolo Magallon on 01-02-2023 Clam IgE Qn (S) <0.10 kU/L Class 0 [facility] Serum classic neutrophil cyt oplasmic antibody assay (units/volume)Ordered By: Manolo Magallon on 01-02-2023 Neutrophil cytoplasmic Ab.classic Qn (S) <1:20 titer Neg:<1:20 [facility] Serum codfish IgE antibody a ssay (units/volume)Ordered By: Manolo Magallon on 01-02-2023 Codfish IgE Qn (S) <0.10 kU/L Class 0 [facility] Serum corn IgE antibody assa y (units/volume)Ordered By: Manolo Magallon on 01-02-2023 [place] IgE Qn (S) <0.10 kU/L Class 0 [facility] Serum cow milk IgE antibody assay (units/volume)Ordered By: Manolo Magallon on 01-02-2023 Cow milk IgE Qn (S) <0.10 kU/L Class 0 [facility] Serum egg white IgE antibody assay (units/volume)Ordered By: Manolo Magallon on 01-02-2023 Egg white IgE Qn (S) <0.10 kU/L Class 0 [facility] Serum globulin measurement ( mass/volume)Ordered By: Manolo Magallon on 01-02-2023 Globulin (S) [Mass/Vol] 3.0 g/dL 2.2-3.9 [facility] Serum or plasma C reactive p rotein measurement (mass/volume)Ordered By: Manolo Magallon on 01-02-2023 CRP [Mass/Vol] 3.47 mg/L 0.0-3.0 [facility] Comment on above: C-Reactive Protein ( CRP) provides useful information for thediagnosis, therapy and monitoring of inflammatory processesand associated diseases. For the evaluation of Relative Riskfor Cardiovascular Disease, a High Sensitivity CRP (HSCRP)should be ordered. Serum or plasma IgA measurem ent (mass/volume)Ordered By: Manolo Magallon on 01-02-2023 IgA [Mass/Vol] 187 mg/dL 87-352 [facility] Serum or plasma IgG measurem ent (mass/volume)Ordered By: Manolo Magallon on 01-02-2023 IgG [Mass/Vol] 611 mg/dL 586-1602 [facility] Serum or plasma IgM measurem ent (mass/volume)Ordered By: Manolo Magallon on 01-02-2023 IgM [Mass/Vol] 108 mg/dL 26-217 [facility] Serum or plasma albumin paddy urement (mass/volume)Ordered By: Manolo Magallon on 01-02-2023 Albumin [Mass/Vol] 3.5 g/dL 3.2-5.0 [facility] Serum or plasma albumin/glob ulin mass ratioOrdered By: Manolo Magallon on 01-02-2023 Albumin/Globulin [Mass ratio] 1.0 {ratio} 0.9-2.4 [facility] Serum or plasma beta globuli n measurement by electrophoresis (mass/volume)Ordered By: Manolo Magallon on 01-02-2023 Beta globulin Elph [Mass/Vol] 1.2 g/dL 0.7-1.3 [facility] Serum or plasma calcium paddy urement (mass/volume)Ordered By: Manolo Magallon on 01-02-2023 Calcium [Mass/Vol] 9.6 mg/dL 8.5-10.1 [facility] Serum or plasma creatinine m easurement (mass/volume)Ordered By: Manolo Magallon on 01-02-2023 Creatinine [Mass/Vol] 0.82 mg/dL 0.55-1.02 [facility] Comment on above: The validity of the calculated GFR & GFRAA in patients over 70 years has not been determined. Clinical correlation is essential. Serum or plasma gamma globul in measurement by electrophoresis (mass/volume)Ordered By: Manolo Magallon on 01-02-2023 Gamma globulin Elph [Mass/Vol] 0.6 g/dL 0.4-1.8 [facility] Serum or plasma immunoelectr ophoresis interpretation (nominal result)Ordered By: Manolo Magallon on 01-02-2023 Interpretation IEP [Interp] Comment . [facility] Comment on above: Immunofixation shows IgG monoclonal protein with lambdalight chain specificity. Serum or plasma urea nitroge n measurement (mass/volume)Ordered By: Manolo Magallon on 01-02-2023 Urea nitrogen [Mass/Vol] 14 mg/dL 7- [facility] Serum peanut IgE antibody as say (units/volume)Ordered By: Manolo Magallon on 01-02-2023 Peanut IgE Qn (S) <0.10 kU/L Class 0 [facility] Serum perinuclear neutrophil cytoplasmic antibody titer by immunofluorescenceOrdered By: Manolo Magallon on 01-02-2023 Neutrophil cytoplasmic Ab.perinuclear IF (S) [Titer] <1:20 titer Neg:<1:20 [facility] Comment on above: The presence of posi tive fluorescence exhibiting P-ANCA orC-ANCA patterns alone is not specific for the diagnosis ofWegener's Granulomatosis (WG) or microscopic polyangiitis.Decisions about treatment should not be based solely onANCA IFA results. The [employer] ANCA Group Consensusrecommends follow up testing of positive sera with both MS-3 and MPO-ANCA enzyme immunoassays. As many as 5% serumsamples are positive only by EIA. Ref. AM J Clin [id number];111:507-513. Serum pork IgE antibody assa y (units/volume)Ordered By: Manolo Magallon on 01-02-2023 Pork IgE Qn (S) <0.10 kU/L Class 0 [facility] Serum soybean IgE antibody a ssay (units/volume)Ordered By: Manolo Magallon on 01-02-2023 Soybean IgE Qn (S) <0.10 kU/L Class 0 [facility] Serum tissue transglutaminas e IgA antibody assay (units/volume)Ordered By: Manolo Magallon on 01-02-2023 tTG IgA Qn (S) <2 U/mL 0-3 [facility] Comment on above: Negative 0 - 3 Weak Positive 4 - 10 Positive >10 Tissue Transglutaminase (tTG) has been identified as the endomysial antigen. Studies have demonstr- ated that endomysial IgA antibodies have over 99% specificity for gluten sensitive enteropathy. Serum wheat IgE antibody ass ay (units/volume)Ordered By: Manolo Magallon on 01-02-2023 Wheat IgE Qn (S) <0.10 kU/L Class 0 [facility] Serum whole egg IgE antibody assay (units/volume)Ordered By: Manolo Magallon on 01-02-2023 Whole Egg IgE Qn (S) <0.10 kU/L Class 0 [facility] Thin prep Papanicolaou smear with manual screeningOrdered By: Manolo Sherita on 01-02-2023 Thin prep Papanicolaou smear with manual screening 20 U/L 15-37 [facility] Thin prep Papanicolaou smear with manual screening 5 5-15 [facility] Thin prep Papanicolaou smear with manual screening 1.3 0.7-1.7 [facility] Total protein bloodOrdered B y: Manolo Magallon on 01-02-2023 Protein [Mass/Vol] 6.7 g/dL 6.0-8.5 [facility] Laboratory - Microbiology an d Antimicrobial susceptibilityOrdered By: Dr. Shea on 09-06-2022 SARS-CoV-2 (COVID-19) RNA POOJA+probe Ql (Unsp spec) Detected Not Detect [facility] Comment on above: Normal Reference Ran ge: Not DetectedMethod:(RT-PCR) real-time reverse transcriptase PCRLuminex CORRINE Instrument*The Food and Drug Administration (FDA) has issued an Emergency Use Authorization (EAU) for the CORRINE SARS-CoV-2 Assay for the rapid detection of the virus that causes COVID-19. This test has been validated, but the FDAs independent review of this validation is pending.*Negative results do not preclude infection and should not be used as the sole basis for treatment or patient management. Optimum specimen types and timing for peak viral levels during infections caused by SARS-CoV-2 have not been determined. Collection of multiple specimens from the same patient may be necessary to detect the virus. The possibility of a false negative result should be considered if the patient has clinical presentation or has had recent exposure. No Panel InformationOrdered By: Dr. Shea on 09-06-2022 Influenza Types A,B Direct FA (ROHINI) [facility] RSV Ag EIAOrdered By: Dr. Guido alvarez on 09-06-2022 RSV Ag Immune stain Ql (Tiss) [facility] Absolute lymphocyte countOrd ered By: Dr. Shea on 08-06-2022 Lymphocytes Auto (Unsp spec) [#/Vol] 1.12 10*3/uL 0.83-4.51 [facility] Basophil percentageOrdered B y: Dr. Shea on 08-06-2022 Basophils/100 WBC (Bld) 0.5 % 0-1 [facility] Bilirubin [Mass/Vol] 0.20 mg/dL 0.20-1.00 [facility] Comment on above: For patients on eltr ombopag therapy, use of Dimension Clare TBIL is not recommended. Chloride [Moles/Vol] 107 mmol/L 98-107 [facility] Eosinophils/100 WBC (Bld) 0.3 % 0-5 [facility] Glucose [Mass/Vol] 146 mg/dL 74-106 [facility] Comment on above: Fasting Glucose resu lt greater than or equal to 126 mg/dL suggests DIABETES MELLITUS per A.D.A. criteria. Neutrophils (Bld) [#/Vol] 8.5 10*3/uL 2.0-7.7 [facility] Neutrophils/100 WBC (Bld) 83.5 % 47-70 [facility] Potassium [Moles/Vol] 3.7 mmol/L 3.5-5.1 [facility] Protein [Mass/Vol] 6.9 g/dL 6.4-8.2 [facility] Sodium [Moles/Vol] 141 mmol/L 136-145 [facility] WBC (Bld) [#/Vol] 10.2 10*3/uL 4.4-11.0 [facility] Blood erythrocytes count (nu mber/volume)Ordered By: Dr. Shea on 08-06-2022 RBC (Bld) [#/Vol] 4.14 10*6/uL 4.2-5.4 [facility] Blood hemoglobin measurement (mass/volume)Ordered By: Dr. Shea on 08-06-2022 Hemoglobin (Bld) [Mass/Vol] 12.3 g/dL 12.0-15. 0 [facility] Blood lymphocytes/100 leukoc ytesOrdered By: Dr. Shea on 08-06-2022 Lymphocytes/100 WBC (Bld) 11.0 % 19-41 [facility] Blood monocytes/100 leukocyt esOrdered By: Dr. Shea on 08-06-2022 Monocytes/100 WBC (Bld) 4.3 % 0-10 [facility] Blood platelet mean volumeOr dered By: Dr. Shea on 08-06-2022 Platelet mean volume (Bld) [Entitic vol] 9.1 fL 6.2-12.0 [facility] Determination of erythrocyte mean corpuscular volume (MCV)Ordered By: Dr. Shea on 08-06-2022 MCV (RBC) [Entitic vol] 92.8 fL 81-99 [facility] Hematocrit Auto (Bld) [Volum e fraction]Ordered By: Dr. Shea on 08-06-2022 Hematocrit (Bld) [Volume fraction] 38.4 % 37-47 [facility] Laboratory - Chemistry and C hemistry - challengeOrdered By: Dr. Shea on 08-06-2022 ALP [Catalytic activity/Vol] 88 U/L 45-117 [facility] ALT [Catalytic activity/Vol] 27 U/L 13-56 [facility] CO2 [Moles/Vol] 24.0 mmol/L 21.0-32.0 [facility] Globulin (S) [Mass/Vol] 3.3 g/dL 2.2-4.2 [facility] Urea nitrogen/Creatinine [Mass ratio] 14.2 mg/mg 10-20 [facility] Laboratory - Hematology and Cell countsOrdered By: Dr. Shea on 08-06-2022 Erythrocyte distribution width (RBC) [Entitic vol] 47.8 fL 35.1-43.9 [facility] Erythrocyte distribution width (RBC) [Ratio] 14.0 % 11.6-14.6 [facility] Immature granulocytes/100 WBC (Bld) 0.400 % 0.0-0.9 [facility] Comment on above: IG% - Immature Granu locytes (promyelocytes, myelocytes and metamyelocytes) > 1% indicates that a LEFT SHIFT is Present. MCH (RBC) [Entitic mass] 29.7 pg 27.0-32.0 [facility] Nucleated RBC/100 WBC (Bld) [Ratio] 0 % 0-5 [facility] Auto (RBC) [Mass/Vol]Or dered By: Dr. Shea on 08-06-2022 MCHC (RBC) [Mass/Vol] 32.0 g/dL 32-36 [facility] No Panel InformationOrdered By: Dr. Shea on 08-06-2022 Estimated GFR (MDRD) Amer 78 mL/min >60 [facility] Comment on above: GFR Calc Estimated GFR (MDRD) Non-Af Amer 65 mL/min >60 [facility] Comment on above: Non- GFR Calc Thyroid Stimulating Hormone (TSH) 0.62 uIU/mL 0.358-3.74 [facility] Vitamin D 25-Hydroxy 30.0 ng/mL [facility] Comment on above: Vitamin D 25(OH) Sta tus Range Deficiency <20 ng/mL (50nmol/L) Insufficiency 20 - 30 ng/mL (50 - 75 nmol/L) Sufficiency 30 - 100 ng/mL (75 - 250 nmol/L) Toxicity >100 ng/mL (>250 nmol/L) Platelets bldOrdered By: Dr. Shea on 08-06-2022 Platelets (Bld) [#/Vol] 367 10*3/uL 150-450 [facility] Serum or plasma albumin paddy urement (mass/volume)Ordered By: Dr. Shea on 08-06-2022 Albumin [Mass/Vol] 3.6 g/dL 3.2-5.0 [facility] Serum or plasma albumin/glob ulin mass ratioOrdered By: Dr. Shea on 08-06-2022 Albumin/Globulin [Mass ratio] 1.1 {ratio} 0.9-2.4 [facility] Serum or plasma calcium paddy urement (mass/volume)Ordered By: Dr. Shea on 08-06-2022 Calcium [Mass/Vol] 9.2 mg/dL 8.5-10.1 [facility] Serum or plasma creatinine m easurement (mass/volume)Ordered By: Dr. Shea on 08-06-2022 Creatinine [Mass/Vol] 0.92 mg/dL 0.55-1.02 [facility] Comment on above: The validity of the calculated GFR & GFRAA in patients over 70 years has not been determined. Clinical correlation is essential. Serum or plasma urea nitroge n measurement (mass/volume)Ordered By: Dr. Shea on 08-06-2022 Urea nitrogen [Mass/Vol] 13 mg/dL 7-18 [facility] Thin prep Papanicolaou smear with manual screeningOrdered By: Dr. Shea on 08-06-2022 Thin prep Papanicolaou smear with manual screening 16 U/L 15-37 [facility] Thin prep Papanicolaou smear with manual screening 10 5-15 [facility] Erythrocyte sedimentation ra mila 04-30-2022 ESR (Bld) [Velocity] 10 mm/h 0-30 [facility] Work Phone: Serum or plasma C reactive p rotein measurement (mass/volume)on 04-30-2022 CRP [Mass/Vol] 8.27 mg/L 0.0-3.0 [facility] Work Phone: Comment on above: C-Reactive Protein ( CRP) provides useful information for thediagnosis, therapy and monitoring of inflammatory processesand associated diseases. For the evaluation of Relative Riskfor Cardiovascular Disease, a High Sensitivity CRP (HSCRP)should be ordered. Basophil percentageon 2021 Chloride [Moles/Vol] 102 mmol/L 98-107 [facility] Work Phone: Glucose [Mass/Vol] 133 mg/dL 74-106 [facility] Work Phone: Comment on above: Fasting Glucose resu lt greater than or equal to 126 mg/dL suggests DIABETES MELLITUS per A.D.A. criteria. Potassium [Moles/Vol] 3.6 mmol/L 3.5-5.1 [facility] Work Phone: Sodium [Moles/Vol] 138 mmol/L 136-145 [facility] Work Phone: Laboratory - Chemistry and C hemistry - challengeon 03-27-2022 CO2 [Moles/Vol] 31.0 mmol/L 21.0-32.0 [facility] Work Phone: Urea nitrogen/Creatinine [Mass ratio] 16.8 mg/mg 10- [facility] Work Phone: No Panel Informationon 03-27 Estimated GFR (MDRD) Amer 81 mL/min >60 [facility] Work Phone: Comment on above: GFR Calc Estimated GFR (MDRD) Non-Af Amer 67 mL/min >60 [facility] Work Phone: Comment on above: Non- GFR Calc Serum or plasma calcium paddy urement (mass/volume)on 03-27-2022 Calcium [Mass/Vol] 9.1 mg/dL 8.5-10.1 [facility] Work Phone: Serum or plasma creatinine m easurement (mass/volume)on 03-27-2022 Creatinine [Mass/Vol] 0.89 mg/dL 0.55-1.02 [facility] Work Phone: Comment on above: The validity of the calculated GFR & GFRAA in patients over 70 years has not been determined. Clinical correlation is essential. Serum or plasma urea nitroge n measurement (mass/volume)on 03-27-2022 Urea nitrogen [Mass/Vol] 15 mg/dL 7-18 [facility] Work Phone: Thin prep Papanicolaou smear with manual screeningon 03-27-2022 Thin prep Papanicolaou smear with manual screening 5 5-15 [facility] Work Phone: Urine creatinine measurement (mass/volume)on 03-27-2022 Creatinine (U) [Mass/Vol] 42.20 mg/dL NO RANGE EST. [facility] Work Phone: Urine protein measurement (m ass/volume)on 03-27-2022 Protein (U) [Mass/Vol] mg/dL 0.0-11.8 [facility] Work Phone: Urine protein/creatinine mas s ratioon 03-27-2022 Protein/Creatinine (U) [Mass ratio] TNP [facility] Work Phone: Comment on above: Test not performed Erythrocyte sedimentation ra mila 03-05-2022 ESR (Bld) [Velocity] 20 mm/h 0-30 [facility] Work Phone: Serum or plasma C reactive p rotein measurement (mass/volume)on 03-05-2022 CRP [Mass/Vol] mg/L 0.0-3.0 [facility] Work Phone: Comment on above: C-Reactive Protein ( CRP) provides useful information for thediagnosis, therapy and monitoring of inflammatory processesand associated diseases. For the evaluation of Relative Riskfor Cardiovascular Disease, a High Sensitivity CRP (HSCRP)should be ordered. Absolute lymphocyte counton 01-30-2022 Lymphocytes Auto (Unsp spec) [#/Vol] 1.27 10*3/uL 0.83-4.51 [facility] Work Phone: Basophil percentageon 2021 Basophils/100 WBC (Bld) 0.5 % 0-1 [facility] Work Phone: Bilirubin [Mass/Vol] 0.20 mg/dL 0.20-1.00 [facility] Work Phone: Comment on above: For patients on eltr ombopag therapy, use of Dimension Clare TBIL is not recommended. Chloride [Moles/Vol] 104 mmol/L 98-107 [facility] Work Phone: Eosinophils/100 WBC (Bld) 0.5 % 0-5 [facility] Work Phone: Glucose [Mass/Vol] 117 mg/dL 74-106 [facility] Work Phone: Comment on above: Fasting Glucose resu lt from 100 to 125 mg/dL suggests IMPAIRED HOMEOSTASIS per A.D.A. criteria. Neutrophils (Bld) [#/Vol] 6.9 10*3/uL 2.0-7.7 [facility] Work Phone: [phone] Neutrophils/100 WBC (Bld) 79.5 % 47-70 [facility] Work Phone: [phone] Potassium [Moles/Vol] 3.9 mmol/L 3.5-5.1 [facility] Work Phone: Protein [Mass/Vol] 7.1 g/dL 6.4-8.2 [facility] Work Phone: Sodium [Moles/Vol] 141 mmol/L 136-145 [facility] Work Phone: WBC (Bld) [#/Vol] 8.7 10*3/uL 4.4-11.0 [facility] Work Phone: Blood erythrocytes count (nu mber/volume)on 01-30-2022 RBC (Bld) [#/Vol] 4.24 10*6/uL 4.2-5.4 [facility] Work Phone: Blood hemoglobin measurement (mass/volume)on 01-30-2022 Hemoglobin (Bld) [Mass/Vol] 12.5 g/dL 12.0-15. 0 [facility] Work Phone: Blood lymphocytes/100 leukoc yteson 01-30-2022 Lymphocytes/100 WBC (Bld) 14.6 % 19-41 [facility] Work Phone: Blood monocytes/100 leukocyt eson 01-30-2022 Monocytes/100 WBC (Bld) 4.6 % 0-10 [facility] Work Phone: Blood platelet mean volumeon 01-30-2022 Platelet mean volume (Bld) [Entitic vol] 9.5 fL 6.2-12.0 [facility] Work Phone: [phone] Determination of erythrocyte mean corpuscular volume (MCV)on 01-30-2022 MCV (RBC) [Entitic vol] 92.2 fL 81-99 [facility] Work Phone: Hematocrit Auto (Bld) [Volum e fraction]on 01-30-2022 Hematocrit (Bld) [Volume fraction] 39.1 % 37-47 [facility] Work Phone: [phone] Laboratory - Chemistry and C hemistry - challengeon 01-30-2022 ALP [Catalytic activity/Vol] 93 U/L 45-117 [facility] Work Phone: ALT [Catalytic activity/Vol] 26 U/L 13-56 [facility] Work Phone: CO2 [Moles/Vol] 31.0 mmol/L 21.0-32.0 [facility] Work Phone: Globulin (S) [Mass/Vol] 3.4 g/dL 2.2-4.2 [facility] Work Phone: Urea nitrogen/Creatinine [Mass ratio] 10.1 mg/mg 10-20 [facility] Work Phone: Laboratory - Hematology and Cell countson 01-30-2022 Erythrocyte distribution width (RBC) [Entitic vol] 47.4 fL 35.1-43.9 [facility] Work Phone: Erythrocyte distribution width (RBC) [Ratio] 13.9 % 11.6-14.6 [facility] Work Phone: Immature granulocytes/100 WBC (Bld) 0.300 % 0.0-0.9 [facility] Work Phone: Comment on above: IG% - Immature Granu locytes (promyelocytes, myelocytes and metamyelocytes) > 1% indicates that a LEFT SHIFT is Present. MCH (RBC) [Entitic mass] 29.5 pg 27.0-32.0 [facility] Work Phone: Nucleated RBC/100 WBC (Bld) [Ratio] 0 % 0-5 [facility] Work Phone: MCHC Auto (RBC) [Mass/Vol]on 01-30-2022 MCHC (RBC) [Mass/Vol] 32.0 g/dL 32-36 [facility] Work Phone: No Panel Informationon 01-30 Estimated GFR (MDRD) Amer 92 mL/min >60 [facility] Work Phone: Comment on above: GFR Calc Estimated GFR (MDRD) Non-Af Amer 76 mL/min >60 [facility] Work Phone: Comment on above: Non- GFR Calc Thyroid Stimulating Hormone (TSH) 0.61 uIU/mL 0.358-3.74 [facility] Work Phone: Vitamin D 25-Hydroxy 38.0 ng/mL [facility] Work Phone: Comment on above: Vitamin D 25(OH) Sta tus Range Deficiency <20 ng/mL (50nmol/L) Insufficiency 20 - 30 ng/mL (50 - 75 nmol/L) Sufficiency 30 - 100 ng/mL (75 - 250 nmol/L) Toxicity >100 ng/mL (>250 nmol/L) Platelets bldon 01-30-2022 Platelets (Bld) [#/Vol] 353 10*3/uL 150-450 [facility] Work Phone: Serum or plasma albumin paddy urement (mass/volume)on 01-30-2022 Albumin [Mass/Vol] 3.7 g/dL 3.2-5.0 [facility] Work Phone: Serum or plasma albumin/glob ulin mass ratioon 01-30-2022 Albumin/Globulin [Mass ratio] 1.1 {ratio} 0.9-2.4 [facility] Work Phone: Serum or plasma calcium paddy urement (mass/volume)on 01-30-2022 Calcium [Mass/Vol] 9.6 mg/dL 8.5-10.1 [facility] Work Phone: Serum or plasma creatinine m easurement (mass/volume)on 01-30-2022 Creatinine [Mass/Vol] 0.79 mg/dL 0.55-1.02 [facility] Work Phone: Comment on above: The validity of the calculated GFR & GFRAA in patients over 70 years has not been determined. Clinical correlation is essential. Serum or plasma urea nitroge n measurement (mass/volume)on 01-30-2022 Urea nitrogen [Mass/Vol] 8 mg/dL 7-18 [facility] Work Phone: Thin prep Papanicolaou smear with manual screeningon 01-30-2022 Thin prep Papanicolaou smear with manual screening 19 U/L 15-37 [facility] Work Phone: Thin prep Papanicolaou smear with manual screening 6 5-15 [facility] Work Phone: Laboratory - Microbiology an d Antimicrobial susceptibilityon 11-23-2021 SARS-CoV-2 (COVID-19) RNA POOJA+probe Ql (Unsp spec) Not detected Not Detect [facility] Work Phone: Comment on above: Normal Reference Ran ge: Not DetectedMethod:(RT-PCR) real-time reverse transcriptase PCRLuminex CORRINE Instrument*The Food and Drug Administration (FDA) has issued an Emergency Use Authorization (EAU) for the [employer] SARS-CoV-2 Assay for the rapid detection of the virus that causes COVID-19. This test has been validated, but the FDAs independent review of this validation is pending.*Negative results do not preclude infection and should not be used as the sole basis for treatment or patient management. Optimum specimen types and timing for peak viral levels during infections caused by SARS-CoV-2 have not been determined. Collection of multiple specimens from the same patient may be necessary to detect the virus. The possibility of a false negative result should be considered if the patient has clinical presentation or has had recent exposure. No Panel Informationon 11-23 Influenza Types A,B Direct FA (ROHINI) [facility] Work Phone: Absolute lymphocyte counton 08-02-2021 Lymphocytes Auto (Unsp spec) [#/Vol] 1.75 10*3/uL 0.83-4.51 [facility] Work Phone: Basophil percentageon 2020 Bilirubin [Mass/Vol] 0.20 mg/dL 0.20-1.00 [facility] Work Phone: Comment on above: For patients on eltr ombopag therapy, use of Dimension [place] TBIL is not recommended. Chloride [Moles/Vol] 105 mmol/L 98-107 [facility] Work Phone: Eosinophils/100 WBC (Bld) 0.8 % 0-5 [facility] Work Phone: Glucose [Mass/Vol] 128 mg/dL 74-106 [facility] Work Phone: [phone] Comment on above: Fasting Glucose resu lt greater than or equal to 126 mg/dL suggests DIABETES MELLITUS per A.D.A. criteria.Please note revised GLUCOSE reference range effective 2017. Neutrophils (Bld) [#/Vol] 8.2 10*3/uL 2.0-7.7 [facility] Work Phone: [phone] Potassium [Moles/Vol] 4.0 mmol/L 3.5-5.1 [facility] Work Phone: [phone] Protein [Mass/Vol] 7.2 g/dL 6.4-8.2 [facility] Work Phone: [phone] Sodium [Moles/Vol] 141 mmol/L 136-145 [facility] Work Phone: [phone] WBC (Bld) [#/Vol] 10.5 10*3/uL 4.4-11.0 [facility] Work Phone: [phone] Blood erythrocytes count (nu mber/volume)on 08-02-2021 RBC (Bld) [#/Vol] 4.33 10*6/uL 4.2-5.4 [facility] Work Phone: [phone] Blood hemoglobin measurement (mass/volume)on 08-02-2021 Hemoglobin (Bld) [Mass/Vol] 12.7 g/dL 12.0-15. 0 [facility] Work Phone: Blood lymphocytes/100 leukoc yteson 08-02-2021 Lymphocytes/100 WBC (Bld) 16.6 % 19-41 [facility] Work Phone: Blood monocytes/100 leukocyt eson 08-02-2021 Monocytes/100 WBC (Bld) 4.1 % 0-10 [facility] Work Phone: Blood platelet mean volumeon 08-02-2021 Platelet mean volume (Bld) [Entitic vol] 9.6 fL 6.2-12.0 [facility] Work Phone: [phone] Determination of erythrocyte mean corpuscular volume (MCV)on 08-02-2021 MCV (RBC) [Entitic vol] 92.6 fL 81-99 [facility] Work Phone: Hematocrit Auto (Bld) [Volum e fraction]on 08-02-2021 Hematocrit (Bld) [Volume fraction] 40.1 % 37-47 [facility] Work Phone: [phone] Laboratory - Chemistry and C hemistry - challengeon 08-02-2021 ALP [Catalytic activity/Vol] 92 U/L 45-117 [facility] Work Phone: ALT [Catalytic activity/Vol] 27 U/L 13-56 [facility] Work Phone: CO2 [Moles/Vol] 29.0 mmol/L 21.0-32.0 [facility] Work Phone: [phone] Globulin (S) [Mass/Vol] 3.6 g/dL 2.2-4.2 [facility] Work Phone: [phone] Urea nitrogen/Creatinine [Mass ratio] 13.5 mg/mg 10-20 [facility] Work Phone: Laboratory - Hematology and Cell countson 08-02-2021 Basophils/100 WBC (Unsp spec) 0.5 % 0-1 [facility] Work Phone: [phone] Erythrocyte distribution width (RBC) [Entitic vol] 48.2 fL 35.1-43.9 [facility]: [phone] Erythrocyte distribution width (RBC) [Ratio] 14.1 % 11.6-14.6 [facility] Work Phone: Immature granulocytes/100 WBC (Bld) 0.400 % 0.0-0.9 [facility] Work Phone: [phone] Comment on above: IG% - Immature Granu locytes (promyelocytes, myelocytes and metamyelocytes) > 1% indicates that a LEFT SHIFT is Present. MCH (RBC) [Entitic mass] 29.3 pg 27.0-32.0 [facility] Work Phone: Neutrophils/100 WBC (Bld) 77.6 % 47-70 [facility] Work Phone: Nucleated RBC/100 WBC (Bld) [Ratio] 0 % 0-5 [facility] Work Phone: MCHC Auto (RBC) [Mass/Vol]on 08-02-2021 MCHC (RBC) [Mass/Vol] 31.7 g/dL 32-36 [facility] Work Phone: No Panel Informationon 08-02 Estimated GFR (MDRD) Amer 81 mL/min >60 [facility] Work Phone: Comment on above: GFR Calc Estimated GFR (MDRD) Non-Af Amer 67 mL/min >60 [facility] Work Phone: Comment on above: Non- GFR Calc Thyroid Stimulating Hormone (TSH) 0.63 uIU/mL 0.358-3.74 [facility] Work Phone: Vitamin D 25-Hydroxy 35.4 ng/mL [facility] Work Phone: Comment on above: Vitamin D 25(OH) Sta tus Range Deficiency <20 ng/mL (50nmol/L) Insufficiency 20 - 30 ng/mL (50 - 75 nmol/L) Sufficiency 30 - 100 ng/mL (75 - 250 nmol/L) Toxicity >100 ng/mL (>250 nmol/L) Platelets bldon 08-02-2021 Platelets (Bld) [#/Vol] 361 10*3/uL 150-450 [facility] Work Phone: Serum or plasma albumin paddy urement (mass/volume)on 08-02-2021 Albumin [Mass/Vol] 3.6 g/dL 3.2-5.0 [facility] Work Phone: Serum or plasma albumin/glob ulin mass ratioon 08-02-2021 Albumin/Globulin [Mass ratio] 1.0 {ratio} 0.9-2.4 [facility] Work Phone: Serum or plasma calcium paddy urement (mass/volume)on 08-02-2021 Calcium [Mass/Vol] 9.2 mg/dL 8.5-10.1 [facility] Work Phone: Serum or plasma creatinine m easurement (mass/volume)on 08-02-2021 Creatinine [Mass/Vol] 0.89 mg/dL 0.55-1.02 [facility] Work Phone: Comment on above: The validity of the calculated GFR & GFRAA in patients over 70 years has not been determined. Clinical correlation is essential. Serum or plasma urea nitroge n measurement (mass/volume)on 08-02-2021 Urea nitrogen [Mass/Vol] 12 mg/dL 7-18 [facility] Work Phone: Thin prep Papanicolaou smear with manual screeningon 08-02-2021 Thin prep Papanicolaou smear with manual screening 16 U/L 15-37 [facility] Work Phone: Thin prep Papanicolaou smear with manual screening 7 5-15 [facility] Work Phone: PROGRESSon 02-04-2019 Protein mass conc HNO ID: [id number] Author: Irene Vicente Service: ? Author Type: Clay Stain Mixer Type: Progress Notes Filed: 02/04/2019 8:11 AM Note Text: [employer] SUPERMARKET MANAGER QUICKNOTE Provider Action/FYI: I spoke with Neris and she states she's no longer seeing Dr. Vasquez as her PCP. Dr. Vasquez removed as pcp. Patient identified by name and . Irene Vicente CMA [facility] PROGRESSon 02-02-2019 Protein mass conc HNO ID: [id number] Author: Irene Vicente Service: ? Author Type: [employer]er Type: Progress Notes Filed: 02/04/2019 8:11 AM Note Text: [employer] SUPERMARKET MANAGER QUICKNOTE Provider Action/FYI: Patient identified by name and . 2nd attempt - Left detailed message for patient to return call #[phone] [facility] NERIS MOODY ([id number]) 1950 F Date Time Provider Department 01/26/19 IRENE VICENTE ([facility]) INTMWS During your visit today, we recorded the following information about you: Irene Vicente CMA 02/04/2019 8:11 AM Signed [facility] CARE GAP REGISTRY DOCUMENTATION (OUTSIDE TEAMLET) Provider Action/FYI: PSR Action/FYI: -Due for Physical (06/09/17 last appointment with Brandie Zimmerman) -Labs and mammogram ordered Health Maintenance Due: MAMMOGRAM due on 06/11/2017 - ordered BONE DENSITY due on 2017 ANNUAL PCP TEAM CHRONIC DISEASE VISIT due on 06/09/2018 Patient identified by name and date of . Last BP/Labs: Blood Pressure: Last 3 Encounter BP Readings: Date: BP: 06/25/2017 128/82 06/09/2017 118/70 05/16/2017 132/60 Lipids: Cholesterol, Total (mg/dL) Date Value 04/30/2017 149 11/24/2014 195 HDL Cholesterol (mg/dL) Date Value 04/30/2017 51 11/24/2014 66 LDL Cholesterol (mg/dL) Date Value 04/30/2017 75 11/24/2014 108 Triglyceride (mg/dL) Date Value 04/30/2017 115 11/24/2014 107 HGB A1C: Lab Results Component Value Date HBA1C 5.4 06/09/2017 HBA1C 5.8 07/08/2014 TSH: TSH (uU/mL) Date Value 06/09/2017 0.452 04/30/2017 0.277 ) ? Patient has the following care gap registry disease diagnosis:HTN ? Hyperlipidemia ? Hypothyrodism ? Patient has the following open care gaps: Health Maintenance Due: MAMMOGRAM due on 06/11/2017 - ordered BONE DENSITY due on 2017 ANNUAL PCP TEAM CHRONIC DISEASE VISIT due on 06/09/2018 ? Last office visit: 06/09/2017 ? Future office visit:Physical next available with pcp or watershed tender TOD Lanier CMA 02/04/2019 8:11 AM Signed [facility] SUPERMARKET MANAGER SERENA Provider Action/FYI: Patient identified by name and . 1st attempt - [facility] [employer] [facility] message sent. TOD Lanier CMA 02/04/2019 8:11 AM Signed [facility] SUPERMARKET MANAGER SERENA Provider Action/FYI: Patient identified by name and . 2nd attempt - Left detailed message for patient to return call #[phone] TOD Lanier CMA 02/04/2019 8:11 AM Signed [facility] SUPERMARKET MANAGER SERENA Provider Action/FYI: I spoke with Neris and she states she's no longer seeing Dr. Vasquez as her PCP. Dr. Vasquez removed as pcp. Patient identified by name and . Irene Vicente CMA Allergies As of Date: 01/26/2019 Noted Allergy Reaction ADCIRCA (TADALAFIL) 02/08/2014 14 - Other: See Comments Comments: Blurred vision ATIVAN (LORAZEPAM) 12/29/2012 14 - Other: See Comments Comments: Headache ATORVASTATIN 06/09/2017 17 - Myalgia RELAFEN (NABUMETONE) 12/29/2012 2 - Rash Date Reviewed: 06/25/2017 Reviewed by: Holley Beal LPN - Fully Assessed Reason for Visit: PHMA/Care Gap Outreach [[id number]] Prescriptions as of 01/26/2019 Sig: KETOROLAC 10 MG TABLET Take 1 tablet by mouth every * DICLOFENAC SODIUM 75 MG TABLE* Take 1 tablet by mouth twice * HYDROCORTISONE 2.5 % TOPICAL * Apply 1 application to affect* ORPHENADRINE CITRATE ER 100 M* Take 1 tablet by mouth twice * FERROUS GLUCONATE 324 MG (36 * Take 1 tablet by mouth twice * LEVOTHYROXINE 100 MCG TABLET TAKE 1 TABLET DAILY *BOTTLE* OMEPRAZOLE 40 MG CAPSULE,LILIAN* TAKE 1 CAPSULE DAILY FENOFIBRATE NANOCRYSTALLIZED * TAKE 1 TABLET DAILY CETIRIZINE 10 MG TABLET TAKE 1 TABLET BY MOUTH ONCE D* TOPIRAMATE 50 MG TABLET Take 1-2 tablets by mouth twi* MAGNESIUM 400 MG ( MAGNESIU* Take 1 capsule by mouth once * DIPHENHYDRAMINE 50 MG CAPSULE Take 1 capsule by mouth every* ARIPIPRAZOLE 5 MG TABLET Take 1 tablet by mouth once d* ALBUTEROL SULFATE HFA 90 MCG/* Inhale 2 Puffs as instructed * ONDANSETRON HCL 4 MG TABLET Take one each morning, as nee* TIOTROPIUM BROMIDE 18 MCG CAP* Inhale 1 capsule as instructe* BUDESONIDE-FORMOTEROL HFA 80 * Inhale 2 Puffs as instructed * MULTIVITAMIN TABLET Take 1 tablet by mouth once d* LAMOTRIGINE 100 MG DISINTEGRA* Take 150 mg by mouth twice da* TRAZODONE 100 MG TABLET Take 3 tablets by mouth daily* CLONAZEPAM 0.5 MG TABLET Take 1 tablet by mouth three * ARIPIPRAZOLE 20 MG TABLET Take 1 tablet by mouth once d* Problem List As Of Date 01/26/2019 Noted Resolved Migraine headache [G43.909] Hyperlipidemia [E78.5] GERD (gastroesophageal reflux disease) [K21.9] Hypothyroidism [E03.9] Schizoaffective disorder [F25.9] More... Allergic rhinitis [J30.9] DJD (degenerative joint disease) [M19.90] More... DDD (degenerative disc disease) [NBL2891] More... Pulmonary hypertension [I27.20] More... Anemia [D64.9] Depression with suicidal ideation [F32.9, R45.8*INVALID FOR* More... 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 Author Type: Clay Stain Mixer Type: Progress Notes Filed: 02/04/2019 8:11 AM Note Text: [facility] SUPERMARKET MANAGER QUICKNOTE Provider Action/FYI: Patient identified by name and . 1st attempt - [facility] Associateshart message sent. Irene Vicente CMA Normal [facility] Protein mass conc HNO ID: [id number] Author: Irene Vicente Service: ? Author Type: Clay Stain Mixer Type: Progress Notes Filed: 02/04/2019 8:11 AM Note Text: PHMA CARE GAP REGISTRY DOCUMENTATION (OUTSIDE TEAMLET) Provider Action/FYI: PSR Action/FYI: -Due for Physical (06/09/17 last appointment with Brandie Zimmerman) -Labs and mammogram ordered Health Maintenance Due: MAMMOGRAM due on 06/11/2017 - ordered BONE DENSITY due on 2017 ANNUAL PCP TEAM CHRONIC DISEASE VISIT due on 06/09/2018 Patient identified by name and date of . Last BP/Labs: Blood Pressure: Last 3 Encounter BP Readings: Date: BP: 06/25/2017 128/82 06/09/2017 118/70 05/16/2017 132/60 Lipids: Cholesterol, Total (mg/dL) Date Value 04/30/2017 149 11/24/2014 195 HDL Cholesterol (mg/dL) Date Value 04/30/2017 51 11/24/2014 66 LDL Cholesterol (mg/dL) Date Value 04/30/2017 75 11/24/2014 108 Triglyceride (mg/dL) Date Value 04/30/2017 115 11/24/2014 107 HGB A1C: Lab Results Component Value Date HBA1C 5.4 06/09/2017 HBA1C 5.8 07/08/2014 TSH: TSH (uU/mL) Date Value 06/09/2017 0.452 04/30/2017 0.277 ) ? Patient has the following care gap registry disease diagnosis:HTN ? Hyperlipidemia ? Hypothyrodism ? Patient has the following open care gaps: Health Maintenance Due: MAMMOGRAM due on 06/11/2017 - ordered BONE DENSITY due on 2017 ANNUAL PCP TEAM CHRONIC DISEASE VISIT due on 06/09/2018 ? Last office visit: 06/09/2017 ? Future office visit:Physical next available with pcp or watershed tender Irene Vicente CMA [facility] PROGRESSon 09-14-2018 Protein mass conc HNO ID: [id number] Author: Irene Vicente Service: (none) Author Type: Clay Stain Mixer Type: Progress Notes Filed: 09/14/2018 9:45 AM Note Text: [facility] SUPERMARKET MANAGER QUICKNOTE Provider Action/FYI: Letter mailed Patient identified by name and . 3rd attempt - Left detailed message for patient to return call #[phone]. Mailing letter to patient. Irene Vicente CMA [facility] PROGRESSon 09-09-2018 Protein mass conc HNO ID: [id number] Author: Irene Vicente Service: (none) Author Type: Clay Stain Mixer Type: Progress Notes Filed: 09/14/2018 9:45 AM Note Text: [facility] SUPERMARKET MANAGER QUICKNOTE Provider Action/FYI: Patient identified by name and . 2nd attempt. - Left detailed message for patient to return call #[phone] [facility] CNPTOUTREACHon 09-08-2018 CNPTOUTREACH Patient Outreach (INTMWS) NERIS MOODY ([id number]) 1950 F Date Time Provider Department 09/08/18 IRENE VICENTE ([facility]) INTMWS During your visit today, we recorded the following information about you: Irene Vicente CMA 09/14/2018 9:45 AM Signed PHMA CARE GAP REGISTRY DOCUMENTATION (OUTSIDE TEAMLET) Provider Action/FYI: Please file labs and advise if wanting anything additional. PSR Action/FYI: Due for follow up/physical Health Maintenance Due: ANNUAL PCP TEAM CHRONIC DISEASE VISIT due on 1970 MAMMOGRAM due on 06/11/2017 - order pending BONE DENSITY due on 2017 - order pending INFLUENZA(1) due on 04/18/2018 Patient identified by name and date of . Last BP/Labs: Blood Pressure: Last 3 Encounter BP Readings: Date: BP: 06/25/2017 128/82 06/09/2017 118/70 05/16/2017 132/60 Lipids: Cholesterol, Total (mg/dL) Date Value 04/30/2017 149 11/24/2014 195 HDL Cholesterol (mg/dL) Date Value 04/30/2017 51 11/24/2014 66 LDL Cholesterol (mg/dL) Date Value 04/30/2017 75 11/24/2014 108 Triglyceride (mg/dL) Date Value 04/30/2017 115 11/24/2014 107 HGB A1C: Lab Results Component Value Date HBA1C 5.4 06/09/2017 HBA1C 5.8 07/08/2014 TSH: TSH (uU/mL) Date Value 06/09/2017 0.452 04/30/2017 0.277 ) ? Patient has the following care gap registry disease diagnosis:HTN ? Hyperlipidemia ? Copd ? Hypothyroid ? Patient has the following open care gaps: Health Maintenance Due: ANNUAL PCP TEAM CHRONIC DISEASE VISIT due on 1970 MAMMOGRAM due on 06/11/2017 - order pending BONE DENSITY due on 2017 - order pending INFLUENZA(1) due on 04/18/2018 ? Last office visit: 06/09/2017 ? Future office visit:Physical next available with pcp or watershed tender TOD Lanier CMA 09/08/2018 11:06 AM Signed BONE MINERAL DENSITY PATIENT INSTRUCTIONS Bone mineral density testing measures the amount of calcium in certain parts of your bones. This information determines how strong your bones are. The test is used to detect osteoporosis, a disease in which the bone's mineral content and density are low, increasing a person's risk of fractures. The lumbar spine (lower back) and the hip are the skeletal sites usually examined. For the test, remember that: 1. You cannot take this test if you are . 2. Eat a normal diet on the day of the test. 3. Take your medications as you normally would. 4. DO NOT take calcium supplements (such as Tums) for 24 hours before the test. 5. On the day of the test, leave valuables (jewelry or credit cards) at home. 6. The test should be performed prior to oral, rectal or IV contrast studies, or at least 7 days after any of these studies. For the test, you may be asked to wear a hospital gown. You will lie on your back, on a padded table, in a comfortable position. Generally, you can resume your usual activities immediately. Irene TOD Vicente 09/14/2018 9:45 AM Signed [facility] Provider Action/FYI: Please file labs. Patient identified by name and . 1st attempt - [facility] message sent. Irene VicenteTOD Irene VicenteTOD 09/14/2018 9:45 AM Signed [facility] Provider Action/FYI: Patient identified by name and . 2nd attempt. - Left detailed message for patient to return call #[phone] Irene Vicente TOD Irene VicenteTOD 09/14/2018 9:45 AM Signed [facility] Provider Action/FYI: Letter mailed Patient identified by name and . 3rd attempt - Left detailed message for patient to return call #[phone]. Mailing letter to patient. Irene TOD Vicente Allergies As of Date: 09/08/2018 Noted Allergy Reaction ADCIRCA (TADALAFIL) 02/08/2014 14 - Other: See Comments Comments: Blurred vision ATIVAN (LORAZEPAM) 12/29/2012 14 - Other: See Comments Comments: Headache ATORVASTATIN 06/09/2017 17 - Myalgia RELAFEN (NABUMETONE) 12/29/2012 2 - Rash Date Reviewed: 06/25/2017 Reviewed by: Holley Beal LPN - Fully Assessed Reason for Visit: PHMA/Care Gap Outreach [[id number]] Primary Visit Diagnosis:Hyperlipide lin, unspecified hyperlipidemia type [E78.5] Other Visit Diagnoses:Acquired hypothyroidism [E03.9] Pulmonary hypertension [I27.20] Screening mammogram for high-risk patient [Z12.31] Encounter for screening for osteoporosis [Z13.820] Order(s):COMP METABOLIC PANEL [SQCMP] Order #: [id number] FUTURE LIPID PANEL BASIC [SQLIPB] Order #: [id number] FUTURE TSH BLD [SQTSH] Order #: [id number] FUTURE ANJUM SCREENING [[id number]] Order #: [id number] FUTURE DXA - VFA ASSESS ONLY [[id number]] Order #: [id number] FUTURE Prescriptions as of 09/08/2018 Sig: KETOROLAC 10 MG TABLET Take 1 tablet by mouth every * DICLOFENAC SODIUM 75 MG TABLE* Take 1 tablet by mouth twice * HYDROCORTISONE 2.5 % TOPICAL * Apply 1 application to affect* ORPHENADRINE CITRATE ER 100 M* Take 1 tablet by mouth twice * FERROUS GLUCONATE 324 MG (36 * Take 1 tablet by mouth twice * LEVOTHYROXINE 100 MCG TABLET TAKE 1 TABLET DAILY *BOTTLE* OMEPRAZOLE 40 MG CAPSULE,LILIAN* TAKE 1 CAPSULE DAILY FENOFIBRATE NANOCRYSTALLIZED * TAKE 1 TABLET DAILY CETIRIZINE 10 MG TABLET TAKE 1 TABLET BY MOUTH ONCE D* TOPIRAMATE 50 MG TABLET Take 1-2 tablets by mouth twi* MAGNESIUM OXIDE 400 MG CAPSULE Take 1 capsule by mouth once * DIPHENHYDRAMINE 50 MG CAPSULE Take 1 capsule by mouth every* ARIPIPRAZOLE 5 MG TABLET Take 1 tablet by mouth once d* ALBUTEROL SULFATE HFA 90 MCG/* Inhale 2 Puffs as instructed * ONDANSETRON HCL 4 MG TABLET Take one each morning, as nee* TIOTROPIUM BROMIDE 18 MCG CAP* Inhale 1 capsule as instructe* BUDESONIDE-FORMOTEROL HFA 80 * Inhale 2 Puffs as instructed * MULTIVITAMIN TABLET Take 1 tablet by mouth once d* LAMOTRIGINE 100 MG DISINTEGRA* Take 150 mg by mouth twice da* TRAZODONE 100 MG TABLET Take 3 tablets by mouth daily* CLONAZEPAM 0.5 MG TABLET Take 1 tablet by mouth three * ARIPIPRAZOLE 20 MG TABLET Take 1 tablet by mouth once d* Problem List As Of Date 09/08/2018 Noted Resolved Migraine headache [G43.909] Hyperlipidemia [E78.5] GERD (gastroesophageal reflux disease) [K21.9] Hypothyroidism [E03.9] Schizoaffective disorder [F25.9] More... Allergic rhinitis [J30.9] DJD (degenerative joint disease) [M19.90] More... DDD (degenerative disc disease) [CCY4412] More... Pulmonary hypertension [I27.20] More... Anemia [D64.9] Depression with suicidal ideation [F32.9, R45.8*INVALID FOR* More... 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 This information determines how strong your bones are. The test is used to detect osteoporosis, a disease in which the bone's mineral content and density are low, increasing a person's risk of fractures. The lumbar spine (lower back) and the hip are the skeletal sites usually examined. For the test, remember that: 1. You cannot take this test if you are . 2. Eat a normal diet on the day of the test. 3. Take your medications as you normally would. 4. DO NOT take calcium supplements (such as Tums) for 24 hours before the test. 5. On the day of the test, leave valuables (jewelry or credit cards) at home. 6. The test should be performed prior to oral, rectal or IV contrast studies, or at least 7 days after any of these studies. For the test, you may be asked to wear a hospital gown. You will lie on your back, on a padded table, in a comfortable position. Generally, you can resume your usual activities immediately. Letter Text Internal Medicine [place] [address] [facility] [address] Dept: [phone] Dept Irene Vicente CMA, Population Health M.A. September 14, 2018 Neris Moody [address] [facility] [address] Dear Neris Moody In an effort to serve your healthcare needs, it has come to the attention of Alyssa Vasquez MD, your Primary Care Provider, that you are overdue for routine health care. We've attempted to contact you and have been unsuccessful. Please call the office at [phone] to schedule an appointment for Physical. In addition, you are due for the following health maintenance(s) Health Maintenance Due: ANNUAL PCP TEAM CHRONIC DISEASE VISIT due on 1970 MAMMOGRAM due on 06/11/2017 BONE DENSITY due on 2017 INFLUENZA(1) due on 04/18/2018 If any of these routine health care items were completed by an outside facility, please have that office fax the results to [phone] Attn: Alyssa Vasquez MD or bring the records with you to your appointment. We will gladly update your record. If you have any questions, please feel free to call the office at [phone] or message us via [employer]. Thank you for choosing the [facility]. Sincerely, Irene Vicente CMA, uiu M.A. (electronically signed to expedite mailing) Encounter Status:Closed by IRENE VICENTE CMA on 09/14/18 Normal [facility] PROGRESSon 09-08-2018 Protein mass conc HNO ID: [id number] Author: Irene Vicente Service: (none) Author Type: Clay Stain Mixer Type: Progress Notes Filed: 09/14/2018 9:45 AM Note Text: [facility] SUPERMARKET MANAGER QUICKNOTE Provider Action/FYI: Please file labs. Patient identified by name and . 1st attempt - [employer] message sent. Irene Vicente CMA Normal [facility] Protein mass conc HNO ID: [id number] Author: Irene Vicente Service: (none) Author Type: Clay Stain Mixer Type: Progress Notes Filed: 09/14/2018 9:45 AM Note Text: PHMA CARE GAP REGISTRY DOCUMENTATION (OUTSIDE TEAMLET) Provider Action/FYI: Please file labs and advise if wanting anything additional. PSR Action/FYI: Due for follow up/physical Health Maintenance Due: ANNUAL PCP TEAM CHRONIC DISEASE VISIT due on 1970 MAMMOGRAM due on 06/11/2017 - order pending BONE DENSITY due on 2017 - order pending INFLUENZA(1) due on 04/18/2018 Patient identified by name and date of . Last BP/Labs: Blood Pressure: Last 3 Encounter BP Readings: Date: BP: 06/25/2017 128/82 06/09/2017 118/70 05/16/2017 132/60 Lipids: Cholesterol, Total (mg/dL) Date Value 04/30/2017 149 11/24/2014 195 HDL Cholesterol (mg/dL) Date Value 04/30/2017 51 11/24/2014 66 LDL Cholesterol (mg/dL) Date Value 04/30/2017 75 11/24/2014 108 Triglyceride (mg/dL) Date Value 04/30/2017 115 11/24/2014 107 HGB A1C: Lab Results Component Value Date HBA1C 5.4 06/09/2017 HBA1C 5.8 07/08/2014 TSH: TSH (uU/mL) Date Value 06/09/2017 0.452 04/30/2017 0.277 ) ? Patient has the following care gap registry disease diagnosis:HTN ? Hyperlipidemia ? Copd ? Hypothyroid ? Patient has the following open care gaps: Health Maintenance Due: ANNUAL PCP TEAM CHRONIC DISEASE VISIT due on 1970 MAMMOGRAM due on 06/11/2017 - order pending BONE DENSITY due on 2017 - order pending INFLUENZA(1) due on 04/18/2018 ? Last office visit: 06/09/2017 ? Future office visit:Physical next available with pcp or watershed tender Irene Vicente CMA Normal [facility] Basic Metabolic Panelon 04-19 Anion gap 3 molar conc 13 mmol/L Normal 7-13 [facility] Calcium mass conc 9.1 mg/dL Normal 8.6-10.2 [facility] Chloride molar conc 104 mmol/L Normal 98-107 [facility] CO2 molar conc 25 mmol/L Normal 22-29 [facility] Creatinine mass conc 0.91 mg/dL Critically high 0.50-0.90 [facility] GFR/1.73 sq M predicted among blacks MDRD vol rate/area (S/P/Bld) mL/min/{1.73_m2} Normal >60 [facility] Comment on above: Result Comment: >60 mL/min/1.73m2 EGFR, calc. for ages 18 and older using theMDRD formula (not corrected for weight), is valid for stablerenal function. GFR/1.73 sq M.predicted MDRD vol rate/area mL/min/{1.73_m2} Normal >60 [facility] Comment on above: Result Comment: >60 mL/min/1.73m2 EGFR, calc. for ages 18 and older using theMDRD formula (not corrected for weight), is valid for stablerenal function. Glucose mass conc 93 mg/dL Normal 74-109 [facility] Potassium molar conc 4.4 mmol/L Normal 3.5-5.1 [facility] Sodium molar conc 142 mmol/L Normal 132-144 [facility] Urea nitrogen mass conc 15 mg/dL Normal 8-23 [facility] CBC With Platelet No Differe ntialon 05-15-2018 Erythrocyte distribution width Auto Ratio (RBC) 14.5 % Normal 11.5-14.5 [facility] Hematocrit Auto Volume Fraction (Bld) 41.6 % Normal 37.0-47.0 [facility] Hemoglobin mass conc (Bld) 13.5 g/dL Normal 12.0-16.0 [facility] MCH Auto Entitic mass (RBC) 31.0 pg Normal 27.0-31. 3 [facility] MCHC Auto mass conc (RBC) 32.5 % Low 33.0-37.0 [facility] MCV Auto Entitic volume (RBC) 95.2 fL Normal 82.0-100.0 [facility] Platelets Auto #/vol (Bld) 334 10*3/uL Normal 130-400 [facility] RBC Auto #/vol (Bld) 4.37 10*6/uL Normal 4.20-5.40 [facility] WBC Auto #/vol (Bld) 8.1 10*3/uL Normal 4.8-10.8 [facility] Lipid Panelon 05-15-2018 Cholesterol in HDL mass conc 80 mg/dL Critically high 40-59 [facility] Comment on above: Result Comment: ATP III HDL Cholesterol Classification is high.Expected Values:Males: >55 = No Risk 35-55 = Moderate Risk <35 = High RiskFemales: >65 = No Risk 45-65 = Moderate Risk <45 = High RiskNCEP Guidelines: Third Report December 2000>59 = negative risk factor for CHD<40 = major risk factor for CHD Cholesterol in LDL mass conc 100 mg/dL Normal 0-129 [facility] Comment on above: Result Comment: ATP III LDL Classification is Near Optimal. Cholesterol mass conc 211 mg/dL Critically high 0-199 [facility] Comment on above: Result Comment: ATP III Cholesterol Classification is Borderline High. Triglyceride mass conc 156 mg/dL Normal 0-200 [facility] Comment on above: Result Comment: ATP III Triglycerides Classification is Borderline High. Magnesiumon 05-15-2018 Magnesium mass conc 2.2 mg/dL Normal 1.7-2.3 [facility] VITAMIN Don 05-15-2018 VITAMIN D 36.2 ng/mL Normal 30.0-100.0 [facility] Comment on above: Result Comment: (30- 100 ng/mL) Optimum LevelThis assay accurately quantifies the sum of vitamin D3, 25-Hydroxy andvitamin D2, 25-Hyroxy. No Panel Information Influenza Types A,B Direct FA ([facility]) [facility] Work Phone: Vital Signs Date Time Vital Sign Value Performing Clinician Karlenei virgilio 01-31-2025 13:03-0400 Body height 160.02 cm Sofy Barron MD Work Phone: [facility] 01-31-2025 13:03-0400 Body mass index (BMI) [Ratio] 32.3 kg/m2 Sofy Barron MD Work Phone: [facility] 01-31-2025 13:03-0400 Body weight 82.72 kg Sofy Barron MD Work Phone: [facility] Encounters Encounter Date Encounter Type Care Provider Facility Start: 03-09-2025 ambulatory [facility] Facility :[facility] Start: 01-31-2025 End: 01-31-[address] Samson Diamond MD -[facility] Start: 01-31-2025 End: 01-31-2025 ambulatory Sofy Barron MD Work Phone: [facility] Work Phone: Start: 01-28-2025 ambulatory Sofy Barron Facility:[facility] Start: 01-28-[address] Sofy Barron MD -Physical Therapy Work Phone: Start: 12-01-2024 End: 12-01-2024 Patient encounter procedure Manolo Magallon [facility] Work Phone: Start: 12-01-2024 End: 12-01-2024 ambulatory Chalon Beatrice Facility:[facility] Start: 09-14-2024 End: 09-14-2024 ambulatory Chalon Beatrice Facility:[facility] Start: 06-01-2024 End: 06-01-2024 ambulatory Chalon Beatrice Facility:[facility] Start: 05-21-2024 End: 05-21-2024 ambulatory Chalon Beatrice Facility:[facility] Start: 03-30-2024 End: 03-30-2024 ambulatory Getachew Valdes Facility:[facility] Start: 03-23-2024 End: 03-23-2024 ambulatory [facility] Beatrice Facility:[facility] Start: 04-01-2023 End: 04-01-[address] Tanvir Shea Work Phone: [facility] Work Phone: Start: 04-01-2023 End: 04-01-[address] Tanvir Shea Work Phone: [facility] Work Phone: Start: 03-12-2023 End: 03-12-[address] Tanvir Shea Work Phone: [facility] Work Phone: Start: 03-12-2023 End: 03-12-[address] Tanvir Shea Work Phone: [facility]-Radiology, [facility] Work Phone: Start: 03-07-2023 End: 03-07-[address] Tanvir Shae Work Phone: [facility] Work Phone: Start: 03-07-2023 End: 03-07-[address] [facility] Start: 02-26-2023 End: 02-26-[address] Tanvir Shea Work Phone: [facility] Work Phone: Start: 02-26-2023 End: 02-26-[address] [facility] She[facility] Work Phone: Start: 02-04-2023 End: 02-04-[address] Tanvir Shea Work Phone: [facility] Work Phone: Start: 02-04-2023 End: 02-04-[address] Tanvir Shea Work Phone: [facility]-Laboratory Start: 01-24-2023 End: 01-24-[address] Tanvir Shea Work Phone: [facility]-Outpatient Breast Imaging Start: 01-22-2023 End: 01-22-[address] Tanvir Shea Work Phone: [facility] Start: 01-03-2023 End: 01-03-[address] Tanvir Shea Work Phone: [facility]Laboratory Start: 01-02-2023 End: 01-02-[address] [facility] Start: 01-02-2023 End: 01-02-[address] Tanvir Shea Work Phone: [facility] Gastro[facility] Start: 12-26-2022 End: 12-26-[address] Tanvir Shea Work Phone: [facility]-Radiology, [facility] Start: 09-06-2022 End: 09-06-2022 ambulatory [facility] Work Phone: Start: 09-06-2022 End: 09-06-2022 [facility] Start: 08-06-2022 End: 08-06-2022 ambulatory [facility] Work Phone: Start: 08-06-2022 End: 08-06-2022 [facility] Start: 05-30-2022 End: 05-30-2022 ambulatory [facility] Work Phone: Start: 05-30-2022 End: 05-30-2022 [facility] Start: 04-30-2022 End: 04-30-2022 ambulatory [facility] Work Phone: Start: 04-30-2022 End: 04-30-2022 [facility] Start: 03-27-2022 End: 03-27-2022 [facility] Start: 03-05-2022 End: 03-05-2022 [facility] Start: 01-30-2022 End: 01-30-2022 [facility] Start: 11-23-2021 End: 11-23-2021 [facility] Start: 11-12-2021 End: 11-12-2021 Patient encounter procedure [facility] Start: 08-02-2021 [facility] Procedures Date Procedure Procedure Detail Performing Clinician Start: 04-01-2023 Radiologic examinati on of knee Dr. Tanvir Shea Work Phone: Start: 03-12-2023 Plain x-ray of elbow Dr Raymon Shea Work Phone: Start: 03-12-2023 Plain x-ray of hand Dr. Tanvir Shea Work Phone: Start: 03-12-2023 Plain X-ray of shoulder Dr. Tanvir Shea Work Phone: Start: 03-12-2023 Plain x-ray of wrist Dr Raymon Shea Work Phone: Start: 02-26-2023 [address] diff[address] e detection Dr. Tanvir Shea Work Phone: Start: 01-24-2023 Screening mammography Christiana Shea Work Phone: Start: 01-22-2023 Computed tomography of abdomen and pelvis with contrast Dr. Tanvir Shea Work Phone: Start: 01-03-2023 Giardia Antigen (ROHINI) D cruzito Shea Work Phone: Start: 01-03-20[address] Ova [place] parasites identification Dr. Tanvir Shea Work Phone: Start: 12-26-2022 Diagnostic radiograp hy of abdomen, decubitus and erect Dr. Tanvir Shea Work Phone: Start: 05-30-2022 Diagnostic radiograp hy of abdomen Start: 05-30-2022 End: 05-30-2022 Plain x-ray of pelvis and lower extremity Start: 05-30-2022 End: 05-30-2022 Plain X-ray of shoulder Start: 05-30-2022 X-ray of lumbar spin e, two or three views Start: 11-23-2021 Influenza Types A,B Direct FA (ROHINI) Start: 11-23-2021 End: 11-23-2021 Respiratory syncytial virus antigen assay Start: 11-12-2021 Screening mammography Start: 08-02-2021 Radiologic examinati on of lumbosacral spine, complete, with bending views Giardia Antigen (ROHINI) Dr. Lalo Shea Work Phone: Influenza Types A,B Direct FA (ROHINI) Influenza Types A,B Direct FA (ROHINI) Ova OR parasites identification Dr. Tanvir Shea Work Phone: Respiratory syncytia l virus antigen assay Respiratory syncytia l virus antigen assay Plan of Treatment Date Care Activity Detail Author Start: 01-31-2025 Plain x-ray of pelvi s and lower extremity HIP, UNI W/ Pelvis 2-3 Views [facility] Start: 01-31-2025 X-ray of lumbar spin e, two or three views Lumbar Spine 2 or 3 Views [facility] Start: 01-31-2025 XR Lumbar spine 2 or 3 Views [facility] Start: 01-31-2025 XR Pelvis and Hip Views [facility] XR Abdomen Single view [facility] Immunizations Immunization Date Immunization Notes Care Provider Fa cility 05-08-2017 influenza, injectabl e, quadrivalent, preservative free Sofy Barron MD Work Phone: [facility] 05-08-2017 influenza, seasonal, injectable [facility] 06-16-2013 Influenza virus vaccine [facility] 05-18-2011 Pneumococcal Vaccine [facility] Work Phone: 05-18-2011 pneumococcal vaccine , unspecified formulation [facility] Payers Date Payer Category Payer Self-pay [id number] 2024 Unknown [id number] 2016 Medicaid [id number] 2004 Medicare [id number] 2004 Medicare MEDICARE PART A B [id number] Unknown [id number] 2.16.8 [id number] Unknown [id number] 2.16.8 [id number] Unknown [id number] 2.16.8 [id number] Unknown [id number] 2.16.8 [id number] Unknown [id number] 2.16.8 [id number] Unknown [id number] 2.16.8 [id number] Unknown [id number] 2.16.8 [id number] Unknown [id number] 2.16.8 [id number] Unknown [id number] 2.16.8 [id number] Unknown [id number] 2.16.8 [id number] Social History Date Type Detail Facility Start: 05-12-2018 End: 01-02-2023 Tobacco smoking status PAIS Unknown if ever smoked [facility] Start: 06-25-2017 None [facility] Start: 06-25-2017 [facility] Start: 06-25-2017 Cigarettes [facility] Start: 1950 Sex Assigned At Female [facility] Start: 10-23-2023 Tobacco smoking stat us PAIS Smokes tobacco daily (finding) [facility] Evaluation note 12-01-2024 Note Date & Type Note Facility 12-01-2024 Evaluation note Diagnosis Onset Date Resolution Constipation acute December 01, 2024 1:16pm Loose stools chronic December 01, 2024 1:16pm [facility] Work Phone: Evaluation note Note Date & Type Note Facility Evaluation note No assessment information availa ble [facility] Work Phone: Evaluation note Note Date & Type Note Facility Evaluation note Diagnosis Onset Date Loose stools chronic [facility] Work Phone: Reason for referral (narrative) Note Date & Type Note Facility Reason for referral (narrative) No reason for referral information available [facility] Work Phone: Summary Purpose Family History No Family History Records Found Relationship Condition Age at Onset Recorded Date/T laverne Not Specified Hemorrhagic disorder Unknown Malignant neoplasm Unknown Cardiac disease Unknown High blood cholesterol Unknown Malignant neoplasm of skin Unknown Relationship Condition Age at Onset Recorded Date/T laverne unrelated friend Hemorrhagic disorder Unknown Malignant neoplasm Unknown Cardiac disease Unknown High blood cholesterol Unknown Malignant neoplasm of skin Unknown Advance Directives No Advanced Directives Records Found Advance Directive Response Recorded Date/ Time Advance Directives No March 01 4:53pm Living Will Yes May 12, 2018 10:55pm Power of Mmi Teacher Yes April 10:55pm Advance Directive Response Recorded Date/ Time Advance Directives No March 01 3:53pm Living Will Yes May 12, 2018 9:55pm Power of Mmi Teacher Yes April 9:55pm Advance Directive Response Recorded Date/ Time Living Will Yes May 12, 2018 10:55pm Do you have a Healthcare Power of Mmi Teacher? Yes May 12, 2018 10:55pm Advance Directives No March 01 4:53pm Chief Complaint and Reason for Visit Chief Complaint LOW BACK PAIN SCREENING Chief Complaint SCREENING COVID, FLU, RSV TEST Chief Complaint CHILLS WITHOUT FEVER Chief Complaint Consult EORDERS EORDERS COLITIS SCREENING Reason for Visit Loose stools Chief Complaint Consult EORDERS EORDERS COLITIS SCREENING E ORDER Reason for Visit Loose stools Chief Complaint Consult EORDERS EORDERS COLITIS SCREENING E ORDER EORDERS- LABS AND XRAY-RIGHT KNEE Reason for Visit Loose stools Chief Complaint Admit Date 6 M FU December 01, 2024 1:1 6pm L HIP RX HERE January 28, 2025 12:0 0pm LEFT HIP January 31, 2025 12:4 2pm RM 1 January 31, 2025 1:16 pm Reason for Visit Admit Date Constipation December 01, 2024 1:1 6pm Loose stools December 01, 2024 1:1 6pm Additional Source Comments INFORMATION SOURCE (unrecogn ized section and content) DATE CREATED AUTHOR 06/15/2018 [facility] DATE CREATED AUTHOR AUTHOR'S ORGANIZ ATION 02/04/2019 [facility] DATE CREATED AUTHOR AUTHOR'S ORGANIZ ATION 03/07/2025 [facility] Goals (unrecognized section and content) Goals may be documented in a n alternate sectionGoals may be documented in an alternate sectionGoals may be documented in an alternate sectionGoals may be documented in an alternate sectionGoals may be documented in an alternate sectionGoals may be documented in an alternate sectionGoals may be documented in an alternate sectionGoals may be documented in an alternate sectionGoals may be documented in an alternate sectionGoals may be documented in an alternate sectionGoals may be documented in an alternate sectionGoals may be documented in an alternate sectionGoals may be documented in an alternate sectionGoals may be documented in an alternate sectionGoals may be documented in an alternate sectionGoals may be documented in an alternate section Care Teams (unrecognized sec tion and content) Team Status: Active Member Role Status Dates Dr. Tanvir Shea MD Family Provider Active Dr. Tanvir Shea MD Primary Care Provider Active Team Status: Inactive Member Role Status Dates Dr. Tanvir Shea MD Primary Care Provi mark, Attending Provider, Referring Provider Active Team Status: Inactive Member Role Status Dates Dr. Tanvir Shea MD Primary Care Provider, Attending Provider Active Team Status: Inactive Member Role Status Dates Dr. Tanvir Shea MD Primary Care Provider, Referring Provider Active Dr. Manolo Magallon DO Attending Provider Active Team Status: Inactive Member Role Status Dates Dr. Tanvir Shea MD Primary Care Provider Active Dr. Manolo Magallon DO Attending Provider, Referring Provider Active Team Status: Active Member Role Status Dates Dr. Tanvir Shea MD Primary Care Provider Active Dr. Manolo Magallon DO Attending Provider, Referring Provider Active Team Status: Active Member Role Status Dates Dr. Tanvir Shea MD Primary Care Provider Active Dr. Balwinder Mancini MD Attending Provider, Referri ng Provider Active Team Status: Inactive Member Role Status Dates Dr. Tanvir Shea MD Primary Care Provider Active Dr. Balwinder Mancini MD Attending Provider, Referri ng Provider Active Team Status: Inactive Member Role Status Dates Dr. Tanvir Shea MD Primary Care Provider Active Maria D Cotter DO Attending Provider, Referring Pr ovider Active Team Status: Active Member Role Status Dates Sofy Barron MD Primary Care Provider Active Team Status: Inactive Member Role Status Dates Sofy Barron MD Primary Care Provider Active St art: December 01, 2024 End: December 01, 2024 Sofy Barron MD Referring Provider Active Start : December 01, 2024 End: December 01, 2024 Dr. Manolo Magallon DO Attending Provider Active Start: December 01, 2024 End: December 01, 2024 Team Status: Active Member Role Status Dates Sofy Barron MD Primary Care Provider Active St art: January 28, 2025 Sofy Barron MD Attending Provider Active Start : January 28, 2025 Sofy Barron MD Referring Provider Active Start : January 28, 2025 Team Status: Active Member Role Status Andre Barron MD Primary Care Provider Active St art: January 31, 2025 Sofy Barron MD Referring Provider Active Start : January 31, 2025 Dr. Cy Ramachandran DO Attending Provider Active Start: January 31, 2025 Team Status: Inactive Member Role Status Andre Barron MD Primary Care Provider Active St art: January 31, 2025 End: January 31, 2025 Dr. Samson Diamond MD Attending Provider Active S tart: January 31, 2025 End: January 31, 2025 Team Status: Inactive Member Role Status Andre Barron MD Primary Care Provider Active St art: January 31, 2025 End: January 31, 2025 Sofy Barron MD Referring Provider Active Start : January 31, 2025 End: January 31, 2025 Dr. Cy Ramachandran DO Attending Provider Active Start: January 31, 2025 End: January 31, 2025 FOR RECORDS PERTAINING TO PATIENTS WHO ARE OR HAVE BEEN ENROLLED IN A CHEMICAL DEPENDENCY/SUBSTANCEABUSE PROGRAM, SOME INFORMATION MAY BE OMITTED. This clinical summary was aggregated from multiple sources. Caution should be exercised in using it in the provision of clinical care. This summary normalizes information from multiple sources, and as a consequence, information in this document may materially change the coding, format and clinical context of patient data. In addition, data may be omitted in some cases. CLINICAL DECISIONS SHOULD BE BASED ON THE PRIMARY CLINICAL RECORDS. [facility] [email or web address] provides no warranty or guarantee of the accuracy or completeness of information in this document.
== END | disposition home or self-care (01) ==
LOC: MRI 15:17
PROVIDERS: PCP Family Medicine; Referring Provider Orthopaedic Surgery; Visit Provider Orthopaedic Surgery
DX: M25.552 Pain in left hip (principal)
CPT/HCPCS: 73721

== ENCOUNTER 2025-03-17 13:28 | Outpatient (CLI) | payer MEDICARE, MEDICAID, SELFPAY ==
[2025-03-17 18:28] LABS: Hematocrit 37.8 % (37-47); Hemoglobin 12.0 g/dL (12.0-15.0); Mean Corp Hgb Conc 31.7 g/dL (32-36); Mean Corpuscular Volume 87.9 fL (81-99); Mean Platelet Vol. 9.5 fl (6.2-12.0); Platelet Count 423 K/mm3 (150-450); RBC Distribution Width CV 15.1 % (11.6-14.6); RBC Distribution Width SD 48.2 fl (35.1-43.9); Red Blood Count 4.30 M/mm3 (4.2-5.4); White Blood Count 10.5 K/mm3 (4.4-11.0)
[2025-03-17 18:50] LABS: Cholesterol 259 mg/dL (<=200); Low Density Lipoprotein Calc. 149 mg/dL; Triglycerides 94 mg/dL; Very Low Density Lipoprotein 19 mg/dL (5-40); Vitamin D,25 Hydroxy 46.8 ng/mL (30-100); cholesterol:hdl ratio screen 2.85
== END 2025-03-17 23:59 | disposition home or self-care (01) ==
PROVIDERS: PCP Family Medicine; Referring Provider Family Medicine; Visit Provider Family Medicine
DX: E03.9 Hypothyroidism, unspecified (principal); E55.9 Vitamin D deficiency, unspecified
CPT/HCPCS: 80061; 82306; 84439; 84443; 85027

== ENCOUNTER → 2025-03-31 | Outpatient (CLI) | payer MEDICARE, MEDICAID, SELFPAY ==
--- NOTE | 2025-03-31 10:30 | LES_PTH ---
PATIENT: DEEPAK HOLLAND LOC: [facility] U#:[id number] AGE/SX: 74/F ROOM: RE03/31/[address]: Sofy Barron MD : 1950 BED: DIS: 03/31/2025 SPEC #: [id number] RECD: 03/31/25 15:16 STATUS: KAYLEEN ESTEPHANIE #: [id number] WALTER: 03/31/25 10:[address]: Sofy Barron DEPT: SURGICAL PATHOLOGY RECD BY: Amish Burdick Tissues: A - Skin of leg, NOS Procedures: Surgery Specimen Level IV HEADER OPERATION: Skin biopsy PRE-OP DIAGNOSIS: Skin lump of left thigh TISSUE SUBMITTED: A- Left thigh MICROSCOPIC DIAGNOSIS A. Skin, left thigh, punch biopsy - Solar lentigo - see note. Note: A mass lesion is not appreciated. Deeper sections examined. Additional pathology deep to the biopsy cannot be excluded; clinical correlation necessary. MICROSCOPIC DESCRIPTION Slides are reviewed. GROSS DESCRIPTION A. Received in formalin labeled with the patient's name and date of is a 0.4 x 0.3 cm brown skin punch excised to a maximum depth of 0.2 cm. The resection margin is inked green and the specimen is entirely submitted in 1 cassette. FL 04/01/2025 CPT:17768
== END | disposition home or self-care (01) ==
PROVIDERS: PCP Family Medicine; Visit Provider Family Medicine
DX: R22.2 Localized swelling, mass and lump, trunk (principal)
CPT/HCPCS: 88305

== ENCOUNTER → 2025-04-20 | Outpatient (CLI) | payer MEDICARE, MEDICAID, SELFPAY ==
--- NOTE | 2025-04-20 12:38 | ECHOD_ITS ---
Reason For Study Reason For Study: Obstructive Sleep Apnea Procedure This was a 2D Doppler, Color Flow transthoracic echocardiogram. Exam performed in department. Left Ventricle Normal LV size. Moderate concentric left ventricular hypertrophy. The left ventricular ejection fraction is 65 %. Stage 1 diastolic dysfunction. Right Ventricle Normal right ventricle. Atria The left and right atria are normal. Mitral Valve Trivial mitral valve insufficiency. Tricuspid Valve Mild to moderate (1-2+) tricuspid valve insufficiency. Normal pulmonary artery pressure. Aortic Valve Trisinus/trileaflet aortic valve. Pulmonic Valve The pulmonic valve is not well visualized. Great Vessels Normal sized aortic root. Pericardium/Pleural No pericardial effusion. MMode/2D Measurements & Calculations LVIDd: 4.2 cm IVSd: 1.4 cm Ao root diam: 3.3 cm LVIDs: 2.7 cm LVPWd: 1.1 cm RVDd: 3.6 cm FS: 35.9 % asc Aorta Diam: 3.3 cm LAV(MOD-bp): 49.6 ml LVAd ap4: 27.0 cm2 LAV(MOD-bp) Indexed: 26.9 ml/m2 LVLd ap4: 7.9 cm LAV(MOD-sp2): 44.2 ml EDV(MOD-sp4): 79.1 ml LAV(MOD-sp4): 41.6 ml EDV(sp4-el): 77.9 ml LVAs ap4: 12.8 cm2 LVLs ap4: 6.0 cm ESV(MOD-sp4): 22.7 ml ESV(sp4-el): 23.1 ml EF(MOD-sp4): 71.3 % EF(sp4-el): 70.4 % LVAd ap2: 21.3 cm2 SV(MOD-sp4): 56.4 ml SV(MOD-sp2): 38.1 ml LVLd ap2: 7.2 cm SI(MOD-sp4): 30.6 ml/m2 SI(MOD-sp2): 20.7 ml/m2 EDV(MOD-sp2): 54.5 ml EDV(sp2-el): 53.8 ml LVAs ap2: 10.3 cm2 LVLs ap2: 5.6 cm ESV(MOD-sp2): 16.4 ml ESV(sp2-el): 16.1 ml EF(MOD-sp2): 69.9 % SV(sp4-el): 54.8 ml LA dimension(2D): 3.7 cm LA A4 area: 14.5 cm2 TAPSE: 2.1 cm Time Measurements MV dec time: 0.28 sec Doppler Measurements & Calculations MV E max chico: 56.4 cm/sec Lat Peak E' [place]ico: 5.4 cm/sec Med Peak E' Chico: 5.3 cm/sec MV A max chico: 88.5 cm/sec E/E' lat: 10.4 E/E' med: 10.6 MV E/A: 0.64 MV V2 max: 107.0 cm/sec MV P1/2t max chico: 75.7 cm/sec Ao V2 max: 150.5 cm/sec MV max P.6 mmHg MV P1/2t: 84.0 msec Ao max P.1 mmHg MV V2 mean: 46.2 cm/sec MV dec slope: 264.0 cm/sec2 Ao V2 mean: 96.1 cm/sec MV mean P.1 mmHg Ao mean P.3 mmHg MV V2 VTI: 28.4 cm MVA(P1/2t): 2.6 cm2 Ao V2 VTI: 32.7 cm AV (velocity ratio): 0.89 LV V1 max: 129.7 cm/sec PA V2 max: 152.6 cm/sec TR max chico: 258.3 cm/sec LV V1 max P.7 mmHg PA V2 mean: 100.9 cm/sec TR max P.7 mmHg LV V1 mean P.6 mmHg LV V1 mean: 90.0 cm/sec LV V1 VTI: 29.2 cm ECHO/Echo Complete Interpretation Summary Moderate concentric left ventricular hypertrophy. The left ventricular ejection fraction is 65 %. Stage 1 diastolic dysfunction. Mild to moderate (1-2+) tricuspid valve insufficiency. Ordering Physician: Jony Little V Referring Physician: Sofy Barron Performed By: Diann Lugo RDCS, RVT
--- NOTE | 2025-04-20 13:40 | CT_ITS ---
PROCEDURE: LOW DOSE CT LUNG SCREENING 04/20/2025 REASON FOR EXAM: SCREENING Patient has smoked 1 pack per day for 4 years. History of pulmonary hypertension. TECHNIQUE: Procedure Code: CTLUNGSCREEN Modality: CT Procedure: LOW DOSE CT LUNG SCREENING Coronal and Sagittal reconstruction series were provided. One or more dose reduction techniques were used (e.g., Automated exposure control, adjustment of the mA and/or kV according to patient size, use of iterative reconstruction technique). REFERENCE LINK: [facility] Lung-RADS RADIATION DOSE SUMMARY: CTDlvol: 3.02 mGy DLP: 96.66 mGycm COMPARISON: None FINDINGS: PULMONARY NODULES: (Only nodules >3mm are reported) Nodules described below are on series 1 unless otherwise specified. Pulmonary Nodules: No suspicious pulmonary nodules are seen. Hardware:None Lymph Nodes:None Heart and Vasculature:Heart is nonenlarged.Atherosclerotic calcifications of the thoracic aorta. Thoracic aorta and pulmonary arteries have normal contours; noncontrast technique limits evaluation. Coronary Artery Calcifications: Present Lungs and Airways: Mild linear scarring at the lung bases. Calcified granuloma in the left lower lobe. Focal scarring in the peripheral aspect of the left lower lobe. Pleura:No pleural effusion. Upper Abdomen:Unremarkable Bones:Degenerative changes of the thoracic spine. CT/Low Dose CT Lung Screening IMPRESSION: No suspicious nodules are seen. Coronary artery calcification (CAC) is is present Lung-RADS Category: 2 BENIGN (BASED ON IMAGING FEATURES OR INDOLENT BEHAVIOR). RECOMMEND 12-MONTH SCREENING LDCT. Other Significant Findings: Reading Location: [place] [id number]
== END | disposition home or self-care (01) ==
LOC: CVS 12:33
PROVIDERS: PCP Family Medicine; Referring Provider Internal Medicine Pulmonary Disease; Visit Provider Internal Medicine Pulmonary Disease
DX: Z12.2 Encounter for screening for malignant neoplasm of respiratory organs (principal); I27.20 Pulmonary hypertension, unspecified; Z87.891 Personal history of nicotine dependence; G47.33 Obstructive sleep apnea (adult) (pediatric)
CPT/HCPCS: 71271; 93306

== ENCOUNTER 2025-06-24 16:42 | Emergency (ER) | payer MEDICARE, MEDICAID, SELFPAY ==
[2025-06-24 16:42] VITALS: BP 141/79; PULSE 92; RESP 18; TEMP 36.4; O2SAT 99; BMI 35.0
--- NOTE | 2025-06-24 16:46 | RAD_ITS ---
PROCEDURE: LEFT ELBOW MIN 3 VIEWS 06/24/2025 REASON FOR EXAM: FALL TECHNIQUE: Procedure Code: RADEL Modality: DX Procedure: ELBOW MIN 3 VIEWS Laterality: Left COMPARISON: None. FINDINGS: Acute displaced fracture of the olecranon process with proximally 19 mm dorsal distraction of the fracture fragment. No additional acute fracture or dislocation appreciated. Probable mild elbow joint effusion and prominent soft tissue swelling/contusional changes at the dorsal aspect of the elbow. RAD/Elbow min 3 Views IMPRESSION: Dorsally displaced fracture of the olecranon process. Posterior soft tissue sw elling. Reading Location: [id number]
--- NOTE | 2025-06-24 16:50 | RAD_ITS ---
PROCEDURE: LEFT HAND MIN 3 VIEWS 06/24/2025 REASON FOR EXAM: FALL TECHNIQUE: Procedure Code: SOLIS Modality: DX Procedure: HAND MIN 3 VIEWS Laterality: Left COMPARISON: 03/12/2023 FINDINGS: No acute fracture or dislocation. Alignment is anatomic. Mild diffuse interphalangeal joint space narrowing. Qualitative osteopenia. No appreciable soft tissue swelling or radiopaque foreign body. RAD/Hand Min 3 Views IMPRESSION: No acute fracture or dislocation. Reading Location: [id number]
[2025-06-24] MEDS: HYDROcodone Bitartrate/Apap 5/325 Tablet PO (17:49)
--- NOTE | 2025-06-24 18:04 | ED.VIS.FALL ---
HPI HPI - Fall History of Present Illness Chief Complaint: Fall Narrative Narrative: Chief complaint and HPI: 74-year-old female with past medical history of polymyalgia rheumatica, osteopenia, arthritis, CKD hypothyroidism presents for evaluation of left elbow and hand pain after mechanical fall. Patient states she was getting out of her car when her cane slipped and she tripped and fell on the asphalt. She landed on her left upper extremity. Has bruising and swelling to the left elbow and hand. Denies any wrist pain. Denies any numbness or tingling. Denies any shoulder pain. Did not hit her head. Not on blood thinners. No LOC. Denies pain elsewhere. Review of systems: See HPI Medications: As listed on the chart Allergies: As listed on the chart PFSH: Per chart Vital signs: As listed on the chart. Reviewed. Physical exam: Gen: A&O x3, NAD Head: Normocephalic, atraumatic Eyes: No sclera icterus, conjunctiva clear ENT: Moist mucous membranes, atraumatic Neck: Trachea midline, full range of motion CV: Regular rate Resp: Nonlabored respirations Musc: Left upper extremity tender to palpation over the elbow as well as dorsum of the hand-limited range of motion secondary to pain-both areas have swelling and ecchymosis, shoulder/wrist/forearm otherwise nontender, compartments soft, radial pulse +2, good capillary refill, sensation intact, no snuffbox tenderness, full range of motion of other extremities Skin: Warm, dry, skin tears to the dorsum of the left hand and elbow Psych: Cooperative, appropriate mood and affect [facility] History Sjogrens syndrome Polymyalgia rheumatica Essential tremor Sleep apnea Chronic diarrhea Vision problem GERD (gastroesophageal reflux disease) Pneumonia Osteopenia Heart murmur IBS (irritable bowel syndrome) High triglycerides High cholesterol Chronic headaches GI problem COPD (chronic obstructive pulmonary disease) blood transfusion Back problem Arthritis Anxiety and depression Anemia Seasonal allergies Alcohol abuse Thyroid disease Lung disease Kidney disease Schizoaffective disorder Schizophrenia Home Medications ?Medication ?Instructions ?Recorded ?Last Taken ?Type budesonide-formoterol HFA 80 2 puff inhalation BID BREATHING 10/13/14 06/25/17 History mcg-4.5 mcg/actuation aerosol inhaler clonazepam 0.5 mg tablet 0.5 mg PO TID PRN PRN Anxiety 10/13/14 06/25/17 History topiramate 25 mg tablet 100 mg PO BID YAP 01/10/17 06/24/17 History trazodone 300 mg tablet 300 mg PO QHS SLEEP 06/25/17 06/24/17 History aripiprazole 30 mg tablet (Abilify) 20 mg PO QDAY 12/15/17 Unknown History cevimeline 30 mg capsule 1 cap PO TID 12/15/17 Unknown History famotidine 40 mg tablet 40 mg PO QHS 12/15/17 Unknown History lamotrigine 200 mg tablet 150 mg PO BID 12/15/17 Unknown History levothyroxine 50 mcg capsule 88 mcg PO QDAY 12/15/17 Unknown History primidone 50 mg tablet 50 mg PO QHS 12/15/17 Unknown History vilazodone 40 mg tablet (Viibryd) 40 mg PO QDAY 12/15/17 Unknown History aripiprazole 5 mg tablet 5 mg PO DAILY 05/13/18 Unknown History colestipol 1 gram tablet 1 g PO BID 30 days #60 tabs 10/04/24 Unknown Rx mirtazapine 7.5 mg tablet 11.25 mg PO QDAY 12/01/24 Unknown History aspirin 81 mg tablet 81 mg PO QDAY 06/03/25 Unknown History budesonide 3 mg 9 mg (3 x 3 mg) PO QDAY 1 month 06/03/25 Unknown Rx capsule,delayed,extended release #90 ea sucralfate 1 gram tablet (Carafate) 1 g PO BID #60 tabs 06/03/25 Unknown Rx ondansetron 4 mg disintegrating 4 mg PO Q8H PRN PRN Nausea #10 tabs 06/24/25 Unknown Rx tablet oxycodone 5 mg capsule 5 mg PO Q6H PRN pain 3 days #12 06/24/25 Unknown Rx caps Allergy/AdvReac Type Severity Reaction Status Date / Time nabumetone (From Relafen) Allergy Rash Verified 06/24/25 16:43 lorazepam (From Ativan) AdvReac Other Verified 06/24/25 16:43 tadalafil (From Adcirca) AdvReac Other Verified 06/24/25 16:43 Family History Unknown Bleeding disorder Cancer Heart disease High cholesterol Skin cancer Surgical History D & C tuabl ligation History of cholecystectomy Social History Smoking Status: Current every day smoker tobacco type: cigarettes alcohol intake: former substance use type: does not use EXAM Physical Exam Const Vital Signs: 06/24/25 16:42 06/24/25 17:03 06/24/25 20:33 Temperature 97.5 F L Temperature Source Temporal Pulse Rate 92 64 Respiratory Rate 18 16 Respiratory Effort Normal Blood Pressure 141/79 H 148/64 H Blood Pressure Mean 99 92 Pulse Ox 99 97 Oxygen Delivery Method Room Air Room Air 06/24/25 20:44 Temperature 97.5 F L Temperature Source Pulse Rate 64 Respiratory Rate 16 Respiratory Effort Blood Pressure 148/64 H Blood Pressure Mean 92 Pulse Ox 97 Oxygen Delivery Method MDM MDM MDM Narrative Medical decision making narrative: 74-year-old female with past medical history of polymyalgia rheumatica, osteopenia, arthritis, CKD hypothyroidism presents for evaluation of left elbow and hand pain after mechanical fall. Patient states she was getting out of her car when her cane slipped and she tripped and fell on the asphalt. She landed on her left upper extremity. Has bruising and swelling to the left elbow and hand. See physical exam findings. Differential diagnosis includes but is not limited to fracture, sprain,contusion. Romulus ordered for pain. Skin tears will be cleaned and bacitracin applied. X-ray of the hand and elbow obtained. X-ray of the hand was personally viewed interpreted by me, ED physician. No fracture or dislocation. Radiology in agreement. X-ray of the elbow was personally reviewed interpreted by me, ED physician. Displaced fracture of the olecranon. Dr. Noguera, with orthopedics was consulted and patient was discussed. Recommended posterior splint with flexion of only 30 degrees, patient to be mostly in extension. Sling for comfort. Follow-up in his office. Will need repaired at a later date. Patient tolerated splint placement. She is right-handed. Prescriptions for oxycodone written. Patient stable to discharge home. Splint placement Indication: Left olecranon fracture Consent: Risks, benefits, and alternatives discussed with patient and consent obtained Procedure: Immobilization was performed using arm sleeve, Webril, Ortho-Glass, and Pepe bandages. Posterior splint in 30 degrees flexion was applied. The extremity's neurovascular status was re-checked and was unchanged from the pre-procedure exam. The patient tolerated the procedure without complications. Impression: 1. Left olecranon fracture, status post splint placement 2. Left hand contusion 3. Skin tears and abrasion Radiography Diagnostic Testing: Clinical Impression(s) from Imaging Studies Elbow X-Ray 06/24/25 16:46 IMPRESSION: Dorsally displaced fracture of the olecranon process. Posterior soft tissue swelling. Reading Location: [facility] Hand X-Ray 06/24/25 16:50 IMPRESSION: No acute fracture or dislocation. Reading Location: [facility] Discharge Plan Triage Chief Complaint: Fall ED Provider: Eugene Anne Dx/Rx/DC Orders Clinical Impression: Closed fracture of left olecranon process Instructions: ED Elbow Fracture, ED Fracture, Upper Extremity, ED Splints and Casts Prescriptions: New ondansetron 4 mg tablet,disintegrating 4 mg PO Q8H PRN PRN (Reason: Nausea) Qty: 10 0RF oxycodone 5 mg capsule 5 mg PO Q6H PRN (Reason: pain) 3 Days Qty: 12 0RF No Action aripiprazole [Abilify] 30 mg tablet 20 mg PO QDAY cevimeline 30 mg capsule 1 cap PO TID lamotrigine 200 mg tablet 150 mg PO BID levothyroxine 50 mcg capsule 88 mcg PO QDAY primidone 50 mg tablet 50 mg PO QHS vilazodone [Viibryd] 40 mg tablet 40 mg PO QDAY famotidine 40 mg tablet 40 mg PO QHS mirtazapine 7.5 mg tablet 11.25 mg PO QDAY aspirin 81 mg tablet 81 mg PO QDAY sucralfate [Carafate] 1 gram tablet 1 g PO BID Qty: 60 3RF budesonide 3 mg capsule,delayed,extend.release 9 mg PO QDAY 30 Days Qty: 90 3RF budesonide-formoterol 1 INHALER inhaler 2 puff INHALATION BID clonazepam 0.5 MG tablet 0.5 mg PO TID PRN PRN (Reason: Anxiety) Patient Comments: ANTI ANXIETY MEDICATION topiramate 25 MG tablet 100 mg PO BID trazodone 300 MG tablet 300 mg PO QHS Patient Comments: SLEEP/MENTAL HEALTH aripiprazole 5 MG tablet 5 mg PO DAILY colestipol 1 gram tablet 1 g PO BID 30 Days Qty: 60 11RF Primary Care Provider: Sofy Barron Referrals: Sofy Barron MD [Primary Care Provider, Family Practice] - 3-5 Days Mode Noguera DO [Med Staff - Active Staff, Orthopedics] - 3-5 Days Activity Restrictions/Additional Instructions: Sling as needed for comfort. Tylenol as needed for pain. Narcotic for severe pain. Narcotics can cause constipation recommend daily [id number] MiraLAX. Also can increase falls, confusion, weakness. Follow-up with orthopedic physician. Splint needs to remain on at all times. Cannot get wet. You are nonweightbearing to the left upper extremity. Print Language: Lao Disposition Disposition: Home, Self Care
--- OUTSIDE RECORDS SUMMARY | 2025-06-24 18:11 | XMS RPT_ITS | CCD ---
Author Organization [facility] CliniSyn[facility] Care Team Providers Care Demurrage Agent Name Role Phone Dr. Tanvir Shea Chi Primary Care Provider Dr. Tanvir Shea Chi Referring Provider Dr. Manolo Magallon Attending Provider Beatrice LUCAS, Sofy Primary Care Provider Sofy Barron MD Referring Provider Dr. Manolo Magallon DO Attending Provider Sofy Barron MD Attending Provider Dr. Cy Ramachandran DO Attending Provider Dr. Samson Diamond MD Attending Provider Dr. Cy Ramachandran DO Referring Provider Sofy Barron MD Primary Care Provider Sofy Barron MD Referring Provider Sofy Barron MD Primary Care Physician Sofy Barron MD Attending Physician Dr. Cy Ramachandran DO Attending Physician Dr. Samson Diamond MD Attending Physician Dr. Jony Little MD, V Attending Physician Dr. Jony Little MD, V Referring Provider Dr. Montse Dailey MD Attending Physician Sofy Barron MD Primary Care Physician Dr. Cy Ramachandran DO Attending Physician Sofy Barron MD Attending Physician Beatrice LUCAS, Sofy Referring Provider [phone] Manolo GOMEZ Attending Physician Cy Ramachandran Attending Unavailable Beatrice, Chalon Referring Unavailable Beatrice, Chalon Primary Care Unavailable LoboSamson karimi Attending Unavailable Beatrice, Chalon Primary Care Unavailable Asim, Montse Attending Unavailable Beatrice, Chalon Primary Care Unavailable Beatrice, Chalon Attending Unavailable Beatrice, Chalon Referring Unavailable Beatrice, Chalon Primary Care Unavailable Beatrice, Chalon Attending Unavailable Beatrice, Chalon Referring Unavailable Beatrice, Chalon Primary Care Unavailable Borruso, Cy Attending Unavailable Borruso, Cy Referring Unavailable Beatrice, Chalon Primary Care Unavailable Beatrice, Chalon Attending Unavailable Beatrice, Chalon Referring Unavailable Beatrice, Chalon Primary Care Unavailable Sibilia, Jony V Attending Unavailable Sibilia, Jony V Referring Unavailable Beatrice, Chalon Primary Care Unavailable Beatrice, Chalon Attending Unavailable Beatrice, Chalon Primary Care Unavailable FriendManolo Attending Unavailable Beatrice, Chalon Referring Unavailable Beatrice, Chalon Primary Care Unavailable FriendManolo Attending Unavailable Beatrice, Chalon Referring Unavailable Beatrice, Chalon Primary Care Unavailable Allergies Allergy Classification Reported Allergen(s) Allergy Type Date of Onset Reaction(s) Facility (20 sources) LORazepam Drug Allergy 05-12-2018 Other [facility] Comment on above: YAP (20 sources) nabumetone Drug Allergy 05-12-2018 Rash [facility] (20 sources) tadalafil Drug Allergy 05-12-2018 Other [facility] Comment on above: blurred vision (1 source) LORazepam Drug Allergy 01-31-2025 [facility] Repository (1 source) nabumetone Drug Allergy 01-31-2025 [facility] (1 source) tadalafil Drug Allergy 01-31-2025 [facility] Medications Current Medications Medication Drug Class(es) Dates Sig (Normalized) Sig (Original) ARIPiprazole 5 mg oral tablet (20 sources) Atypical Antipsychotic Start: 05-13-2018 take 1 tablet by mouth once daily Aripiprazole 5 MG tablet Active 5 mg PO DAILY May 13, 2018 12:00am Complies with drug therapy Start: 12-15-2017 Aripiprazole ( Abilify) 30 mg tablet Active 20 mg PO daily December 15, 2017 12:00am Complies with drug therapy Start: 01-10-2017 End: 12-15-2017 take 1 tablet [...] 16, 2013 12:00am July 23, 2013 7:48pm aspirin 81 mg oral tablet (20 sources) Platelet Aggregation Inhibitor, Nonsteroidal Anti-inflammatory Drug Start: 06-03-2025 take 1 tablet by mouth once daily Aspirin 81 mg tablet Active 81 mg PO daily June 03, 2025 12:00am Complies with drug therapy Start: 06-16-2013 End: 07-23-2013 take 1 tablet by mouth once daily Aspirin 81 MG Tab.Chew Discontinued 81 mg PO DAILY@0800 June 16, 2013 12:00am July 23, 2013 7:48pm budesonide 3 mg delayed release oral capsule (1 source) Corticosteroid Start: 06-03-2025 take 3 capsules by mouth once daily Budesonide 3 mg capsule,delayed,extend.release Active 9 mg PO daily 90 30 3 June 03, 2025 12:00am Complies with drug therapy Budesonide-Fo rmoterol (20 sources) Corticosteroid, beta2-Adrenergic Agonist Start: 10-13-2014 take 1 puff(s) by inhalation twice daily Budesonide-Formoterol Active 2 PUFF INHALATION TWICE A DAY October 13, 2014 5:23pm Start: 10-13-2014 Budesonide-For moterol 1 INHALER inhaler Active 2 NMA INHALATION TWICE A DAY October 13, 2014 1:00am BREATHING Complies with drug therapy Start: 10-13-2014 Start: 10-13-2014 Budesonide-For moterol 1 INHALER inhaler Active 2 NMA INHALATION TWICE A DAY October 13, 2014 1:00am BREATHING Start: 10-13-2014 Budesonide-For moterol 1 INHALER inhaler [...] 2014 1:00am cevimeline 30 mg oral capsule (20 sources) Cholinergic Receptor Agonist Start: 12-15-2017 take 1 capsule by mouth three times daily Cevimeline 30 mg capsule Active 1 NMA PO THREE TIMES A DAY December 15, 2017 12:00am Complies with drug therapy clonazePAM 0.5 mg oral tablet (20 sources) Benzodiazepine Start: 10-13-2014 take 1 tablet by mouth three times daily as needed for anxiety Clonazepam 0.5 MG tablet Active 0.5 mg PO 3 TIMES DAILY NEEDED as needed for Anxiety October 13, 2014 5:38pm Complies with drug therapy Start: 06-16-2013 End: 07-23-2013 take 1 tablet by mouth every eight hours as needed for anxiety Clonazepam 0.5 MG tablet Discontinued 0.5 mg PO EVERY 8 HOURS NEEDED as needed for Anxiety June 16, 2013 12:00am July 23, 2013 7:48pm famotidine 40 mg oral tablet (20 sources) Histamine-2 Receptor Antagonist Start: 12-15-2017 take 1 tablet by mouth at bedtime Famotidine 40 mg tablet Active 40 mg PO AT BEDTIME December 15, 2017 12:00am Complies with drug therapy lamoTRIgine 200 mg oral tablet (20 sources) Mood Stabilizer, Anti-epileptic Agent Start: 12-15-2017 Lamotrigine 200 mg tablet Active 150 mg PO TWICE A DAY December 15, 2017 12:00am Complies with drug therapy Start: 12-15-2017 take 150 mg by mouth twice daily Lamotrigine Active 150 MG PO TWICE A DAY December 15, 2017 12:00am Start: 11-20-2016 End: 12-15-2017 Lamotrigine 100 MG tablet,disintegrating Discontinued 150 mg PO TWICE A DAY November 20, 2016 2:02pm December 15, 2017 9:54am SEIZURES Start: 11-20-2016 End: 12-15-2017 take 150 mg by mouth twice daily Lamotrigine Discontinued 150 MG PO TWICE A DAY November 20, 2016 2:02pm December 15, 2017 9:54am Start: 06-16-2013 End: 11-20-2016 take 1 tablet by mouth twice daily Lamotrigine (Lamictal Odt) 100 MG Tab.Rapdis Discontinued 100 mg PO TWICE A DAY 1 July 23, 2013 7:47pm November 20, 2016 2:02pm levothyroxine sodium 0.05 mg oral capsule (20 sources) l-Thyroxine Start: 12-15-2017 Levothyroxine 50 mcg capsule Active 88 ug PO daily December 15, 2017 12:00am Complies with drug therapy Start: 06-16-2013 End: 12-15-2017 take 1 tablet by mouth once daily Levothyroxine 100 MCG tablet Discontinued 100 ug PO DAILY June 25, 2017 7:00pm December 15, 2017 9:54am THYROID mirtazapine 7.5 mg oral tablet (8 sources) Start: 12-01-2024 Mirtazapine 7. 5 mg tablet Active 11.25 mg PO daily December 01, 2024 12:00am Complies with drug therapy primidone 50 mg oral tablet (20 sources) Anti-epileptic Agent Start: 12-15-2017 take 1 tablet by mouth at bedtime Primidone 50 mg tablet Active 50 mg PO AT BEDTIME December 15, 2017 12:00am Complies with drug therapy sucralfate 1000 mg oral tablet (1 source) Aluminum Complex Start: 06-03-2025 take 1 tablet by mouth twice daily Sucralfate (Carafate) 1 gram tablet Active 1 g PO TWICE A DAY 60 June 03, 2025 12:00am Complies with drug therapy topiramate 25 mg oral tablet (20 sources) Start: 01-10-2017 take 4 tablets by mouth twice daily Topiramate 25 MG tablet Active 100 mg PO TWICE A DAY January 10, 2017 12:00am YAP Complies with drug therapy Start: 01-10-2017 take 100 mg by mouth twice daily Topiramate Active 100 MG PO TWICE A DAY January 10, 2017 12:00am vilazodone hydrochloride 40 mg oral tablet (20 sources) Start: 12-15-2017 take 1 tablet by mouth once daily Vilazodone (Viibryd) 40 mg tablet Active 40 mg PO daily December 15, 2017 12:00am Complies with drug therapy Completed/Discontinued Medications Medication Drug Class(es) Dates Sig (Normalized) Sig (Original) azithromycin 250 mg oral tablet (20 sources) Macrolide Antimicrobial Start: 06-27-2017 End: 12-15-2017 take 2 tablets by mouth every twenty-four hours Azithromycin 250 MG tablet Discontinued 500 mg PO EVERY 24 HOURS 3 0 June 27, 2017 1:00am December 15, 2017 9:51am Start: 06-27-2017 End: 12-15-2017 take 500 mg by mouth every twenty-four hours Azithromycin Discontinued 500 MG PO EVERY 24 HOURS 3 June 27, 2017 1:00am December 15, 2017 9:51am 24 hr buPROPion hydrochloride 300 mg extended release oral tablet (20 sources) Aminoketone Start: 06-16-2013 End: 07-23-2013 take 1 tablet by mouth once daily Bupropion Hcl 300 MG Tablet.Xl Discontinued 300 mg PO DAILY June 16, 2013 12:00am July 23, 2013 7:48pm cefuroxime 250 mg oral tablet (20 sources) Cephalosporin Antibacterial Start: 07-23-2013 End: 08-02-2013 take 1 tablet by mouth twice daily Cefuroxime Axetil 250 MG tablet Discontinued 250 mg PO TWICE A DAY 10 July 23, 2013 1:00am August 02, 2013 1:16pm cetirizine hydrochloride 10 mg oral tablet (20 sources) Histamine-1 Receptor Antagonist Start: 06-16-2013 End: 12-15-2017 take 1 tablet by mouth once daily Cetirizine 10 MG tablet Discontinued 10 mg PO DAILY June 25, 2017 7:00pm December 15, 2017 9:52am ALLERGIES cholestyramine resin 4000 mg powder for oral suspension (20 sources) Bile Acid Sequestrant Start: 12-15-2017 End: 03-05-2023 Cholestyramine (With Sugar) (Questran) 4 gram powder Discontinued 4 g PO TWICE A DAY December 15, 2017 12:00am March 05, 2023 12:52pm ciprofloxacin 3 mg/ml ophthalmic solution (20 sources) Quinolone Antimicrobial Start: 11-08-2017 End: 11-13-2017 Ciprofloxacin Hcl 0.3 % drops Discontinued 2 NMA OPHTHALMIC Q4H 2.5 5 0 November 08, 2017 12:00am November 12, 2017 12:00am November 13, 2017 12:06am administer while awake citalopram 20 mg oral tablet (20 sources) Serotonin Reuptake Inhibitor Start: 06-16-2013 End: 07-23-2013 take 1 tablet by mouth once daily Citalopram 20 MG tablet Discontinued 20 mg PO DAILY June 16, 2013 12:00am July 23, 2013 7:48pm colestipol hydrochloride 1000 mg oral tablet (20 sources) Bile Acid Sequestrant Start: 03-05-2023 End: 10-04-2024 Colestipol 1 gram tablet Discontinued 1 g PO TWICE A DAY 60 30 11 May 09, 2023 7:09am October 04, 2024 3:30pm diclofenac sodium 75 mg delayed release oral tablet (20 sources) Nonsteroidal Anti-inflammatory Drug Start: 10-13-2014 End: 12-15-2017 take 1 tablet by mouth twice daily at mealtime Diclofenac Sodium 75 MG tablet Discontinued 75 mg PO TWICE DAILY WITH MEALS October 13, 2014 1:00am December 15, 2017 9:53am diphenhydrAMINE hydrochloride 25 mg oral capsule (20 sources) Histamine-1 Receptor Antagonist Start: 01-10-2017 End: [...] 2017 9:53am fenofibrate 145 mg oral tablet (20 sources) Peroxisome Proliferator Receptor alpha Agonist Start: 06-16-2013 End: 12-15-2017 take 1 tablet by mouth at bedtime Fenofibrate Nanocrystallized 145 MG tablet Discontinued 145 mg PO AT BEDTIME June 16, 2013 12:00am December 15, 2017 9:54am CHOLESTEROL LOWERING ferrous sulfate 325 mg oral tablet (20 sources) Start: 06-16-2013 End: 07-28-2013 take 1 tablet by mouth once daily Ferrous Sulfate 325 MG tablet Discontinued 325 mg PO DAILY 1 0 July 23, 2013 7:47pm July 28, 2013 3:43am fluticasone propionate 0.05 mg/actuat metered dose nasal spray (20 sources) Corticosteroid Start: 06-16-2013 End: 07-18-2013 Fluticasone Propionate 1 SPRAY Nasal.Sry Discontinued 2 NMA NASAL DAILY June 16, 2013 12:00am July 18, 2013 11:36pm Start: 06-16-2013 End: 07-18-2013 Fluticasone Propionate Disco ntinued 2 SPRAY NASAL DAILY June 16, 2013 12:00am July 18, 2013 11:36pm magnesium oxide 400 mg oral tablet (20 sources) Start: 01-10-2017 End: 06-03-2025 take 1 tablet by mouth once daily Magnesium Oxide 400 MG tablet Discontinued 400 mg PO DAILY June 27, 2017 11:10am June 03, 2025 2:02pm SUPPLEMENT Multivitamin With Iron (20 sources) Start: 06-25-2017 End: 12-15-2017 Multivitamin With Iron Discontinued 1 EACH PO DAILY June 25, 2017 [...] 7:48pm Multivitamin With Iron 1 EACH tablet (20 sources) Start: 06-25-2017 End: 12-15-2017 take 1 tablet by mouth once daily Multivitamin With Iron 1 EACH tablet Discontinued 1 NMA PO DAILY June 25, 2017 7:00pm December 15, 2017 9:55am SUPPLEMENT Start: 06-25-2017 End: 12-15-2017 take 1 tablet by mouth once daily Multivitamin With Iron 1 EACH tablet Discontinued 1 NMA PO DAILY June 25, 2017 7:00pm December 15, 2017 9:55am Start: 07-23-2013 End: 06-25-2017 take 1 tablet by mouth once daily Multivitamin With Iron 1 EACH tablet Discontinued 1 NMA PO DAILY 1 July 23, 2013 7:47pm June 25, 2017 7:00pm Start: 07-23-2013 End: 06-25-2017 take 1 tablet [...] 01, 2016 1:20pm December 15, 2017 9:55am ACID REFLUX Start: 03-01-2016 End: 12-15-2017 take 40 mg by mouth once daily Omeprazole Discontinued 40 MG PO DAILY March 01, 2016 1:20pm December 15, 2017 9:55am Start: 06-16-2013 End: 03-01-2016 take 1 capsule by mouth once daily Omeprazole 20 MG capsule Discontinued 20 mg PO DAILY 1 0 July 23, 2013 7:47pm March 01, 2016 1:20pm ondansetron 4 mg disintegrating oral tablet (20 sources) Serotonin-3 Receptor Antagonist Start: 03-01-2016 End: 12-15-2017 take 1 tablet by mouth once daily as needed for nausea Ondansetron 4 MG tablet Discontinued 4 mg PO DAILY as needed for Nausea March 01, 2016 12:00am December 15, 2017 9:55am 12 hr orphenadrine citrate 100 mg extended release oral tablet (20 sources) Muscle Relaxant Start: 10-13-2014 End: 12-15-2017 take 1 tablet by mouth twice daily as needed for pain Orphenadrine Citrate 100 MG tablet Discontinued 100 mg PO TWICE DAILY NEEDED as needed for Pain October 13, 2014 1:00am December 15, 2017 9:56am oxaprozin 600 mg oral tablet (20 sources) Nonsteroidal Anti-inflammatory Drug Start: 06-16-2013 End: 07-23-2013 take 1 tablet by mouth once daily Oxaprozin 600 MG tablet Discontinued 600 mg PO DAILY June 16, 2013 12:00am July 23, 2013 7:48pm predniSONE 5 mg oral tablet (20 sources) Start: 12-15-2017 End: 01-31-2025 take 1 tablet by mouth twice daily Prednisone 5 mg tablet Discontinued 5 mg PO TWICE A DAY December 15, 2017 12:00am January 31, 2025 2:20pm Start: 07-07-2017 End: 12-15-2017 take 1 tablet by mouth twice daily at mealtime Prednisone 20 MG tablet Discontinued 20 mg PO TWICE A DAY July 07, 2017 1:00am December 15, 2017 9:56am With food Start: 06-27-2017 End: 12-15-2017 take 1 tablet by mouth once daily at mealtime Prednisone 20 MG tablet Discontinued 20 mg PO DAILY 5 June 27, 2017 1:00am December 15, 2017 9:57am With food rizatriptan 10 mg oral tablet (20 sources) [...] tablet Discontinued 40 mg PO AT BEDTIME 1 0 July 23, 2013 7:47pm July 28, 2013 3:43am tadalafil 20 mg oral tablet (20 sources) Phosphodiesterase 5 Inhibitor Start: 06-16-2013 End: 07-23-2013 take 1 tablet by mouth once daily Tadalafil (Pulm. Hypertension) (Adcirca) 20 MG tablet Discontinued 40 mg PO DAILY July 18, 2013 1:00am July 23, 2013 7:48pm traMADol hydrochloride 50 mg oral tablet (20 sources) Opioid Agonist Start: 10-13-2014 End: 12-15-2017 [...] tablet Discontinued 300 mg PO AT BEDTIME 1 0 July 23, 2013 7:47pm June 25, 2017 7:00pm vancomycin 125 mg oral capsule (13 sources) Glycopeptide Antibacterial Start: 01-07-2023 End: 01-21-2023 take 1 capsule by mouth every six hours Vancomycin (Vancocin) 125 mg capsule Discontinued 125 mg PO EVERY 6 HOURS 56 14 0 January 07, 2023 12:00am January 20, 2023 12:00am January 21, 2023 12:04am Problems Active Problems Problem Classification Problem Date Documented Da te Episodic/Chronic Anxiety disorders (20 sources) Anxiety; Translations: [Anxiety disorder, unspecified] 03-01-2016 Chronic Chronic kidney disease (20 sources) Chronic kidney disease stage 3; Translations: [Stage 3 chronic kidney disease] 06-25-2017 Chronic Chronic obstructive pulmonary disease and bronchiectasis (20 sources) Acute exacerbation of chronic bronchitis; Translations: [Chronic obstructive pulmonary disease with (acute) exacerbation] 06-25-2017 Chronic Disorders of lipid metabolism (20 sources) Dyslipidemia; Translations: [Hyperlipidemia, unspecified] 03-01-2016 Chronic Headache; including migraine (20 sources) Migraine; Translations: [Migraine, unspecified, not intractable, without status migrainosus] 06-25-2017 Chronic Mood disorders (20 sources) Depressive disorder; Translations: [Depression] 03-01-2016 Chronic Nonspecific chest pain (20 sources) Chest pain; Translations: [Chest pain, unspecified] 11-20-2016 Episodic Other acquired deformities (11 sources) Other secondary scoliosis, lumbar region; Translations: [Scoliosis of lumbar region due to degenerative disease of spine in adult] 01-31-2025 Chronic Other gastrointestinal disorders (19 sources) Loose stool; Translations: [Other fecal abnormalities] 01-02-2023 Episodic Other gastrointestinal disorders (6 sources) Other fecal abnormalities; Translations: [Abnormal feces] Onset: 06-20-2025 01-02-2023 Episodic Other gastrointestinal disorders (14 sources) Constipation; Translations: [Constipation, unspecified] 12-01-2024 Episodic Other gastrointestinal disorders (1 source) Constipation, unspecified; Translations: [Constipation, unspecified] Onset: 06-20-2025 Episodic Other non-traumatic joint disorders (11 sources) Hip pain; Translations: [Pain in left hip] 01-31-2025 Episodic Other non-traumatic joint disorders (1 source) Pain in left hip; Translations: [Pain in left hip] Onset: 03-29-2025 Episodic Other screening for suspected conditions (not mental disorders or infectious disease) (1 source) Encounter for screening for malignant neoplasm of respiratory organs; Translations: [Encounter for screening for malignant neoplasm of respiratory organs] Onset: 05-05-2025 Episodic Other skin disorders (1 source) Localized swelling, mass and lump, trunk; Translations: [Localized swelling, mass and lump, trunk] Onset: 04-07-2025 Episodic Pneumonia (except that caused by tuberculosis or sexually transmitted disease) (20 sources) Community acquired pneumonia; Translations: [Pneumonia, unspecified organism] 03-01-2016 Episodic Pulmonary heart disease (20 sources) Pulmonary hypertension; Translations: [Pulmonary hypertension, unspecified] 03-01-2016 Chronic Residual codes; unclassified (20 sources) Obstructive sleep apnea syndrome; Translations: [Obstructive sleep apnea (adult) (pediatric)] 03-01-2016 Chronic Residual codes; unclassified (20 sources) Tobacco user; Translations: [Tobacco use] 03-01-2016 Episodic Schizophrenia and other psychotic disorders (20 sources) Schizoaffective disorder; Translations: [Schizoaffective disorder, unspecified] 06-25-2017 Chronic Spondylosis; intervertebral disc disorders; other back problems (11 sources) Degeneration of lumbar intervertebral disc; Translations: [Degeneration of intervertebral disc of lumbar region] 01-31-2025 Chronic Thyroid disorders (20 sources) Hyperthyroidism; Translations: [Thyrotoxicosis, unspecified without thyrotoxic crisis or storm] Onset: 04-12-2025 12-15-2017 Chronic Comment on above: No records [...] Classification Problem Date Documented Da te Episodic/Chronic Unclassified (18 sources) D & C 03-13-2022 Unclassified (18 sources) blood transfusion 03-13-2022 Unclassified (18 sources) tuabl ligation 03-13-2022 Results Test Name Value Interpretation Reference Range Facility Gastroenterology Visit Repor ton 06-03-2025 Gastroenterology Visit Report [facility] [address] [place] [address] OFFICE VISIT Date of Service: 06/03/25 MR#: [id number] Acct: [id number] Name: NERIS MOODY Rep #: [id number] : 1950 Provider: Manolo Magallon DO Age/Sex: 74/F Location: [facility] Status: Signed Intake Vital Signs 03/23/24 12:50 01/31/25 13:03 Height 5 ft 6 in 5 ft 3 in Intake Visit Reasons: 6 M FU//Constipation Allergies nabumetone (From Relafen) Allergy (Verified 01/31/25 13:03) Rash lorazepam (From Ativan) Adverse Reaction (Verified 01/31/25 13:03) Other tadalafil (From Adcirca) Adverse Reaction (Verified 01/31/25 13:03) Other Medications ???Medication ???Instructions ???Recorded ???Confirmed ???Type budesonide-formoterol HFA 80 2 puff inhalation BID BREATHING 06/03/25 History mcg-4.5 mcg/actuation aerosol inhaler clonazepam 0.5 mg tablet 0.5 mg PO TID PRN PRN Anxiety 09/1906/03/25 History topiramate 25 mg tablet 100 mg PO BID YAP 01/10/17 06/03/25 History trazodone 300 mg tablet 300 mg PO QHS SLEEP 06/25/1706/03 History aripiprazole 30 mg tablet (Abilify) 20 mg PO QDAY 12/15/17 06/03/25 History cevimeline 30 mg capsule 1 cap PO TID 12/15/17 06/03/25 His tory famotidine 40 mg tablet 40 mg PO QHS 12/15/17 06/03/25 His tory lamotrigine 200 mg tablet 150 mg PO BID 12/15/17 06/03/25 Hi story levothyroxine 50 mcg capsule 88 mcg PO QDAY 12/15/17 06/03/25 H istory primidone 50 mg tablet 50 mg PO QHS 12/15/17 06/03/25 His tory vilazodone 40 mg tablet (Viibryd) 40 mg PO QDAY 12/15/17 06/03/25 H istory aripiprazole 5 mg tablet 5 mg PO DAILY 05/13/18 06/03/25 Hi story colestipol 1 gram tablet 1 g PO BID 30 days #60 tabs 06/03/25 Rx mirtazapine 7.5 mg tablet 11.25 mg PO QDAY 12/01/24 06/03/25 History aspirin 81 mg tablet 81 mg PO QDAY 06/03/25 06/03/25 Hi story budesonide 3 mg 9 mg (3 x 3 mg) PO QDAY 1 month 06/03/25 Rx capsule,delayed,exten ded release #90 ea sucralfate 1 gram tablet (Carafate) 1 g PO BID #60 tabs 06/03/25 Rx Have you fallen in the past year?: No PFSH Medical History Sjogrens syndrome Polymyalgia rheumatica [...] ? KUB without acute/chronic finding. *BGI established 5.18.23 for the last six years she has [...] normalization may take time, can start pro/prebiotic. (more content not included)... Normal [facility] Echo Completeon 04-20-2025 Echo Complete [facility] [address] [place] [address] Echo Complete 04/20/25 1248 MR#: [id number] Acct: [id number] Name: NERIS MOODY Rep #: [id number] : 1950 74 From: Montse Dailey MD Attending Dr: Dr. Jony Little MD Status: REG CLI Ordering Dr: Jony Little MD Date: 04/20/25 Location: [facility] Sex: F C Admitted: Reason For Study Reason For Study: Obstructive Sleep Apnea Procedure This was a 2D Doppler, Color Flow transthoracic echocardiogram. Exam performed in department. Left Ventricle Normal LV size. Moderate concentric left ventricular hypertrophy. The left ventricular ejection fraction is 65 %. Stage 1 diastolic dysfunction. Right Ventricle Normal right ventricle. Atria The left and right atria are normal. Mitral Valve Trivial mitral valve insufficiency. Tricuspid Valve Mild to moderate (1-2+) tricuspid valve insufficiency. Normal pulmonary artery pressure. Aortic Valve Trisinus/trileaflet aortic valve. Pulmonic Valve The pulmonic valve is not well visualized. Great Vessels Normal sized aortic root. Pericardium/Pleural No pericardial effusion. MMode/2D Measurements Calculations LVIDd: 4.2 cm IVSd: 1.4 cm Ao root diam: 3.3 cm LVIDs: 2.7 cm LVPWd: 1.1 cm RVDd: 3.6 cm FS: 35.9 % asc Aorta Diam: 3.3 cm LAV(MOD-bp): 49.6 ml LVAd ap4: 27.0 cm2 LAV(MOD-bp) Indexed: 26.9 ml/m2 LVLd ap4: 7.9 cm LAV(MOD-sp2): 44.2 ml EDV(MOD-sp4): 79.1 ml LAV(MOD-sp4): 41.6 ml EDV(sp4-el): 77.9 ml LVAs ap4: 12.8 cm2 LVLs ap4: 6.0 cm ESV(MOD-sp4): 22.7 ml ESV(sp4-el): 23.1 ml EF(MOD-sp4): 71.3 % EF(sp4-el): 70.4 % LVAd ap2: 21.3 cm2 SV(MOD-sp4): 56.4 ml SV(MOD-sp2): 38.1 ml LVLd ap2: 7.2 cm SI(MOD-sp4): 30.6 ml/m2 SI(MOD-sp2): 20.7 ml/m2 EDV(MOD-sp2): 54.5 ml EDV(sp2-el): 53.8 ml LVAs ap2: 10.3 cm2 LVLs ap2: 5.6 cm ESV(MOD-sp2): 16.4 ml ESV(sp2-el): 16.1 ml EF(MOD-sp2): 69.9 % SV(sp4-el): 54.8 ml LA dimension(2D): 3.7 cm LA A4 area: 14.5 cm2 TAPSE: 2.1 cm Time Measurements MV dec time: 0.28 sec Doppler Measurements Calculations MV E max caio: 56.4 cm/sec Lat Peak E' Caio: 5.4 cm/sec Med Peak E' Caio: 5.3 cm/sec MV A max caio: 88.5 cm/sec E/E' lat: 10.4 E/E' med: 10.6 MV E/A: 0.64 MV V2 max: 107.0 cm/sec MV P1/2t max caio: 75.7 cm/sec Ao V2 max: 150.5 cm/sec MV max P.6 mmHg MV P1/2t: 84.0 msec Ao max P.1 mmHg MV V2 mean: 46.2 cm/sec MV dec slope: 264.0 cm/sec2 Ao V2 mean: 96.1 cm/sec MV mean P.1 mmHg Ao mean P.3 mmHg MV V2 VTI: 28.4 cm MVA(P1/2t): 2.6 cm2 Ao V2 VTI: 32.7 cm AV (velocity ratio): 0.89 LV V1 max: 129.7 cm/sec PA V2 max: 152.6 cm/sec TR max caio: 258.3 cm/sec LV V1 max P.7 mmHg PA V2 mean: 100.9 cm/sec TR max P.7 mmHg LV V1 mean P.6 mmHg LV V1 mean: 90.0 cm/sec LV V1 VTI: 29.2 cm ECHO/Echo Complete Interpretation Summary Moderate concentric left ventricular hypertrophy. The left ventricular ejection fraction is 65 %. Stage 1 diastolic dysfunction. Mild to moderate (1-2+) tricuspid valve insufficiency. Ordering Physician: Jony Little V Referring Physician: Sofy Barron Performed By: Diann Lugo RDCS, RVT 04/20/25 1534 Date Montse Dailey MD CC: Dr. Sofy Barron MD; Dr. Jony Little MD Date Dictated: 04/20/251247 Date Transcribed: 04/20/25 1534 Account Service Associate: Signed Normal [facility] Echocardiogram study reportO rdered By: Montse Dailey on 04-20-2025 Study report [facility] [address] [place] [address] Echo Complete 04/20/258 MR#: [id number] Acct: [id number] Name: NERIS MOODY Rep #:[id number] : 1950 74 From: Montse Dailey MD Attending Dr: Dr. Jony Little MD Status: REG CLI Ordering Dr: Jony Little MD Date: 04/20/25 Location: [facility] Sex: F C Admitted: Reason For Study Reason For Study: Obstructive Sleep Apnea Procedure This was a 2D Doppler, Color Flow transthoracic echocardiogram. Exam performed in department. Left Ventricle Normal LV size. Moderate concentric left ventricular hypertrophy. The left ventricular ejection fraction is 65 %. Stage 1 diastolic dysfunction. Right Ventricle Normal right ventricle. Atria The left and right atria are normal. Mitral Valve Trivial mitral valve insufficiency. Tricuspid Valve Mild to moderate (1-2+) tricuspid valve insufficiency. Normal pulmonary artery pressure. Aortic Valve Trisinus/trileaflet aortic valve. Pulmonic Valve The pulmonic valve is not well visualized. Great Vessels Normal sized aortic root. Pericardium/Pleural No pericardial effusion. MMode/2D Measurements & Calculations LVIDd: 4.2 cm IVSd: 1.4 cm Ao root diam: 3.3 cm LVIDs: 2.7 cm LVPWd: 1.1 cm RVDd: 3.6 cm FS: 35.9 % asc Aorta Diam: 3.3 cm LAV(MOD-bp): 49.6 ml LVAd ap4: 27.0 cm2 LAV(MOD-bp) Indexed: 26.9 ml/m2 LVLd ap4: 7.9 cm LAV(MOD-sp2): 44.2 ml EDV(MOD-sp4): 79.1 ml LAV(MOD-sp4): 41.6 ml EDV(sp4-el): 77.9 ml LVAs ap4: 12.8 cm2 LVLs ap4: 6.0 cm ESV(MOD-sp4): 22.7 ml ESV(sp4-el): 23.1 ml EF(MOD-sp4): 71.3 % EF(sp4-el): 70.4 % LVAd ap2: 21.3 cm2 SV(MOD-sp4): 56.4 ml SV(MOD-sp2): 38.1 ml LVLd ap2: 7.2 cm SI(MOD-sp4): 30.6 ml/m2 SI(MOD-sp2): 20.7 ml/m2 EDV(MOD-sp2): 54.5 ml EDV(sp2-el): 53.8 ml LVAs ap2: 10.3 cm2 LVLs ap2: 5.6 cm ESV(MOD-sp2): 16.4 ml ESV(sp2-el): 16.1 ml EF(MOD-sp2): 69.9 % SV(sp4-el): 54.8 ml LA dimension(2D): 3.7 cm LA A4 area: 14.5 cm2 TAPSE: 2.1 cm Time Measurements MV dec time: 0.28 sec Doppler Measurements & Calculations MV E max caio: 56.4 cm/sec Lat Peak E' Caio: 5.4 cm/sec Med Peak E' Caio: 5.3 cm/sec MV A max caio: 88.5 cm/sec E/E' lat: 10.4 E/E' med: 10.6 MV E/A: 0.64 MV V2 max: 107.0 cm/sec MV P1/2t max caio: 75.7 cm/sec Ao V2 max: 150.5 cm/sec MV max P.6 mmHg MV P1/2t: 84.0 msec Ao max P.1 mmHg MV V2 mean: 46.2 cm/sec MV dec slope: 264.0 cm/sec2 Ao V2 mean: 96.1 cm/sec MV mean P.1 mmHg Ao mean P.3 mmHg MV V2 VTI: 28.4 cm MVA(P1/2t): 2.6 cm2 Ao V2 VTI: 32.7 cm AV (velocity ratio): 0.89 LV V1 max: 129.7 cm/sec PA V2 max: 152.6 cm/sec TR max caio: 258.3 cm/sec LV V1 max P.7 mmHg PA V2 mean: 100.9 cm/sec TR max P.7 mmHg LV V1 mean P.6 mmHg LV V1 mean: 90.0 cm/sec LV V1 VTI: 29.2 cm ECHO/Echo Complete Interpretation Summary Moderate concentric left ventricular hypertrophy. The left ventricular ejection fraction is 65 %. Stage 1 diastolic dysfunction. Mild to moderate (1-2+) tricuspid valve insufficiency. Ordering Physician: Jony Little V Referring Physician: Sofy Barron Performed By: Diann Lugo, [place], RVT 04/20/25 1534 Date _ Montse Dailey MD CC: Dr. Sofy Barron MD; Dr. Jony Little MD ~ Date Dictated: 04/20/25 1248 Date Transcribed: 04/20/25 1534 Account Service Associate: Signed [facility] Work Phone: Low Dose CT Lung Screeningon 04-20-[address] Lung Screening [facility] Imaging Services [address] [place] [id number] Lung Screening MR#: [id number] Acct: [id number] Name: NERIS MOODY Rep #: [id number] : 1950 F 74 From: Wesley marcus MD PCP: Dr. Sofy Barron MD Status: REG CLI Study: Low Dose CT Lung Screening Date of Exam: 04/20 Exam# [id number] Ordering Dr: Jony Little MD PROCEDURE: LOW DOSE CT LUNG SCREENING 04/20/2025 REASON FOR EXAM: SCREENING Patient has smoked 1 pack per day for 4 years. History of pulmonary hypertension. TECHNIQUE: Procedure Code: CTLUNGSCREEN Modality: CT Procedure: LOW DOSE CT LUNG SCREENING Coronal and Sagittal reconstruction series were provided. One or more dose reduction techniques were used (e.g., Automated exposure control, adjustment of the mA and/or kV according to patient size, use of iterative reconstruction technique). REFERENCE LINK: [employer] Lung-RADS RADIATION DOSE SUMMARY: CTDlvol: 3.02 mGy DLP: 96.66 mGycm COMPARISON: None FINDINGS: PULMONARY NODULES: (Only nodules >3mm are reported) Nodules described below are on series 1 unless otherwise specified. Pulmonary Nodules: No suspicious pulmonary nodules are seen. Hardware:None Lymph Nodes:None Heart and Vasculature:Heart is nonenlarged.Atheroscl erotic calcifications of the thoracic aorta. Thoracic aorta and pulmonary arteries have normal contours; noncontrast technique limits evaluation. Coronary Artery Calcifications: Present Lungs and Airways: Mild linear scarring at the lung bases. Calcified granuloma in the left lower lobe. Focal scarring in the peripheral aspect of the left lower lobe. Pleura:No pleural effusion. Upper Abdomen:Unremarkable Bones:Degenerative changes of the thoracic spine. CT/Low Dose CT Lung Screening IMPRESSION: No suspicious nodules are seen. Coronary artery calcification (CAC) is is present Lung-RADS Category: 2 BENIGN (BASED ON IMAGING FEATURES OR INDOLENT BEHAVIOR). RECOMMEND 12-MONTH SCREENING LDCT. Other Significant Findings: Reading Location: [place] [address] CC: Dr. Sofy Barron MD; Dr. Jony Little MD Account Service Associate: Signed Normal [facility] Surgery Specimen Level Katey 03-31-2025 Surgery Specimen Level IV ------- -------- Patient Age/Sex Location Account Attending Physician -------- NERIS MOODY 74/F LABSPEC [id number] Dr. Sofy Barron MD -------- Specimen: [id number] Received: 03/31/25 Status: KAYLEEN Rush Num: [id number] Spec Type: Lesion Subm Dr: Dr. Sofy Barron MD HEADER OPERATION: Skin biopsy PRE-OP DIAGNOSIS: Skin lump of left thigh TISSUE SUBMITTED: A- Left thigh -------- MICROSCOPIC DIAGNOSIS A. Skin, left thigh, punch biopsy - Solar lentigo - see note. Note: A mass lesion is not appreciated. Deeper sections examined. Additional pathology deep to the biopsy cannot be excluded; clinical correlation necessary. MICROSCOPIC DESCRIPTION Slides are reviewed. GROSS DESCRIPTION A. Received in formalin labeled with the patient's name and date of is a 0.4 x 0.3 cm brown skin punch excised to a maximum depth of 0.2 cm. The resection margin is inked green and the specimen is entirely submitted in 1 cassette. PR 04/01/2025 [facility]:[id number] -------- Patient Age/Sex Location Account Attending Physician -------- NERIS MOODY 74/F LABSPEC [id number] Dr. Sofy Barron MD -------- Signed (signature on file) Dr. Nancy Edward MD 04/08/25 1235 -------- Normal [facility] Comment on above: Performed By: #### P SUIV #### [facility] [address] [place], [address] CBC-Complete Blood Cnt No Di ffon 03-17-2025 Erythrocyte distribution width (RBC) [Ratio] 15.1 % High 11.6-14.6 [facility] Comment on above: Order Comment: Order Date: 03/17/25 Order Info: [id number] - CBC Performed By: #### L 501.9520, L500.4100, L100.0500, L506.0400 #### [facility] [address] [place], [address] Hematocrit (Bld) [Volume fraction] 37.8 % Normal 37-47 [facility] Comment on above: Order Comment: Order Date: 03/17/25 Order Info: [id number] - CBC Performed By: #### L 501.9520, L500.4100, L100.0500, L506.0400 #### [facility] [address] [place], [address] Hemoglobin (Bld) [Mass/Vol] 12.0 g/dL Normal 12.0-15. 0 [facility] Comment on above: Order Comment: Order Date: 03/17/25 Order Info: [id number] - CBC Performed By: #### L 501.9520, L500.4100, L100.0500, L506.0400 #### [facility] [address] [place], [address] MCH (RBC) [Entitic mass] 27.9 pg Normal 27.0-32.0 [facility] Comment on above: Order Comment: Order Date: 03/17/25 Order Info: [id number] - CBC Performed By: #### L 501.9520, L500.4100, L100.0500, L506.0400 #### [facility] [address] [place], [address] MCHC (RBC) [Mass/Vol] 31.7 g/dL Low 32-36 [facility] Comment on above: Order Comment: Order Date: 03/17/25 Order Info: [id number] - CBC Performed By: #### L 501.9520, L500.4100, L100.0500, L506.0400 #### [facility] [address] [place], [address] MCV (RBC) [Entitic vol] 87.9 fL Normal 81-99 [facility] Comment on above: Order Comment: Order Date: 03/17/25 Order Info: [id number] - CBC Performed By: #### L 501.9520, L500.4100, L100.0500, L506.0400 #### [facility] [address] [place], [address] Platelet mean volume (Bld) [Entitic vol] 9.5 fL Normal 6.2-12.0 [facility] Comment on above: Order Comment: Order Date: 03/17/25 Order Info: [id number] - CBC Performed By: #### L 501.9520, L500.4100, L100.0500, L506.0400 #### [facility] [address] [place], [address] Platelets (Bld) [#/Vol] 423 10*3/uL Normal 150-450 [facility] Comment on above: Order Comment: Order Date: 03/17/25 Order Info: [id number] - CBC Performed By: #### L 501.9520, L500.4100, L100.0500, L506.0400 #### [facility] [address] [place], [address] RBC (Bld) [#/Vol] 4.30 10*6/uL Normal 4.2-5.4 [facility] Comment on above: Order Comment: Order Date: 03/17/25 Order Info: [id number] - CBC Performed By: #### L 501.9520, L500.4100, L100.0500, L506.0400 #### [facility] [address] [place], [address] RDW SD 48.2 fl High 35.1-43.9 [facility] Comment on above: Order Comment: Order Date: 03/17/25 Order Info: [id number] - CBC Performed By: #### L 501.9520, L500.4100, L100.0500, L506.0400 #### [facility] [address] [place], [address] WBC (Bld) [#/Vol] 10.5 10*3/uL Normal 4.4-11.0 [facility] Comment on above: Order Comment: Order Date: 03/17/25 Order Info: [id number] - CBC Performed By: #### L 501.9520, L500.4100, L100.0500, L506.0400 #### [facility] [address] [place], [address] Calculated very low density lipoprotein (VLDL) cholesterol measurementOrdered By: Sofy Barron on 03-17-2025 Calculated very low density lipoprotein (VLDL) cholesterol measurement 19 mg/dL 5-40 [facility] Erythrocyte distribution wid th ratioOrdered By: Sofy Barron on 03-17-2025 Erythrocyte distribution width (RBC) [Ratio] 15.1 % High 11.6-14.6 [facility] Erythrocyte distribution wid th standard deviationOrdered By: Sofy Barron on 03-17-2025 Erythrocyte distribution width (RBC) [Ratio] 48.2 fl High 35.1-43.9 [facility] Hematocrit Auto (Bld) [Volum e fraction]Ordered By: Sofy Barron on 03-17-2025 Hematocrit (Bld) [Volume fraction] 37.8 % 37-47 [facility] Hemoglobin measurementOrdere d By: Sofy Barron on 03-17-2025 Hemoglobin (Bld) [Mass/Vol] 12.0 g/dL 12.0-15. 0 [facility] LDL calc ser/plasOrdered By: Sofy Barron on 03-17-2025 Cholesterol in LDL [Mass/Vol] 149 mg/dL [facility] Comment on above: Choogxgwzx=469-626 m g/dL & Higher Pcvd=924 mg/dL or greaterFriedwald Equation for LDL-C Lipid Profileon 03-17-2025 CHOL:HDL 2.85 Normal [facility] Comment on above: Order Comment: Order Date: 03/17/25 Order Info: 24973-9 - LIPID I WENT TO OFFICE AND ASKED FOR CODE VITD. THEY PUT IT IN. E55.9 Order Info: 3016-3 - TSH Order Info: 3024-7 - T4F Performed By: #### L 501.9520, L500.4100, L100.0500, L506.0400 #### [facility] [address] [place], [place], [address] Cholesterol [Mass/Vol] 259 mg/dL High <=200 [facility] Comment on above: Order Comment: Order Date: 03/17/25 Order Info: [id number] - LIPID I WENT TO OFFICE AND ASKED FOR CODE VITD. THEY PUT IT IN. E55.9 Order Info: 3016-3 - TSH Order Info: 3024-7 - T4F Result Comment: Chol esterol level, Desirable <200 mg/dL Borderline high cholesterol 200-239 mg/dL High cholesterol >=240 mg/dL Recommendations of the NCEP Adult Treatment Panel for the following risk-cutoff thresholds for the [place] population. Performed By: #### L 501.9520, L500.4100, L100.0500, L506.0400 #### [facility] [address] [place], [address] Cholesterol in HDL [Mass/Vol] 91 mg/dL Normal [facility] Comment on above: Order Comment: Order Date: 03/17/25 Order Info: 64026-9 - LIPID I WENT TO OFFICE AND ASKED FOR CODE VITD. THEY PUT IT IN. E55.9 Order Info: 3015-10 - TSH Order Info: 3024-02 T4 Result Comment: Caroline onal Cholesterol Education Program (NCEP) guidelines: <40 mg/dL: Low HDL-cholesterol (major risk factor for CHD) >= 60 mg/dL: High HDL-cholesterol (negative risk factor for CHD) HDL-cholesterol is affected by a number of factors, e.g. smoking, exercise, hormones, sex and age. Performed By: #### L 501.9520, L500.4100, L100.0500, L506.0400 #### [facility] [address] [place], [address] Cholesterol in LDL [Mass/Vol] 149 mg/dL Normal [facility] Comment on above: Order Comment: Order Date: 03/17/25 Order Info: 12860-9 - LIPID I WENT TO OFFICE AND ASKED FOR CODE VITD. THEY PUT IT IN. E55.9 Order Info: 3015-10 - TSH Order Info: 3024-02 T4 Result Comment: Bord kkfynx=915-841 mg/dL Higher Fenv=802 mg/dL or greater Friedwald Equation for LDL-C Performed By: #### L 501.9520, L500.4100, L100.0500, L506.0400 #### [facility] [address] [place], [address] Cholesterol in VLDL [Mass/Vol] 19 mg/dL Normal 5-40 [facility] Comment on above: Order Comment: Order Date: 03/17/25 Order Info: 07266-1 - LIPID I WENT TO OFFICE AND ASKED FOR CODE VITD. THEY PUT IT IN. E55.9 Order Info: 3 - TSH Order Info: 3024-02 T4F Performed By: #### L 501.9520, L500.4100, L100.0500, L506.0400 #### [facility] [address] [place], [address] Triglyceride [Mass/Vol] 94 mg/dL Normal [facility] Comment on above: Order Comment: Order Date: 03/17/25 Order Info: 83136-4 - LIPID I WENT TO OFFICE AND ASKED FOR CODE VITD. THEY PUT IT IN. E55.9 Order Info: 3016-3 - TSH Order Info: 3024-7 - T4F Result Comment: The drugs N-Acetylcysteine and Metamizole may falsely depress this assay. Normal range: <150 mg/dL Borderline High: 150-199 mg/dL High: 200-499 mg/dL Very High: >500 mg/dL Performed By: #### L 501.9520, L500.4100, L100.0500, L506.0400 #### [facility] [address] [place], [place], [address] MCV (mean corpuscular volume ) determinationOrdered By: Sofy Barron on 03-17-2025 MCV (RBC) [Entitic vol] 87.9 fL 81-99 [facility] Mean corpuscular hemoglobin (MCH) determinationOrdered By: Sofy Barron on 03-17-2025 MCH (RBC) [Entitic mass] 27.9 pg 27.0-32.0 [facility] Mean corpuscular hemoglobin concentration (MCHC) determinationOrdered By: Sofy Barron on 03-17-2025 MCHC (RBC) [Mass/Vol] 31.7 g/dL Low 32-36 [facility] Mean platelet volume determi nationOrdered By: Sofy Barron on 03-17-2025 Platelet mean volume (Bld) [Entitic vol] 9.5 fL 6.2-12.0 [facility] Platelet countOrdered By: Laura Barron on 03-17-2025 Platelets (Bld) [#/Vol] 423 10*3/uL 150-450 [facility] RBC Auto (Bld) [#/Vol]Ordere d By: Sofy Barron on 03-17-2025 RBC (Bld) [#/Vol] 4.30 10*6/uL 4.2-5.4 [facility] Screening total cholesterol/ high density lipoprotein (HDL) cholesterol ratioOrdered By: Sofy Barron on 03-17-2025 Cholesterol.total/Cholester ol in HDL [Mass ratio] 2.85 {ratio} [facility] Serum or plasma cholesterol in HDL measurement (mass/volume)Ordered By: Sofy Barron on 03-17-2025 Cholesterol in HDL [Mass/Vol] 91 mg/dL >40 [facility] Comment on above: National Cholesterol Education Program (NCEP) guidelines:<40 mg/dL: Low HDL-cholesterol (major risk factor for CHD)>= 60 mg/dL: High HDL-cholesterol (negative risk factor for CHD)HDL-cholesterol is affected by a number of factors, e.g. smoking, exercise, hormones, sex and age. Serum or plasma cholesterol measurement (mass/volume)Ordered By: Sofy Barron on 03-17-2025 Cholesterol [Mass/Vol] 259 mg/dL High <201 [facility] Comment on above: Cholesterol level, D esirable <200 mg/dLBorderline high cholesterol 200-239 mg/dLHigh cholesterol >=240 mg/dLRecommendations of the NCEP Adult Treatment Panel for the following risk-cutoff thresholds for the [place] population. T4 Free Directon 03-17-2025 T4 FREE DIRECT 1.40 ng/dL Normal 0.76-1.46 [facility] Comment on above: Order Comment: Order Date: 03/17/25 Order Info: 29521-4 - LIPID I WENT TO OFFICE AND ASKED FOR CODE VITD. THEY PUT IT IN. E55.9 Order Info: 3016-3 - TSH Order Info: 3024-7 - T4F Performed By: #### L 501.9555, L500.4100, L100.0500, L506.0400 #### [facility] [address] [place], [place], [address] T4 freeOrdered By: Sofy velasquez on 03-17-2025 Free T4 [Mass/Vol] 1.40 ng/dL 0.76-1.46 [facility] TSH DL <= 0.005 mIU/L QnOrde red By: Sofy Barron on 03-17-2025 TSH Qn 0.487 uIU/mL 0.300-4.200 [facility] Thyroid Stim Hormone (TSH)on 03-17-2025 TSH 0.487 uIU/mL Normal 0.300-4.200 [facility] Comment on above: Order Comment: Order Date: 03/17/25 Order Info: [id number] - LIPID I WENT TO OFFICE AND ASKED FOR CODE VITD. THEY PUT IT IN. E55.9 Order Info: 3016-3 - TSH Order Info: 302-7 - T4F Performed By: #### L 501.9520, L500.4100, L100.0500, L506.0400 #### [facility] [address] [place], [address] Triglycerides measurementOrd ered By: Sofy Barron on 03-17-2025 Triglyceride [Mass/Vol] 94 mg/dL <199 [facility] Comment on above: The drugs N-Acetylcy steine and Metamizole may falsely depress this assay. Normal range: <150 mg/dLBorderline High: 150-199 mg/dLHigh: 200-499 mg/dLVery High: >500 mg/dL Vitamin D,25 Hydroxyon 03-17 Vitamin D 25-OH 46.8 ng/mL Normal 30-100 [facility] Comment on above: Order Comment: Order Date: 03/17/25 Order Info: 62949-9 - LIPID I WENT TO OFFICE AND ASKED FOR CODE VITD. THEY PUT IT IN. E55.9 Order Info: 3016-3 - TSH Order Info: 7 - T4F Result Comment: Ayala min D Status Deficiency: <20 ng/mL (50nmol/L) Insufficiency: 20-30 ng/mL (50-75 nmol/L) Sufficiency: 30-100 ng/mL (75-250 nmol/L) Toxicity: >100 ng/mL (>250 nmol/L) Performed By: #### L 506.1001 #### [facility] [address] [place], [place], [address] White blood cell (WBC) count Ordered By: Sofy Barron on 03-17-2025 WBC (Bld) [#/Vol] 10.5 10*3/uL 4.4-11.0 [facility] Magnetic resonance imaging r eportOrdered By: Geo David on 03-10-2025 Study report [facility] Imaging [place] [address] Lower Ext Joint Only (Routine) MR#: [id number] Acct: [id number] Name: NERIS MOODY Rep #: [id number] : 1950 F 74 From: Sean David MD PCP: Dr. Sofy Barron MD Status: REG CL I Study:Lower Ext Joint Only (Routine) Date of Exam: 03/09/25 Exam# [id number] Ordering Dr: Cy Ramachandran DO PROCEDURE: LOWER EXT JOINT ONLY (ROUTINE) 03/09/2025 REASON FOR EXAM: PAIN, RULE OUT AVN TECHNIQUE: LOWER EXT JOINT ONLY (ROUTINE) Multiplanar and multisequence images were obtained without IV contrast administration. COMPARISON: COMPARISON : January 31, 2025 x-ray FINDINGS: Bone marrow and osseous structures: There is no abnormal marrow edema to suggeststress reaction or fracture. There is no MR evidence of avascular necrosis. Articular cartilage: No significant joint space narrowing. No full or partial-thickness cartilage defects are identified. Labrum: No discrete labral tear or paralabral cyst. Hip joint: There is no intra-articular body. The ligamentum teres is unremarkable. Hip abductors: The gluteus medius and minimus tendons show severe tendinopathy without full-thickness tear or retraction. There is increased fluid in the trochanteric bursa, with bursitis. Iliopsoas tendon: Intact without tendinosis or tear. No iliopsoas bursitis. A 2.2 cm cyst is visible on the left ovary. MRI/Lower Ext Joint Only (Routine) IMPRESSION: The gluteus medius and minimus tendons show severe tendinopathy without full-thickness tear or retraction. There is increased fluid in the trochanteric bursa, with bursitis. A 2.2 cm cyst is visible on the left ovary. Reading Location: [place] CC: Dr. Sofy Barron MD; Dr. Cy Ramachandran DO ~ Account Service Associate: Signed [facility] Lower Ext Joint Only (Routin e)on 03-09-2025 Lower Ext Joint Only (Routine) [facility] Imaging Services [address] [place] [address] Lower Ext Joint Only (Routine) MR#: [id number] Acct: [id number] Name: NERIS MOODY Rep #: [id number] : 1950 F 74 From: Geo David MD PCP: Dr. Sofy Barron MD Status: REG CLI Study: Lower Ext Joint Only (Routine) Date of Exam: 0 03/09/25 Exam# [id number] Ordering Dr: Cy Ramachandran DO PROCEDURE: LOWER EXT JOINT ONLY (ROUTINE) 03/09/2025 REASON FOR EXAM: PAIN, RULE OUT AVN TECHNIQUE: LOWER EXT JOINT ONLY (ROUTINE) Multiplanar and multisequence images were obtained without IV contrast administration. COMPARISON: COMPARISON : January 31, 2025 x-ray FINDINGS: Bone marrow and osseous structures: There is no abnormal marrow edema to suggest stress reaction or fracture. There is no MR evidence of avascular necrosis. Articular cartilage: No significant joint space narrowing. No full or partial-thickness cartilage defects are identified. Labrum: No discrete labral tear or paralabral cyst. Hip joint: There is no intra-articular body. The ligamentum teres is unremarkable. Hip abductors: The gluteus medius and minimus tendons show severe tendinopathy without full- thickness tear or retraction. There is increased fluid in the trochanteric bursa, with bursitis. Iliopsoas tendon: Intact without tendinosis or tear. No iliopsoas bursitis. A 2.2 cm cyst is visible on the left ovary. MRI/Lower Ext Joint Only (Routine) IMPRESSION: The gluteus medius and minimus tendons show severe tendinopathy without full-thickness tear or retraction. There is increased fluid in the trochanteric bursa, with bursitis. A 2.2 cm cyst is visible on the left ovary. Reading Location: [place] CC: Dr. Sofy Barron MD; Dr. Cy Ramachandran DO Account Service Associate: Signed Normal [facility] HIP, UNI W/ Pelvis 2-3 Views on 01-31-2025 HIP, UNI W/ Pelvis 2-3 Views [facility] Imaging Services [address] [facility] [facility] [place] [id number] HIP, UNI W/ Pelvis 2-3 Views MR#: [id number] Acct: [id number] Name: NERIS MOODY Rep #: [id number] : 1950 F 74 From: Lucas whitfield MD PCP: Dr. Sofy Barron MD Status: DEP AMB Study: HIP, UNI W/ Pelvis 2-3 Views Date of Exam: Exam# [id number] Ordering Dr: Cy Ramachandran DO PROCEDURE: HIP, [...] No evidence for acute abnormality. Reading Location: [place] [address] CC: Dr. Sofy Barron MD; Dr. Cy Ramachandran DO Account Service Associate: Signed Normal [facility] Lumbar Spine 2 or 3 Viewson 01-31-2025 Lumbar Spine 2 or 3 Views [facility] Imaging Services [address] [place], [place] [address] Lumbar Spine 2 or 3 Views MR#: [id number] Acct: [id number] Name: NERIS MOODY Rep #: [id number] : 1950 F 74 From: Lucas whitfield MD PCP: Dr. Sofy Barron MD Status: DEP AMB Study: Lumbar Spine 2 or 3 Views Date of Exam: Exam# [id number] Ordering Dr: Cy Ramachandran DO PROCEDURE: LUMBAR [...] No evidence for acute abnormality. Reading Location: [place] [address] CC: Dr. Sofy Barron MD; Dr. Cy Ramachandran DO Account Service Associate: Signed Normal [facility] Orthopedic Visit Reporton Orthopedic Visit Report [facility] [address] [place] [address] OFFICE VISIT Date of Service: 01/31/25 MR#: [id number] Acct: [id number] Name: NERIS MOODY Rep #: [id number] : 1950 Provider: Dr. Cy ashton DO Age/Sex: 74/F [place] [facility] [place]: Signed Intake Vital Signs 03/23/24 12:50 [...] 0.5 mg PO TID PRN PRN Anxiety /01/3001/31/25 History topiramate 25 mg tablet 100 mg PO BID YAP 01/10/17 01/31/25 History trazodone 300 mg tablet 300 mg PO QHS SLEEP 06/25/1701/31 History magnesium oxide 400 mg (241.3 mg 400 mg PO DAILY SUPPLEMENT ##30 01/31/25 History magnesium) tablet aripiprazole 30 mg tablet [...] you fallen in the past year?: Yes [facility] Medical History Sjogrens syndrome Polymyalgia rheumatica Essential [...] fevers chill (more content not included)... Normal [facility] Re-Evaluation - PT (1)on Re-Evaluation - PT (1) [facility] Physical Therapy [facility] [address] [place] [address] / REEVALUATION / MEDICARE RECERTIFICATION PHYSICAL THERAPY MR#: [id number] Acct: [id number] Name: NERIS MOODY Rep #: [id number] : 1950 74 From: Keenan Lambert PT, Cert. T, OCS Referring Dr.: Dr. Sfoy Barron MD Status:REG RCR Insurance: [facility] Re-Evaluation Intro: Sofy Barron MD, It [...] do not hesitate to contact me at [phone] by phone or if you have questions or concerns regarding this new plan of care! Sincerely, Keenan Lambert PT, Cert MDT, OCS 12/16/24 9081 CC: Dr. Sofy Barron MD SAM Signed For Medicare only, by signing this I certify the plan of care. Physicians Signature Date Normal [facility] Gastroenterology Visit Repor ton 12-01-2024 Gastroenterology Visit Report [facility] Gastroenterology [address] [place] [address] OFFICE VISIT Date of Service: 12/01/24 MR#: [id number] Acct: [id number] Name: NERIS MOODY Rep #: [id number] : 1950 Provider: Manolo Magallon DO Age/Sex: 74/F [place] [facility] [place] Status: Signed Intake Vital Signs 03/23/24 12:50 [...] office today for follow up. PCP OV 5.11.23with loose stools, abdominal pain for months. Initially [...] stools ? (more content not included)... Normal [facility] Re-Evaluation - PT (1)on Re-Evaluation - PT (1) [facility] Physical Therapy [facility] [address] [facility] [address] [facility] [address] [place] [address] / REEVALUATION / MEDICARE RECERTIFICATION PHYSICAL THERAPY MR#: [id number] Acct: [id number] Name: NERIS MOODY Rep #: [id number] : 1950 73 From: Keenan Lambert PT, Cert. T, OCS Referring Dr.: Dr. Sofy Barron MD Status:REG RCR Insurance: [facility] Re-Evaluation Intro: Sofy Barron MD, It [...] do not hesitate to contact me at [phone] by phone or if you have questions or concerns regarding this new plan of care! Sincerely, Keenan Lambert PT, Cert MDT, OCS 10/26/24 9797 CC: Dr. Sofy Barron MD SAM Signed For Medicare only, by signing this I certify the plan of care. Physicians Signature Date Normal [facility] Inital Evaluation (1) - PTglenn 09-27-2024 Inital Evaluation (1) - PT [facility] Physical Therapy [facility] [address] [place] [address] / REHABILITATION SERVICES INITIAL EVALUATION MR#: [id number] Acct: [id number] Name: NERIS MOODY Rep #: [id number] : 1950 73 From: Keenan Lambert PT, Cert. T, OCS Referring Dr.: Dr. Sofy Barron MD Status: REG R Insurance: [facility] Patient's Visit Information Visit Information Visit Information: NERIS MOODY is a 73 year old F referred to Physical Therapy by Sofy Barron MD with a diagnosis of PAIN LEFT HIP. Date of Evaluation: 09/27/24 Physical Therapist: eKenan Lambert PT, Cert T, OCS Visit Plan Frequency: [...] to be FAXED BACK to us at [phone] for Medicare purposes. For Medicare only, by signing this I certify the plan of care. Please let me know if there are questions or concerns regarding this plan of care. Physician Signature: (more content not included)... Normal [facility] HIP, UNI W/ Pelvis 2-3 Views on 09-14-2024 HIP, UNI W/ Pelvis 2-3 Views [facility] Imaging Services [address] [place], [place] [address] HIP, UNI W/ Pelvis 2-3 Views MR#: [id number] Acct: [id number] Name: NERIS MOODY Rep #: [id number] : 1950 F 73 From: Jama Bhatt PCP: Dr. Sofy Barron MD Status: [facility] Study: HIP, UNI W/ Pelvis 2-3 Views Date of Exam: Exam# [id number] Ordering Dr: Sofy Barron MD PROCEDURE: HIP, [...] out a currently occult fracture. Reading Location: [address] CC: Dr. Sofy Barron MD Account Service Associate: Signed Normal [facility] Absolute lymphocyte countOrd ered By: Maria D Cotter on 04-01-2023 Lymphocytes Auto (Unsp spec) [#/Vol] 0.93 10*3/uL 0.83-4.51 [facility] Basophil percentageOrdered B y: Maria D Cotter on 04-01-2023 Basophils/100 WBC (Bld) 0.4 % 0-1 [facility] Bilirubin [Mass/Vol] 0.20 mg/dL 0.20-1.00 [facility] Comment on above: For patients on eltr ombopag therapy, use of Dimension [place] TBIL is not recommended. Chloride [Moles/Vol] 104 mmol/L 98-107 [facility] Eosinophils/100 WBC (Bld) 0.5 % 0-5 [facility] Glucose [Mass/Vol] 115 mg/dL 74-106 [facility] Comment on above: Fasting Glucose resu lt from 100 to 125 mg/dL suggests IMPAIRED HOMEOSTASIS per A.D.A. criteria. Neutrophils (Bld) [#/Vol] 7.7 10*3/uL 2.0-7.7 [facility] Neutrophils/100 WBC (Bld) 84.3 % 47-70 [facility] Potassium [Moles/Vol] 4.0 mmol/L 3.5-5.1 [facility] Protein [Mass/Vol] 7.5 g/dL 6.4-8.2 [facility] Sodium [Moles/Vol] 139 mmol/L 136-145 [facility] WBC (Bld) [#/Vol] 9.2 10*3/uL 4.4-11.0 [facility] Blood erythrocytes count (nu mber/volume)Ordered By: Maria D Cotter on 04-01-2023 RBC (Bld) [#/Vol] 4.44 10*6/uL 4.2-5.4 [facility] Blood hemoglobin measurement (mass/volume)Ordered By: Maria D Cotter on 04-01-2023 Hemoglobin (Bld) [Mass/Vol] 12.7 g/dL 12.0-15. 0 [facility] Blood lymphocytes/100 leukoc ytesOrdered By: Maria D Cotter on 04-01-2023 Lymphocytes/100 WBC (Bld) 10.1 % 19-41 [facility] Blood monocytes/100 leukocyt esOrdered By: Maria D Cotter on 04-01-2023 Monocytes/100 WBC (Bld) 4.3 % 0-10 [facility] Blood platelet mean volumeOr dered By: Maria D Cotter on 04-01-2023 Platelet mean volume (Bld) [Entitic vol] 9.5 fL 6.2-12.0 [facility] Determination of erythrocyte mean corpuscular volume (MCV)Ordered By: Maria D Cotter on 04-01-2023 MCV (RBC) [Entitic vol] 92.3 fL 81-99 [facility] Hematocrit Auto (Bld) [Volum e fraction]Ordered By: Maria D Cotter on 04-01-2023 Hematocrit (Bld) [Volume fraction] 41.0 % 37-47 [facility] Laboratory - Chemistry and C hemistry - challengeOrdered By: Maria D Cotter on 04-01-2023 ALP [Catalytic activity/Vol] 103 U/L 45-117 [facility] ALT [Catalytic activity/Vol] 22 U/L 13-56 [facility] CO2 [Moles/Vol] 27.0 mmol/L 21.0-32.0 [facility] Cobalamin (Vitamin B12) [Mass/Vol] 1754 pg/mL 211-911 [facility] Globulin (S) [Mass/Vol] 3.8 g/dL 2.2-4.2 [facility] Magnesium [Mass/Vol] 2.2 mg/dL 1.6-2.6 [facility] Urea nitrogen/Creatinine [Mass ratio] 13.5 mg/mg 10-20 [facility] Laboratory - Hematology and Cell countsOrdered By: Maria D Cotter on 04-01-2023 Erythrocyte distribution width (RBC) [Entitic vol] 48.1 fL 35.1-43.9 [facility] Erythrocyte distribution width (RBC) [Ratio] 14.3 % 11.6-14.6 [facility] Immature granulocytes/100 WBC (Bld) 0.400 % 0.0-0.9 [facility] Comment on above: IG% - Immature Granu locytes (promyelocytes, myelocytes and metamyelocytes) > 1% indicates that a LEFT SHIFT is Present. MCH (RBC) [Entitic mass] 28.6 pg 27.0-32.0 [facility] Nucleated RBC/100 WBC (Bld) [Ratio] 0 % 0-5 [facility] MCHC Auto (RBC) [Mass/Vol]Or dered By: Maria D Cotter on 04-01-2023 MCHC (RBC) [Mass/Vol] 31.0 g/dL 32-36 [facility] No Panel InformationOrdered By: Maria D Cotter on 04-01-2023 Estimated GFR (MDRD) Amer 89 mL/min >60 [facility] Comment on above: GFR Calc Estimated GFR (MDRD) Non-Af Amer 74 mL/min >60 [facility] Comment on above: Non- GFR Calc Thyroid Stimulating Hormone (TSH) 0.87 uIU/mL 0.358-3.74 [facility] Urine Microalbumin/Creatinine Ratio 16.0 mg/g CRE <30 [facility] Vitamin D 25-Hydroxy 40.5 ng/mL [facility] Comment on above: Vitamin D 25(OH) Sta tus Range Deficiency <20 ng/mL (50nmol/L) Insufficiency 20 - 30 ng/mL (50 - 75 nmol/L) Sufficiency 30 - 100 ng/mL (75 - 250 nmol/L) Toxicity >100 ng/mL (>250 nmol/L) Platelets bldOrdered By: Jean Cotter on 04-01-2023 Platelets (Bld) [#/Vol] 371 10*3/uL 150-450 [facility] Serum or plasma albumin paddy urement (mass/volume)Ordered By: Maria D Cotter on 04-01-2023 Albumin [Mass/Vol] 3.7 g/dL 3.2-5.0 [facility] Serum or plasma albumin/glob ulin mass ratioOrdered By: Maria D Cotter on 04-01-2023 Albumin/Globulin [Mass ratio] 1.0 {ratio} 0.9-2.4 [facility] Serum or plasma calcium paddy urement (mass/volume)Ordered By: Maria D Cotter on 04-01-2023 Calcium [Mass/Vol] 9.7 mg/dL 8.5-10.1 [facility] Serum or plasma creatinine m easurement (mass/volume)Ordered By: Maria D Cotter on 04-01-2023 Creatinine [Mass/Vol] 0.81 mg/dL 0.55-1.02 [facility] Comment on above: The validity of the calculated GFR & GFRAA in patients over 70 years has not been determined. Clinical correlation is essential. Serum or plasma ferritin idris surement (mass/volume)Ordered By: Maria D Cotter on 04-01-2023 Ferritin [Mass/Vol] 51 ng/mL 8 [facility] Serum or plasma urea nitroge n measurement (mass/volume)Ordered By: Maria D Cotter on 04-01-2023 Urea nitrogen [Mass/Vol] 11 mg/dL 7-18 [facility] Thin prep Papanicolaou smear with manual screeningOrdered By: Maria D Cotter on 04-01-2023 Thin prep Papanicolaou smear with manual screening 20 U/L 15-37 [facility] Thin prep Papanicolaou smear with manual screening 8 5-15 [facility] Thin prep Papanicolaou smear with manual screening 5.1 mg/L NO RANGE EST. [facility] Urine creatinine measurement (mass/volume)Ordered By: Maria D Cotter on 04-01-2023 Creatinine (U) [Mass/Vol] 32.00 mg/dL NO RANGE EST. [facility] Whole blood hemoglobin A1c/t otal hemoglobin ratio (mass fraction)Ordered By: Maria D Cottre on 04-01-2023 HbA1c (Bld) [Mass fraction] 5.6 % 3.8-5.6 [facility] Comment on above: Normal < 5.7 % Predi abetic 5.7 - 6.4 % Diabetic >or= 6.5 % Please note range changes. Basophil percentageOrdered B y: Balwinder Mancini on 03-07-2023 Chloride [Moles/Vol] 104 mmol/L 98-107 [facility] Glucose [Mass/Vol] 109 mg/dL 74-106 [facility] Comment on above: Fasting Glucose resu lt from 100 to 125 mg/dL suggests IMPAIRED HOMEOSTASIS per A.D.A. criteria. Potassium [Moles/Vol] 3.8 mmol/L 3.5-5.1 [facility] Sodium [Moles/Vol] 138 mmol/L 136-145 [facility] Laboratory - Chemistry and C hemistry - challengeOrdered By: Balwinder Mancini on 03-07-2023 CO2 [Moles/Vol] 31.0 mmol/L 21.0-32.0 [facility] Urea nitrogen/Creatinine [Mass ratio] 11.4 mg/mg 10-20 [facility] No Panel InformationOrdered By: Balwinder Mancini on 03-07-2023 Estimated GFR (MDRD) Amer 82 mL/min >60 [facility] Comment on above: GFR Calc Estimated GFR (MDRD) Non-Af Amer 68 mL/min >60 [facility] Comment on above: Non- GFR Calc Serum or plasma calcium paddy urement (mass/volume)Ordered By: Balwinder Mancini on 03-07-2023 Calcium [Mass/Vol] 9.4 mg/dL 8.5-10.1 [facility] Serum or plasma creatinine m easurement (mass/volume)Ordered By: Balwinder Mancini on 03-07-2023 Creatinine [Mass/Vol] 0.88 mg/dL 0.55-1.02 [facility] Comment on above: The validity of the calculated GFR & GFRAA in patients over 70 years has not been determined. Clinical correlation is essential. Serum or plasma urea nitroge n measurement (mass/volume)Ordered By: Balwinder Mancini on 03-07-2023 Urea nitrogen [Mass/Vol] 10 mg/dL 7-18 [facility] Thin prep Papanicolaou smear with manual screeningOrdered By: Balwinder Mancini on 03-07-2023 Thin prep Papanicolaou smear with manual screening 3 5-15 [facility] Urine creatinine measurement (mass/volume)Ordered By: Balwinder Mancini on 03-07-2023 Creatinine (U) [Mass/Vol] mg/dL NO RANGE EST. [facility] Urine protein measurement (m ass/volume)Ordered By: Balwinder Mancini on 03-07-2023 Protein (U) [Mass/Vol] mg/dL 0.0-11.8 [facility] Urine protein/creatinine mas s ratioOrdered By: Balwinder Mancini on 03-07-2023 Protein/Creatinine (U) [Mass ratio] TNP [facility] Comment on above: Test not performed Clostridium difficile detect ion by polymerase chain reactionOrdered By: Manolo Magallon on 02-26-2023 C. difficile DNA POOJA+probe Ql (Unsp spec) [facility] Stool Clostridium difficile detectionOrdered By: Manolo Magallon on 02-26-2023 C. difficile Ql (Stl) [facility] Absolute lymphocyte countOrd ered By: Dr. Shea on 02-04-2023 Lymphocytes Auto (Unsp spec) [#/Vol] 1.50 10*3/uL 0.83-4.51 [facility] Basophil percentageOrdered B y: Dr. Shea on 02-04-2023 Basophils/100 WBC (Bld) 0.6 % 0-1 [facility] Bilirubin [Mass/Vol] 0.40 mg/dL 0.20-1.00 [facility] Comment on above: For patients on eltr ombopag therapy, use of Dimension [place] TBIL is not recommended. Chloride [Moles/Vol] 106 mmol/L 98-107 [facility] Eosinophils/100 WBC (Bld) 0.9 % 0-5 [facility] Glucose [Mass/Vol] 119 mg/dL 74-106 [facility] Comment on above: Fasting Glucose resu lt from 100 to 125 mg/dL suggests IMPAIRED HOMEOSTASIS per A.D.A. criteria. Neutrophils (Bld) [#/Vol] 6.2 10*3/uL 2.0-7.7 [facility] Neutrophils/100 WBC (Bld) 71.4 % 47-70 [facility] Potassium [Moles/Vol] 3.9 mmol/L 3.5-5.1 [facility] Protein [Mass/Vol] 6.7 g/dL 6.4-8.2 [facility] Sodium [Moles/Vol] 140 mmol/L 136-145 [facility] WBC (Bld) [#/Vol] 8.6 10*3/uL 4.4-11.0 [facility] Blood erythrocytes count (nu mber/volume)Ordered By: Dr. Shea on 02-04-2023 RBC (Bld) [#/Vol] 4.12 10*6/uL 4.2-5.4 [facility] Blood hemoglobin measurement (mass/volume)Ordered By: Dr. Shea on 02-04-2023 Hemoglobin (Bld) [Mass/Vol] 11.8 g/dL 12.0-15. 0 [facility] Blood lymphocytes/100 leukoc ytesOrdered By: Dr. Shea on 02-04-2023 Lymphocytes/100 WBC (Bld) 17.4 % 19-41 [facility] Blood monocytes/100 leukocyt esOrdered By: Dr. Shea on 02-04-2023 Monocytes/100 WBC (Bld) 7.7 % 0-10 [facility] Blood platelet mean volumeOr dered By: Dr. Shea on 02-04-2023 Platelet mean volume (Bld) [Entitic vol] 9.2 fL 6.2-12.0 [facility] Determination of erythrocyte mean corpuscular volume (MCV)Ordered By: Dr. Shea on 02-04-2023 MCV (RBC) [Entitic vol] 90.5 fL 81-99 [facility] Hematocrit Auto (Bld) [Volum e fraction]Ordered By: Dr. Shea on 02-04-2023 Hematocrit (Bld) [Volume fraction] 37.3 % 37-47 [facility] Laboratory - Chemistry and C hemistry - challengeOrdered By: Dr. Shea on 02-04-2023 ALP [Catalytic activity/Vol] 98 U/L 45-117 [facility] ALT [Catalytic activity/Vol] 25 U/L 13-56 [facility] CO2 [Moles/Vol] 29.0 mmol/L 21.0-32.0 [facility] Globulin (S) [Mass/Vol] 3.3 g/dL 2.2-4.2 [facility] Urea nitrogen/Creatinine [Mass ratio] 15.9 mg/mg 10-20 [facility] Laboratory - Hematology and Cell countsOrdered By: Dr. Shea on 02-04-2023 Erythrocyte distribution width (RBC) [Entitic vol] 45.9 fL 35.1-43.9 [facility] Erythrocyte distribution width (RBC) [Ratio] 13.8 % 11.6-14.6 [facility] Immature granulocytes/100 WBC (Bld) 2.000 % 0.0-0.9 [facility] Comment on above: IG% - Immature Granu locytes (promyelocytes, myelocytes and metamyelocytes) > 1% indicates that a LEFT SHIFT is Present. MCH (RBC) [Entitic mass] 28.6 pg 27.0-32.0 [facility] Nucleated RBC/100 WBC (Bld) [Ratio] 0 % 0-5 [facility] MCHC Auto (RBC) [Mass/Vol]Or dered By: Dr. Shea on 02-04-2023 MCHC (RBC) [Mass/Vol] 31.6 g/dL 32-36 [facility] No Panel InformationOrdered By: Dr. Shea on 02-04-2023 Estimated GFR (MDRD) Amer 82 mL/min >60 [facility] Comment on above: GFR Calc Estimated GFR (MDRD) Non-Af Amer 68 mL/min >60 [facility] Comment on above: Non- GFR Calc Thyroid Stimulating Hormone (TSH) 0.57 uIU/mL 0.358-3.74 [facility] Vitamin D 25-Hydroxy 47.0 ng/mL [facility] Comment on above: Vitamin D 25(OH) Sta tus Range Deficiency <20 ng/mL (50nmol/L) Insufficiency 20 - 30 ng/mL (50 - 75 nmol/L) Sufficiency 30 - 100 ng/mL (75 - 250 nmol/L) Toxicity >100 ng/mL (>250 nmol/L) Platelets bldOrdered By: Dr. Shea on 02-04-2023 Platelets (Bld) [#/Vol] 377 10*3/uL 150-450 [facility] Serum or plasma albumin paddy urement (mass/volume)Ordered By: Dr. Shea on 02-04-2023 Albumin [Mass/Vol] 3.4 g/dL 3.2-5.0 [facility] Serum or plasma albumin/glob ulin mass ratioOrdered By: Dr. Shea on 02-04-2023 Albumin/Globulin [Mass ratio] 1.0 {ratio} 0.9-2.4 [facility] Serum or plasma calcium paddy urement (mass/volume)Ordered By: Dr. Shea on 02-04-2023 Calcium [Mass/Vol] 8.9 mg/dL 8.5-10.1 [facility] Serum or plasma creatinine m easurement (mass/volume)Ordered By: Dr. Shea on 02-04-2023 Creatinine [Mass/Vol] 0.88 mg/dL 0.55-1.02 [facility] Comment on above: The validity of the calculated GFR & GFRAA in patients over 70 years has not been determined. Clinical correlation is essential. Serum or plasma urea nitroge n measurement (mass/volume)Ordered By: Dr. Shea on 02-04-2023 Urea nitrogen [Mass/Vol] 14 mg/dL 7-18 [facility] Thin prep Papanicolaou smear with manual screeningOrdered By: Dr. Shea on 02-04-2023 Thin prep Papanicolaou smear with manual screening 22 U/L 15-37 [facility] Thin prep Papanicolaou smear with manual screening 5 5-15 [facility] No Panel InformationOrdered By: Manolo Magallon on 01-19-2023 Giardia Antigen (ROHINI) [facility] Ova and parasitesOrdered By: Manolo Magallon on 01-19-2023 Ova and parasites identified LM Nom (Unsp spec) [facility] No Panel InformationOrdered By: Manolo Magallon on 01-03-2023 Giardia Antigen (ROHINI) [facility] Stool Calprotectin 7 ug/g 0-120 [facility] Comment on above: Concentration Interp retation Follow-Up<16 - 50 ug/g Normal None>50 -120 ug/g Borderline Re-evaluate in 4-6 weeks >120 ug/g Abnormal Repeat as clinically indicatedPerformed at: - [facility] [id number] Director: Ok Latif PhD, Phone: [phone] at: [facility] [id number] Director: Abdon Ayala MD, Phone: [phone] Stool Neutral Fats Normal . [facility] Comment on above: Normal (<60 Droplets /HPF) Stool Pancreatic Elastase 294 >200 [facility] Comment on above: Result Units: ug [address] st./g Severe Pancreatic Insufficiency: <100 Moderate Pancreatic Insufficiency: 100 - 200 Normal: >200Performed at: [facility] [id number] Director: Abdon Ayala MD, Phone: [phone] Ova and parasitesOrdered By: Manolo Magallon on 01-03-2023 Ova and parasites identified LM Nom (Unsp spec) [facility] Qualitative fecal fat or lip idsOrdered By: Manolo Magallon on 01-03-2023 Fat Ql (Stl) Increased . [facility] Comment on above: Normal (<100 Droplet s/HPF) Absolute lymphocyte countOrd ered By: Manolo Magallon on 01-02-2023 Lymphocytes Auto (Unsp spec) [#/Vol] 1.49 10*3/uL 0.83-4.51 [facility] Albumin Elph [Mass/Vol]Order ed By: Manolo Magallon on 01-02-2023 Albumin [Mass/Vol] 3.7 g/dL 2.9-4.4 [facility] Atypical perinuclear antineu trophil cytoplasmic antibodies measurementOrdered By: Manolo Magallon on 01-02-2023 Neutrophil cytoplasmic Ab.perinuclear.atypical IF (S) [Titer] <1:20 titer Neg:<1:20 [facility] Comment on above: The atypical pANCA p attern has been observed in asignificant percentage of patients with ulcerative colitis,primary sclerosing cholangitis and autoimmune hepatitis.Performed at: [facility] [id number] Director: Ok Latif PhD, Phone: [phone] at: [facility] [id number] Director: Abdon Ayala MD, Phone: [phone] Basophil percentageOrdered B y: Manolo Magallon on 01-02-2023 Basophil percentage < 0.2 AI 0.0-0.9 [facility] Basophils/100 WBC (Bld) 0.6 % 0-1 [facility] Bilirubin [Mass/Vol] 0.20 mg/dL 0.20-1.00 [facility] Comment on above: For patients on eltr ombopag therapy, use of Dimension [place] TBIL is not recommended. Chloride [Moles/Vol] 106 mmol/L 98-107 [facility] Eosinophils/100 WBC (Bld) 0.9 % 0-5 [facility] Glucose [Mass/Vol] 112 mg/dL 74-106 [facility] Comment on above: Fasting Glucose resu lt from 100 to 125 mg/dL suggests IMPAIRED HOMEOSTASIS per A.D.A. criteria. LDH [Catalytic activity/Vol] 249 U/L 84-246 [facility] [facility] Neutrophils (Bld) [#/Vol] 5.9 10*3/uL 2.0-7.7 [facility] Neutrophils/100 WBC (Bld) 72.9 % 47-70 [facility] Potassium [Moles/Vol] 3.9 mmol/L 3.5-5.1 [facility] Protein [Mass/Vol] 7.0 g/dL 6.4-8.2 [facility] Sodium [Moles/Vol] 141 mmol/L 136-145 [facility] WBC (Bld) [#/Vol] 8.1 10*3/uL 4.4-11.0 [facility] Blood erythrocytes count (nu mber/volume)Ordered By: Manolo Magallon on 01-02-2023 RBC (Bld) [#/Vol] 4.23 10*6/uL 4.2-5.4 [facility] Blood hemoglobin measurement (mass/volume)Ordered By: Manolo Magallon on 01-02-2023 Hemoglobin (Bld) [Mass/Vol] 12.1 g/dL 12.0-15. 0 [facility] Blood lymphocytes/100 leukoc ytesOrdered By: Manolo Magallon on 01-02-2023 Lymphocytes/100 WBC (Bld) 18.4 % 19-41 [facility] Blood monocytes/100 leukocyt esOrdered By: Manolo Magallon on 01-02-2023 Monocytes/100 WBC (Bld) 6.8 % 0-10 [facility] Blood platelet mean volumeOr dered By: Manolo Magallon on 01-02-2023 Platelet mean volume (Bld) [Entitic vol] 8.9 fL 6.2-12.0 [facility] Chocolate RASTOrdered By: Ra lillian Magallon on 01-02-2023 Chocolate IgE Qn (S) <0.10 kU/L Class 0 [facility] Comment on above: Performed at: [facility] [employer] [address] [id number] Director: Ok Latif PhD, Phone: [phone] at: [facility] [address] [id number] Director: Abdon Ayala MD, Phone: [phone] Determination of erythrocyte mean corpuscular volume (MCV)Ordered By: Manolo Magallon on 01-02-2023 MCV (RBC) [Entitic vol] 93.1 fL 81-99 [facility] Erythrocyte sedimentation ra teOrdered By: Manolo Magallon on 01-02-2023 ESR (Bld) [Velocity] 19 mm/h 0-30 [facility] Hematocrit Auto (Bld) [Volum e fraction]Ordered By: Manolo Magallon on 01-02-2023 Hematocrit (Bld) [Volume fraction] 39.4 % 37-47 [facility] Interpretation of serum or p lasma protein pattern by immunofixation (narrative resultOrdered By: Manolo Magallon on 01-02-2023 Protein Fractions Immunofixation Tae [Interp] See comment [facility] Comment on above: Due to the small symone ntity of monoclonal protein, unable toquantitate the M-spike. Laboratory - Chemistry and C hemistry - challengeOrdered By: Manolo Magallon on 01-02-2023 ALP [Catalytic activity/Vol] 100 U/L 45-117 [facility] ALT [Catalytic activity/Vol] 21 U/L 13-56 [facility] CO2 [Moles/Vol] 30.0 mmol/L 21.0-32.0 [facility] Urea nitrogen/Creatinine [Mass ratio] 17.2 mg/mg 10-20 [facility] Laboratory - Hematology and Cell countsOrdered By: Manolo Magallon on 01-02-2023 Erythrocyte distribution width (RBC) [Entitic vol] 46.5 fL 35.1-43.9 [facility] Erythrocyte distribution width (RBC) [Ratio] 13.7 % 11.6-14.6 [facility] Immature granulocytes/100 WBC (Bld) 0.400 % 0.0-0.9 [facility] Comment on above: IG% - Immature Granu locytes (promyelocytes, myelocytes and metamyelocytes) > 1% indicates that a LEFT SHIFT is Present. MCH (RBC) [Entitic mass] 28.6 pg 27.0-32.0 [facility] Nucleated RBC/100 WBC (Bld) [Ratio] 0 % 0-5 [facility] Laboratory - Miscellaneous t estsOrdered By: Manolo Magallon on 01-02-2023 Service comment (Unsp spec) [Interp] Comment . [facility] Comment on above: Levels of Specific I [...] 01-02-2023 MCHC (RBC) [Mass/Vol] 30.7 g/dL 32-36 [facility] No Panel InformationOrdered By: Manolo Magallon on 01-02-2023 Addendum Document Comment . [facility] Comment on above: Protein electrophore sis scan will follow via computer,mail, or sprinkling system installer delivery. Centromere B Antibody <0.2 AI 0.0-0.9 [facility] Endomysial IgA Antibody Negative [facility] Estimated GFR (MDRD) Amer 89 mL/min >60 [facility] Comment on above: GFR Calc Estimated GFR (MDRD) Non-Af Amer 74 mL/min >60 [facility] Comment on above: Non- GFR Calc Immunoglobulin E 17 IU/mL 6-495 [facility] Miscellaneous Test See comment [facility] Comment on above: TEST RESULT LIMITSIB D [...] developed and its performance characteristics determined by [facility]. It has not been cleared or approved by the Food and Drug Administration. The FDA has determined that such clearance or approval is not necessary.Atypical pANCA Negative Negative Comments Pattern is not suggestive of Inflammatory Bowel Disease TESTING PERFORMED AT [facility]. ORIGINAL REPORT ON FILE IN LAB CONTAINS ADDITIONAL TEST SITE INFORMATION. ROUTE DELIVERY SERVICE DRIVER Antibody <0.2 AI 0.0-0.9 [facility] Scallop Allergen <0.10 kU/L Class 0 [facility] Seafood [employer] Allergens (RAST) Negative . [facility] Comment on above: Allergens in this mi x are: Blue mussel Fish [place] Shrimp Tuna Sesame Seed Allergen IgE Antibody <0.10 kU/L Class 0 [facility] Shrimp Allergen <0.10 kU/L Class 0 [facility] Platelets bldOrdered By: Roderick hewitt Friend on 01-02-2023 Platelets (Bld) [#/Vol] 376 10*3/uL 150-450 [facility] Serum DNA double strand anti body assay (units/volume)Ordered By: Manolo Magallon on 01-02-2023 DNA double strand Ab Qn (S) [IU]/mL 0-9 [facility] Comment on above: Negative <5 Equivoca l 5 - 9 Positive >9 Serum Gretel-1 antibody assay (u nits/volume)Ordered By: Manolo Magallon on 01-02-2023 Gretel-1 extractable nuclear Ab Qn (S) <0.2 AI 0.0-0.9 [facility] Serum Scl-70 extractable nuc lear antibody assay (units/volume)Ordered By: Manolo Magallon on 01-02-2023 SCL-70 extractable nuclear Ab Qn (S) <0.2 AI 0.0-0.9 [facility] Serum Valdes extractable nucl ear antibody detectionOrdered By: Manolo Magallon on 01-02-2023 Valdes extractable nuclear Ab Ql (S) <0.2 AI 0.0-0.9 [facility] Serum ufoxa-0-ayednrae measu rement by electrophoresisOrdered By: Manolo Magallon on 01-02-2023 Alpha 1 globulin Elph [Mass/Vol] 0.3 g/dL 0.0-0.4 [facility] Alpha 1 globulin Elph [Mass/Vol] 0.9 g/dL 0.4-1.0 [facility] Serum beef IgE antibody assa y (units/volume)Ordered By: Manolo Magallon on 01-02-2023 Beef IgE Qn (S) <0.10 kU/L Class 0 [facility] Serum black walnut IgE antib francis assay (units/volume)Ordered By: Manolo Magallon on 01-02-2023 Black [place] IgE Qn (S) <0.10 kU/L Class 0 [facility] Serum clam IgE antibody assa y (units/volume)Ordered By: Manolo Magallon on 01-02-2023 Clam IgE Qn (S) <0.10 kU/L Class 0 [facility] Serum classic neutrophil cyt oplasmic antibody assay (units/volume)Ordered By: Manolo Magallon on 01-02-2023 Neutrophil cytoplasmic Ab.classic Qn (S) <1:20 titer Neg:<1:20 [facility] Serum codfish IgE antibody a ssay (units/volume)Ordered By: Manolo Magallon on 01-02-2023 Codfish IgE Qn (S) <0.10 kU/L Class 0 [facility] Serum corn IgE antibody assa y (units/volume)Ordered By: Manolo Magallon on 01-02-2023 [place] IgE Qn (S) <0.10 kU/L Class 0 [facility] Serum cow milk IgE antibody assay (units/volume)Ordered By: Manolo Magallon on 01-02-2023 Cow milk IgE Qn (S) <0.10 kU/L Class 0 [facility] Serum egg white IgE antibody assay (units/volume)Ordered By: Manolo Magallon on 01-02-2023 Egg white IgE Qn (S) <0.10 kU/L Class 0 [facility] Serum globulin measurement ( mass/volume)Ordered By: Manolo Magallon on 01-02-2023 Globulin (S) [Mass/Vol] 3.0 g/dL 2.2-3.9 [facility] Serum or plasma C reactive p rotein measurement (mass/volume)Ordered By: Manolo Magallon on 01-02-2023 CRP [Mass/Vol] 3.47 mg/L 0.0-3.0 [facility] Comment on above: C-Reactive Protein ( CRP) provides useful information for thediagnosis, therapy and monitoring of inflammatory processesand associated diseases. For the evaluation of Relative Riskfor Cardiovascular Disease, a High Sensitivity CRP (HSCRP)should be ordered. Serum or plasma IgA measurem ent (mass/volume)Ordered By: Manolo Magallon on 01-02-2023 IgA [Mass/Vol] 187 mg/dL 87-352 [facility] Serum or plasma IgG measurem ent (mass/volume)Ordered By: Manolo Magallon on 01-02-2023 IgG [Mass/Vol] 611 mg/dL [phone] [facility] Serum or plasma IgM measurem ent (mass/volume)Ordered By: Manolo Magallon on 01-02-2023 IgM [Mass/Vol] 108 mg/dL 217 [facility] Serum or plasma albumin paddy urement (mass/volume)Ordered By: Manolo Magallon on 01-02-2023 Albumin [Mass/Vol] 3.5 g/dL 3.2-5.0 [facility] Serum or plasma albumin/glob ulin mass ratioOrdered By: Manolo Magallon on 01-02-2023 Albumin/Globulin [Mass ratio] 1.0 {ratio} 0.9-2.4 [facility] Serum or plasma beta globuli n measurement by electrophoresis (mass/volume)Ordered By: Manolo Magallon on 01-02-2023 Beta globulin Elph [Mass/Vol] 1.2 g/dL 0.7-1.3 [facility] Serum or plasma calcium paddy urement (mass/volume)Ordered By: Manolo Magallon on 01-02-2023 Calcium [Mass/Vol] 9.6 mg/dL 8.5-10.1 [facility] Serum or plasma creatinine m easurement (mass/volume)Ordered By: Manolo Magallon on 01-02-2023 Creatinine [Mass/Vol] 0.82 mg/dL 0.55-1.02 [facility] Comment on above: The validity of the calculated GFR & GFRAA in patients over 70 years has not been determined. Clinical correlation is essential. Serum or plasma gamma globul in measurement by electrophoresis (mass/volume)Ordered By: Manolo Magallon on 01-02-2023 Gamma globulin Elph [Mass/Vol] 0.6 g/dL 0.4-1.8 [facility] Serum or plasma immunoelectr ophoresis interpretation (nominal result)Ordered By: Manolo Magallon on 01-02-2023 Interpretation IEP [Interp] Comment . [facility] Comment on above: Immunofixation shows IgG monoclonal protein with lambdalight chain specificity. Serum or plasma urea nitroge n measurement (mass/volume)Ordered By: Maonlo Magallon on 01-02-2023 Urea nitrogen [Mass/Vol] 14 mg/dL 03-04 [facility] Serum peanut IgE antibody as say (units/volume)Ordered By: Manolo Magallon on 01-02-2023 Peanut IgE Qn (S) <0.10 kU/L Class 0 [facility] Serum perinuclear neutrophil cytoplasmic antibody titer by immunofluorescenceOrdered By: Manolo Magallon on 01-02-2023 Neutrophil cytoplasmic Ab.perinuclear IF (S) [Titer] <1:20 titer Neg:<1:20 [facility] Comment on above: The presence of posi tive fluorescence exhibiting P-ANCA orC-ANCA patterns alone is not specific for the diagnosis ofWegener's Granulomatosis (WG) or microscopic polyangiitis.Decisions about treatment should not be based solely onANCA IFA results. The [employer] ANCA [employer] Consensusrecommends follow up testing of positive sera with both WA-3 and MPO-ANCA enzyme immunoassays. As many as 5% serumsamples are positive only by EIA. Ref. AM J Clin [id number];111:507-513. Serum pork IgE antibody assa y (units/volume)Ordered By: Manolo Magallon on 01-02-2023 Pork IgE Qn (S) <0.10 kU/L Class 0 [facility] Serum soybean IgE antibody a ssay (units/volume)Ordered By: Manolo Magallon on 01-02-2023 Soybean IgE Qn (S) <0.10 kU/L Class 0 [facility] Serum tissue transglutaminas e IgA antibody assay (units/volume)Ordered By: Manolo Magallon on 01-02-2023 tTG IgA Qn (S) <2 U/mL 0-3 [facility] Comment on above: Negative 0 - 3 Weak Positive 4 - 10 Positive >10 Tissue Transglutaminase (tTG) has been identified as the endomysial antigen. Studies have demonstr- ated that endomysial IgA antibodies have over 99% specificity for gluten sensitive enteropathy. Serum wheat IgE antibody ass ay (units/volume)Ordered By: Manolo Magallon on 01-02-2023 Wheat IgE Qn (S) <0.10 kU/L Class 0 [facility] Serum whole egg IgE antibody assay (units/volume)Ordered By: Manolo Magallon on 01-02-2023 Whole Egg IgE Qn (S) <0.10 kU/L Class 0 [facility] Thin prep Papanicolaou smear with manual screeningOrdered By: Manolo Magallon on 01-02-2023 Thin prep Papanicolaou smear with manual screening 20 U/L 15-37 [facility] Thin prep Papanicolaou smear with manual screening 5 5-15 [facility] Thin prep Papanicolaou smear with manual screening 1.3 0.7-1.7 [facility] Total protein bloodOrdered B y: Manolo Magallon on 01-02-2023 Protein [Mass/Vol] 6.7 g/dL 6.0-8.5 [facility] Laboratory - Microbiology an d Antimicrobial susceptibilityOrdered By: Dr. Shea on 09-06-2022 SARS-CoV-2 (COVID-19) RNA POOJA+probe Ql (Unsp spec) Detected Not Detect [facility] Comment on above: Normal Reference Ran ge: [...] 09-06-2022 Influenza Types A,B Direct FA (ROHINI) [facility] RSV Ag EIAOrdered By: Dr. Guido alvarez on 09-06-2022 RSV Ag Immune stain Ql (Tiss) [facility] Absolute lymphocyte countOrd ered By: Dr. Shea on 08-06-2022 Lymphocytes Auto (Unsp spec) [#/Vol] 1.12 10*3/uL 0.83-4.51 [facility] Basophil percentageOrdered B y: Dr. Shea on 08-06-2022 Basophils/100 WBC (Bld) 0.5 % 0-1 [facility] Bilirubin [Mass/Vol] 0.20 mg/dL 0.20-1.00 [facility] Comment on above: For patients on eltr ombopag therapy, use of Dimension [place] TBIL is not recommended. Chloride [Moles/Vol] 107 mmol/L 98-107 [facility] Eosinophils/100 WBC (Bld) 0.3 % 0-5 [facility] Glucose [Mass/Vol] 146 mg/dL 74-106 [facility] Comment on above: Fasting Glucose resu lt greater than or equal to 126 mg/dL suggests DIABETES MELLITUS per A.D.A. criteria. Neutrophils (Bld) [#/Vol] 8.5 10*3/uL 2.0-7.7 [facility] Neutrophils/100 WBC (Bld) 83.5 % 47-70 [facility] Potassium [Moles/Vol] 3.7 mmol/L 3.5-5.1 [facility] Protein [Mass/Vol] 6.9 g/dL 6.4-8.2 [facility] Sodium [Moles/Vol] 141 mmol/L 136-145 [facility] WBC (Bld) [#/Vol] 10.2 10*3/uL 4.4-11.0 [facility] Blood erythrocytes count (nu mber/volume)Ordered By: Dr. Shea on 08-06-2022 RBC (Bld) [#/Vol] 4.14 10*6/uL 4.2-5.4 [facility] Blood hemoglobin measurement (mass/volume)Ordered By: Dr. Shea on 08-06-2022 Hemoglobin (Bld) [Mass/Vol] 12.3 g/dL 12.0-15. 0 [facility] Blood lymphocytes/100 leukoc ytesOrdered By: Dr. Shea on 08-06-2022 Lymphocytes/100 WBC (Bld) 11.0 % 19-41 [facility] Blood monocytes/100 leukocyt esOrdered By: Dr. Shea on 08-06-2022 Monocytes/100 WBC (Bld) 4.3 % 0-10 [facility] Blood platelet mean volumeOr dered By: Dr. Shea on 08-06-2022 Platelet mean volume (Bld) [Entitic vol] 9.1 fL 6.2-12.0 [facility] Determination of erythrocyte mean corpuscular volume (MCV)Ordered By: Dr. Shea on 08-06-2022 MCV (RBC) [Entitic vol] 92.8 fL 81-99 [facility] Hematocrit Auto (Bld) [Volum e fraction]Ordered By: Dr. Shea on 08-06-2022 Hematocrit (Bld) [Volume fraction] 38.4 % 37-47 [facility] Laboratory - Chemistry and C hemistry - challengeOrdered By: Dr. Shea on 08-06-2022 ALP [Catalytic activity/Vol] 88 U/L 45-117 [facility] ALT [Catalytic activity/Vol] 27 U/L 13-56 [facility] CO2 [Moles/Vol] 24.0 mmol/L 21.0-32.0 [facility] Globulin (S) [Mass/Vol] 3.3 g/dL 2.2-4.2 [facility] Urea nitrogen/Creatinine [Mass ratio] 14.2 mg/mg 10-20 [facility] Laboratory - Hematology and Cell countsOrdered By: Dr. Shea on 08-06-2022 Erythrocyte distribution width (RBC) [Entitic vol] 47.8 fL 35.1-43.9 [facility] Erythrocyte distribution width (RBC) [Ratio] 14.0 % 11.6-14.6 [facility] Immature granulocytes/100 WBC (Bld) 0.400 % 0.0-0.9 [facility] Comment on above: IG% - Immature Granu locytes (promyelocytes, myelocytes and metamyelocytes) > 1% indicates that a LEFT SHIFT is Present. MCH (RBC) [Entitic mass] 29.7 pg 27.0-32.0 [facility] Nucleated RBC/100 WBC (Bld) [Ratio] 0 % 0-5 [facility] MCHC Auto (RBC) [Mass/Vol]Or dered By: Dr. Shea on 08-06-2022 MCHC (RBC) [Mass/Vol] 32.0 g/dL 32-36 [facility] No Panel InformationOrdered By: Dr. Shea on 08-06-2022 Estimated GFR (MDRD) Amer 78 mL/min >60 [facility] Comment on above: GFR Calc Estimated GFR (MDRD) Non-Af Amer 65 mL/min >60 [facility] Comment on above: Non- GFR Calc Thyroid Stimulating Hormone (TSH) 0.62 uIU/mL 0.358-3.74 [facility] Vitamin D 25-Hydroxy 30.0 ng/mL [facility] Comment on above: Vitamin D 25(OH) Sta tus Range Deficiency <20 ng/mL (50nmol/L) Insufficiency 20 - 30 ng/mL (50 - 75 nmol/L) Sufficiency 30 - 100 ng/mL (75 - 250 nmol/L) Toxicity >100 ng/mL (>250 nmol/L) Platelets bldOrdered By: Dr. Shea on 08-06-2022 Platelets (Bld) [#/Vol] 367 10*3/uL 150-450 [facility] Serum or plasma albumin paddy urement (mass/volume)Ordered By: Dr. Shea on 08-06-2022 Albumin [Mass/Vol] 3.6 g/dL 3.2-5.0 [facility] Serum or plasma albumin/glob ulin mass ratioOrdered By: Dr. Shea on 08-06-2022 Albumin/Globulin [Mass ratio] 1.1 {ratio} 0.9-2.4 [facility] Serum or plasma calcium paddy urement (mass/volume)Ordered By: Dr. Shea on 08-06-2022 Calcium [Mass/Vol] 9.2 mg/dL 8.5-10.1 [facility] Serum or plasma creatinine m easurement (mass/volume)Ordered By: Dr. Shea on 08-06-2022 Creatinine [Mass/Vol] 0.92 mg/dL 0.55-1.02 [facility] Comment on above: The validity of the calculated GFR & GFRAA in patients over 70 years has not been determined. Clinical correlation is essential. Serum or plasma urea nitroge n measurement (mass/volume)Ordered By: Dr. Shea on 08-06-2022 Urea nitrogen [Mass/Vol] 13 mg/dL 7-18 [facility] Thin prep Papanicolaou smear with manual screeningOrdered By: Dr. Shea on 08-06-2022 Thin prep Papanicolaou smear with manual screening 16 U/L 15-37 [facility] Thin prep Papanicolaou smear with manual screening 10 5-15 [facility] Erythrocyte sedimentation ra mila 04-30-2022 ESR (Bld) [Velocity] 10 mm/h 0-30 [facility] Work Phone: Serum or plasma C reactive p rotein measurement (mass/volume)on 04-30-2022 CRP [Mass/Vol] 8.27 mg/L 0.0-3.0 [facility] Work Phone: Comment on above: C-Reactive Protein ( CRP) provides useful information for thediagnosis, therapy and monitoring of inflammatory processesand associated diseases. For the evaluation of Relative Riskfor Cardiovascular Disease, a High Sensitivity CRP (HSCRP)should be ordered. Basophil percentageon 2021 Chloride [Moles/Vol] 102 mmol/L 98-107 [facility] Work Phone: Glucose [Mass/Vol] 133 mg/dL 74-106 [facility] Work Phone: Comment on above: Fasting Glucose resu lt greater than or equal to 126 mg/dL suggests DIABETES MELLITUS per A.D.A. criteria. Potassium [Moles/Vol] 3.6 mmol/L 3.5-5.1 [facility] Work Phone: Sodium [Moles/Vol] 138 mmol/L 136-145 [facility] Work Phone: Laboratory - Chemistry and C hemistry - challengeon 03-27-2022 CO2 [Moles/Vol] 31.0 mmol/L 21.0-32.0 [facility] Work Phone: Urea nitrogen/Creatinine [Mass ratio] 16.8 mg/mg 10-20 [facility] Work Phone: No Panel Informationon 03-27 Estimated GFR (MDRD) Amer 81 mL/min >60 [facility] Work Phone: Comment on above: GFR Calc Estimated GFR (MDRD) Non-Af Amer 67 mL/min >60 [facility] Work Phone: Comment on above: Non- GFR Calc Serum or plasma calcium paddy urement (mass/volume)on 03-27-2022 Calcium [Mass/Vol] 9.1 mg/dL 8.5-10.1 [facility] Work Phone: Serum or plasma creatinine m easurement (mass/volume)on 03-27-2022 Creatinine [Mass/Vol] 0.89 mg/dL 0.55-1.02 [facility] Work Phone: Comment on above: The validity of the calculated GFR & GFRAA in patients over 70 years has not been determined. Clinical correlation is essential. Serum or plasma urea nitroge n measurement (mass/volume)on 03-27-2022 Urea nitrogen [Mass/Vol] 15 mg/dL 7-18 [facility] Work Phone: Thin prep Papanicolaou smear with manual screeningon 03-27-2022 Thin prep Papanicolaou smear with manual screening 5 5-15 [facility] Work Phone: Urine creatinine measurement (mass/volume)on 03-27-2022 Creatinine (U) [Mass/Vol] 42.20 mg/dL NO RANGE EST. [facility] Work Phone: Urine protein measurement (m ass/volume)on 03-27-2022 Protein (U) [Mass/Vol] mg/dL 0.0-11.8 [facility] Work Phone: Urine protein/creatinine mas s ratioon 03-27-2022 Protein/Creatinine (U) [Mass ratio] TNP [facility] Work Phone: Comment on above: Test not performed Erythrocyte sedimentation ra mila 03-05-2022 ESR (Bld) [Velocity] 20 mm/h 0-30 [facility] Work Phone: Serum or plasma C reactive p rotein measurement (mass/volume)on 03-05-2022 CRP [Mass/Vol] mg/L 0.0-3.0 [facility] Work Phone: Comment on above: C-Reactive Protein ( CRP) provides useful information for thediagnosis, therapy and monitoring of inflammatory processesand associated diseases. For the evaluation of Relative Riskfor Cardiovascular Disease, a High Sensitivity CRP (HSCRP)should be ordered. Absolute lymphocyte counton 01-30-2022 Lymphocytes Auto (Unsp spec) [#/Vol] 1.27 10*3/uL 0.83-4.51 [facility] Work Phone: Basophil percentageon 2021 Basophils/100 WBC (Bld) 0.5 % 0-1 [facility] Work Phone: Bilirubin [Mass/Vol] 0.20 mg/dL 0.20-1.00 [facility] Work Phone: Comment on above: For patients on eltr ombopag therapy, use of Dimension [place] TBIL is not recommended. Chloride [Moles/Vol] 104 mmol/L 98-107 [facility] Work Phone: Eosinophils/100 WBC (Bld) 0.5 % 0-5 [facility] Work Phone: Glucose [Mass/Vol] 117 mg/dL 74-106 [facility] Work Phone: Comment on above: Fasting Glucose resu lt from 100 to 125 mg/dL suggests IMPAIRED HOMEOSTASIS per A.D.A. criteria. Neutrophils (Bld) [#/Vol] 6.9 10*3/uL 2.0-7.7 [facility] Work Phone: Neutrophils/100 WBC (Bld) 79.5 % 47-70 [facility] Work Phone: Potassium [Moles/Vol] 3.9 mmol/L 3.5-5.1 [facility] Work Phone: Protein [Mass/Vol] 7.1 g/dL 6.4-8.2 [facility] Work Phone: Sodium [Moles/Vol] 141 mmol/L 136-145 [facility] Work Phone: WBC (Bld) [#/Vol] 8.7 10*3/uL 4.4-11.0 [facility] Work Phone: Blood erythrocytes count (nu mber/volume)on 01-30-2022 RBC (Bld) [#/Vol] 4.24 10*6/uL 4.2-5.4 [facility] Work Phone: Blood hemoglobin measurement (mass/volume)on 01-30-2022 Hemoglobin (Bld) [Mass/Vol] 12.5 g/dL 12.0-15. 0 [facility] Work Phone: Blood lymphocytes/100 leukoc yteson 01-30-2022 Lymphocytes/100 WBC (Bld) 14.6 % 19-41 [facility] Work Phone: Blood monocytes/100 leukocyt eson 01-30-2022 Monocytes/100 WBC (Bld) 4.6 % 0-10 [facility] Work Phone: Blood platelet mean volumeon 01-30-2022 Platelet mean volume (Bld) [Entitic vol] 9.5 fL 6.2-12.0 [facility] Work Phone: Determination of erythrocyte mean corpuscular volume (MCV)on 01-30-2022 MCV (RBC) [Entitic vol] 92.2 fL 81-99 [facility] Work Phone: Hematocrit Auto (Bld) [Volum e fraction]on 01-30-2022 Hematocrit (Bld) [Volume fraction] 39.1 % 37-47 [facility] Work Phone: Laboratory - Chemistry and C hemistry - challengeon 01-30-2022 ALP [Catalytic activity/Vol] 93 U/L 45-117 [facility] Work Phone: ALT [Catalytic activity/Vol] 26 U/L 13-56 [facility] Work Phone: CO2 [Moles/Vol] 31.0 mmol/L 21.0-32.0 [facility] Work Phone: Globulin (S) [Mass/Vol] 3.4 g/dL 2.2-4.2 [facility] Work Phone: Urea nitrogen/Creatinine [Mass ratio] 10.1 mg/mg 10-20 [facility] Work Phone: Laboratory - Hematology and Cell countson 01-30-2022 Erythrocyte distribution width (RBC) [Entitic vol] 47.4 fL 35.1-43.9 [facility] Work Phone: Erythrocyte distribution width (RBC) [Ratio] 13.9 % 11.6-14.6 [facility] Work Phone: Immature granulocytes/100 WBC (Bld) 0.300 % 0.0-0.9 [facility] Work Phone: Comment on above: IG% - Immature Granu locytes (promyelocytes, myelocytes and metamyelocytes) > 1% indicates that a LEFT SHIFT is Present. MCH (RBC) [Entitic mass] 29.5 pg 27.0-32.0 [facility] Work Phone: Nucleated RBC/100 WBC (Bld) [Ratio] 0 % 0-5 [facility] Work Phone: MCHC Auto (RBC) [Mass/Vol]on 01-30-2022 MCHC (RBC) [Mass/Vol] 32.0 g/dL 32-36 [facility] Work Phone: No Panel Informationon 01-30 Estimated GFR (MDRD) Amer 92 mL/min >60 [facility] Work Phone: Comment on above: GFR Calc Estimated GFR (MDRD) Non-Af Amer 76 mL/min >60 [facility] Work Phone: Comment on above: Non- GFR Calc Thyroid Stimulating Hormone (TSH) 0.61 uIU/mL 0.358-3.74 [facility] Work Phone: Vitamin D 25-Hydroxy 38.0 ng/mL [facility] Work Phone: Comment on above: Vitamin D 25(OH) Sta tus Range Deficiency <20 ng/mL (50nmol/L) Insufficiency 20 - 30 ng/mL (50 - 75 nmol/L) Sufficiency 30 - 100 ng/mL (75 - 250 nmol/L) Toxicity >100 ng/mL (>250 nmol/L) Platelets bldon 01-30-2022 Platelets (Bld) [#/Vol] 353 10*3/uL 150-450 [facility] Work Phone: Serum or plasma albumin paddy urement (mass/volume)on 01-30-2022 Albumin [Mass/Vol] 3.7 g/dL 3.2-5.0 [facility] Work Phone: Serum or plasma albumin/glob ulin mass ratioon 01-30-2022 Albumin/Globulin [Mass ratio] 1.1 {ratio} 0.9-2.4 [facility] Work Phone: Serum or plasma calcium paddy urement (mass/volume)on 01-30-2022 Calcium [Mass/Vol] 9.6 mg/dL 8.5-10.1 [facility] Work Phone: Serum or plasma creatinine m easurement (mass/volume)on 01-30-2022 Creatinine [Mass/Vol] 0.79 mg/dL 0.55-1.02 [facility] Work Phone: Comment on above: The validity of the calculated GFR & GFRAA in patients over 70 years has not been determined. Clinical correlation is essential. Serum or plasma urea nitroge n measurement (mass/volume)on 01-30-2022 Urea nitrogen [Mass/Vol] 8 mg/dL 7-18 [facility] Work Phone: Thin prep Papanicolaou smear with manual screeningon 01-30-2022 Thin prep Papanicolaou smear with manual screening 19 U/L 15-37 [facility] Work Phone: Thin prep Papanicolaou smear with manual screening 6 5-15 [facility] Work Phone: Laboratory - Microbiology an d Antimicrobial susceptibilityon 11-23-2021 SARS-CoV-2 (COVID-19) RNA POOJA+probe Ql (Unsp spec) Not detected Not Detect [facility] Work Phone: Comment on above: Normal Reference [...] 11-23 Influenza Types A,B Direct FA (ROHINI) [facility] Work Phone: Absolute lymphocyte counton 08-02-2021 Lymphocytes Auto (Unsp spec) [#/Vol] 1.75 10*3/uL 0.83-4.51 [facility] Work Phone: Basophil percentageon 2020 Bilirubin [Mass/Vol] 0.20 mg/dL 0.20-1.00 [facility] Work Phone: Comment on above: For patients on eltr ombopag therapy, use of Dimension [place] TBIL is not recommended. Chloride [Moles/Vol] 105 mmol/L 98-107 [facility] Work Phone: Eosinophils/100 WBC (Bld) 0.8 % 0-5 [facility] Work Phone: Glucose [Mass/Vol] 128 mg/dL 74-106 [facility] Work Phone: Comment on above: Fasting Glucose resu lt greater than or equal to 126 mg/dL suggests DIABETES MELLITUS per A.D.A. criteria.Please note revised GLUCOSE reference range effective 2017. Neutrophils (Bld) [#/Vol] 8.2 10*3/uL 2.0-7.7 [facility] Work Phone: Potassium [Moles/Vol] 4.0 mmol/L 3.5-5.1 [facility] Work [facility]: Protein [Mass/Vol] 7.2 g/dL 6.4-8.2 [facility]: Sodium [Moles/Vol] 141 mmol/L 136-145 [facility] Work Phone: WBC (Bld) [#/Vol] 10.5 10*3/uL 4.4-11.[facility]: Blood erythrocytes count (nu mber/volume)on 08-02-2021 RBC (Bld) [#/Vol] 4.33 10*6/uL 4.2-5.4 [facility] Work Phone: Blood hemoglobin measurement (mass/volume)on 08-02-2021 Hemoglobin (Bld) [Mass/Vol] 12.7 g/dL 12.0-15. 0 [facility] Work Phone: Blood lymphocytes/100 leukoc yteson 08-02-2021 Lymphocytes/100 WBC (Bld) 16.6 % 19-41 [facility] Work Phone: Blood monocytes/100 leukocyt eson 08-02-2021 Monocytes/100 WBC (Bld) 4.1 % 0-10 [facility] Work Phone: Blood platelet mean volumeon 08-02-2021 Platelet mean volume (Bld) [Entitic vol] 9.6 fL 6.2-12.0 [facility] Work Phone: Determination of erythrocyte mean corpuscular volume (MCV)on 08-02-2021 MCV (RBC) [Entitic vol] 92.6 fL 81-99 [facility] Work Phone: Hematocrit Auto (Bld) [Volum e fraction]on 08-02-2021 Hematocrit (Bld) [Volume fraction] 40.1 % 37-47 [facility] Work Phone: [phone] Laboratory - Chemistry and C hemistry - challengeon 08-02-2021 ALP [Catalytic activity/Vol] 92 U/L 45-117 [facility] Work Phone: ALT [Catalytic activity/Vol] 27 U/L 13-56 [facility] Work Phone: CO2 [Moles/Vol] 29.0 mmol/L 21.0-32.0 [facility] Work Phone: Globulin (S) [Mass/Vol] 3.6 g/dL 2.2-4.2 [facility] Work Phone: Urea nitrogen/Creatinine [Mass ratio] 13.5 mg/mg 10-20 [facility] Work Phone: Laboratory - Hematology and Cell countson 08-02-2021 Basophils/100 WBC (Unsp spec) 0.5 % 0-1 [facility] Work Phone: Erythrocyte distribution width (RBC) [Entitic vol] 48.2 fL 35.1-43.9 [facility] Work Phone: Erythrocyte distribution width (RBC) [Ratio] 14.1 % 11.6-14.6 [facility] Work Phone: Immature granulocytes/100 WBC (Bld) 0.400 % 0.0-0.9 [facility] Work Phone: [phone] Comment on above: IG% - Immature Granu locytes (promyelocytes, myelocytes and metamyelocytes) > 1% indicates that a LEFT SHIFT is Present. MCH (RBC) [Entitic mass] 29.3 pg 27.0-32.0 [facility] Work Phone: Neutrophils/100 WBC (Bld) 77.6 % 47-70 [facility] Work Phone: Nucleated RBC/100 WBC (Bld) [Ratio] 0 % 0-5 [facility] Work Phone: MCHC Auto (RBC) [Mass/Vol]on 08-02-2021 MCHC (RBC) [Mass/Vol] 31.7 g/dL 32-36 [facility] Work Phone: No Panel Informationon 08-02 Estimated GFR (MDRD) Amer 81 mL/min >60 [facility] Work Phone: Comment on above: GFR Calc Estimated GFR (MDRD) Non-Af Amer 67 mL/min >60 [facility] Work Phone: Comment on above: Non- GFR Calc Thyroid Stimulating Hormone (TSH) 0.63 uIU/mL 0.358-3.74 [facility] Work Phone: Vitamin D 25-Hydroxy 35.4 ng/mL [facility] Work Phone: Comment on above: Vitamin D 25(OH) Sta tus Range Deficiency <20 ng/mL (50nmol/L) Insufficiency 20 - 30 ng/mL (50 - 75 nmol/L) Sufficiency 30 - 100 ng/mL (75 - 250 nmol/L) Toxicity >100 ng/mL (>250 nmol/L) Platelets bldon 08-02-2021 Platelets (Bld) [#/Vol] 361 10*3/uL 150-450 [facility] Work Phone: Serum or plasma albumin paddy urement (mass/volume)on 08-02-2021 Albumin [Mass/Vol] 3.6 g/dL 3.2-5.0 [facility] Work Phone: Serum or plasma albumin/glob ulin mass ratioon 08-02-2021 Albumin/Globulin [Mass ratio] 1.0 {ratio} 0.9-2.4 [facility] Work Phone: Serum or plasma calcium paddy urement (mass/volume)on 08-02-2021 Calcium [Mass/Vol] 9.2 mg/dL 8.5-10.1 [facility] Work Phone: Serum or plasma creatinine m easurement (mass/volume)on 08-02-2021 Creatinine [Mass/Vol] 0.89 mg/dL 0.55-1.02 [facility] Work Phone: Comment on above: The validity of the calculated GFR & GFRAA in patients over 70 years has not been determined. Clinical correlation is essential. Serum or plasma urea nitroge n measurement (mass/volume)on 08-02-2021 Urea nitrogen [Mass/Vol] 12 mg/dL 7-18 [facility] Work Phone: Thin prep Papanicolaou smear with manual screeningon 08-02-2021 Thin prep Papanicolaou smear with manual screening 16 U/L 15-37 [facility] Work Phone: Thin prep Papanicolaou smear with manual screening 7 5-15 [facility] Work Phone: PROGRESSon 02-04-2019 Protein mass conc HNO ID: [id number] Author: Irene Vicente Service: ? Author Type: Station Mechanic Helper Type: Progress Notes Filed: 02/04/2019 8:11 AM Note Text: POPULATION HEALTH ENGRAVER COPPERPLATE QUICKNOTE Provider Action/FYI: I spoke with Neris and she states she's no longer seeing Dr. Vasquez as her PCP. Dr. Vasquez removed as pcp. Patient identified by name and . Irene Vicente CMA [facility] PROGRESSon 02-02-2019 Protein mass conc HNO ID: [id number] Author: Irene Vicente Service: ? Author Type: Station Mechanic Helper Type: Progress Notes Filed: 02/04/2019 8:11 AM Note Text: POPULATION HEALTH ENGRAVER COPPERPLATE QUICKNOTE Provider Action/FYI: Patient identified by name and . 2nd attempt - Left detailed message for patient to return call #[phone] Irene Vicente CMA [facility] CNPTOUTREACHon 01-26-2019 CNPTOUTREACH Patient Outreach (INTMWS) NERIS MOODY ([id number]) 1950 F Date Time Provider Department 6/11/19 IRENE VICENTE) INTMWS During your visit today, we recorded the following information about you: Irene Vicente CMA 02/04/2019 8:11 AM Signed [facility] CARE GAP REGISTRY DOCUMENTATION (OUTSIDE TEAMLET) [...] office visit:Physical next available with pcp or environmental health nurse TOD Lanier CMA 02/04/2019 8:11 AM Signed POPULATION HEALTH ENGRAVER COPPERPLATE SERENA Provider Action/FYI: Patient identified by name and . 1st attempt - [employer] message sent. TOD Lanier CMA 02/04/2019 8:11 AM Signed POPULATION HEALTH ENGRAVER COPPERPLATE SERENA Provider Action/FYI: Patient identified by name and . 2nd attempt - Left detailed message for patient to return call #[phone] TOD Lanier CMA 02/04/2019 8:11 AM Signed [facility] COPPERPLATE SERENA Provider Action/FYI: I spoke with Neris [...] Assessed Reason for Visit: [facility]/Care Gap Outreach [[id number]] Prescriptions as of 01/26/2019 Sig: KETOROLAC 10 [...] disease) [M19.90] More... DDD (degenerative disc disease) [AXY2465] More... Pulmonary hypertension [I27.20] More... Anemia [D64.9] Depression with suicidal ideation [F32.9, R45.8*INVALID FOR* More... 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 Author Type: Station Mechanic Helper Type: Progress Notes Filed: 02/04/2019 8:11 AM Note Text: [facility] [place] HEALTH ENGRAVER COPPERPLATE QUICKNOTE Provider Action/FYI: Patient identified by name and . 1st attempt - aScentias message sent. Irene Vicente CMA [facility] Protein mass conc HNO ID: [id number] Author: Irene Vicente Service: ? Author Type: Station Mechanic Helper Type: Progress Notes Filed: 02/04/2019 8:11 AM [...] office visit:Physical next available with pcp or environmental health nurse Irene Vicente CMA [facility] PROGRESS 09-14-2018 Protein mass conc HNO ID: [id number] Author: Irene Vicente Service: (none) Author Type: Station Mechanic Helper Type: Progress Notes Filed: 09/14/2018 9:45 AM Note Text: POPULATION HEALTH ENGRAVER COPPERPLATE QUICKNOTE Provider Action/FYI: Letter mailed Patient identified by name and . 3rd attempt - Left detailed message for patient to return call #[phone]. Mailing letter to patient. Irene Vicente CMA [facility] PROGRESSon 09-09-2018 Protein mass conc HNO ID: [id number] Author: Irene Vicente Service: (none) Author Type: Station Mechanic Helper Type: Progress Notes Filed: 09/14/2018 9:45 AM Note Text: POPULATION HEALTH ENGRAVER COPPERPLATE QUICKNOTE Provider Action/FYI: Patient identified by name and . 2nd attempt. - Left detailed message for patient to return call #[phone] Irene Vicente CMA Normal [facility] CNPTOUTREACHoroseann 09-08-2018 CNPTOUTREACH Patient Outreach (INTMWS) NERIS MOODY ([id number]) 1950 F Date Time Provider Department 09/08/18 IRENE VICENTE ([facility]) INTMWS During your visit today, we recorded [...] office visit:Physical next available with pcp or environmental health nurse TOD Lanier CMA 09/08/2018 11:06 AM Signed [...] can resume your usual activities immediately. Irene Vicente CMA 09/14/2018 9:45 AM Signed [facility] COPPERPLATE QUICKNOTE Provider Action/FYI: Please file labs. Patient identified by name and . 1st attempt - aScentias message sent. OTD Lanier CMA 09/14/2018 9:45 AM Signed [facility] SANDYE Provider Action/FYI: Patient identified by name and . 2nd attempt. - Left detailed message for patient to return call #[phone] TOD Lanier CMA 09/14/2018 9:45 AM Signed [facility] COPPERPLATE SERENA Provider Action/FYI: Letter mailed Patient identified by name and . 3rd attempt - Left detailed message for patient to return call #[phone]. Mailing letter to patient. Irene Vicente CMA Allergies As of Date: 09/08/2018 Noted Allergy Reaction ADCIRCA (TADALAFIL) 02/08/2014 14 - Other: See Comments Comments: Blurred vision ATIVAN (LORAZEPAM) 12/29/2012 14 - Other: See Comments Comments: Headache ATORVASTATIN 06/09/2017 17 - Myalgia RELAFEN (NABUMETONE) 12/29/2012 2 - Rash Date Reviewed: 06/25/2017 Reviewed by: Holley Beal LPN - Fully Assessed Reason for Visit: [facility]/Care Gap Outreach [3605] Primary Visit Diagnosis:Hyperlipide lin, unspecified hyperlipidemia type [E78.5] Other Visit Diagnoses:Acquired hypothyroidism [E03.9] Pulmonary hypertension [I27.20] Screening mammogram for high-risk patient [Z12.31] Encounter for screening for osteoporosis [Z13.820] Order(s):COMP METABOLIC PANEL [SQCMP] Order #: [id number] FUTURE LIPID PANEL BASIC [SQLIPB] Order #: [id number] FUTURE TSH BLD [SQTSH] Order #: [id number] FUTURE ANJUM SCREENING [3314781] Order #: [id number] FUTURE DXA - VFA ASSESS ONLY [[id number]] Order #: [id number] FUTURE Prescriptions as of 09/08/2018 Sig: KETOROLAC [...] disease) [M19.90] More... DDD (degenerative disc disease) [SOB3950] More... Pulmonary hypertension [I27.20] More... Anemia [D64.9] [...] usual activities immediately. Letter Text Internal Medicine [place] [address] [facility] [address] Dept: [phone] Dept Irene Vicente CMA, [facility].A. September 14, 2018 Neris Moody [address] [facility] [address] Dear Neris Moody In an effort to serve your healthcare needs, it has come to the attention of Alyssa Vasquez MD, your Primary Care Provider, that you are overdue for routine health care. We've attempted to contact you and have been unsuccessful. Please call the office at [phone] to schedule an appointment for Physical. In addition, you are due for the following health maintenance(s) Health Maintenance Due: ANNUAL PCP TEAM CHRONIC DISEASE VISIT due on 1968 MAMMOGRAM due on 06/11/2017 BONE DENSITY due on 2017 INFLUENZA(1) due on 04/18/2018 If any of these routine health care items were completed by an outside facility, please have that office fax the results to [phone] Attn: Alyssa Vasquez MD or bring the records with you to your appointment. We will gladly update your record. If you have any questions, please feel free to call the office at [phone] or message us via [employer]. Thank you for choosing the [facility]. Sincerely, Irene Vicente CMA, Population [email or web address] Michelle (electronically signed to expedite mailing) Encounter Status:Closed by IRENE VICENTE CMA on 09/14/18 Normal [facility] PROGRESSon 09-08-2018 Protein mass conc HNO ID: [id number] Author: Irene Vicente Service: (none) Author Type: Station Mechanic Helper Type: Progress Notes Filed: 09/14/2018 9:45 AM Note Text: [facility] COPPERPLATE QUICKNOTE Provider Action/FYI: Please file labs. Patient identified by name and . 1st attempt - aScentias message sent. Irene Vicente CMA Normal [facility] Protein mass conc HNO ID: [id number] Author: Irene Vicente Service: (none) Author Type: Station Mechanic Helper Type: Progress Notes Filed: 09/14/2018 9:45 AM [...] office visit:Physical next available with pcp or environmental health nurse Irene Vicente CMA Normal [facility] Basic Metabolic Panelon - Anion gap 3 molar conc 13 mmol/L Normal 7-13 [facility] Calcium mass conc 9.1 mg/dL Normal 8.6-10.2 [facility] Chloride molar conc 104 mmol/L Normal 98-107 [facility] CO2 molar conc 25 mmol/L Normal 22-29 [facility] Creatinine mass conc 0.91 mg/dL Critically high 0.50-0.90 [facility] GFR/1.73 sq M predicted among blacks MDRD vol rate/area (S/P/Bld) mL/min/{1.73_m2} Normal >60 [facility] Comment on above: Result Comment: >60 mL/min/1.73m2 EGFR, calc. for ages 18 and older using theMDRD formula (not corrected for weight), is valid for stablerenal function. GFR/1.73 sq M.predicted MDRD vol rate/area mL/min/{1.73_m2} Normal >60 [facility] Comment on above: Result Comment: >60 mL/min/1.73m2 EGFR, calc. for ages 18 and older using theMDRD formula (not corrected for weight), is valid for stablerenal function. Glucose mass conc 93 mg/dL Normal 74-109 [facility] Potassium molar conc 4.4 mmol/L Normal 3.5-5.1 [facility] Sodium molar conc 142 mmol/L Normal 132-144 [facility] Urea nitrogen mass conc 15 mg/dL Normal 8-23 M [facility] CBC With Platelet No Differe ntialon 05-15-2018 Erythrocyte distribution width Auto Ratio (RBC) 14.5 % Normal 11.5-14.5 [facility] Hematocrit Auto Volume Fraction (Bld) 41.6 % Normal 37.0-47.0 [facility] Hemoglobin mass conc (Bld) 13.5 g/dL Normal 12.0-16.0 [facility] MCH Auto Entitic mass (RBC) 31.0 pg Normal 27.0-31. 3 [facility] MCHC Auto mass conc (RBC) 32.5 % Low 33.0-37.0 [facility] MCV Auto Entitic volume (RBC) 95.2 fL Normal 82.0-100.0 [facility] Platelets Auto #/vol (Bld) 334 10*3/uL Normal 130-400 [facility] RBC Auto #/vol (Bld) 4.37 10*6/uL Normal 4.20-5.40 [facility] WBC Auto #/vol (Bld) 8.1 10*3/uL Normal 4.8-10.8 [facility] Lipid Panelon 05-15-2018 Cholesterol in HDL mass conc 80 mg/dL Critically high 40-59 [facility] Comment on above: Result Comment: [...] LDL mass conc 100 mg/dL Normal 0-129 [facility] Comment on above: Result Comment: ATP III LDL Classification is Near Optimal. Cholesterol mass conc 211 mg/dL Critically high 0-199 [facility] Comment on above: Result Comment: ATP III Cholesterol Classification is Borderline High. Triglyceride mass conc 156 mg/dL Normal 0-200 [facility] Comment on above: Result Comment: ATP III Triglycerides Classification is Borderline High. Magnesiumon 09-28-2018 Magnesium mass conc 2.2 mg/dL Normal 1.7-2.3 [facility] VITAMIN Don 05-15-2018 VITAMIN D 36.2 ng/mL Normal 30.0-100.0 [facility] Comment on above: Result Comment: (30- 100 ng/mL) Optimum LevelThis assay accurately quantifies the sum of vitamin D3, 25-Hydroxy andvitamin D2, 25-Hyroxy. No Panel Information Influenza Types A,B Direct FA (ROHINI) [facility] Work Phone: Vital Signs Date Time Vital Sign Value Performing Clinician Faci lity 01-31-2025 13:03-0400 Body height 160.02 cm Sofy Barron MD Work Phone: [facility] 01-31-2025 13:03-0400 Body mass index (BMI) [Ratio] 32.3 kg/m2 Sofy Barron MD Work Phone: [facility] 01-31-2025 13:03-0400 Body weight 82.72 kg Sofy Barron MD Work Phone: [facility] Encounters Encounter Date Encounter Type Care Provider Facility Start: 06-03-2025 End: 06-03-2025 Patient encounter procedure Manolo Magallon DO -[facility] Work Phone: Start: 06-03-2025 End: 06-03-2025 ambulatory Sofy Barron MD Work Phone: -[facility] Start: 04-20-2025 Non-patient / Non-visit Dr. Montse Dailey MD -[facility] Start: 04-20-2025 End: 04-20-2025 ambulatory Sofy Barron MD Work Phone: -Cardiovascular Services Start: 04-20-2025 End: 04-20-[address] Jony Little MD -Cardiovascular Services Work Phone: Start: 04-20-2025 End: 04-20-2025 ambulatory Jony Little Facility:[facility] Start: 03-31-2025 End: 03-31-2025 ambulatory Sofy Barron MD Work Phone: -Laboratory Specimen Start: 03-31-2025 End: 03-31-[address] Sofy Barron MD -Laboratory Specimen Work Phone: Start: 03-31-2025 End: 03-31-2025 ambulatory Sofy Barron Facility:[facility] Start: 03-17-2025 End: 03-17-2025 ambulatory Sofy Barron MD Work Phone: -Laboratory [place] Start: 03-17-2025 End: 03-17-[address] Sofy Barron MD -[facility] [place] Work Phone: Start: 03-17-2025 End: 03-17-2025 ambulatory Sofy Barron Facility:[facility] Start: 03-09-2025 End: 03-09-2025 ambulatory Sofy Barron MD Work Phone: -[facility] Start: 03-09-2025 End: 03-09-[address] Cy Ramachand[facility] Work Phone: Start: 03-09-2025 End: 03-09-2025 ambulatory Cy Ramachandran Facility:[facility] Start: 01-31-2025 End: 01-31-[address] Samson Diamond MD -[facility] Start: 01-31-2025 End: 01-31-2025 ambulatory Sofy Barron MD Work Phone: [facility] Work Phone: Start: 01-28-2025 End: 01-28-2025 ambulatory Sofy Barron MD Work Phone: -Physical Therapy Start: 01-28-2025 End: 01-28-[address] Sofy Barron MD -Physical Therapy Work Phone: Start: 01-28-2025 Registered Recurring Dr. Sofy Barron MD -Physical Therapy Work Phone: Start: 12-01-2024 End: 12-01-2024 Patient encounter procedure Manolo Magallon [facility] Work Phone: Start: 12-01-2024 End: 12-01-2024 ambulatory Manolo Sherita [place] [place]: 09-14-2024 End: 09-14-2024 ambulatory Sofy Barron Facility:[facility] Start: 04-01-2023 End: 04-01-[address] Tanvir Shea Work Phone: [facility] Work Phone: Start: 04-01-2023 End: 04-01-[address] [facility] She[facility] [place] Work Phone: Start: 03-12-2023 End: 03-12-[address] Tanvir Shea Work Phone: [facility] Work Phone: Start: 03-12-2023 End: 03-12-[address] Tanvir She[facility] Work Phone: Start: 03-07-2023 End: 03-07-[address] Tanvir Shea Work Phone: [facility] Work Phone: Start: 03-07-2023 End: 03-07-[address] Tanvir Shea [facility] Work [facility]: Start: 02-26-2023 End: 02-26-[address] Tanvir Shea Work Phone: [facility] Work Phone: Start: 02-26-2023 End: 02-26-[address] Tanvir Shea [facility] [place] Work Phone: Start: 02-04-2023 End: 02-04-[address] Tanvir Shea Work Phone: [facility] Work Phone: Start: 02-04-2023 End: 02-04-[address] Tanvir Shea Work Phone: [facility]-Laboratory Start: 01-24-2023 End: 01-24-[address] Tanvir Shea Work Phone: [facility]-Outpatient Breast Imaging Start: 01-22-2023 End: 01-22-[address] Tanvir Shea Work Phone: [facility]-Cat Scan, [facility] Start: 01-03-2023 End: 01-03-[address] Tanvir Shea Work Phone: [facility]-Laboratory Start: 01-02-2023 End: 01-02-[address] Tan[facility] She[facility] Start: 01-02-2023 End: 01-02-[address] Tanvir Shea Work Phone: [facility] Gastroenterology Start: 12-26-2022 End: 12-26-[address] Tanvir Shea Work Phone: [facility]-Radiology, [facility] Start: 09-06-2022 End: 09-06-[address] [facility] Work Phone: Start: 09-06-2022 End: 09-06-2022 Patient encounter procedure [facility]-Pulmonary Services/Neurology Start: 08-06-2022 End: 08-06-[address] [facility] sp[facility] Work Phone: Start: 08-06-2022 End: 08-06-2022 Patient encounter procedure [facility]-Laboratory, y Office 3rd Flr Start: 05-30-2022 End: 05-30-[address] [facility] Work Phone: Start: 05-30-2022 End: 05-30-2022 Patient encounter procedure [facility]-Radiology, [facility] Start: 04-30-2022 End: 04-30-[address] [facility] Work Phone: Start: 04-30-2022 End: 04-30-2022 Patient encounter procedure [facility]-Laboratory Start: 03-27-2022 End: 03-27-2022 Patient encounter procedure [facility]-Laboratory Start: 03-05-2022 End: 03-05-2022 Patient encounter procedure [facility]-Laboratory Start: 01-30-2022 End: 01-30-2022 [facility] Start: 11-23-2021 End: 11-23-2021 Patient encounter procedure [facility]-Pulmonary Services/Neurology Start: 11-12-2021 End: 11-12-2021 Patient encounter procedure [facility]-Outpatient Breast Imaging Start: 08-02-2021 [facility] Procedures Date Procedure Procedure Detail Performing Clinician Start: 04-20-2025 CT of chest Sofy lozano MD Work Phone: Start: 03-17-2025 Vitamin D, 25-hydrox y measurement Sofy Barron MD Work Phone: Comment on above: Vitamin D StatusDefi ciency: <20 ng/mL (50nmol/L)Insufficiency: 20-30 ng/mL (50-75 nmol/L)Sufficiency: 30-100 ng/mL (75-250 nmol/L)Toxicity: >100 ng/mL (>250 nmol/L) Start: 03-09-2025 MRI of joint of lowe r extremity Sofy Barron MD Work Phone: Start: 01-31-2025 Plain x-ray of pelvi s and lower extremity Sofy Barron MD Work Phone: Start: 01-31-2025 X-ray of lumbar spin e, two or three views Sofy Barron MD Work Phone: Start: 04-01-2023 Radiologic examinati on of knee [...] Work Phone: Start: 01-03-2023 Giardia Antigen (ROHINI) Christiana Shea Work Phone: Start: 01-03-2023 Ova OR [...] extremity HIP, UNI W/ Pelvis 2-3 Views [facility] Start: 01-31-2025 X-ray of lumbar spin e, two or three views Lumbar Spine 2 or 3 Views [facility] Start: 01-31-2025 XR Lumbar spine 2 or 3 Views [facility] Start: 01-31-2025 XR Pelvis and Hip Views [facility] XR Abdomen Single view [facility] Immunizations Immunization Date Immunization Notes [facility] influenza, injectabl e, quadrivalent, preservative free Sofy Barron MD Work Phone: [facility] 05-08-2017 influenza, seasonal, injectable [facility] 06-16-2013 Influenza virus vaccine [facility] 05-18-2011 Pneumococcal Vaccine [facility] Work Phone: 05-18-2011 pneumococcal vaccine , unspecified formulation [facility] Payers Date Payer Category Payer Unknown [id number] 2025 Unknown [id number] 2024 Self-pay [id number] 2016 Medicaid [id number] 2004 Medicare [id number] 2004 Medicare [id number] 2004 Medicare [id number] Unknown [id number] 2.16.8 [id number] Unknown [id number] 2.16.8 [id number] Unknown [id number] 2.16.8 [id number] Unknown [id number] 2.16.8 [id number] Unknown [id number] 2.16.8 [id number] Unknown [id number] 2.16.8 [id number] Unknown [id number] 2.16.8 [id number] Unknown [id number] 2.16.8 [id number] Unknown [id number] 2.16.8 [id number] Unknown [id number] 2.16.8 [id number] Unknown [id number] 2.16.8 [id number] Social History Date Type Detail Facility Start: 05-12-2018 End: 01-02-2023 Tobacco smoking status NHIS Unknown if ever smoked [facility] Start: 06-25-2017 None [facility] Start: 06-25-2017 Alone [facility] Start: 06-25-2017 Cigarettes [facility] Start: 1950 Sex Assigned At Female W [facility] Start: 10-23-2023 Tobacco smoking stat us NHIS Smokes tobacco daily (finding) [facility] Sex Female [facility] Clinical Notes 12-01-2024 to 06-03-2025 Note Date & Type Note Facility 06-03-2025 Progress note [facility] 06-03-2025 Progress note Note Date/Time June 03, 2025 2:46pm [facility] Gastroenterology [address] [place] [address] OFFICE VISIT Date of Service: 06/03/25 MR#: [id number] Acct: [id number] Name: NERIS MOODY Rep #: [id number] : 1950 Provider: Manolo Magallon DO Age/Sex: 74/F [place] [facility] [place] Status: Signed Intake Vital Signs 03/23/24 12:50 01/31/25 13:03 Height 5 ft 6 in 5 ft 3 in Intake Visit Reasons: 6 M FU//Constipation Allergies nabumetone (From Relafen) Allergy (Verified 01/31/25 13:03) Rash lorazepam (From Ativan) Adverse Reaction (Verified 01/31/25 13:03) Other tadalafil (From Adcirca) Adverse Reaction (Verified 01/31/25 13:03) Other Medications ?Medication ?Instructions ?Recorded ?Confirmed ?Type budesonide-formoterol HFA 80 2 puff inhalation BID MARY ATHING 10/13/14 06/03/25 History mcg-4.5 mcg/actuation aerosol inhaler clonazepam 0.5 mg tablet 0.5 mg PO TID PRN PRN Anxiet y 10/13/14 06/03/25 History topiramate 25 mg tablet 100 mg PO BID YAP 01/10/17 History trazodone 300 mg tablet 300 mg PO QHS SLEEP 06/25/17 06/03/25 History aripiprazole 30 mg tablet (Abilify) 20 mg PO QDAY 11/1806/03/25 History cevimeline 30 mg capsule 1 cap PO TID 12/15/17 History famotidine 40 mg tablet 40 mg PO QHS 12/15/17 History lamotrigine 200 mg tablet 150 mg PO BID 12/15/1706/03 History levothyroxine 50 mcg capsule 88 mcg PO QDAY 12/15/17 1 History primidone 50 mg tablet 50 mg PO QHS 12/15/17 History vilazodone 40 mg tablet (Viibryd) 40 mg PO QDAY 06/03/25 History aripiprazole 5 mg tablet 5 mg PO DAILY 05/13/1806/03 History colestipol 1 gram tablet 1 g PO BID 30 days #60 tabs 10/04/24 06/03/25 Rx mirtazapine 7.5 mg tablet 11.25 mg PO QDAY 12/01/24 History aspirin 81 mg tablet 81 mg PO QDAY 06/03/2506/03 History budesonide 3 mg 9 mg (3 x 3 mg) PO QDAY 1 mo nt 06/03/25 06/03/25 Rx capsule,delayed,extended release #90 ea sucralfate 1 gram tablet (Carafate) 1 g PO BID #60 tab s 06/03/25 06/03/25 Rx Have you fallen in the past year?: No PFSH Medical History Sjogrens syndrome Polymyalgia rheumatica [...] disease Schizoaffective disorder Schizophrenia Surgical History D & C tuabl ligation History of cholecystectomy Family History Unknown Bleeding disorder Cancer Heart disease High cholesterol Skin cancer Social History Smoking Status: Current every day smoker alcohol intake: former substance use type: does not use HPI HPI Details: NERIS MOODY, is a 74 F who presents to the office today for follow up. PCP OV 5.11.23with loose stools, abdominal pain for months. Initially cholestyramine BID was helpful. Concern for fecal impaction. GERD a chronic issue for which famotidine is used. ? KUB without acute/chronic finding. *BGI established 5.18.23 for the last six years she has had loose stools with colonoscopy performed at onset (reports normal). Cholestyramine PRN initially effective but not in the last few months with instances of fecal incontinence without warning 4-5 times in the last couple months. Denies abdominal pain/cramping. Recently prescribed Lomotil, she has not had opportunity to use. Noidentifiable trigger. ? Biochemical CBC, ESR, CMP, LFT, [...] CT results. Vancomycin started with resolution of diarrhea,but having frequent soft BM with poor evacuation and excessive gas. Bowel normalization may take time, can start pro/prebiotic. Contact 02.24.23 with return of loose stools ? Stool C.difficile PCR+ and toxin antigen negative. Contact 03.04.23 stop cholestyramine, start colestipol OV 9 she takes one colestipol BID and will have several days of smaller movements with soft stools with intermittent periods of larger soft stools. She is very happy with this regimen; she is able to go out in public and not wear protective underwear. There is no abdominal pain or constipation. OV 3.7.24 Pt continues to have diarrhea. Takes Colestipol 1g QD. Says it is helpful because she is not going all day but still has diarrhea in the mornings.If she takes 2 colestipol it gives her constipation. OV 10.24 pt reports continued diarrhea. Pt states that she cannot take colestipol BID or she will be constipated, she is currently taking 1 and a half tablets. Reports BM start soft and them become diarrhea. OV 4.16.25 pt reports continued diarrhea. Pt continues to take colestipol as needed, is wondering what she can take when she gets constipated. OV 10.17.25 pt reports worsening fecal incontinence. States that she no longer has the sensation that she needs to have a bm. Is taking. Is taking one and a half colestipol in the morning and takes half a pill at night, states that if she takes her nighttime dose too many nights in a row she will become constipated. Pt reports that she quit smoking about 3 months ago, but states that this has not helped her diarrhea at all. ROS Const Constitutional: Positive for fatigue, frequent falls and weakness; No fever(s) or weight change ENT ENT: No difficulty swallowing Cardio Cardiology: Positive for leg pain with exertion Gastro GI: Positive for constipation, diarrhea and heartburn; No abdominal pain, belching, bloating, change in bowel habits, change in stool character, coffee ground emesis, cramping, difficulty swallowing, feeling full early, excessive flatus, incontinent of stools, Vomiting blood/hematemesis, Blood in stool, loose stools, Black,tarry stools, nausea/dyspepsia, pain with swallowing, vomiting or other Musc Musculoskeletal: Positive for abnormal gait, joint pain, back pain, joint swelling, muscle cramps, muscle weakness, Arthritis, sciatica and leg pain with exertion Skin Skin: No yellowing of the eye or itchy eyes Neuro Neurology: Positive for abnormal gait, weakness and frequent falls Psych Psychiatric: Positive for anxiety and Positive for depression Endo Endocrine: Positive for fatigue; No weight change Aller/Imm Allergy/Immunologic: No itchy eyes Valentino/Lymp Hematologic/Lymphatic: Positive for easy bruising; No easy bleeding Exam Const General: cooperative and comfortable Nutritional Appearance: average body habitus and well nourished [facility] Head: normal to inspection Ears: hearing grossly normal bilaterally Nose: external nose normal Face and sinus: normal facial exam Mouth: oral mucosae normal Throat: posterior oropharynx normal Eyes General: appearance normal, both eyes and all related structures Neck Neck: normal visual inspection Chest Chest palpation & inspection: normal inspection of the chest and normal palpation of entire chest wall Resp Effort & Inspection: normal respiratory effort Auscultation: Bilateral: Clear to Auscultation Cardio Palpation: normal PMI Rate: regular rate Rhythm: regular rhythm GI Inspection: normal to inspection Auscultation: normal bowel sounds Percussion: normal to percussion Palpation: no hepatosplenomegaly Skin General: no rashes or lesions noted Neuro General: patient alert Extrem General: normal to inspection Psych Affect: normal affect Assessment and Plan Assessment and Plan (1) Loose stools: Status: Chronic Plan: Chronic diarrhea is a common problem in all age groups but is a particularly challenging diagnostic problem in the elderly, diarrhea and osmotic diarrhea versus secretory diarrhea. Of osmotic diarrhea I would expect her to have diarrhea with each meal. She actually has a secretory diarrhea because she can have nocturnal symptoms. We gave her Colestipol and she was doing very well.. However she is having diarrhea. Therefore we will put her on Carafate and budesonide. (2) Constipation: Status: Acute Plan: Chronic constipation is common in adults older than 60 years, and symptoms occurin up to 50% of senior living residents. I think she has primary constipation is also referred to as functional constipation vs secondary constipation is associated with chronic disease processes, medication use, and psychosocial issues. It also may be fecal impaction should be treated with mineral oil or warm water enemas. Most patients are initially treated with lifestyle modifications, such as scheduled toileting after meals, increased fluid intake, and increased dietary fiber intake. Additional fiber intake in the form of polycarbophil, methylcellulose, or psyllium may improve symptoms. I told her to start with fiber intake should be slowly increased over several weeks to decrease adverse effects. After that the next step in the treatment of constipation is the use of an osmotic laxative, such as polyethylene glycol, followed by a stool softener, such as docusate sodium, and then stimulant laxatives. Medications: New sucralfate (Carafate) 1 g PO BID [address]-ER 9 mg (3 x 3 mg) PO QDAY 90 ea 3RF 1 month Coding Level of Care Code Off vis,est,level 4 Diagnoses Loose stools R19.5 Constipation K59.00 Clinical Quality Measures Falls Risk Screening/Assistive Devices Have you fallen in the past year?: No 06/03/25 5803 <Electronically signed by Manolo bhatt DO> Date _ Manolo Friend DO Kerr Signature: Date (if applicable) CC: ~ [place] [facility] Work Phone: 1(248) 817-215009-05-2025 Radiology Diagnostic study note [facility] Imaging Services [address] [place] [address] Lung Screening MR#: [id number] Acct: [id number] Name: NERIS MOODY Rep #: [id number] : 1950 F 74 From: Juan Pablo Pham MD PCP: Dr. Sofy Barron MD Status: REG CL I Study:Low Dose CT Lung Screening Date of Exam : 04/20/25 Exam# [id number] Ordering Dr: Jony Little MD PROCEDURE: LOW DOSE CT LUNG SCREENING 04/20/2025 REASON FOR EXAM: SCREENING Patient has smoked 1 pack per day for 4 years. History of pulmonary hypertension. TECHNIQUE: Procedure Code: CTLUNGSCREEN Modality: CT Procedure: LOW DOSE CT LUNG SCREENING Coronal and Sagittal reconstruction series were provided. One or more dose reduction techniques were used (e.g., Automated exposure control, adjustment of the mA and/or kV according to patient size, use of iterative reconstruction technique). REFERENCE LINK: [employer] Lung-RADS RADIATION DOSE SUMMARY: CTDlvol: 3.02 mGy DLP: 96.66 mGycm COMPARISON: None FINDINGS: PULMONARY NODULES: (Only nodules >3mm are reported) Nodules described below are on series 1 unless otherwise specified. Pulmonary Nodules: No suspicious pulmonary nodules are seen. Hardware:None Lymph Nodes:None Heart and Vasculature:Heart is nonenlarged.Atherosclerotic calcifications of thethoracic aorta. Thoracic aorta and pulmonary arteries have normal contours; noncontrast technique limits evaluation. Coronary Artery Calcifications: Present Lungs and Airways: Mild linear scarring at the lung bases. Calcified granuloma in the left lower lobe. Focal scarring in the peripheral aspect of the left lower lobe. Pleura:No pleural effusion. Upper Abdomen:Unremarkable Bones:Degenerative changes of the thoracic spine. CT/Low Dose CT Lung Screening IMPRESSION: No suspicious nodules are seen. Coronary artery calcification (CAC) is is present Lung-RADS Category: 2 BENIGN (BASED ON IMAGING FEATURES OR INDOLENT BEHAVIOR). RECOMMEND 12-MONTH SCREENING LDCT. Other Significant Findings: Reading Location: [place] [address] CC: Dr. Sofy Barron MD; Dr. Jony Little MD ~ Account Service Associate: Signed [facility]08-12-2025 Discharge summary [facility] Physical Therapy [facility] [address] [place] [address] / REHABILITATION SERVICES DISCHARGE SUMMARY MR#: [id number] Acct: [id number] Name: NERIS MOODY Rep #: [id number] : 1950 74 From: Cert. SHAYY GarciaT, OCS Referring Dr.: Dr. Sofy Barron MD Status: REG R Insurance: [facility] Patient Information Patient Information: NERIS MOODY was seen in my office for initial evaluation on 09/27/24. The following Plan of Care was established for this patient: POC Established Initial Frequency: 1x/Week Initial Duration: 4 Weeks Anticipated Interventions Patient/Client Instruction: Educate patient on: Condition and Plan of Care For the Purpose of:: To decrease pain, To increase ROM, To improve muscle performance and motor function, To improve ability to perform ADL's, To increasetolerance to activity/condition/position, To improve performance and independence with ADL's, To improve ability of physical actions for home/comm unity/work/leisure, To improve gait and locomotor functions, To improvehealth of tissue, To decrease soft tissue restriction, To increase flexibility/ROM, To improve endurance and To reduce risk of recurrence Therapeutic Exercise to Include: Strength training, Endurance training, Balance training, Postural training, Flexibilty training and Dynamic Lumbar Stabilization For the Purpose of:: To decrease pain, To increase ROM, To improve muscle performance and motor function, To improve ability to perform ADL's, To increasetolerance to activity/condition/position, To improve ability of physical actionsfor home/community/work/leisure, To improve gait and locomotor fun ctions, To improve health of tissue, To decrease [...] soft tissue restriction and To increase flexibility/ROM Last Seen Last Seen: This patient was last seen in our office . Pertinent comments regarding their Physical therapy willappear below: Patient was seen for left hip pain ROM ,strength hip and core thus is d/c to HEP At this point I will be discontinuing this patient from physical therapy. I would be happy to see this patient again in the future if found appropriate by the physician. Thank you! Keenan Lambert PT, Cert T, OCS Balance/Gait/Functional tests Balance/Special Test Scores Lower Extremity Functional Score: 31 03/29/25 1216 CC: Dr. Sofy Barron MD ~ JLA Signed [facility]08-12-2025 Discharge summary Author Keenan Willierichmond [facility] Note Date/Time March 29, 2025 12 :16pm [facility] Physical Therapy [facility] [place] [id number] / REHABILITATION SERVICES DISCHARGE SUMMARY MR#: [id number] Acct: [id number] Name: NERIS MOODY Rep #: [id number] : 1950 74 From: Ava Garcia. VANESSA, OCS Referring Dr.: Dr. Sofy Barron MD Status: REG R Insurance: [facility] Patient Information Patient Information: NERIS MOODY was seen in my office for initial evaluation on 09/27/24. The following Plan of Care was established for this patient: POC Established Initial Frequency: 1x/Week Initial Duration: 4 Weeks Anticipated Interventions Patient/Client Instruction: Educate patient on: Condition and Plan of Care For the Purpose of:: To decrease pain, To increase ROM, To improve muscle performance and motor function, To improve ability to perform ADL's, To increasetolerance to activity/condition/position, To improve performance and independence with ADL's, To improve ability of physical actions for home/community/work/leisure, To improve gait and locomotor functions, To improvehealth of tissue, To decrease soft tissue restriction, To increase flexibility/ROM, To improve endurance and To reduce risk of recurrence Therapeutic Exercise to Include: Strength training, Endurance training, Balance training, Postural training, Flexibilty training and Dynamic Lumbar Stabilization For the Purpose of:: To decrease pain, To increase ROM, To improve muscle performance and motor function, To improve ability to perform ADL's, To increasetolerance to activity/condition/position, To improve ability of physical actionsfor home/community/work/leisure, To improve gait and locomotor functions, To [...] soft tissue restriction and To increase flexibility/ROM Last Seen Last Seen: This patient was last seen in our office . Pertinent comments regarding their Physical therapy will appear below: Patient was seen for left hip pain ROM ,strength hip and core thus is d/c to HEP At this point I will be discontinuing this patient from physical therapy. I would be happy to see this patient again in the future if found appropriate by the physician. Thank you! Keenan Lambert, PT, Cert VANESSA, DIVYA Balance/Gait/Functional tests Balance/Special Test Scores Lower Extremity Functional Score: 31 <Electronically signed by Ava Alfaro PT. DIVYA MENDEZ> 03/29/25 1216 CC: Dr. Sofy Barron MD ~ SAM Signed [facility] Work Phone: 1(732) 554-558506-16-2025 Evaluation note* Diagnosis Onset Date Resolution Status Admit Date Left hip pain acute January 31, 2025 12:42pm Lumbar degenerative disc disease acute January 31, 2025 12:42pm Scoliosis of lumbar region d ue to degenerative disease of spine in adult acute January 31, 2025 12:42pm CKD (chronic kidney disease) stage 3, GFR 30-59 ml/min chronic January 162024 12:42pm Tobacco user chronic January 31, 2 025 12:42pm [facility] Work Phone: [phone]) 247-823304-16-2025 Evaluation note* Diagnosis Onset Date Resolution Status Admit Date Constipation acute December 01, 2024 1:16pm Loose stools chronic December 01, 2024 1:16pm [facility] Work Phone: [phone] Evaluation note* Diagnosis Onset Date Resolution Status Admit Date Constipation acute December 01, 2024 1:16pm Loose stools chronic December 01, 2024 1:16pm Left hip pain acute January 31, 2025 12:42pm Lumbar degenerative disc disease acute January 31, 2025 12:42pm Scoliosis of lumbar region d ue to degenerative disease of spine in adult acute January 31, 2025 12:42pm CKD (chronic kidney disease) stage 3, GFR 30-59 ml/min chronic January 162024 12:42pm Tobacco user chronic January 31, 2 025 12:42pm [facility] Work Phone: evaluation noteNo assessment information available [facility] Work Phone: [email or web address] note* Diagnosis Onset Date Resolution Status Loose stools chronic [facility] Work Phone: Evaluation note* Diagnosis Onset Date Resolution Status Admit Date Constipation acute May 1:48pm Loose stools chronic May 1:48pm [facility] Work Phone: Reason for referral (narrative)No reason for referral [facility] Work [facility]: Summary Purpose Family History No [...] Yes May 12, 2018 10:55pm Power of Shank Threader Yes April 10:55pm Advance Directive Response Recorded Date/ Time Advance Directives No March 01 3:53pm Living Will Yes May 12, 2018 9:55pm Power of Shank Threader Yes April 9:55pm Advance Directive Response Recorded Date/ Time Living Will Yes May 12, 2018 10:55pm Do you have a Healthcare Power of Shank Threader? Yes May 12, 2018 10:55pm Advance Directives No March 01 4:53pm Advance Directive Response Recorded Date/ Time Advance Directives No March 01 4:53pm Chief [...] Loose stools December 01, 2024 1:1 6pm Chief Complaint Admit Date 6 M FU December 01, 2024 1:1 6pm L HIP RX HERE January 28, 2025 12:0 0pm LEFT HIP January 31, 2025 12:4 2pm RM 1 January 31, 2025 1:16 pm PAIN, RULE OUT AVN March 09, 2025 3:16 pm Reason for Visit Admit Date Constipation December 01, 2024 1:1 6pm Loose stools December 01, 2024 1:1 6pm Left hip pain January 31, 2025 12:4 2pm Lumbar degenerative disc disease January [id number] 12:42pm Scoliosis of lumbar region d ue to degenerative disease of spine in adult January 31, 2025 12:42pm CKD (chronic kidney disease) stage 3, GF R 30-59 ml/min January 31, 2025 12:42pm Tobacco user January 31, 2025 12:4 2pm Chief Complaint Admit Date L HIP RX HERE January 28, 2025 12:0 0pm LEFT HIP January 31, 2025 12:4 2pm RM 1 January 31, 2025 1:16 pm PAIN, RULE OUT AVN March 09, 2025 3:16 pm SKIN LUMP ON L THIGH March 31, 2025 3 :57pm Reason for Visit Admit Date Left hip pain January 31, 2025 12:4 2pm Lumbar degenerative disc disease January [id number] 12:42pm Scoliosis of lumbar region d ue to degenerative disease of spine in adult January 31, 2025 12:42pm CKD (chronic kidney disease) stage 3, GF R 30-59 ml/min January 31, 2025 12:42pm Tobacco user January 31, 2025 12:4 2pm Chief Complaint Admit Date L HIP RX HERE January 28, 2025 12:0 0pm LEFT HIP January 31, 2025 12:4 2pm RM 1 January 31, 2025 1:16 pm PAIN, RULE OUT AVN March 09, 2025 3:16 pm SKIN LUMP ON L THIGH March 31, 2025 3 :57pm REGULO,SCREENING April 20, 2025 12:33pm Chief Complaint Admit Date PAIN, RULE OUT AVN March 09, 2025 3:16 pm SKIN LUMP ON L THIGH March 31, 2025 3 :57pm REGULO,SCREENING April 20, 2025 12:33pm 6 M FU//Constipation June 03, 2025 1:48pm Reason for Visit Admit Date Constipation June 03, 2025 1 :48pm Loose stools June 03, 2025 1 :48pm Additional Source Comments INFORMATION SOURCE (unrecogn ized section and content) DATE CREATED AUTHOR 06/15/2018 [facility] DATE CREATED AUTHOR AUTHOR'S ORGANIZ ATION 02/04/2019 [facility] DATE CREATED AUTHOR AUTHOR'S ORGANIZ ATION 06/20/2025 [facility] Goals (unrecognized section and content) Goals may [...] Active Team Status: Active Member Role Status Andre Barron MD Primary Care Provider Active Team Status: Inactive Member Role Status Andre Barron MD Primary Care Provider Active St art: December 01, 2024 End: December 01, 2024 Sofy Barron MD Referring Provider Active Start : December 01, 2024 End: December 01, 2024 Dr. Manolo Magallon DO Attending Provider Active Start: December 01, 2024 End: December 01, 2024 Team Status: Active Member Role Status Andre [...] 2025 End: January 31, 2025 Team Status: Active Member Role/Relationship Status Andre Barron MD Primary Care Provider Active Team Status: Inactive Member Role/Relationship Status Andre Barron MD Primary Care Provider Active St art: December 01, 2024 End: December 01, 2024 Sofy Barron MD Referring Provider Active Start : December 01, 2024 End: December 01, 2024 Dr. Manolo Magallon DO Attending Provider Active Start: December 01, 2024 End: December 01, 2024 Team Status: Active Member Role/Relationship Status Andre Barron MD Primary Care Provider Active St art: January 28, 2025 Sofy Barron MD Attending Provider Active Start : January 28, 2025 Sofy Barron MD Referring Provider Active Start : January 28, 2025 Team Status: Inactive Member Role/Relationship Status Andre Barron MD Primary Care Provider Active St art: January 31, 2025 End: January 31, 2025 Sofy Barron MD Referring Provider Active Start : January 31, 2025 End: January 31, 2025 Dr. Cy Ramachandran DO Attending Provider Active Start: January 31, 2025 End: January 31, 2025 Team Status: Inactive Member Role/Relationship Status Andre Barron MD Primary Care Provider Active St art: January 31, 2025 End: January 31, 2025 Dr. Samson Diamond MD Attending Provider Active S tart: January 31, 2025 End: January 31, 2025 Team Status: Inactive Member Role/Relationship Status Andre Barron MD Primary Care Provider Active St art: March 09, 2025 End: March 09, 2025 Dr. Cy Ramachandran DO Attending Provider Active Start: March 09, 2025 End: March 09, 2025 Dr. Cy Ramachandran DO Referring Provider Active Start: March 09, 2025 End: March 09, 2025 Team Status: Inactive Member Role/Relationship Status Andre Barron MD Primary Care Provider Active St art: March 17, 2025 End: March 17, 2025 Sofy Barron MD Attending Provider Active Start : March 17, 2025 End: March 17, 2025 Sofy Barron MD Referring Provider Active Start : March 17, 2025 End: March 17, 2025 Team Status: Inactive Member Role/Relationship Status Andre Barron MD Primary Care Provider Active St art: January 28, 2025 End: January 28, 2025 Sofy Barron MD Attending Provider Active Start : January 28, 2025 End: January 28, 2025 Sofy Barron MD Referring Provider Active Start : January 28, 2025 End: January 28, 2025 Team Status: Inactive Member Role/Relationship Status Andre Barron MD Primary Care Provider Active St art: January 28, 2025 End: January 28, 2025 Sofy Barron MD Attending Provider Active Start : January 28, 2025 End: January 28, 2025 Sofy Barron MD Referring Provider Active Start : January 28, 2025 End: January 28, 2025 Team Status: Inactive Member Role/Relationship Status Andre Barron MD Primary Care Provider Active St art: January 31, 2025 End: January 31, 2025 Sofy Barron MD Referring Provider Active Start : January 31, 2025 End: January 31, 2025 Dr. Cy Ramachandran DO Attending Provider Active Start: January 31, 2025 End: January 31, 2025 Team Status: Inactive Member Role/Relationship Status Andre Barron MD Primary Care Provider Active St art: January 31, 2025 End: January 31, 2025 Dr. Samson Diamond MD Attending Provider Active S tart: January 31, 2025 End: January 31, 2025 Team Status: Inactive Member Role/Relationship Status Andre Barron MD Primary Care Provider Active St art: March 09, 2025 End: March 09, 2025 Dr. Cy Ramachandran DO Attending Provider Active Start: March 09, 2025 End: March 09, 2025 Dr. Cy Ramachandran DO Referring Provider Active Start: March 09, 2025 End: March 09, 2025 Team Status: Inactive Member Role/Relationship Status Andre Barron MD Primary Care Provider Active St art: March 17, 2025 End: March 17, 2025 Sofy Barron MD Attending Provider Active Start : March 17, 2025 End: March 17, 2025 Sofy Barron MD Referring Provider Active Start : March 17, 2025 End: March 17, 2025 Team Status: Inactive Member Role/Relationship Status Andre Barron MD Primary Care Provider Active St art: March 31, 2025 End: March 31, 2025 Sofy Barron MD Attending Provider Active Start : March 31, 2025 End: March 31, 2025 Team Status: Active Member Role/Relationship Status Andre Barrno MD Primary care physician Active Team Status: Inactive Member Role/Relationship Status Andre Barron MD Primary care physician Active S tart: January 28, 2025 End: January 28, 2025 Sofy Barron MD Attending physician Active Star t: January 28, 2025 End: January 28, 2025 Sofy Barron MD Referring Provider Active Start : January 28, 2025 End: January 28, 2025 Team Status: Inactive Member Role/Relationship Status Andre Barron MD Primary care physician Active S tart: January 31, 2025 End: January 31, 2025 Sofy Barron MD Referring Provider Active Start : January 31, 2025 End: January 31, 2025 Dr. Cy Ramachandran DO Attending physician Active Start: January 31, 2025 End: January 31, 2025 Team Status: Inactive Member Role/Relationship Status Andre Barron MD Primary care physician Active S tart: January 31, 2025 End: January 31, 2025 Dr. Samson Diamond MD Attending physician Active Start: January 31, 2025 End: January 31, 2025 Team Status: Inactive Member Role/Relationship Status Andre Barron MD Primary care physician Active S tart: March 09, 2025 End: March 09, 2025 Dr. Cy Ramachandran DO Attending physician Active Start: March 09, 2025 End: March 09, 2025 Dr. Cy Ramachandran DO Referring Provider Active Start: March 09, 2025 End: March 09, 2025 Team Status: Inactive Member Role/Relationship Status Andre Barron MD Primary care physician Active S tart: March 17, 2025 End: March 17, 2025 Sofy Barron MD Attending physician Active Star t: March 17, 2025 End: March 17, 2025 Sofy Barron MD Referring Provider Active Start : March 17, 2025 End: March 17, 2025 Team Status: Inactive Member Role/Relationship Status Andre Barron MD Primary care physician Active S tart: March 31, 2025 End: March 31, 2025 Sofy Barron MD Attending physician Active Star t: March 31, 2025 End: March 31, 2025 Team Status: Inactive Member Role/Relationship Status Andre Barron MD Primary care physician Active S tart: April 20, 2025 End: April 20, 2025 Dr. Jony Little MD Attending physician Active Start: April 20, 2025 End: April 20, 2025 Dr. Jony Little MD Referring Provider Active Start: April 20, 2025 End: April 20, 2025 Team Status: Active Member Role/Relationship Status Andre Barron MD Primary care physician Active S tart: April 20, 2025 Dr. Montse Dailey MD Attending physician Active Start: April 20, 2025 Team Status: Inactive Member Role/Relationship Status Andre Barron MD Primary care physician Active S tart: March 09, 2025 End: March 09, 2025 Dr. Cy Ramachandran DO Attending physician Active Start: March 09, 2025 End: March 09, 2025 Dr. Cy Ramachandran DO Referring Provider Active Start: March 09, 2025 End: March 09, 2025 Team Status: Inactive Member Role/Relationship Status Andre Barron MD Primary care physician Active S tart: March 17, 2025 End: March 17, 2025 Sofy Barron MD Attending physician Active Star t: March 17, 2025 End: March 17, 2025 Sofy Barron MD Referring Provider Active Start : March 17, 2025 End: March 17, 2025 Team Status: Inactive Member Role/Relationship Status Andre Barron MD Primary care physician Active S tart: March 31, 2025 End: March 31, 2025 Sofy Barron MD Attending physician Active Star t: March 31, 2025 End: March 31, 2025 Team Status: Inactive Member Role/Relationship Status Andre Barron MD Primary care physician Active S tart: April 20, 2025 End: April 20, 2025 Dr. Jony Little MD Attending physician Active Start: April 20, 2025 End: April 20, 2025 Dr. Jony Little MD Referring Provider Active Start: April 20, 2025 End: April 20, 2025 Team Status: Active Member Role/Relationship Status Andre Barron MD Primary care physician Active S tart: April 20, 2025 Dr. Montse Dailey MD Attending physician Active Start: April 20, 2025 Team Status: Inactive Member Role/Relationship Status Andre Barron , MD Primary care physician Active S tart: June 03, 2025 End: June 03, 2025 Sofy Barron MD Referring Provider Active Start : June 03, 2025 End: June 03, 2025 Dr. Manolo Magallon , DO Attending physician Active Start: June 03, 2025 End: June 03, 2025 FOR RECORDS PERTAINING TO PATIENTS WHO [...] BE BASED ON THE PRIMARY CLINICAL RECORDS. [facility]. provides no warranty or guarantee of the accuracy or completeness of information in this document.
[2025-06-24 20:33] VITALS: BP 148/64; PULSE 64; RESP 16; O2SAT 97
[2025-06-24 20:44] VITALS: BP 148/64; PULSE 64; RESP 16; TEMP 36.4; O2SAT 97
== END 2025-06-24 20:53 | disposition home or self-care (01) ==
PROVIDERS: Emergency Provider Surgery; PCP Family Medicine; Visit Provider Surgery
DX: S52.022A Displaced fracture of olecranon process without intraarticular extension of left ulna, initial encounter for closed fracture (principal); J44.9 Chronic obstructive pulmonary disease, unspecified; S60.222A Contusion of left hand, initial encounter; E78.00 Pure hypercholesterolemia, unspecified; W01.0XXA Fall on same level from slipping, tripping and stumbling without subsequent striking against object, initial encounter; E03.9 Hypothyroidism, unspecified; N18.9 Chronic kidney disease, unspecified; Z90.49 Acquired absence of other specified parts of digestive tract; Z98.51 Tubal ligation status; F17.210 Nicotine dependence, cigarettes, uncomplicated
CPT/HCPCS: 29105; 29125; 73080; 73130; 99283